=== PATIENT | female | born 1970 | race African-American/Black ===

== ENCOUNTER 2017-04-08 13:59 | Inpatient (IN) | payer OTHER ==
[~2017-04-08] VITALS: Ht 167.6 cm; Wt 106.1 kg
[2017-04-08 15:50] VITALS: BP 107/72
--- NOTE | 2017-04-08 15:50 | NUR ---
RN NOTES PT WAS BROUGHT TO UNIT, ALERT AND ORIENTED X4 AND AMBULATORY. PT ON RA, RESPIRATIONS ARE EVEN AND UNLABORED. NO IV PRESENT. SAFETY MEASURES ARE IN PLACE, CALL LIGHT IS IN REACH. WILL CONTINUE TO MONITOR.
[2017-04-08] MEDS ORDERED: METF500T4 PO (15:56)
[2017-04-08] MEDS ORDERED: BENA20TA2 PO (15:56)
[2017-04-08] MEDS ORDERED: RISP0.253 PO (15:56)
[2017-04-08] MEDS ORDERED: BLOO-668 IN (15:56)
[2017-04-08] MEDS ORDERED: NORE0.35 PO (15:56)
[2017-04-08] MEDS ORDERED: HYDR25TA4 PO (15:56)
[2017-04-08 16:00] VITALS: BP 107/72
[2017-04-08] MEDS ORDERED: MAG HYDROX/AL HYDROX/SIMETH 30 ML UDC PO PRN (16:00)
[2017-04-08] MEDS ORDERED: MAGNESIUM HYDROXIDE 30 ML UDC PO PRN (16:00)
[2017-04-08] MEDS: METFORMIN 500 MG TABLET PO SCH (17:03)
--- NOTE | 2017-04-08 18:35 | NUR ---
RN NOTES PT IS IN ROOM, WATCHING TV COMFORTABLY. PT ON RA, NO SIGNS OF DISTRESS NOTED. ALL MEDS WERE GIVEN ORDERED AND PT NEEDS MET. SAFETY MEASURES ARE IN PLACE, CALL LIGHT IS IN REACH. WILL ENDORSE TO HAT AND CAP PARTS CUTTER HAND RN FOR CONTINUITY OF CARE.
--- NOTE | 2017-04-08 19:42 | NUR ---
MS/RN OPENING NOTES PT AWAKE, RESTING COMFORTABLY IN BED. A/OX4. ON ROOM AIR, BREATHING EVEN AND UNLABORED. DENIES SOB OR PAIN. NO IV ACCESS. CLINICAL TRIAL. BED IN LOW/LOCKED POSITION WITH CALL LIGHT IN REACH. SIDE RAILS UPX2. WILL CONTINUE TO MONITOR
[2017-04-08 20:00] VITALS: BP 105/68
[2017-04-08 20:14] VITALS: BP 105/68
[2017-04-08] MEDS: risperiDONE 1 MG TABLET PO SCH (22:29)
--- NOTE | 2017-04-09 06:43 | NUR ---
MS/RN CLOSING NOTES PT ASLEEP, EASILY AROUSABLE TO NAME. A/OX4, ON ROOM AIR, BREATHING EVEN AND UNLABORED. NO S/S OF APPARENT DISTRESS NOTED. DENIES SOB OR PAIN. NO IV ACCESS. MADE PT COMFORTABLE DURING SHIFT. ALL NEEDS MET. SLEPT FOR APPROX 7 HOURS. BED IN LOW/LOCKED POSITION WITH CALL LIGHT IN REACH. SIDE RAILS UPX2. WILL ENDORSE TO AM SHIFT PJ.
--- NOTE | 2017-04-09 07:15 | NUR ---
RN OPENING NOTES PATIENT AWAKE, RESTING COMFORTABLY IN BED. A/OX4. ON ROOM AIR, BREATHING EVEN AND UNLABORED. NO ACUTE DISTRESS. DENIES SOB OR PAIN. NO IV ACCESS. CLINICAL TRIAL. BED IN LOW/LOCKED POSITION WITH CALL LIGHT IN REACH. SIDE RAILS UPX2. WILL CONTINUE TO MONITOR ACCORDINGLY.
[2017-04-09 08:00] VITALS: BP 116/70
[2017-04-09] MEDS ORDERED: NORETHINDRONE 0.35 MG PO SCH (09:00)
[2017-04-09] MEDS: BLOOD SUGAR DIAGNOSTIC 1 EACH STRIP IN SCH (09:00)
[2017-04-09] MEDS: HYDROCHLOROTHIAZIDE 25 MG TABLET PO SCH (10:14)
[2017-04-09] MEDS: METFORMIN 500 MG TABLET PO SCH ×2 (10:15→18:28)
[2017-04-09] MEDS: BENAZEPRIL HCL 20 MG TABLET PO SCH (10:15)
[2017-04-09 16:00] VITALS: BP 115/68
--- NOTE | 2017-04-09 19:20 | NUR ---
RN CLOSING NOTES PATIENT IN BED RESTING. NO ACUTE DISTRESS, NO SOB NOTED. DENIES PAIN OR DISCOMFORT. ALL NEEDS ATTENDED AND PROVIDED. BED IN LOW POSITION, LOCKED, SIDERAILS UP X2. CALL LIGHT WITHIN REACH. ENDORSED TO NIGHT RN FOR PJ.
--- NOTE | 2017-04-09 19:27 | NUR ---
MS RN OPENING NOTES RECEIVED PATIENT RESTING IN BED, NO C/O PAIN, NO SOB, NO ACUTE DISTRESS NOTED. A & O X 4. ON CLINICAL TRIAL. BRP, CONTINENT OF B & BM. NO IV ACCESS. SAFETY MEASURES IN PLACE. BED IN LOW LOCKED POSITION. CALL LIGHT WITHIN REACH. WILL CONTINUE TO MONITOR.
[2017-04-09 20:00] VITALS: BP 123/70
[2017-04-09] MEDS: LORAZEPAM 1 MG TABLET FOR AGITATION PO PRN (20:53)
--- NOTE | 2017-04-09 20:55 | NUR ---
PRN ATIVAN GIVEN PATIENT ASKED FOR ATIVAN, PRN ATIVAN GIVEN ORDERED. SAFETY PRECAUTIONS IN PLACE. WILL MONITOR CLOSELY.
[2017-04-09] MEDS: risperiDONE 1 MG TABLET PO SCH (22:22)
--- NOTE | 2017-04-10 02:40 | NUR ---
MS RN NOTES PATIENT SLEEPING COMFORTABLY. VISUAL CHECKS DONE.
--- NOTE | 2017-04-10 06:26 | NUR ---
MS RN CLOSING NOTES PATIENT SLEPT WELL @ NIGHT WITHOUT ANY CHANGE OF CONDITION. A & O X 4. NO C/O PAIN. MEDS GIVEN ORDERED & TOLERATED WELL. ON CLINICAL TRAIL, NO BEHAVIOR EPISODES NOTED. NO IV ACCESS. BED IN LOW LOCKED POSITION. CALL LIGHT WITHIN REACH. WILL ENDORSE TO AM RN FOR CONTINUITY OF CARE.
--- NOTE | 2017-04-10 07:46 | NUR ---
MS/RN OPENING NOTE PATIENT RECEIVED IN BED IN STABLE CONDITION. A/O X 4. NO SIGNS OF ACUTE DISTRESS. NO COMPLAIN OF PAIN OR DISCOMFORT. ALL NEEDS ATTENDED TO. CALL LIGHT WITHIN REACH. WILL CONTINUE TO MONITOR TO ENSURE SAFETY.
[2017-04-10 08:00] VITALS: BP 143/93
[2017-04-10] MEDS: BLOOD SUGAR DIAGNOSTIC 1 EACH STRIP IN SCH (08:54)
[2017-04-10] MEDS: METFORMIN 500 MG TABLET PO SCH ×2 (08:54→17:01)
[2017-04-10] MEDS: HYDROCHLOROTHIAZIDE 25 MG TABLET PO SCH (08:54)
[2017-04-10] MEDS: BENAZEPRIL HCL 20 MG TABLET PO SCH (08:54)
[2017-04-10] MEDS: LORAZEPAM 1 MG TABLET FOR AGITATION PO PRN (13:12)
[2017-04-10 16:11] VITALS: BP 125/75
--- NOTE | 2017-04-10 18:28 | NUR ---
MS/RN CLOSING NOTE PATIENT IN BED IN STABLE CONDITION. A/O X 4. NO SIGNS OF ACUTE DISTRESS. NO COMPLAIN OF PAIN OR DISCOMFORT. ALL NEEDS ATTENDED TO. CALL LIGHT WITHIN REACH. WILL ENDORSE TO NEXT SHIFT FOR CONTINUITY OF CARE.
--- NOTE | 2017-04-10 19:30 | NUR ---
RN NOTES: RECEIVED LYING COMFORTABLY IN BED,ALERT AND COHERENTX4,ON ROOM AIR,NO SIGN OF AGITATION OR PARANOIA NOTED,CALM AND LOOKS HAPPY UPON ENDORSEMENT,FALL AND SAFETY PRECAUTION OBSERVE, BED LOW AND LOCKED, CALL LIGHT WITHIN EASY REACH.
[2017-04-10 20:00] VITALS: BP 110/76
--- NOTE | 2017-04-10 20:50 | NUR ---
RN NOTES: ASLEEP DURING THE ROUNDS, BED LOW AND LOCKED, CALL LIGHT WITHIN EASY REACH, KEPT ON CLOSE VISUAL CHECK.
--- NOTE | 2017-04-10 22:00 | NUR ---
RN NOTES: DURING ROUNDS,ON DEEP SLEEP, SNORING, NO RESPIRATORY DISCOMFORT NOTED.
--- NOTE | 2017-04-10 23:00 | NUR ---
RN NOTES: PATIENT ENDORSED TO CEDRIC(RN).STABLE AND IN DEEP SLEEP.
--- NOTE | 2017-04-10 23:05 | NUR ---
RN OPENING NOTES TRANSFER PT RECEIVE REPORT FROM RENETTA COWART PT IN BED, A/OX 4, NO S/S OF DISTRESS NOTED. STABLE CONDITION. BREATHING EVEN AND UNLABORED, SAFETY MEASURES IN PLACE, BED LOCKED AND IN LOWEST POSITION, CALL LIGHT IN REACH. WILL CONTINUE TO MONITOR.
--- NOTE | 2017-04-11 06:32 | NUR ---
MS RN CLOSING NOTES RESTING IN BED ASLEEP AND EASILY AWAKEN. HOB ELEVATED FOR BETTER LUNG EXPANSION AND GOOD CIRCULATION. IN STABLE CONDITION NO S/S OF ACUTE DISTRESS, NO EPISODES OF AK[place]IA AND TREMORS, NO EPS OR PSYCHIATRIC INSTABILITY TOLERATING ROOM AIR 02 SAT 99% RESPIRATIONS EVEN AND UNLABORED. AFEBRILE, NURSING CARE RENDERED, NEEDS ATTENDED AND ANTICIPATED, KEPT CLEAN AND DRY AND COMFORTABLE. FREQUENT VISUAL CHECK DONE FOR SAFETY EVERY 2 HOURS. SAFE HAZARD FREE ENVIRONMENT PROVIDED. CALL LIGHT WITHIN EASY TO REACH, ON LOW BED AT ALL TIMES TO ENSURE SAFETY, WILL ENDORSE TO THE NEXT SHIFT CONTINUE PLAN OF CARE.
[2017-04-11 08:00] VITALS: BP 121/70
[2017-04-11] MEDS: METFORMIN 500 MG TABLET PO SCH ×2 (08:04→16:12)
[2017-04-11] MEDS: BENAZEPRIL HCL 20 MG TABLET PO SCH (08:04)
[2017-04-11] MEDS: BLOOD SUGAR DIAGNOSTIC 1 EACH STRIP IN SCH (08:05)
[2017-04-11] MEDS: HYDROCHLOROTHIAZIDE 25 MG TABLET PO SCH (08:05)
[2017-04-11 16:00] VITALS: BP 122/77
--- NOTE | 2017-04-11 19:30 | NUR ---
RN NOTES RECEIVED PATIENT AMBULATING. AO X 3, ABLE TO MAKE NEEDS KNOWN. NO ACUTE DISTRESS NOTED. DENIES ANY PAIN AT THIS TIME. NO IV SITE. SAFETY REMINDERS GIVEN. WILL CONTINUE TO MONITOR.
[2017-04-11 20:00] VITALS: BP 134/72
[2017-04-11] MEDS: risperiDONE 1 MG TABLET PO SCH (22:11)
--- NOTE | 2017-04-12 06:29 | NUR ---
RN NOTES PATIENT ASLEEP, EASILY AROUSABLE. RESPIRATIONS EVEN. NO SIGNS OF PAIN NOTED. DUE MED GIVEN WITH NO ASE NOTED. NEEDS ATTENDED. SAFETY PRECAUTIONS AND COMFORT MEASURES GIVEN. WILL GIVE REPORT TO DAY SHIFT FOR CONTINUITY OF CARE.
--- NOTE | 2017-04-12 07:30 | NUR ---
RN NOTES PATIENT ALERT AND ORIENTED X3, ABLE TO VERBALIZE NEEDS, NO DISTRESS NOTED, ALL NEEDS ATTENDED AND MET, SAFETY MEASURES IN PLACED, CALL LIGHT WITHIN REACH, WILL CONTINUE TO MONITOR.
[2017-04-12 08:00] VITALS: BP 119/80
[2017-04-12] MEDS: BLOOD SUGAR DIAGNOSTIC 1 EACH STRIP IN SCH (08:21)
[2017-04-12] MEDS: BENAZEPRIL HCL 20 MG TABLET PO SCH (08:21)
[2017-04-12] MEDS: METFORMIN 500 MG TABLET PO SCH ×2 (08:21→16:59)
[2017-04-12] MEDS: HYDROCHLOROTHIAZIDE 25 MG TABLET PO SCH (08:21)
--- NOTE | 2017-04-12 10:31 | NUR ---
RN NOTES PATIENT REPORTED A BOIL IN BETWEEN HER VAGINAL AREA AND RECTAL AREA AND ALSO A BUMP ON HER RIGHT GROIN. PATIENT REFUSED TO SHOW TO NURSE AT THIS TIME, INFORMED DR. CHURCHILL AND PER MD HE WILL CALL BACK FOR ORDERS.
--- NOTE | 2017-04-12 14:04 | NUR ---
RN NOTES PATIENT SEEN BY DR. CHURCHILL, RECEIVED NO NEW ORDER AT THIS TIME, PER MD CONTINUE TO MONITOR AT THIS TIME.
[2017-04-12 16:00] VITALS: BP 123/76
[2017-04-12] MEDS: LORAZEPAM 1 MG TABLET FOR AGITATION PO PRN (18:52)
--- NOTE | 2017-04-12 19:30 | NUR ---
RN OPEN NOTES RECEIVED PATIENT AMBULATING IN HALLWAY. A/O X3. NO SIGNS OF DISTRESS OR DISCOMFORT. BREATHING EVEN AND UNLABORED. NO IV ACCESS. BED IN LOW LOCKED POSITION WITH CALL LIGHT WITHIN REACH. WILL CONTINUE TO MONITOR.
--- NOTE | 2017-04-12 19:37 | NUR ---
RN NOTES PATIENT JUST RECEIVED ATIVAN FOR ANXIETY, NO DISTRESS NOTED, NO BEHAVIOR DISTURBANCE. PER PATIENT SHE JUST FELT ANXIOUS. ALL NEEDS ATTENDED AND MET, CALL LIGHT WITHIN REACH, WILL ENDORSE TO BUSINESS CHANGE MANAGER FOR PJ.
[2017-04-12 20:00] VITALS: BP 112/78
[2017-04-12] MEDS: risperiDONE 1 MG TABLET PO SCH (22:28)
--- NOTE | 2017-04-13 07:30 | NUR ---
RN OPENING NOTES RECEIVED PATIENT IN BED RESTING, RESPONSIVE, A/OX4. ABLE TO COMMUNICATE NEEDS. NO ACUTE DISTRESS, NO SOB NOTED. DENIES PAIN OR DISCOMFORT AT THE MOMENT. NO IV ACCESS. CLINICAL TRIAL. KEPT PATIENT SAFE AND COMFORTABLE. BED IN LOCKED, LOW POSITION, SIDERAILS UPX2, CALL LIGHT IN REACH. WILL CONTINUE TO MONITOR ACCORDINGLY.
[2017-04-13 08:00] VITALS: BP 129/49
--- NOTE | 2017-04-13 08:05 | NUR ---
RN CLOSING NOTES PATIENT RESTING IN BED. A/O X3. NO SIGNS OF DISTRESS OR DISCOMFORT. BREATHING EVEN AND UNLABORED. NO IV ACCESS. ALL NEEDS MET. NO SIGNIFICANT CHANGES THROUGH THE NIGHT. PATIENT SLEPT APPROX. 8 HOURS. NO BEHAVIORAL ISSUES NOTED THROUGH THE NIGHT. BED IN LOW LOCKED POSITION WITH CALL LIGHT WITHIN REACH. ENDORSED TO AM SHIFT FOR PJ.
[2017-04-13] MEDS: BLOOD SUGAR DIAGNOSTIC 1 EACH STRIP IN SCH (08:23)
[2017-04-13] MEDS: METFORMIN 500 MG TABLET PO SCH ×2 (08:24→17:20)
[2017-04-13] MEDS: BENAZEPRIL HCL 20 MG TABLET PO SCH (08:25)
[2017-04-13] MEDS: HYDROCHLOROTHIAZIDE 25 MG TABLET PO SCH (08:26)
[2017-04-13 16:00] VITALS: BP 118/67
[2017-04-13] MEDS: LORAZEPAM 1 MG TABLET FOR AGITATION PO PRN (18:50)
[2017-04-13 20:00] VITALS: BP 127/79
--- NOTE | 2017-04-13 20:00 | NUR ---
MS2 RN NOTES RECEIVED FROM 3RD FLOOR AMBULATORY,COMPLIANT WITH MEDS,FOLLOW INSTRUCTIONS.WILL CONTINUE TO MONITOR BEHAVIOR.
[2017-04-13 22:00] VITALS: BP 127/79
[2017-04-13] MEDS ORDERED: risperiDONE 0.25 MG TABLET PO SCH (22:00)
--- NOTE | 2017-04-14 06:25 | NUR ---
MS RN NOTES SLEPT 7 HOURS AT NIGHT,MED COMPLIANT,FOLLOW INSTRUCTIONS.WILL ENDORSE TO DAY NURSE FOR PJ.
[2017-04-14] MEDS: BLOOD SUGAR DIAGNOSTIC 1 EACH STRIP IN SCH (06:59)
--- NOTE | 2017-04-14 07:30 | NUR ---
MS RN AM NOTES PT ASLEEP, AROUSES TO NAME AND TOUCH, AAO X 4, ON ROOM AIR, NOT IN ANY DISTRESS. DENIES ANY PAIN AT THIS TIME. NO IV ACCESS. AMBULATORY, NO SKIN ISSUES. CALL LIGHT WITHIN REACH. BED LOW LOCKED. SR UP X 2, INSTRUCTED TO CALL FOR ASSISTANCE. SAFETY MEASURES IN PLACE. WILL CONTINUE TO MONITOR.
[2017-04-14 08:00] VITALS: BP 118/72
[2017-04-14 08:18] VITALS: BP 118/72
[2017-04-14] MEDS: NORETHINDRONE 0.35 MG PO SCH (08:49)
[2017-04-14] MEDS: HYDROCHLOROTHIAZIDE 25 MG TABLET PO SCH (08:50)
[2017-04-14] MEDS: METFORMIN 500 MG TABLET PO SCH ×2 (08:50→16:25)
[2017-04-14] MEDS: BENAZEPRIL HCL 20 MG TABLET PO SCH (08:50)
--- NOTE | 2017-04-14 09:30 | NUR ---
MS RN NOTES ADMINISTERED DUE MEDS.
[2017-04-14 16:00] VITALS: BP 120/79
[2017-04-14 18:00] VITALS: BP 120/79
--- NOTE | 2017-04-14 18:39 | NUR ---
MS RN NOTES PT RESTING IN BED, AAO X 4, ON ROOM AIR, NOT IN ANY DISTRESS. DENIES ANY PAIN AT THIS TIME. NO IV ACCESS. AMBULATORY, NO SKIN ISSUES. CALL LIGHT WITHIN REACH. BED LOW LOCKED. SR UP X 2, INSTRUCTED TO CALL FOR ASSISTANCE. VSS. SAFETY MEASURES IN PLACE. ALL NEEDS MET. WILL ENDORSE TO NEXT SHIFT FOR PJ. DR. CHURCHILL AT BEDSIDE EARLIER. NO NEW ORDERS.
--- NOTE | 2017-04-14 19:30 | NUR ---
RN NOTE; RECEIVED PT IN BED AWAKE AND ALERT. BREATHING EVENLY. NO SOB. NAD. NO BEHAVIORAL OR PSYCH ISSUES NOTED AT THIS TIME. REMINDER GIVEN RE NPO STATUS AND TO HOLD ATIVAN POST 2100 TONIGHT W/ UNDERSTANDING. NEEDS ATTENDED. CALL LIGHT WITHIN REACH. WILL CONT TO MONITOR,
[2017-04-14 20:00] VITALS: BP 124/97
[2017-04-14] MEDS: ZOLPIDEM TARTRATE 10 MG TABLET PO PRN (20:48)
--- NOTE | 2017-04-14 20:49 | NUR ---
KRIS GIVEN PER PT'S REQUEST FOR C/O INSOMNIA. WILL CONT TO MONITOR.
--- NOTE | 2017-04-15 06:38 | NUR ---
PT IN BED SLEEPING, AROUSES EASILY. BREATHING EVENLY. NO SOB.NO ACUTE CHANGES OVER THE NIGHT, NO BEHAVIORAL OR PSYCH PROBLEM. NPO FOR TODAY'S LAB AND START OF STUDY MEDICATION. NEEDS ATTENDED. CALL LIGHT WITHIN REACH. WILL CONT TO MONITOR AND WILL ENDORSE TO AM SHIFT FOR PJ.
[2017-04-15 08:00] VITALS: BP 121/81
[2017-04-15] MEDS: NORETHINDRONE 0.35 MG PO SCH (08:39)
[2017-04-15] MEDS: BLOOD SUGAR DIAGNOSTIC 1 EACH STRIP IN SCH (08:44)
[2017-04-15] MEDS: HYDROCHLOROTHIAZIDE 25 MG TABLET PO SCH (08:45)
[2017-04-15] MEDS: BENAZEPRIL HCL 20 MG TABLET PO SCH (08:45)
[2017-04-15] MEDS: METFORMIN 500 MG TABLET PO SCH ×2 (08:45→16:46)
--- NOTE | 2017-04-15 08:45 | NUR ---
MS RN NOTES PATIENT PICKED UP FOR BLOOD DRAW TO DR.S CHURCHILL'S OFFICE. ACCUCHECK DONE. BS 138 MG/DL
[2017-04-15] MEDS: INVEST MED MK-8189 MISC 1 TAB EA PO SCH (09:00)
[2017-04-15] MEDS: INVEST MED MK-8189 MISC 1 CAP EA PO SCH (09:00)
--- NOTE | 2017-04-15 11:00 | NUR ---
MS RN NOTES PATIENT BACK FROM MD'S CLINIC. FIRST DOSE OF INVESTIGATIONAL MEDICATIONS ADMINISTERED AT THEIR CLINIC.
[2017-04-15 16:00] VITALS: BP 129/71
[2017-04-15 18:00] VITALS: BP 129/71
[2017-04-15] MEDS: LORAZEPAM 1 MG TABLET FOR AGITATION PO PRN (18:51)
--- NOTE | 2017-04-15 19:30 | NUR ---
RN NOTE; RECEIVED PT IN BED AWAKE AND ALERT. BREATHING EVENLY. NO SOB. NAD. NO BEHAVIORAL OR PSYCH ISSUES NOTED AT THIS TIME. NO SI/HI. NEEDS ATTENDED. CALL LIGHT WITHIN REACH. WILL CONT TO MONITOR,
[2017-04-15 20:00] VITALS: BP 123/70
[2017-04-15 20:22] VITALS: BP 123/70
--- NOTE | 2017-04-16 07:30 | NUR ---
MS/RN Patient received Patient received from machine splitter. No needs at this time, denies pain or discomfort. Call light within reach, will continue to monitor and ensure safety.
--- NOTE | 2017-04-16 07:34 | NUR ---
RN NOTE; PT UP IN THE HALLWAY. W/ NO ACUTE EVENT DURING THE NIGHT. NO SI/HI. NO A/R TO STUDY MEDICATION NOTED. REPORT GIVEN TO SOFYA ROCK FOR PJ.
[2017-04-16 08:00] VITALS: BP 126/81
--- NOTE | 2017-04-16 08:05 | NUR ---
MS/RN Knee pain Patient complaining that knee was banged when getting out of bed. No swelling or redness noted. Small cut noted, cleaned with saline, band aid placed. Refused picture.
[2017-04-16] MEDS: METFORMIN 500 MG TABLET PO SCH ×2 (08:24→17:38)
[2017-04-16] MEDS: INVEST MED MK-8189 MISC 1 TAB EA PO SCH (08:24)
[2017-04-16] MEDS: NORETHINDRONE 0.35 MG PO SCH (08:24)
[2017-04-16] MEDS: INVEST MED MK-8189 MISC 1 CAP EA PO SCH (08:24)
[2017-04-16] MEDS: BLOOD SUGAR DIAGNOSTIC 1 EACH STRIP IN SCH (08:25)
[2017-04-16] MEDS: HYDROCHLOROTHIAZIDE 25 MG TABLET PO SCH (08:25)
--- NOTE | 2017-04-16 08:27 | NUR ---
MS/RN Medications Investigational medication administered as ordered, patient observed swallowing meds.
[2017-04-16] MEDS: BENAZEPRIL HCL 20 MG TABLET PO SCH (08:28)
--- NOTE | 2017-04-16 13:03 | NUR ---
MS/RN Behavior Has remained calm and cooperative with plan of care this morning .Has not required any prn medications for anxiety.
[2017-04-16 16:00] VITALS: BP 120/66
--- NOTE | 2017-04-16 18:19 | NUR ---
MS/RN End note Seen by Dr Aguilar - no new orders. Calm and cooperative throughout shift, no behavior concerns. Will endorse to maintenance supervisor 2nd shift.
--- NOTE | 2017-04-16 19:30 | NUR ---
MS2 RN INITIAL NOTE RECEIVED REPORT FROM DAY NURSE RN. PT HERE WITH A CLINICAL TRIAL. PT IS IN BED AWAKE. REQUESTING PRN ATIVAN FOR ANXIETY. PT IS A/A/O X4. LUNG SOUNDS CLEAR. BOWEL SOUNDS PRESENT. PULSES PRESENT. PT IS CONTINENT TO BOTH URINE AND STOOL. AMBULATORY WITH BRP. BED IN LOW LOCKED POSITION. CALL LIGHT WITHIN REACH. WILL CONTINUE TO MONITOR.
[2017-04-16] MEDS: LORAZEPAM 1 MG TABLET FOR AGITATION PO PRN (19:45)
[2017-04-16 20:00] VITALS: BP 125/76
--- NOTE | 2017-04-17 07:30 | NUR ---
MS/RN Patient received Patient received from sql server bi developer. No needs at this time, will continue to monitor.
--- NOTE | 2017-04-17 07:48 | NUR ---
MS/RN Laundry Per MD and patient's request, LONG TERM CARE PHARMACIST taking care of patient's laundry at this time.
[2017-04-17 08:00] VITALS: BP 126/72
[2017-04-17] MEDS: METFORMIN 500 MG TABLET PO SCH ×2 (09:00→17:15)
[2017-04-17] MEDS: NORETHINDRONE 0.35 MG PO SCH (09:00)
[2017-04-17] MEDS: HYDROCHLOROTHIAZIDE 25 MG TABLET PO SCH (09:00)
[2017-04-17] MEDS: BENAZEPRIL HCL 20 MG TABLET PO SCH (09:00)
[2017-04-17] MEDS: INVEST MED MK-8189 MISC 1 CAP EA PO SCH (09:00)
[2017-04-17] MEDS: INVEST MED MK-8189 MISC 1 TAB EA PO SCH (09:00)
--- NOTE | 2017-04-17 09:00 | NUR ---
MS/RN Medications Investigational medications (one capsule/one pill) administered as ordered, patient observed swallowing pills.
[2017-04-17] MEDS: BLOOD SUGAR DIAGNOSTIC 1 EACH STRIP IN SCH (09:01)
--- NOTE | 2017-04-17 09:05 | NUR ---
MS/RN Blood sugar Blood sugar at 0900 132, metformin administered as ordered.
--- NOTE | 2017-04-17 13:00 | NUR ---
MS/RN Behavior Calm and cooperative with plan of care.
[2017-04-17 16:00] VITALS: BP 119/62
--- NOTE | 2017-04-17 17:54 | NUR ---
MS/RN End note Patient remains in stable condition. No behavior concerns or outbursts. Has remained calm and cooperative. No prn medications given for anxiety. All needs met, will endorse to night shift supervisor.
[2017-04-17] MEDS: LORAZEPAM 1 MG TABLET FOR AGITATION PO PRN (19:33)
[2017-04-17 20:00] VITALS: BP 131/80
--- NOTE | 2017-04-17 20:00 | NUR ---
RN NOTES PATIENT IN BED, ALERT AND ORIENTED X4, CALM, NO SOB, NO DISTRESS, TOLERATING ROOM AIR, NO HALLUCINATIONS AT THIS TIME, REQUESTING ATIVAN, WILL GIVE ATIVAN. CALL LIGHT WITHIN REACH.
--- NOTE | 2017-04-18 07:26 | NUR ---
RN NOTES REPORT RECEIVED FROM EMPLOYMENT SECURITY OFFICER. PATIENT IS SLEEPING. NO SOB OR DISTRESS NOTED. PATIENT DOES NOT APPEAR TO BE IN PAIN, NO FACIAL GRIMACE NOTED. BED IN A LOW POSITION, CALL LIGHT WITHIN PATIENT REACH. WILL CONTINUE TO MONITOR.
[2017-04-18] MEDS: METFORMIN 500 MG TABLET PO SCH ×2 (08:02→16:46)
[2017-04-18] MEDS: NORETHINDRONE 0.35 MG PO SCH (08:02)
[2017-04-18] MEDS: HYDROCHLOROTHIAZIDE 25 MG TABLET PO SCH (08:02)
[2017-04-18] MEDS: BENAZEPRIL HCL 20 MG TABLET PO SCH (08:02)
[2017-04-18] MEDS: BLOOD SUGAR DIAGNOSTIC 1 EACH STRIP IN SCH (08:03)
[2017-04-18 08:14] VITALS: BP 115/73
[2017-04-18] MEDS: INVEST MED MK-8189 MISC 2 TAB EA PO SCH (08:25)
[2017-04-18] MEDS: INVEST MED MK-8189 MISC 2 CAP EA PO SCH (08:25)
[2017-04-18 15:59] VITALS: BP 117/62
[2017-04-18] MEDS: LORAZEPAM 1 MG TABLET FOR AGITATION PO PRN (19:02)
--- NOTE | 2017-04-18 19:15 | NUR ---
RN CLOSING NOTES NO SIGNIFICANT CHANGES IN PATIENT CONDITION. NO SOB OR DISTRESS NOTED AT THIS TIME. PATIENT DENIES PAIN. BED IN A LOW POSITION, CALL LIGHT WITHIN PATIENT REACH. WILL ENDORSE FOR PJ.
[2017-04-18 20:00] VITALS: BP 103/71
--- NOTE | 2017-04-18 20:00 | NUR ---
RN NOTES PATIENT IN BED, WATCHING TV, CALM AT THIS TIME, NO SOB, NO DISTRESS, DENIES HALLUCINATIONS, NO COMPLAIN OF PAIN. PATIENT DID DOES NOT NEED ANYTHING AT THIS TIME. KEPT SAFE AND COMFORTABLE, CALL LIGHT WITHIN REACH.
[2017-04-18 20:10] VITALS: BP_SYST 103; BP_SYST 90; BP_DIAS 42; BP_DIAS 71
--- NOTE | 2017-04-19 06:30 | NUR ---
RN NOTES PATIENT IN ROOM, ALERT AND ORIENTED X4, CALM, NO SOB, NO BEHAVIOR DISTURBANCE DURING SHIFT, SLEPT FOR 8.5 HOURS, KEPT SAFE AND COMFORTABLE, CALL LIGHT WITHIN REACH.
--- NOTE | 2017-04-19 07:30 | NUR ---
MS/RN Patient received Patient received from hourly shift manager. No needs at this time, call light within reach, will continue to monitor.
[2017-04-19 08:00] VITALS: BP 135/70
--- NOTE | 2017-04-19 08:00 | NUR ---
MS/RN Blood sugar Blood sugar 165, metformin to be administered.
[2017-04-19] MEDS: INVEST MED MK-8189 MISC 2 TAB EA PO SCH (08:11)
[2017-04-19] MEDS: INVEST MED MK-8189 MISC 2 CAP EA PO SCH (08:11)
[2017-04-19] MEDS: BLOOD SUGAR DIAGNOSTIC 1 EACH STRIP IN SCH (08:12)
[2017-04-19] MEDS: METFORMIN 500 MG TABLET PO SCH ×2 (08:12→16:49)
[2017-04-19] MEDS: HYDROCHLOROTHIAZIDE 25 MG TABLET PO SCH (08:12)
[2017-04-19] MEDS: NORETHINDRONE 0.35 MG PO SCH (08:12)
[2017-04-19] MEDS: BENAZEPRIL HCL 20 MG TABLET PO SCH (08:12)
--- NOTE | 2017-04-19 08:15 | NUR ---
MS/RN Medications Morning medications administered as ordered. Investigational medications administered at this time per patient request as wishing to take with breakfast.
--- NOTE | 2017-04-19 08:31 | NUR ---
MS/RN Pain [place] one tablet administered for abdominal pain 11/07. Will monitor effectiveness.
[2017-04-19] MEDS: LORAZEPAM 1 MG TABLET FOR AGITATION PO PRN ×2 (09:07→20:48)
--- NOTE | 2017-04-19 09:08 | NUR ---
MS/RN Ativan Ativan 1mg given for anxiety per patient request, will monitor effectiveness
--- NOTE | 2017-04-19 13:12 | NUR ---
MS/RN Behavior Has remained calm and cooperative this morning , no concerns or outbursts.
[2017-04-19 16:00] VITALS: BP 98/55
--- NOTE | 2017-04-19 18:27 | NUR ---
MS/RN End note Seen by Dr Aguilar - no new orders, to continue with current plan of care. No further prn medications required throughout the shift. Will endorse to supervisor wet end.
--- NOTE | 2017-04-19 19:15 | NUR ---
MS/RN OPENING NOTES PT AWAKE, A/OX4. RESTING COMFORTABLY IN BED WATCHING TV. ON ROOM AIR, BREATHING EVEN AND UNLABORED. NO IV ACCESS PER PROTOCOL. BED IN LOW/LOCKED POSITION WITH CALL LIGHT IN REACH. SIDE RAILS UPX2. WILL CONTINUE TO MONITOR
[2017-04-19 20:00] VITALS: BP 121/63
--- NOTE | 2017-04-19 20:35 | NUR ---
MS/RN NOTES SPOKE TO DR. CHURCHILL AND NOTIFIED HIM OF PT HAVING DIARRHEA AND REQUESTING MEDICATION. DR ORDERED IMODIUM 2MG PO Q4H PRN. ORDERS NOTED AND CARRIED OUT.
--- NOTE | 2017-04-19 20:50 | NUR ---
MS/RN NOTES PT ANXIOUS AND GIVEN ATIVAN FOR PT REQUEST
[2017-04-19] MEDS: LOPERAMIDE HCL (2 MG CAP) 2 MG CAPSULE PO PRN (21:35)
[2017-04-20] MEDS: BLOOD SUGAR DIAGNOSTIC 1 EACH STRIP IN SCH (06:56)
--- NOTE | 2017-04-20 07:30 | NUR ---
MS/RN CLOSING NOTES PT AWAKE, RESTING IN BED. A/OX4. ON ROOM AIR, BREATHING EVEN AND UNLABORED. DENIES PAIN. IS CALM AND COOPERATIVE AT THIS TIME. SLEPT FOR APPROX 8 HOURS. NO IV ACCESS PER PROTOCOL. DENIES S/I AND H/I. BED IN LOW/LOCKED POSITION WITH CALL LIGHT IN REACH. SIDE RAILS UPX2. WILL CONTINUE TO MONITOR.
[2017-04-20 08:00] VITALS: BP 129/70
[2017-04-20] MEDS: METFORMIN 500 MG TABLET PO SCH ×2 (08:56→16:59)
[2017-04-20] MEDS: BENAZEPRIL HCL 20 MG TABLET PO SCH (08:58)
[2017-04-20] MEDS: HYDROCHLOROTHIAZIDE 25 MG TABLET PO SCH (08:58)
[2017-04-20] MEDS: INVEST MED MK-8189 MISC 2 CAP EA PO SCH (08:59)
[2017-04-20] MEDS: INVEST MED MK-8189 MISC 2 TAB EA PO SCH (08:59)
[2017-04-20] MEDS: NORETHINDRONE 0.35 MG PO SCH (09:00)
--- NOTE | 2017-04-20 09:00 | NUR ---
MS RN OPENING NOTES PT A&0X3. PT HAS SHOWERED, ATTENDED TO PERSONAL HYGIENE AND IS ORGANIZING PERSONAL POSSESSIONS IN ROOM. PT TOLERATING ROOM AIR WITH NO SOB. PT REPORTING 8/10 EAR PAIN WHICH SHE REPORTS HAVING HAD FOR 1WEEK. PT IS WITHOUT IV ACCESS. PT BRIEFED ON TODAY'S POC AND IS WITHOUT CONCERNS OR COMPLAINTS AT THIS TIME. WILL CONTINUE TO MONITOR.
[2017-04-20] MEDS: IBUPROFEN 200 MG TABLET PO PRN (09:01)
--- NOTE | 2017-04-20 12:49 | NUR ---
MS/RN Behavior No behavior concerns or outbursts throughout the morning. Cooperative with plan of care.
[2017-04-20 16:00] VITALS: BP 114/63
[2017-04-20] MEDS: LORAZEPAM 1 MG TABLET FOR AGITATION PO PRN (16:59)
--- NOTE | 2017-04-20 17:33 | NUR ---
MS RN CLOSING NOTES PT A&0X2, RESTING WITH BED IN LOWEST LOCKED POSITION, HANDRAILSX2 AND CALL HASSAN WITHIN REACH. PT TOLERATING ROOM AIR WITH NO SOB. PT MAKING FREQUENT SHRIEKS AND WIMPERS BUT DENIES PAIN OR DISCOMFORT. PT WITH Ar Tanner#18 MIDLINE INTACT AND OPERATIONAL. ALL DAY NURSE DUTIES ATTENDED TO AND THE PT IS WITHOUT CONCERN OR COMPLAINT AT THIS TIME. WILL ENDORSE TO NIGHT NURSE. Addendum: 04/20/17 at 1750 by YRN NICHOLAS RN WRONG PT, RN NOTE DOES NOT APPLY TO THIS PT.
--- NOTE | 2017-04-20 17:51 | NUR ---
MS RN CORRECT CLOSING NOTES. PT A&0X3. BEHAVIORS APPROPRIATE AND COOPERATIVE WITH ALL NURSE ACTIVITIES. WATCHING MOVIE, BED IN LOWEST LOCKED POSITION, HANDRAILSX2 AND CALL HASSAN WITHIN REACH. PT TOLERATING ROOM AIR WITH NO SOB. ALL DAY NURSE DUTIES ATTENDED TO. THE PT IS WITHOUT CONCERN OR COMPLAINT AT THIS TIME. WILL ENDORSE TO NIGHT NURSE.
--- NOTE | 2017-04-20 19:49 | NUR ---
SEEN AND EXAMINED BY DR. CHURCHILL W/ A NEW ORDER FOR EAR DROP, WHICH WAS CORRECTED PER MD'S VERBAL ORDER FROM R TO L EAR. PT IS SLEEPING AT THIS TIME. W/ NO S/S OF PAIN OR DISCOMFORT. NO BEHAVIORAL ISSUES. CALL LIGHT WITHIN REACH. WILL CONT TO MONITOR ,
[2017-04-20 20:00] VITALS: BP 112/60
[2017-04-20] MEDS: ZOLPIDEM TARTRATE 10 MG TABLET PO PRN (21:29)
--- NOTE | 2017-04-20 21:30 | NUR ---
rigo given per pt's request for c/o insomnia. will cont to monitor,
--- NOTE | 2017-04-21 07:07 | NUR ---
PT RESTED WELL DURING THE NIGHT W/ NO PSYCH OR BEHAVIORAL ISSUES. NO C/O PAIN OR DISCOMFORT. REPORTED NO EPISODE OF DIARRHEA. NPO FOR BLOOD DRAW. NEEDS ATTENDED. CALL LIGHT WITHIN REACH. WILL CONT TO MONITOR,
--- NOTE | 2017-04-21 07:29 | NUR ---
PT NOT NPO
--- NOTE | 2017-04-21 07:55 | NUR ---
MS RN OPENING NOTE PATIENT IS ASLEEP AT THIS TIME, ABLE TO WAKE UP TO VERBAL COMMANDS. NO PAIN AT THIS TIME. NO SOB OR DISTRESS NOTED. CLINICAL TRIAL. NO IV ACCESS. WILL CONTINUE TO MONITOR THROUGHOUT SHIFT
[2017-04-21 08:00] VITALS: BP 100/61
[2017-04-21] MEDS: METFORMIN 500 MG TABLET PO SCH ×2 (08:30→16:07)
[2017-04-21] MEDS: NEOM/POLY B SULF/HC OTIC SUSP 10 ML BOTTLE LEFT EAR SCH ×3 (08:30→16:07)
[2017-04-21] MEDS: NORETHINDRONE 0.35 MG PO SCH (08:30)
[2017-04-21] MEDS: INVEST MED MK-8189 MISC 3 CAP EA PO SCH (08:30)
[2017-04-21] MEDS: BLOOD SUGAR DIAGNOSTIC 1 EACH STRIP IN SCH (08:30)
[2017-04-21] MEDS: INVEST MED MK-8189 MISC 3 TAB EA PO SCH (08:30)
[2017-04-21] MEDS ORDERED: NEOM/POLY B SULF/HC OTIC SUSP 10 ML BOTTLE RIGHT EAR SCH (09:00)
[2017-04-21] MEDS: HYDROCHLOROTHIAZIDE 25 MG TABLET PO SCH (09:00)
[2017-04-21 09:27] VITALS: BP 100/61
[2017-04-21] MEDS: BENAZEPRIL HCL 20 MG TABLET PO SCH (09:47)
[2017-04-21] MEDS: LORAZEPAM 1 MG TABLET FOR AGITATION PO PRN (14:57)
--- NOTE | 2017-04-21 15:00 | NUR ---
MS RN NOTE PATIENT REQUESTING ATIVAN FOR AGITATION. MEDICATION GIVEN
[2017-04-21] MEDS: LOPERAMIDE HCL (2 MG CAP) 2 MG CAPSULE PO PRN (15:34)
[2017-04-21 16:00] VITALS: BP_SYST 122; BP_SYST 130; BP_DIAS 60; BP_DIAS 66
--- NOTE | 2017-04-21 18:45 | NUR ---
MS RN CLOSING NOTE PATIENT IS ALERT AND ORIENTED x4. NO PAIN AT THIS TIME NO SOB OR DISTRESS NOTED. CALL LIGHT WITHIN REACH AT ALL TIMES. SAFETY MEASURES IMPLEMENTED. ABLE TO COMMUNICATE NEEDS. NO IV NEEDS. WILL ENDORSE TO SPRINKLER TENDER NURSE
[2017-04-21 20:00] VITALS: BP 114/61
[2017-04-21] MEDS: ZOLPIDEM TARTRATE 10 MG TABLET PO PRN (21:23)
--- NOTE | 2017-04-22 06:34 | NUR ---
MS RN NOTES AWAKE & RESPONSIVE. NOT IN ANY DISTRESS. NO SOB NOTED. DENIES ANY PAIN OR DISCOMFORT AT THIS TIME. MONITORED ACCORDINGLY. SLEPT FOR 8 HRS. CALL LIGHT WITHIN REACH. BED IN LOWEST POSITION. SR UP X2 FOR SAFETY. WILL ENDORSE TO NEXT SHIFT.
--- NOTE | 2017-04-22 07:46 | NUR ---
MS RN OPENING NOTE PATIENT IS ALERT AND ORIENTED x4. NO PAIN AT THIS TIME. NO SOB OR DISTRESS NOTED. CALL LIGHT WITHIN REACH. SAFETY MEASURES IMPLEMENTED. NO IV ACCESS. CLINICAL TRIAL. WILL CONTINUE TO MONITOR THROUGHOUT SHIFT
[2017-04-22 08:00] VITALS: BP 103/62
[2017-04-22] MEDS: BENAZEPRIL HCL 20 MG TABLET PO SCH (08:16)
[2017-04-22] MEDS: METFORMIN 500 MG TABLET PO SCH ×2 (08:16→16:27)
[2017-04-22] MEDS: NEOM/POLY B SULF/HC OTIC SUSP 10 ML BOTTLE LEFT EAR SCH ×3 (08:16→16:27)
[2017-04-22] MEDS: INVEST MED MK-8189 MISC 3 CAP EA PO SCH (08:16)
[2017-04-22] MEDS: NORETHINDRONE 0.35 MG PO SCH (08:16)
[2017-04-22] MEDS: BLOOD SUGAR DIAGNOSTIC 1 EACH STRIP IN SCH (08:16)
[2017-04-22] MEDS: HYDROCHLOROTHIAZIDE 25 MG TABLET PO SCH (08:16)
[2017-04-22] MEDS: INVEST MED MK-8189 MISC 3 TAB EA PO SCH (08:16)
[2017-04-22] MEDS: LORAZEPAM 1 MG TABLET FOR AGITATION PO PRN ×2 (10:07→18:31)
--- NOTE | 2017-04-22 10:10 | NUR ---
MS RN NOTE PER PATIENT'S REQUEST TO HAVE ATIVAN 1MG FOR ANXIETY. WILL CONTINUE TO MONITOR FOR EFFECTIVENESS
[2017-04-22 16:00] VITALS: BP 108/66
--- NOTE | 2017-04-22 18:16 | NUR ---
MS RN CLOSING NOTE PATIENT IS ALERT AND ORIENTED x4. NO PAIN AT THIS TIME. NO SOB OR DISTRESS NOTED. CALL LIGHT WITHIN REACH. SAFETY MEASURES IMPLEMENTED. NO IV ACCESS. CLINICAL TRIAL. NO AGGRESSIVE BEHAVIOR. PATIENT COMMUNICATES NEEDS. ALL DUE MEDICATIONS GIVEN ORDERED BY MD. WILL ENDORSE TO PROFESSOR OF RELIGION FOR PJ
--- NOTE | 2017-04-22 18:31 | NUR ---
MS RN NOTE PER PATIENT'S REQUEST TO HAVE ATIVAN FOR AGITATION/ANXIETY. 1MG GIVEN. WILL CONTINUE TO MONITOR FOR EFFECTIVENESS
--- NOTE | 2017-04-22 19:32 | NUR ---
MS RN NOTES ON BED WATCHING TV PROGRAM,DENIES ANY DISCOMFORTS AT THE MOMENT,CALL LIGHT IN REACH,NEEDS ANTICIPATED.
[2017-04-22 20:00] VITALS: BP 106/83
[2017-04-22 20:11] VITALS: BP 109/83
--- NOTE | 2017-04-23 06:27 | NUR ---
MS RN NOTES SLEPT ABOUT 10 HOURS AT NIGHT WITH OUT PHARMACOLOGICAL INTERVENTION. BLOOD SUGAR CHECK 117,NO INSULIN COVERAGE.WILL CONTINUE TO MONITOR BEHAVIOR.
[2017-04-23 08:00] VITALS: BP 107/76
--- NOTE | 2017-04-23 08:50 | NUR ---
MS RN RECEIVED ON BED, AWAKE,ALERT, ORIENTED X4 NOT IN ANY FORM OF DISTRESS, RESPIRATIONS EVEN AND UNLABORED,NO SOB NOTED. LUNGS ARE CLEAR,ABDOMEN SOFT,POSITIVE BOWEL SOUNDS, DENIES PAIN A THIS TIME, A CLINICAL TRIAL PATIENT OF DR. APONTE, WILL MONITOR PATIENT.
[2017-04-23] MEDS: HYDROCHLOROTHIAZIDE 25 MG TABLET PO SCH (09:33)
[2017-04-23] MEDS: METFORMIN 500 MG TABLET PO SCH ×2 (09:33→16:48)
[2017-04-23] MEDS: INVEST MED MK-8189 MISC 3 TAB EA PO SCH (09:34)
[2017-04-23] MEDS: BENAZEPRIL HCL 20 MG TABLET PO SCH (09:34)
[2017-04-23] MEDS: INVEST MED MK-8189 MISC 3 CAP EA PO SCH (09:34)
[2017-04-23] MEDS: BLOOD SUGAR DIAGNOSTIC 1 EACH STRIP IN SCH (09:35)
[2017-04-23] MEDS: NEOM/POLY B SULF/HC OTIC SUSP 10 ML BOTTLE LEFT EAR SCH (09:35)
[2017-04-23] MEDS: NORETHINDRONE 0.35 MG PO SCH (09:35)
--- NOTE | 2017-04-23 09:35 | NUR ---
MS COWART BREAKFAST SERVED,DUE MEDS GIVEN,TOLERATED WELL.
--- NOTE | 2017-04-23 11:00 | NUR ---
MS RN CALLED DR. CHURCHILL FOR ATB ORDER,PATIENT COMPLAIN OF EAR ACHE AFTER GIVING EAR DROPS, ATB PO WILL BE STARTED TONIGHT.
--- NOTE | 2017-04-23 14:00 | NUR ---
MS COWART ASK ANNIE WHITLOCK IF HE CAN SWITCH ATB TO PO, BUT WAS TOLD TO REINSERT ANOTHER MIDLINE. Addendum: 04/23/17 at 1731 by LETICIA SERRANO RN DISREGARD ENTRY, WRONG PATIENT.
--- NOTE | 2017-04-23 15:00 | NUR ---
MS COWART TRIED TO INSERT HEPLOCK BUT NO LUCK AFTER TRYING 2 TIMES. Addendum: 04/23/17 at 1728 by LETICIA SERRANO RN DISREGARD ENTRY,WRONG PATIENT.
[2017-04-23 16:00] VITALS: BP 101/71
--- NOTE | 2017-04-23 16:00 | NUR ---
MS RN WENT DOWN TO SMOKE,ALL NEEDS ATTENDED.
[2017-04-23] MEDS: IBUPROFEN 200 MG TABLET PO PRN (16:53)
--- NOTE | 2017-04-23 18:00 | NUR ---
MS RN IN THE ROOM ,NO DISTRESS NOTED.
--- NOTE | 2017-04-23 19:50 | NUR ---
GPS QUINTEN RN NOTE: PATIENT RESTING IN BED, NO ACUTE DISTRESS NOTED. BREATHING EVEN AND UNLABORED, NO SOB NOTED. PATIENT CALM AND COOPERATIVE. NO S/S OF HYPER/HYPOGLYCEMIA NOTED. BED LOCKED AND IN LOWEST POSITION, CALL LIGHT IN REACH. WILL CONTINUE TO MONITOR. Addendum: 04/23/17 at 1950 by DARIANA CONTRERAS RN MS COWART NOTE:
[2017-04-23 20:00] VITALS: BP 96/61
[2017-04-23] MEDS: AMOX/CLAVULANATE 250 MG TABLET PO SCH (21:10)
[2017-04-23] MEDS: ZOLPIDEM TARTRATE 10 MG TABLET PO PRN (21:10)
--- NOTE | 2017-04-23 21:10 | NUR ---
MS RN NOTE: PATIENT REQUEST FOR SLEEPING MEDICATIONS, AMBIEN 10MG ORAL GIVEN PER MD ORDER. WILL CONTINUE TO MONITOR.
--- NOTE | 2017-04-24 06:08 | NUR ---
MS RN NOTE: PATIENT RESTING IN BED, NO ACUTE DISTRESS NOTED. BREATHING EVEN AND UNLABORED, NO SOB NOTED. PATIENT CALM AND COOPERATIVE. NO S/S OF HYPER/HYPOGLYCEMIA NOTED. PATIENT SLEPT AT LEAST 6 HOURS. BED LOCKED AND IN LOWEST POSITION, CALL LIGHT IN REACH. WILL ENDORSE TO DAY NURSE TO CONTINUE WITH PLAN OF CARE.
--- NOTE | 2017-04-24 07:15 | NUR ---
RN NOTES: PATIENT RESTING IN BED. NONLABORED BREATHING ON ROOM AIR. PATIENT'S FACIAL EXPRESSIONS AND BODY EXPRESSIONS INDICATE CALMNESS. PATIENT DENIES PAIN. BED IN LOWEST LOCKED POSITION.CALL LIGHT WITHIN REACH. WILL CONTINUE TO MONITOR
[2017-04-24 08:00] VITALS: BP 97/59
[2017-04-24] MEDS: BLOOD SUGAR DIAGNOSTIC 1 EACH STRIP IN SCH (08:08)
[2017-04-24] MEDS: AMOX/CLAVULANATE 250 MG TABLET PO SCH ×2 (08:09→20:20)
[2017-04-24] MEDS: INVEST MED MK-8189 MISC 3 TAB EA PO SCH (08:13)
[2017-04-24] MEDS: INVEST MED MK-8189 MISC 3 CAP EA PO SCH (08:13)
[2017-04-24] MEDS: METFORMIN 500 MG TABLET PO SCH ×2 (08:13→17:02)
[2017-04-24] MEDS: NORETHINDRONE 0.35 MG PO SCH ×2 (09:00→09:40)
[2017-04-24] MEDS: BENAZEPRIL HCL 20 MG TABLET PO SCH (09:39)
[2017-04-24] MEDS: HYDROCHLOROTHIAZIDE 25 MG TABLET PO SCH (09:39)
--- NOTE | 2017-04-24 09:50 | NUR ---
RN NOTES: PATIENT REFUSING HOME MEDICATION, CONTROL. BENEFITS AND RISKS EXPLAINED. PATIENT STATES BEING ON HER PERIOD AND IS REFUSING TO TAKE IT
[2017-04-24] MEDS: LORAZEPAM 1 MG TABLET FOR AGITATION PO PRN (15:07)
--- NOTE | 2017-04-24 15:07 | NUR ---
RN NOTES: PATIENT STATES FEELING ANXIOUS. FACIAL AND BODY EXPRESSIONS INDICATE ANXIETY. ATIVAN ADMINISTERED PER ORDERS. WILL CONTINUE TO MONITOR
[2017-04-24 16:00] VITALS: BP 109/84
--- NOTE | 2017-04-24 16:07 | NUR ---
RN NOTES: PATIENT STATES FEELING BETTER AFTER THE ATIVAN. NO SIGNS OF ANXIETY. NONLABORED BREATHING. FACIAL EXPRESSIONS INDICATE CALMNESS
--- NOTE | 2017-04-24 18:47 | NUR ---
RN CLOSING NOTES: PATIENT RESTING IN BED. NONLABORED BREATHING ON ROOM AIR. PATIENT'S FACIAL EXPRESSIONS AND BODY EXPRESSIONS INDICATE CALMNESS. PATIENT DENIES PAIN AT THE MOMENT. BED IN LOWEST LOCKED POSITION.CALL LIGHT WITHIN REACH. WHEN ASKED ABOUT HALLUCINATIONS, PATIENT STATED THAT SHE STILL FEELS THE SAME REGARDING VISUAL AND AUDITORY HALLUCINATIONS. WHEN ASKED ABOUT SPECIFICS, PATIENT DOES NOT WISH TO DISCUSS. PATIENT DENIES SI.
[2017-04-24 20:00] VITALS: BP 116/65
--- NOTE | 2017-04-24 20:04 | NUR ---
RN NOTES PATIENT IN BED, ALERT AND ORIENTED X4, ON CLINICAL TRIAL, CALM, ADMITTED TO AUDITORY HALLUCINATIONS, DECLINED TO SAY SPECIFIC HALLUCINATION. NO SOB, NO COMPLAIN OF PAIN. KEPT SAFE AND COMFORTABLE, CALL LIGHT WITHIN REACH.
[2017-04-24] MEDS: IBUPROFEN 200 MG TABLET PO PRN (20:45)
--- NOTE | 2017-04-24 20:47 | NUR ---
RN NOTES COMPLAINING OF EARACHE, GIVEN MOTRIN 600 MG PO PRN. WILL CONTINUE TO MONITOR
--- NOTE | 2017-04-24 20:49 | NUR ---
RN NOTES PATIENT COMPLAINING OF DIARRHEA, GIVEN IMODIUM PO
[2017-04-24] MEDS: ZOLPIDEM TARTRATE 10 MG TABLET PO PRN (21:16)
[2017-04-24] MEDS: LOPERAMIDE HCL (2 MG CAP) 2 MG CAPSULE PO PRN (21:20)
--- NOTE | 2017-04-24 21:50 | NUR ---
RN NOTES PATIENT VERBALIZED RELIEF FROM EARACHE AFTER MOTRIN
--- NOTE | 2017-04-25 06:55 | NUR ---
RN NOTES PATIENT IS RESTING COMFORTABLY IN BED, RESPIRATION EVEN AND UNLABORED, DENIES ANY PAIN AT THIS TIME, NO BEHAVIOR DISTURBANCE DURING SHIFT, PROVIDED MOTRIN FOR EARACHE AND IMODIUM FOR DIARRHEA. SLEPT FOR 7 HOURS. ALL NEEDS ATTENDED, CALL LIGHT WITHIN REACH
--- NOTE | 2017-04-25 07:20 | NUR ---
RN NOTES: PATIENT RESTING IN BED. NONLABORED BREATHING NOTED. NO SIGNS OF DISTRESS NOTED. PATIENT DENIES PAIN. PATIENT ALERT ORIENTED X4. BED IN LOWEST LOCKED POSITION. CALL LIGHT WITHIN REACH. SAFETY MEASURES IMPLEMENTED. WILL CONTINUE TO MONITOR
[2017-04-25 08:00] VITALS: BP 119/69
[2017-04-25] MEDS: BENAZEPRIL HCL 20 MG TABLET PO SCH (08:59)
[2017-04-25] MEDS: NORETHINDRONE 0.35 MG PO SCH ×2 (09:00→09:08)
[2017-04-25] MEDS: HYDROCHLOROTHIAZIDE 25 MG TABLET PO SCH (09:01)
[2017-04-25] MEDS: METFORMIN 500 MG TABLET PO SCH ×2 (09:06→16:19)
[2017-04-25] MEDS: AMOX/CLAVULANATE 250 MG TABLET PO SCH ×2 (09:06→20:01)
[2017-04-25] MEDS: INVEST MED MK-8189 MISC 3 CAP EA PO SCH (09:07)
[2017-04-25] MEDS: INVEST MED MK-8189 MISC 3 TAB EA PO SCH (09:07)
[2017-04-25] MEDS: BLOOD SUGAR DIAGNOSTIC 1 EACH STRIP IN SCH (09:11)
--- NOTE | 2017-04-25 09:12 | NUR ---
RN NOTES: BLOOD SUGAR 218. PATIENT ATE BREAKFAST BEFORE BLOOD SUGAR CHECKS. PATIENT REFUSED HOME MEDICATION, CONTROL, STATING THAT SHE HAS HER PERIOD. BENEFITS AND RISKS EXPLAINED
[2017-04-25] MEDS: ACETAMINOPHEN ES 500 MG TABLET PO PRN ×2 (10:47→19:53)
--- NOTE | 2017-04-25 10:49 | NUR ---
RN NOTES: PATIENT STATES HAVING ACHING EAR PAIN, RELIEVED WITH DISTRACTION, THAT SHE HAS BEEN FEELING FOR THE LAST FEW DAYS. MD AWARE OF THAT. TYLENOL ADMINISTERED PER ORDERS. WILL CONTINUE TO MONITOR
--- NOTE | 2017-04-25 11:45 | NUR ---
RN NOTES: PATIENT STATES FEELING SOME RELIEF WITH TYLENOL. WILL CONTINUE TO MONITOR. MILD ACHING STILL PRESENT ACCORDING TO PATIENT.
[2017-04-25] MEDS: LORAZEPAM 1 MG TABLET FOR AGITATION PO PRN (12:07)
--- NOTE | 2017-04-25 12:10 | NUR ---
RN NOTES: PATIENT STATES FEELING ANXIOUS, NONLABORED BREATHING NOTED. SPO2 WNL. PATIENT EDUCATED ON DEEP BREATHING, RELAXATION TECHNIQUES. ATIVAN ADMINISTERED PER ORDERS. WILL CONTINUE TO MONITOR PATIENT
[2017-04-25 16:00] VITALS: BP 133/74
[2017-04-25] MEDS: LOPERAMIDE HCL (2 MG CAP) 2 MG CAPSULE PO PRN (16:20)
--- NOTE | 2017-04-25 17:40 | NUR ---
RN NOTES: PATIENT TRANSFERRED TO [facility] TO ROOM 319-1. PATIENT STABLES, ALL CURRENT BELONGINGS TAKEN TO NEW ROOM
--- NOTE | 2017-04-25 18:48 | NUR ---
RN CLOSING NOTES: PATIENT RESTING IN BED. NONLABORED BREATHING NOTED. NO SIGNS OF DISTRESS NOTED. PATIENT DENIES PAIN. PATIENT ALERT ORIENTED X4. BED IN LOWEST LOCKED POSITION. CALL LIGHT WITHIN REACH. SAFETY MEASURES IMPLEMENTED. PATIENT STATES HAVING "SAME" WHEN ASKED ABOUT HALLUCINATIONS, WISHES NOT TO ELABORATE. DURING SHIFT, PATIENT GIVEN IMMODIUM. PATIENT STATES NOT HAVING DIARRHEA AFTER MEDICATION. WILL ENDORSE TO NEXT SHIFT
--- NOTE | 2017-04-25 18:51 | NUR ---
RN CLOSING NOTES: PATIENT RESTING IN BED. NONLABORED BREATHING NOTED. NO SIGNS OF DISTRESS NOTED. PATIENT DENIES PAIN. PATIENT ALERT ORIENTED X4. BED IN LOWEST LOCKED POSITION. CALL LIGHT WITHIN REACH. SAFETY MEASURES IMPLEMENTED. PATIENT STATES HAVING "SAME" WHEN ASKED ABOUT HALLUCINATIONS, WISHES NOT TO ELABORATE. DURING SHIFT, PATIENT GIVEN IMMODIUM. PATIENT STATES NOT HAVING DIARRHEA AFTER MEDICATION. PATIENT DENIES SUICIDAL IDEATIONS. WILL ENDORSE TO NEXT SHIFT
[2017-04-25] MEDS: ZOLPIDEM TARTRATE 10 MG TABLET PO PRN (19:01)
--- NOTE | 2017-04-25 19:05 | NUR ---
RN NOTES: PATIENT STATES HAVING DIFFICULTY SLEEPING. PATIENT REQUESTING AMBIEN, STATING THAT SHE IS TRYING TO SLEEP RIGHT NOW, AND THAT HER BEDTIME IS EARLY FOR TONIGHT. NONLABORED BREATHING NOTED. NO SIGNS OF DISTRESS. AMBIEN ADMINISTERED. PATIENT KEPT CLEAN AND COMFORTABLE. CALL LIGHT WITHIN REACH. WILL ENDORSE TO NEXT SHIFT
--- NOTE | 2017-04-25 19:30 | NUR ---
RN NOTE; RECEIVED PT RESTING IN BED . BREATHING EVENLY. NAD. STILL W/ C/O EARACHE. TO BE MEDICATED FOR PAIN. ON ONGOING PO ATB. NO BEHAVIORAL ISSUES NOTED. NEEDS ATTENDED. CALL LIGHT WITHIN REACH, WILL CONT TO MONITOR .
--- NOTE | 2017-04-25 19:56 | NUR ---
TYLENOL 1000MG GIVEN ORDERED PER PT'S REQUEST FOR C/O EARACHE. WILL CONT TO MONITOR.
[2017-04-25 20:00] VITALS: BP 126/68
--- NOTE | 2017-04-26 07:16 | NUR ---
rn note PT IN BED SLEEPING , AROUSES EASILY. BREATHING EVENLY. NO S.S OR C/O PAIN OR DISCOMFORT. EAR PAIN RELIVED BY TYLENOL. HAD A GOOD NIGHT SLEEP W/ BEHAVIORAL ISSUES. REPORT GIVEN TO KOURTNEY FOR PJ.
[2017-04-26 08:00] VITALS: BP 122/77
[2017-04-26] MEDS: NORETHINDRONE 0.35 MG PO SCH (09:00)
[2017-04-26] MEDS: INVEST MED MK-8189 MISC 3 TAB EA PO SCH (09:11)
[2017-04-26] MEDS: INVEST MED MK-8189 MISC 3 CAP EA PO SCH (09:11)
[2017-04-26] MEDS: METFORMIN 500 MG TABLET PO SCH ×2 (09:13→16:39)
[2017-04-26] MEDS: AMOX/CLAVULANATE 250 MG TABLET PO SCH ×2 (09:14→20:04)
[2017-04-26] MEDS: BENAZEPRIL HCL 20 MG TABLET PO SCH (09:15)
[2017-04-26] MEDS: HYDROCHLOROTHIAZIDE 25 MG TABLET PO SCH (09:16)
[2017-04-26] MEDS: BLOOD SUGAR DIAGNOSTIC 1 EACH STRIP IN SCH (09:20)
[2017-04-26] MEDS: IBUPROFEN 200 MG TABLET PO PRN ×2 (11:49→20:57)
--- NOTE | 2017-04-26 11:50 | NUR ---
RN NOTES PATIENT COMPLAINED OF EARACHE, ASKED FOR MOTRIN, MOTRIN GIVEN ORDERED. WILL REASSESS PATIENT.
--- NOTE | 2017-04-26 13:00 | NUR ---
RN NOTES ASSESSED PATIENT'S EARACHE, VERBALIZED RELIEF.
[2017-04-26] MEDS: LOPERAMIDE HCL (2 MG CAP) 2 MG CAPSULE PO PRN ×2 (15:25→20:06)
[2017-04-26 16:00] VITALS: BP 103/75
[2017-04-26] MEDS: ACETAMINOPHEN ES 500 MG TABLET PO PRN (17:25)
--- NOTE | 2017-04-26 17:30 | NUR ---
RN NOTES PATIENT ASKING FOR TYLENOL FOR EARACHE, TYLENOL GIVEN ORDERED. WILL REASSESSED PATIENT.
--- NOTE | 2017-04-26 18:25 | NUR ---
RN NOTES REASSESSED PATIENT'S EARACHE, VERBALIZED PAIN RELIEF.
--- NOTE | 2017-04-26 19:13 | NUR ---
RN CLOSING NOTES PATIENT IN BED RESTING. NO ACUTE DISTRESS, NO SOB NOTED. ALL NEEDS ATTENDED AND PROVIDED. KEPT PATIENT SAFE AND COMFORTABLE. BED IN LOCKED, LOW POSITION, SIDERAILS UPX2, CALL LIGHT IN REACH. ENDORSED TO NIGHT RN FOR PJ.
--- NOTE | 2017-04-26 19:23 | NUR ---
RN NOTE; RECEIVED PT RESTING IN BED . BREATHING EVENLY.BREATHING EVENLY AND UNLABORED ON RA. DENIES PAIN AT THIS TIME. ON ONGOING PO ATB FOR EAR ACHE.BED IS IN LOW AND LOCKED POSITION, CALL LIGHT WITHIN REACH, WILL CONT TO MONITOR .
[2017-04-26 20:00] VITALS: BP 126/70
[2017-04-26] MEDS: ZOLPIDEM TARTRATE 10 MG TABLET PO PRN (20:57)
--- NOTE | 2017-04-27 06:07 | NUR ---
MS RN CLOSING NOTES PT IS IN BED RESTING. NO SIGNS OF SOB OR DISTRESS. BREATHING EVENLY AND UNLABORED. NO ACUTE CHANGES THROUGHOUT THE SHIFT. BED IS IN LOW AND LOCKED POSITION, CALL LIGHT WITHIN REACH. WILL ENDORSE TO DAYSHIFT
--- NOTE | 2017-04-27 07:46 | NUR ---
RN OPENING NOTES PATIENT IN BED, ASLEEP BUT CAN BE EASILY AWOKEN, ALERT AND ORIENTED X 4, NOTED WITH NO SOB, BREATHING EVEN AND UNLABORED, NO C/O PAIN, NO SIGNS AND SYMPTOMS OF ACUTE DISTRESS. ALL PATIENT'S NEEDS ATTENDED TO, KEPT PATIENT SAFE AND DRY CLEAN AND COMFORTABLE, CALL LIGHT PLACED WITHIN EASY REACH. WILL CONTINUE TO MONITOR.
[2017-04-27 08:00] VITALS: BP 108/66
[2017-04-27] MEDS: BLOOD SUGAR DIAGNOSTIC 1 EACH STRIP IN SCH (08:25)
[2017-04-27] MEDS: AMOX/CLAVULANATE 250 MG TABLET PO SCH ×2 (08:25→20:32)
[2017-04-27] MEDS: INVEST MED MK-8189 MISC 3 CAP EA PO SCH (08:26)
[2017-04-27] MEDS: INVEST MED MK-8189 MISC 3 TAB EA PO SCH (08:26)
[2017-04-27] MEDS: METFORMIN 500 MG TABLET PO SCH ×2 (08:26→17:16)
--- NOTE | 2017-04-27 08:30 | NUR ---
MS/RN Medications Clinical trial medications administered as ordered.
[2017-04-27] MEDS: LOPERAMIDE HCL (2 MG CAP) 2 MG CAPSULE PO PRN (08:53)
[2017-04-27] MEDS: IBUPROFEN 200 MG TABLET PO PRN ×2 (08:53→18:43)
[2017-04-27] MEDS: BENAZEPRIL HCL 20 MG TABLET PO SCH (09:00)
[2017-04-27] MEDS: NORETHINDRONE 0.35 MG PO SCH (09:00)
[2017-04-27] MEDS: HYDROCHLOROTHIAZIDE 25 MG TABLET PO SCH (10:10)
[2017-04-27 16:00] VITALS: BP 113/75
--- NOTE | 2017-04-27 18:41 | NUR ---
PATIENT SEEN AND EXAMINED BY DR. CHURCHILL. PATIENT WITH COMPLAINT OF ITCHING ON RIGHT SIDE OF HER ABDOMEN AND ON HER LEFT UPPER CHEST. DR. CHURCHILL WITH NEW ORDER FOR BENADRYL FOR ITCHING. ALL ORDERS NOTED AND CARRIED OUT, PATIENT UNDERSTANDS AND AGREES WITH PLAN OF CARE.
[2017-04-27] MEDS: diphenhydrAMINE HCL 25 MG CAPSULE PO PRN (18:53)
--- NOTE | 2017-04-27 18:54 | NUR ---
RN CLOSING NOTES PATIENT IN BED, ALERT AND ORIENTED, COMFORTABLE, WITH NO C/O PAIN, NO S/S OF ACUTE DISTRESS. ALL DUE MEDICATION ADMINISTERED. KEPT PT SAFE AND DRY, CLEAN AND COMFORTABLE. CALL LIGHT PLACED WITHIN EASY REACH.
--- NOTE | 2017-04-27 19:45 | NUR ---
MS RN NOTES RECEIVED ON BED WATCHING TV PROGRAM,DENIES PAIN AT THE MOMENT ON HER EARS.ABLE TO VERBALIZED NEEDS.CALL LIGHT IN REACH,NEEDS ANTICIPATED.
[2017-04-27 19:53] VITALS: BP 119/72
[2017-04-27 20:00] VITALS: BP 119/72
--- NOTE | 2017-04-27 20:18 | NUR ---
MS RN NOTES WENT DOWN TO SMOKE ACCOMPANIED BY JENNY AHUJA
--- NOTE | 2017-04-27 20:30 | NUR ---
MS RN NOTES CAME BACK IN STABLE CONDITION.CLAIMED SHE WANTS TO SLEEP,SHE NEEDS HER SLEEPING PILL.
[2017-04-27] MEDS: ZOLPIDEM TARTRATE 10 MG TABLET PO PRN (20:31)
--- NOTE | 2017-04-27 20:31 | NUR ---
MS RN NOTES MEDICATED WITH AMBIEN 10MG PO ORDERED PER PATIENT REQUEST.
[2017-04-28] MEDS: BLOOD SUGAR DIAGNOSTIC 1 EACH STRIP IN SCH (06:08)
--- NOTE | 2017-04-28 06:15 | NUR ---
MS RN NOTES ACCU-CHECK BLOOD SUGAR CHECK 94,NO INSULIN COVERAGE.
--- NOTE | 2017-04-28 06:45 | NUR ---
MS RN NOTES SLEPT 9 HOURS AT [facility],FOLLOW INSTRUCTION,CALL LIGHT IN REACH,NEEDS ATTENDED.WILL ENDORSE TO DAY NURSE FOR PJ.
--- NOTE | 2017-04-28 07:33 | NUR ---
RN MS NOTES PATIENT ASLEEP BUT EASILY AROUSABLE, DENIES PAIN OR DISCOMFORT, BREATHING EVEN AND UNLABORED, NO SOB NOTED, NEEDS ATTENDED AND MET, CALL LIGHT WITHIN REACH, SAFETY MEASURES IN PLACED, WILL CONTINUE TO MONITOR.
[2017-04-28 08:00] VITALS: BP 101/44
[2017-04-28] MEDS: INVEST MED MK-8189 MISC 3 TAB EA PO SCH (08:49)
[2017-04-28] MEDS: diphenhydrAMINE HCL 25 MG CAPSULE PO PRN (08:49)
[2017-04-28] MEDS: METFORMIN 500 MG TABLET PO SCH ×2 (08:49→16:41)
[2017-04-28] MEDS: INVEST MED MK-8189 MISC 3 CAP EA PO SCH (08:49)
[2017-04-28] MEDS: IBUPROFEN 200 MG TABLET PO PRN (08:49)
[2017-04-28] MEDS: AMOX/CLAVULANATE 250 MG TABLET PO SCH ×2 (08:49→20:10)
[2017-04-28] MEDS: NORETHINDRONE 0.35 MG PO SCH ×2 (08:52→09:00)
[2017-04-28] MEDS: BENAZEPRIL HCL 20 MG TABLET PO SCH (09:00)
[2017-04-28] MEDS: HYDROCHLOROTHIAZIDE 25 MG TABLET PO SCH (09:00)
[2017-04-28 16:00] VITALS: BP 100/59
--- NOTE | 2017-04-28 17:40 | NUR ---
RN MS NOTES PATIENT SEEN BY DR. CHURCHILL, PER MD, PATIENT MUST BE NPO AFTER 9PM, AND IS SCHEDULED TO GO TO DR. CHURCHILL'S OFFICE IN AM FOR LAB DRAW. PATIENT'S AM MEDICATIONS MUST BE HELD UNTIL THE PATIENT COMES BACK FROM THE OFFICE.
--- NOTE | 2017-04-28 18:36 | NUR ---
RN MS NOTES PATIENT ALERT AND ORIENTED X3, NO DISTRESS NOTED. ALL DUE MEDS GIVEN ORDERED, COOPERATIVE AND CALM. NO VIOLENT RESPONSES NOTED. ALL NEEDS ATTENDED AND MET, CALL LIGHT WITHIN REACH, WILL ENDORSE TO AUTOMOTIVE ELECTRICIAN HELPER FOR PJ.
--- NOTE | 2017-04-28 19:40 | NUR ---
MS RN OPENING NOTES PT IS IN BED RESTING, NO SIGNS OF SOB OR DISTRESS. BREATHING EVENLY AND UNLABORED ON RA. COMPLAINTS OF RASH THAT HAS DEVELOPED AFTER ANTIBIOTICS. PICTURES ARE TO BE TAKEN. DENIES PAIN. NPO AFTER 2100 TONIGHT, PT AWARE. BED IS IN LOW AND LOCKED POSITION, CALL LIGHT IS WITHIN REACH. WILL CONTINUE TO MONITOR PT
--- NOTE | 2017-04-28 19:55 | NUR ---
MS RN NOTES CONTACTED DR CHURCHILL REGARDING RASH, PER DR -CONTINUE ANTIBIOTICS AND HE WILL ADDRESS THE ISSUE WITH THE PT TOMORROW
[2017-04-28 20:00] VITALS: BP 127/72
[2017-04-28] MEDS: ZOLPIDEM TARTRATE 10 MG TABLET PO PRN (20:44)
--- NOTE | 2017-04-29 06:13 | NUR ---
MS RN CLOSING NOTES PT IS IN BED, NO ACUTE CHANGES THROUGHOUT THE SHIFT. NPO SINCE 2100, LABS TO BE DRAWN TODAY. BED IS IN LOW AND LOCKED POSITION, CALL LIGHT WITHIN REACH. F/U WITH MD REGARDING RASH. WILL ENDORSE TO DAYSHIFT.
--- NOTE | 2017-04-29 07:48 | NUR ---
MS RN: INITIAL NOTE RECEIVED PT A/OX4. ON MS. NO DISTRESS NOTED. NO SOB NOTED. NO PAIN NOTED. BRP. AMBULATORY. ON REGULAR DIET. BUT NPO TODAY DUE TO LABS PER MD ORDER. RESTING COMFORTABLY IN BED. CALL LIGHT WITHIN REACH.
[2017-04-29 08:00] VITALS: BP 119/76
[2017-04-29] MEDS: BLOOD SUGAR DIAGNOSTIC 1 EACH STRIP IN SCH (08:12)
--- NOTE | 2017-04-29 08:46 | NUR ---
PT LEFT FOR LABS DUE TO CLINICAL TRIAL WITH NURSE FROM MD CHURCHILL.
[2017-04-29] MEDS: METFORMIN 500 MG TABLET PO SCH ×2 (09:00→17:57)
[2017-04-29] MEDS: NORETHINDRONE 0.35 MG PO SCH (09:00)
--- NOTE | 2017-04-29 09:15 | NUR ---
RETURNED FROM LABS WITH NURSE OF MD CHURCHILL. ALL MEDS GIVEN ORDERED.
[2017-04-29] MEDS: AMOX/CLAVULANATE 250 MG TABLET PO SCH ×2 (09:35→21:00)
[2017-04-29] MEDS: INVEST MED MK-8189 MISC 3 TAB EA PO SCH (09:35)
[2017-04-29] MEDS: BENAZEPRIL HCL 20 MG TABLET PO SCH (09:35)
[2017-04-29] MEDS: INVEST MED MK-8189 MISC 3 CAP EA PO SCH (09:35)
[2017-04-29] MEDS: HYDROCHLOROTHIAZIDE 25 MG TABLET PO SCH (09:35)
--- NOTE | 2017-04-29 09:39 | NUR ---
DID NOT ADMIN METFORMIN DUE TO BG BEING 94. PT DID NOT WANT TO EAT BREAKFAST.
--- NOTE | 2017-04-29 10:02 | NUR ---
GAVE REPORT TO OSCAR COWART TO TAKE OVER PT.
--- NOTE | 2017-04-29 11:10 | NUR ---
RN NOTES RECEIVED PT. PT IS STABLE AND RESTING IN BED. A/OX4. NO S/S OF RESPIRATORY DISTRESS OR SOB. NO C/O PAIN AT THIS TIME. MORNING MEDICATIONS PASSED ON ARRIVAL. SAFETY MEASURES IN PLACE, CALL LIGHT WITHIN REACH. WILL CONTINUE TO MONITOR.
[2017-04-29] MEDS ORDERED: LORAZEPAM 1 MG TABLET FOR AGITATION PO PRN (14:00)
[2017-04-29 16:00] VITALS: BP 122/69
[2017-04-29] MEDS: LOPERAMIDE HCL (2 MG CAP) 2 MG CAPSULE PO PRN (18:02)
--- NOTE | 2017-04-29 19:27 | NUR ---
RN CLOSING NOTES PT IS IN ROOM RESTING. A/OX4. PT HAS NO BEHAVIORAL ISSUES THROUGHOUT THE DAY. SAFETY MEASURES IN PLACE, CALL LIGHT WITHIN REACH. WILL ENDORSE TO RESPIRATORY TECHNICIAN FOR PJ.
--- NOTE | 2017-04-29 19:30 | NUR ---
RN NOTE; RECEIVED PT IN BED AWAKE AND ALERT. BREATHING EVENLY. NO SOB, STILL W/ ON AND OFF EARACHE AND DIARRHEA EPISODE. ASKED PT ABOUT POSSIBLE LACTOSE INTOLERANCE DIET. PT REPORTED SHE IS LACTOSE INTOLERANCE. PT WAS ADVISED TO CUT DOWN ON THE DAIRY PRODUCT SUCH MILK AND PUDDING TEMPORARY AND SEE THE RESULT. PT UNDERSTOOD AND AGREED. ALL NEEDS ATTENDED. CALL LIGHT WITHIN REACH. WILL CONT TO MONITOR.
[2017-04-29 20:00] VITALS: BP 122/78
[2017-04-29] MEDS: IBUPROFEN 200 MG TABLET PO PRN (21:01)
[2017-04-29] MEDS: ZOLPIDEM TARTRATE 10 MG TABLET PO PRN (21:01)
--- NOTE | 2017-04-29 21:04 | NUR ---
AMBIEN GIVEN ORDERED PER PT'S REQUEST FOR C/O INSOMNIA. ALSO MOTRIN GIVEN FOR C/O MOD. EAR PAIN. WILL CONT TO MONITOR,
--- NOTE | 2017-04-30 06:32 | NUR ---
rn note; PT IN BED SLEEPING. AROUSES EASILY. BREATHING EVENLY. NO ACUTE EVENT DURING THE NIGHT. COMPLIANT W/ POC W/ NO BEHAVIORAL OR PSYCH ISSUES. NEEDS ATTENDED. CALL LIGHT WITHIN REACH. WILL CONT TO MONITOR AND WILL ENDORSE TO AM SHIFT FOR PJ.
--- NOTE | 2017-04-30 07:30 | NUR ---
RN OPEN NOTES RECEIVED REPORT FROM ALCOHOL LAW ENFORCEMENT AGENT NURSE. PATIENT IS IN BED, AWAKE, ALERT AND ORIENTED TO NAME, PLACE AND TIME. NO SIGNS AND SYMPTOMS OF DISTRESS. DENIED PAIN. BED IN LOW POSITION, LOCKED AND TWO SIDE RAILS ARE UP. CALL LIGHT IS WITHIN REACH FOR SAFETY. WILL CONTINUE TO MONITOR AND ASSESS PATIENT.
[2017-04-30 08:00] VITALS: BP 110/60
[2017-04-30] MEDS: METFORMIN 500 MG TABLET PO SCH ×2 (08:56→16:05)
[2017-04-30] MEDS: HYDROCHLOROTHIAZIDE 25 MG TABLET PO SCH (08:56)
[2017-04-30] MEDS: AMOX/CLAVULANATE 250 MG TABLET PO SCH (08:56)
[2017-04-30] MEDS: NORETHINDRONE 0.35 MG PO SCH (08:56)
[2017-04-30] MEDS: BENAZEPRIL HCL 20 MG TABLET PO SCH (08:57)
[2017-04-30] MEDS: BLOOD SUGAR DIAGNOSTIC 1 EACH STRIP IN SCH (08:58)
[2017-04-30] MEDS: IBUPROFEN 200 MG TABLET PO PRN ×2 (09:03→21:56)
[2017-04-30] MEDS: INVEST MED MK-8189 MISC 3 CAP EA PO SCH (09:25)
[2017-04-30] MEDS: INVEST MED MK-8189 MISC 3 TAB EA PO SCH (09:25)
[2017-04-30 16:00] VITALS: BP 122/68
[2017-04-30] MEDS: NEOM/POLY B SULF/HC OTIC SUSP 10 ML BOTTLE EACH EAR SCH (18:30)
--- NOTE | 2017-04-30 18:49 | NUR ---
RN CLOSING NOTES PATIENT IS ALERT AND ORIENTED TO NAME PLACE AND TIME. NO SIGNS AND SYMPTOMS OF DISTRESS. STABLE DURING MY SHIFT. ALL PATIENT CARE ANTICIPATED AND ATTENDED. BED IN LOW POSITION, LOCKED AND TWO SIDE RAILS ARE UP. CALL LIGHT WITHIN REACH FOR SAFETY. WILL ENDORSER TO VBA PROGRAMMER NURSE.
--- NOTE | 2017-04-30 19:30 | NUR ---
MS RN OPENING NOTES: PATIENT SITTING ON BED, AOX4, ON ROOM AIR, BREATHING EVEN AND UNLABORED. APPEARS CALM AND IN NO DISTRESS. DENIES PAIN AT THIS TIME. DOES NOT VERBALIZE ANY VISUAL OR AUDITORY HALLUCINATION. PROVIDED FOR COMFORT AND SAFETY. BED IN LOWEST AND LOCKED POSITION, SIDERAILS UP X 2. WILL CONT TO MONITOR.
[2017-04-30 19:34] LABS: BASOPHILS % (AUTO) 0.6 % (0.0-2.0); EOSINOPHILS # (AUTO) 0.3 /CMM (0.0-0.7); EOSINOPHILS % (AUTO) 4.1 % (0.0-6.0); HEMATOCRIT 40 % (33-45); HEMOGLOBIN 12.3 g/dL (11.5-14.8); LYMPHOCYTES # (AUTO) 2.5 /CMM (0.8-4.8); LYMPHOCYTES % (AUTO) 34.9 % (20.0-44.0); MEAN CORPUSCULAR HEMOGLOBIN 22 PG (26.0-33.0); MEAN CORPUSCULAR HGB CONC 31 g/dl (31.0-36.0); MEAN CORPUSCULAR VOLUME 71 fL (82-100); MONOCYTES # (AUTO) 0.6 /CMM (0.1-1.30); MONOCYTES % (AUTO) 8.5 % (2.0-12.0); NEUTROPHILS # (AUTO) 3.7 /CMM (1.8-8.9); NEUTROPHILS % (AUTO) 51.9 % (43.0-81.0); PLATELET COUNT (AUTO) 298 /CMM (150-450); RDW COEFFICIENT OF VARIATION 17.1 (11.5-15.0); RED BLOOD CELL COUNT(AUTO) 5.68 MIL/uL (4.0-5.2); WHITE BLOOD COUNT (AUTO) 7.1 K/uL (4.3-11.0)
[2017-04-30 20:00] VITALS: BP 110/67
--- NOTE | 2017-04-30 20:00 | NUR ---
RN NOTES: PATIENT WAS TRANSFERRED TO [facility] VIA WHEELCHAIR IN STABLE CONDITION, ACCOMPANIED BY RN AND HEAD OF ACADEMIC TECHNOLOGY, WITH ALL BELONGINGS.
[2017-04-30 21:54] LABS: BAND % (MANUAL) 4 % (0.0-5.0); EOSINOPHILS % (MANUAL) 4 % (0-4); LYMPHOCYTES % (MANUAL) 32 % (16-48); MONOCYTES % (MANUAL) 12 % (0-11.0); NEUTROPHILS % (MANUAL) 48 (42-76)
[2017-04-30] MEDS: ZOLPIDEM TARTRATE 10 MG TABLET PO PRN (21:56)
--- NOTE | 2017-04-30 21:57 | NUR ---
RN NOTES: PATIENT COMPLAINED OF MILD EARPAIN, ASKED FOR ANALGESIC. ADMINISTERED MOTRIN 600 MG PO. WILL CONT TO MONITOR.
--- NOTE | 2017-05-01 06:26 | NUR ---
MS RN CLOSING NOTES: PATIENT IN BED, AOX4, ON ROOM AIR, BREATHING EVEN AND UNLABORED. APPEARS CALM AND IN NO DISTRESS. ABLE TO SLEEP FOR 8 HRS THROUGH NIGHT. ALSO DID NOT HAVE ANY DIARRHEA THROUGHOUT SHIFT. PROVIDED FOR COMFORT AND SAFETY. BED IN LOWEST AND LOCKED POSITION, CALL LIGHT WITHIN REACH. WILL ENDORSE TO AM RN FOR PJ.
--- NOTE | 2017-05-01 07:15 | NUR ---
RN NOTES: BLOOD SUGAR CHECKED AT 105 MG /DL.
--- NOTE | 2017-05-01 07:20 | NUR ---
MS/RN Patient received Patient recieved form vending machine repairer. No needs, call light within reach, will continue to monitor.
[2017-05-01 08:00] VITALS: BP 117/76
[2017-05-01 08:08] VITALS: BP 117/76
[2017-05-01] MEDS: BLOOD SUGAR DIAGNOSTIC 1 EACH STRIP IN SCH (08:46)
[2017-05-01] MEDS: LACTOBACILLUS RHAMNOSUS GG 1 EACH CAP.SPRINK PO SCH ×2 (08:46→16:56)
[2017-05-01] MEDS: HYDROCHLOROTHIAZIDE 25 MG TABLET PO SCH (08:47)
[2017-05-01] MEDS: INVEST MED MK-8189 MISC 3 TAB EA PO SCH (08:47)
[2017-05-01] MEDS: BENAZEPRIL HCL 20 MG TABLET PO SCH (08:47)
[2017-05-01] MEDS: METFORMIN 500 MG TABLET PO SCH ×2 (08:47→16:56)
[2017-05-01] MEDS: INVEST MED MK-8189 MISC 3 CAP EA PO SCH (08:47)
[2017-05-01] MEDS: NEOM/POLY B SULF/HC OTIC SUSP 10 ML BOTTLE EACH EAR SCH ×3 (08:49→16:56)
[2017-05-01] MEDS: NORETHINDRONE 0.35 MG PO SCH (08:49)
--- NOTE | 2017-05-01 09:01 | NUR ---
MS/RN Medications Investigational medications administered as ordered.
[2017-05-01] MEDS: IBUPROFEN 200 MG TABLET PO PRN ×2 (12:06→21:20)
--- NOTE | 2017-05-01 12:10 | NUR ---
MS/RN Headache Complaining of headache (11/07). Motrin 600mg administered as ordered as per patient tylenol does not work for her. Will monitor effectiveness.
--- NOTE | 2017-05-01 13:00 | NUR ---
MS/RN Pain reassessment Patient stating that pain has now reduced to 2/10.
[2017-05-01 16:00] VITALS: BP 117/77
[2017-05-01 16:12] VITALS: BP 117/77
--- NOTE | 2017-05-01 18:21 | NUR ---
MS/RN End note Has remained calm and cooperative throughout the shift, no behavior concerns, All medications administered as ordered, has not requested any ativan. Will endorse to director behavioral health.
--- NOTE | 2017-05-01 19:30 | NUR ---
MS RN OPENING NOTES: PATIENT IN BED, AOX4, ON ROOM AIR, BREATHING EVEN AND UNLABORED. APPEARS CALM AND IN NO DISTRESS. DOES COMPLAIN OF LEFT EAR PAIN SCALED 8/10. PATIENT STATES ALSO THAT SHE HAS NOT HAD DIARRHEA FOR THE WHOLE DAY. PROVIDED FOR COMFORT AND SAFETY. BED IN LOWEST AND LOCKED POSITION, SIDERAILS UP X2. WILL CONT TO MONITOR.
[2017-05-01 20:00] VITALS: BP 123/67
[2017-05-01 20:12] VITALS: BP 123/67
[2017-05-01] MEDS: ZOLPIDEM TARTRATE 10 MG TABLET PO PRN (21:20)
--- NOTE | 2017-05-01 21:20 | NUR ---
RN NOTES: ADMINISTERED MOTRIN 600 MG PO FOR LEFT EAR PAIN.
[2017-05-02] MEDS: BLOOD SUGAR DIAGNOSTIC 1 EACH STRIP IN SCH (06:37)
--- NOTE | 2017-05-02 06:50 | NUR ---
MS RN CLOSING NOTES: PATIENT IN BED, AOX4, ON ROOM AIR, BREATHING EVEN AND UNLABORED. APPEARS CALM AND IN NO DISTRESS. DID NOT VERBALIZE ANY AUDITORY OR VERBAL HALLUCINATION. STILL COMPLAINS OF MILD LEFT EAR PAIN. WAS ABLE TO HAVE 8 HRS SLEEP. BLOOD SUGAR CHECKED AT 91 MG/DL THIS AM, BEFORE BREAKFAST. PROVIDED FOR COMFORT AND SAFETY. BED IN LOWEST AND LOCKED POSITION, SIDERAILS UP X2. WILL ENDORSE TO AM RN FOR PJ.
--- NOTE | 2017-05-02 07:35 | NUR ---
RN NOTES PATIENT IN BED, AOX3, ON ROOM AIR, BREATHING EVEN AND UNLABORED. APPEARS CALM AND IN NO DISTRESS, IV ACCESS PATENT AND INTACT NO REDNESS OR INFILTRATION.PROVIDED COMFORT AND SAFETY MEASURES. BED IN LOWEST AND LOCKED POSITION, SIDERAILS UP X 2.CONTINUED ON CLINICAL TRIAL, WILL CONTINUE TO MONITOR Addendum: 05/02/17 at 1009 by RODOLFO WILKS RN RN NOTES PATIENT WITH NO IV ACCESS, AWARE, CONTINUE TO MONITOR
[2017-05-02 08:00] VITALS: BP 119/70
[2017-05-02] MEDS: LACTOBACILLUS RHAMNOSUS GG 1 EACH CAP.SPRINK PO SCH ×2 (08:10→16:19)
[2017-05-02] MEDS: METFORMIN 500 MG TABLET PO SCH ×2 (08:10→16:19)
[2017-05-02] MEDS: BENAZEPRIL HCL 20 MG TABLET PO SCH (08:10)
[2017-05-02] MEDS: HYDROCHLOROTHIAZIDE 25 MG TABLET PO SCH (08:11)
[2017-05-02] MEDS: INVEST MED MK-8189 MISC 3 TAB EA PO SCH (08:11)
[2017-05-02] MEDS: NORETHINDRONE 0.35 MG PO SCH ×2 (08:11→08:16)
[2017-05-02] MEDS: INVEST MED MK-8189 MISC 3 CAP EA PO SCH (08:12)
[2017-05-02] MEDS: NEOM/POLY B SULF/HC OTIC SUSP 10 ML BOTTLE EACH EAR SCH ×3 (08:35→16:21)
[2017-05-02] MEDS: IBUPROFEN 200 MG TABLET PO PRN (11:22)
[2017-05-02 16:00] VITALS: BP 105/67
--- NOTE | 2017-05-02 19:01 | NUR ---
RN NOTES PATIENT IN BED, AOX3, ON ROOM AIR, BREATHING EVEN AND UNLABORED. APPEARS CALM AND IN NO DISTRESS, NO IV ACCESS MD AWARE, COMFORT AND SAFETY MEASURES. BED IN LOWEST AND LOCKED POSITION, SIDERAILS UP X 2.CONTINUED ON CLINICAL TRIAL, WILL CONTINUE TO MONITOR
--- NOTE | 2017-05-02 19:30 | NUR ---
RN NOTES RECEIVED PATIENT IN BED AWAKE, AO X 3, ABLE TO MAKE NEEDS KNOWN. NO ACUTE DISTRESS NOTED. DENIES ANY PAIN AT THIS TIME. NO IV SITE. SAFETY REMINDERS GIVEN. ON LOW BED WITH BILATERAL UPPER SIDE RAILS UP. CALL LIGHT WITHIN EASY REACH. WILL CONTINUE TO MONITOR.
[2017-05-02 20:00] VITALS: BP 136/70
[2017-05-02] MEDS: ZOLPIDEM TARTRATE 10 MG TABLET PO PRN (20:58)
--- NOTE | 2017-05-03 06:24 | NUR ---
RN NOTES PATIENT ASLEEP, EASILY AROUSABLE. RESPIRATIONS EVEN. NO SIGNS OF PAIN NOTED. NEEDS ATTENDED. SAFETY PRECAUTIONS AND COMFORT MEASURES IN PLACE WILL GIVE REPORT TO DAY SHIFT FOR CONTINUITY FOR CARE.
[2017-05-03 08:00] VITALS: BP 107/63
--- NOTE | 2017-05-03 08:00 | NUR ---
MS/RN Patient received Patient received from sheet metal shop helper. No needs at this time, call light within reach, will continue to monitor.
[2017-05-03] MEDS: METFORMIN 500 MG TABLET PO SCH ×2 (08:29→16:32)
[2017-05-03] MEDS: LACTOBACILLUS RHAMNOSUS GG 1 EACH CAP.SPRINK PO SCH ×2 (08:29→16:32)
[2017-05-03] MEDS: INVEST MED MK-8189 MISC 3 TAB EA PO SCH (08:29)
[2017-05-03] MEDS: INVEST MED MK-8189 MISC 3 CAP EA PO SCH (08:30)
[2017-05-03] MEDS: NEOM/POLY B SULF/HC OTIC SUSP 10 ML BOTTLE EACH EAR SCH ×3 (08:32→16:30)
[2017-05-03] MEDS: BLOOD SUGAR DIAGNOSTIC 1 EACH STRIP IN SCH (08:32)
[2017-05-03] MEDS: NORETHINDRONE 0.35 MG PO SCH (08:32)
[2017-05-03] MEDS: HYDROCHLOROTHIAZIDE 25 MG TABLET PO SCH (08:32)
[2017-05-03] MEDS: BENAZEPRIL HCL 20 MG TABLET PO SCH (08:33)
--- NOTE | 2017-05-03 10:08 | NUR ---
MS/RN Medications Investigational medications administered as ordered.
[2017-05-03] MEDS: LOPERAMIDE HCL (2 MG CAP) 2 MG CAPSULE PO PRN (15:07)
--- NOTE | 2017-05-03 15:09 | NUR ---
MS/RN Diarrhea Immodium one tablet administered as ordered.
[2017-05-03 16:00] VITALS: BP 110/60
--- NOTE | 2017-05-03 18:42 | NUR ---
MS/RN End note No changes in plan of care, to continue with trial medications. S/B Dr Aguilar - no new orders. Will endorse to shift supervisor melting.
--- NOTE | 2017-05-03 19:30 | NUR ---
RECEIVED PT IN BED AWAKE AND RESPONSIVE. BREATHING EVENLY. NO PSYCH OR BEHAVIORAL ISSUES NOTED. STILL W/ OCCASIONAL C/O EARACHE . REFUSING PAIN MEDICATION AT THIS TIME. NEEDS ATTENDED. CALL LIGHT WITHIN REACH. WILL CONT TO MONITOR ,
[2017-05-03 20:00] VITALS: BP 126/71
--- NOTE | 2017-05-04 07:29 | NUR ---
PT IN BED SLEEPING. NO ACUTE KENNEL HELPER THE NIGHT . NO C/O PAIN OR DISCOMFORT. NO PRN MED GIVEN DURING THE NIGHT. NEEDS ATTENDED. CALL LIGHT WITHIN REACH. REPORT GIVEN TO DAY SHIFT RN FOR PJ,
[2017-05-04 08:00] VITALS: BP 120/73
--- NOTE | 2017-05-04 08:07 | NUR ---
RN NOTES PATIENT ALERT AND ORIENTED, NO DISTRESS NOTED, NO BEHAVIORAL DISTURBANCE AT THIS TIME, CALL LIGHT WITHIN REACH, WILL CONTINUE TO MONITOR.
[2017-05-04] MEDS: BLOOD SUGAR DIAGNOSTIC 1 EACH STRIP IN SCH (08:13)
[2017-05-04] MEDS: NEOM/POLY B SULF/HC OTIC SUSP 10 ML BOTTLE EACH EAR SCH ×3 (08:14→17:00)
[2017-05-04] MEDS: METFORMIN 500 MG TABLET PO SCH ×2 (08:15→17:59)
[2017-05-04] MEDS: HYDROCHLOROTHIAZIDE 25 MG TABLET PO SCH (08:15)
[2017-05-04] MEDS: INVEST MED MK-8189 MISC 3 TAB EA PO SCH (08:15)
[2017-05-04] MEDS: INVEST MED MK-8189 MISC 3 CAP EA PO SCH (08:15)
[2017-05-04] MEDS: NORETHINDRONE 0.35 MG PO SCH (08:15)
[2017-05-04] MEDS: BENAZEPRIL HCL 20 MG TABLET PO SCH (08:15)
[2017-05-04] MEDS: LACTOBACILLUS RHAMNOSUS GG 1 EACH CAP.SPRINK PO SCH ×2 (08:16→17:59)
[2017-05-04] MEDS: LOPERAMIDE HCL (2 MG CAP) 2 MG CAPSULE PO PRN (12:57)
[2017-05-04 16:00] VITALS: BP 110/69
--- NOTE | 2017-05-04 19:30 | NUR ---
RN NOTE; RECEIVED PT IN BED AWAKE AND ALERT. BREATHING EVENLY. NO SOB. NAD. NO C/O DIARRHEA, PAIN OR DISCOMFORT. NO INAPPROPRIATE BEHAVIOR. WILL CONT TO MONITOR,
[2017-05-04 20:00] VITALS: BP 119/68
--- NOTE | 2017-05-05 06:51 | NUR ---
RN NOTE; PT IN BED SLEEPING, AROUSES EASILY. NO ACUTE DISTRESS DURING THE NIGHT. NO PRN MED GIVEN , NO A/R TO MEDS NOTED. NEEDS ATTENDED. CALL LIGHT WITHIN REACH. WILL CONT TO MONITOR ,
[2017-05-05 08:00] VITALS: BP 124/71
[2017-05-05] MEDS: NEOM/POLY B SULF/HC OTIC SUSP 10 ML BOTTLE EACH EAR SCH ×2 (08:11→12:25)
[2017-05-05] MEDS: INVEST MED MK-8189 MISC 3 TAB EA PO SCH (08:12)
[2017-05-05] MEDS: NORETHINDRONE 0.35 MG PO SCH (08:12)
[2017-05-05] MEDS: INVEST MED MK-8189 MISC 3 CAP EA PO SCH (08:12)
[2017-05-05] MEDS: BENAZEPRIL HCL 20 MG TABLET PO SCH (08:13)
[2017-05-05] MEDS: HYDROCHLOROTHIAZIDE 25 MG TABLET PO SCH (08:13)
[2017-05-05] MEDS: METFORMIN 500 MG TABLET PO SCH ×2 (08:13→16:57)
[2017-05-05] MEDS: LACTOBACILLUS RHAMNOSUS GG 1 EACH CAP.SPRINK PO SCH (08:14)
[2017-05-05] MEDS: BLOOD SUGAR DIAGNOSTIC 1 EACH STRIP IN SCH (08:14)
[2017-05-05 16:01] VITALS: BP 127/67
--- NOTE | 2017-05-05 17:37 | NUR ---
RN MS NOTES PATIENT SEEN BY DR. CHURCHILL, RECEIVED ORDERS TO DISCONTINUE LACTOBACILLUS AND EAR DROP. ORDER NOTED AND CARRIED OUT. PATIENT ALERT AND ORIENTED, NO DISTRESS NOTED, NO COMPLAINTS TODAY. NEEDS ATTENDED. CALL LIGHT WITHIN REACH, WILL CONTINUE TO MONITOR.
[2017-05-05 20:00] VITALS: BP 136/81
--- NOTE | 2017-05-06 06:09 | NUR ---
RN CLOSING NOTES NO SIGNIFICANT CHANGES IN PATIENT CONDITION OVERNIGHT. PATIENT HAS BEEN ASLEEP SINCE 1030. NO SOB OR DISTRESS NOTED AT THIS TIME. PATIENT DOES NOT APPEAR TO BE IN PAIN. BED IN A LOW POSITION, CALL LIGHT WITHIN PATIENT REACH. WILL ENDORSE FOR PJ. Addendum: 05/06/17 at 0611 by MARY BETH MCGHEE RN PT HAS BEEN ASLEEP SINCE 2230 (1030 PM)
--- NOTE | 2017-05-06 07:05 | NUR ---
RN NOTES PT IS SLEEPING IN BED, NO SIGNS OF DISTRESS NOTED AT THIS TIME. PT ON RA, RESPIRATIONS ARE EVEN AND UNLABORED. SAFETY MEASURES ARE IN PLACE, CALL LIGHT IS IN REACH. WILL CONTINUE TO MONITOR
[2017-05-06 08:00] VITALS: BP 134/76
[2017-05-06] MEDS: INVEST MED MK-8189 MISC 3 TAB EA PO SCH (08:05)
[2017-05-06] MEDS: BLOOD SUGAR DIAGNOSTIC 1 EACH STRIP IN SCH (08:06)
[2017-05-06] MEDS: HYDROCHLOROTHIAZIDE 25 MG TABLET PO SCH (08:06)
[2017-05-06] MEDS: METFORMIN 500 MG TABLET PO SCH ×2 (08:06→16:06)
[2017-05-06] MEDS: BENAZEPRIL HCL 20 MG TABLET PO SCH (08:06)
[2017-05-06] MEDS: INVEST MED MK-8189 MISC 3 CAP EA PO SCH (08:06)
[2017-05-06] MEDS: NORETHINDRONE 0.35 MG PO SCH (08:06)
[2017-05-06] MEDS ORDERED: LORAZEPAM 1 MG TABLET FOR AGITATION PO PRN (14:00)
[2017-05-06 16:00] VITALS: BP 138/79
[2017-05-06] MEDS: LOPERAMIDE HCL (2 MG CAP) 2 MG CAPSULE PO PRN (16:06)
--- NOTE | 2017-05-06 17:49 | NUR ---
RN NOTES PT HAS BEEN COMPLAINING OF PERIOD LASTING OVER 2 WEEKS AND IS GROWING CONCERNED AND COMPLAINING OF WORSENING CRAMPS. DR. CHURCHILL WAS NOTIFIED.
--- NOTE | 2017-05-06 18:31 | NUR ---
RN NOTES PT IS LAYING IN BED, RESTING COMFORTABLY. PT ON RA, RESPIRATIONS ARE EVEN AND UNLABORED. ALL MEDS WERE GIVEN ORDERED. PT NEEDS MET. SAFETY MEASURES ARE IN PLACE, CALL LIGHT IS IN REACH. WILL ENDORSE TO WEB PRODUCTION ARTIST RN FOR CONTINUITY OF CARE.
--- NOTE | 2017-05-06 19:00 | NUR ---
RN NOTES RECEIVED PT IN BED RESTING COMFORTABLY. A/O X 4, PT IN STABLE CONDITION, NO S/S OF DISTRESS. NO COMPLAINS OF PAIN AT THIS TIME. SAFETY MEASURES ARE IN PLACE, CALL LIGHT IS IN REACH. WILL CONTINUE TO MONITOR.
[2017-05-06 20:00] VITALS: BP 119/66
--- NOTE | 2017-05-07 06:14 | NUR ---
MS RN CLOSING NOTES IN BED ASLEEP AND EASILY AWAKEN, HOB ELEVATED, TOLERATING ROOM AIR 98% . RESPIRATIONS EVEN AND UNLABORED. AFEBRILE, IN STABLE CONDITION. NOT IN S/S DISTRESS. ALL NURSING CARE RENDERED. NEEDS ATTENDED AND ANTICIPATED, KEPT CLEAN AND DRY AND COMFORTABLE, NO COMPLAINS OF PAIN AT THIS TIME. NO PSYCHIATRIC INSTABILITY NOTED. GOOD SKIN CARE PROVIDED. FREQUENT VISUAL CHECK DONE FOR SAFETY EVERY 2 HOURS. ON LOW BED AT ALL TIMES TO ENSURE SAFETY. SAFE HAZARD FREE ENVIRONMENT PROVIDED. CALL LIGHT WITHIN EASY TO REACH. WILL ENDORSE NEXT SHIFT CONTINUITY OF CARE.
--- NOTE | 2017-05-07 07:00 | NUR ---
RN NOTES PT IS SLEEPING IN BED COMFORTABLY. PT ON RA, RESPIRATIONS ARE EVEN AND UNLABORED, NO SIGNS OF DISTRESS OR DISCOMFORT. SAFETY MEASURES ARE IN PLACE, CALL LIGHT IS IN REACH. WILL CONTINUE TO MONITOR.
[2017-05-07 08:00] VITALS: BP 120/70
[2017-05-07] MEDS: METFORMIN 500 MG TABLET PO SCH ×2 (08:01→16:29)
[2017-05-07] MEDS: BLOOD SUGAR DIAGNOSTIC 1 EACH STRIP IN SCH (08:01)
[2017-05-07] MEDS: BENAZEPRIL HCL 20 MG TABLET PO SCH (08:01)
[2017-05-07] MEDS: NORETHINDRONE 0.35 MG PO SCH (08:02)
[2017-05-07] MEDS: INVEST MED MK-8189 MISC 3 TAB EA PO SCH (08:02)
[2017-05-07] MEDS: INVEST MED MK-8189 MISC 3 CAP EA PO SCH (08:02)
[2017-05-07] MEDS: HYDROCHLOROTHIAZIDE 25 MG TABLET PO SCH (08:02)
[2017-05-07 09:33] LABS: BASOPHILS # (AUTO) 0.1 /CMM (0.0-0.2); BASOPHILS % (AUTO) 1.5 % (0.0-2.0); EOSINOPHILS # (AUTO) 0.2 /CMM (0.0-0.7); EOSINOPHILS % (AUTO) 4.1 % (0.0-6.0); HEMATOCRIT 40 % (33-45); HEMOGLOBIN 12.4 g/dL (11.5-14.8); LYMPHOCYTES # (AUTO) 2.1 /CMM (0.8-4.8); LYMPHOCYTES % (AUTO) 42.3 % (20.0-44.0); MEAN CORPUSCULAR HEMOGLOBIN 22 PG (26.0-33.0); MEAN CORPUSCULAR HGB CONC 31 g/dl (31.0-36.0); MEAN CORPUSCULAR VOLUME 70 fL (82-100); MONOCYTES # (AUTO) 0.5 /CMM (0.1-1.30); MONOCYTES % (AUTO) 9.7 % (2.0-12.0); NEUTROPHILS # (AUTO) 2.1 /CMM (1.8-8.9); NEUTROPHILS % (AUTO) 42.4 % (43.0-81.0); PLATELET COUNT (AUTO) 289 /CMM (150-450); RDW COEFFICIENT OF VARIATION 16.7 (11.5-15.0); RED BLOOD CELL COUNT(AUTO) 5.76 MIL/uL (4.0-5.2); WHITE BLOOD COUNT (AUTO) 4.9 K/uL (4.3-11.0)
[2017-05-07 09:53] LABS: ALBUMIN 3.8 g/dL (3.4-5.0); BILIRUBIN,TOTAL 0.3 mg/dL (0.2-1.0); CALCIUM, SERUM 9.6 mg/dL (8.5-10.1); CREATININE 0.8 mg/dL (0.6-1.3); TOTAL PROTEIN, SERUM 7.5 g/dL (6.4-8.2)
[2017-05-07] MEDS ORDERED: DIATR MEGLU/DIATRIZOATE SODIUM 30 ML BOTTLE (GASTROGRAPHIN) ONE (10:27)
[2017-05-07 10:33] LABS: EOSINOPHILS % (MANUAL) 2 % (0-4); LYMPHOCYTES % (MANUAL) 49 % (16-48); MONOCYTES % (MANUAL) 11 % (0-11.0); NEUTROPHILS % (MANUAL) 38 (42-76)
[2017-05-07] MEDS: LOPERAMIDE HCL (2 MG CAP) 2 MG CAPSULE PO PRN (14:04)
[2017-05-07 16:00] VITALS: BP 121/68
--- NOTE | 2017-05-07 18:50 | NUR ---
RN NOTES PT IS SITTING IN BED, RESTING COMFORTABLY. PT ON RA, RESPIRATION ARE EVEN AND UNLABORED. ALL MEDS WERE GIVEN ORDERED AND ALL PT NEEDS MET. PT DENIES ANY PAIN AT THIS TIME. PT HAD DIARRHEA ONE TIME, IMMODIUM WAS GIVEN ORDERED. SAFETY MEASURES ARE IN PLACE, CALL LIGHT IS IN REACH. WILL ENDORSE TO MACHINE STUFFER RN FOR CONTINUITY OF CARE.
--- NOTE | 2017-05-07 19:30 | NUR ---
MS RN NOTE: PATIENT RESTING IN BED, NO ACUTE DISTRESS NOTED. BREATHING EVEN AND UNLABORED, NO SOB NOTED. PATIENT CALM AND COOPERATIVE. BED LOCKED AND IN LOWEST POSITION, CALL LIGHT IN REACH. WILL CONTINUE TO MONITOR.
[2017-05-07 20:00] VITALS: BP 125/78
--- NOTE | 2017-05-07 23:00 | NUR ---
RN NOTES RECEIVE PT FROM RN, PT IN STABLE CONDITION. WILL CONTINUE TO MTR
--- NOTE | 2017-05-08 00:15 | NUR ---
MS RN NOTE: REPORT GIVEN TO SOFYA STEELE FOR TRANSFER OF CARE. WILL CONTINUE TO WITH PLAN OF CARE.
--- NOTE | 2017-05-08 06:28 | NUR ---
MS RN CLOSING NOTES ASLEEP AND EASILY AWAKEN, HOB ELEVATED, NO PSYCHIATRIC INSTABILITY NOTED. RESPIRATIONS EVEN AND UNLABORED. 98% R.A IN STABLE CONDITION. NOT IN S/S DISTRESS. KEPT CLEAN AND DRY AND COMFORTABLE, ALL NURSING CARE RENDERED. NEEDS ATTENDED AND ANTICIPATED, FREQUENT VISUAL CHECK DONE FOR SAFETY EVERY 2 HOURS. NO COMPLAINS OF PAIN, ON LOW BED AT ALL TIMES TO ENSURE SAFETY. SAFE HAZARD FREE ENVIRONMENT PROVIDED. CALL LIGHT WITHIN EASY TO REACH. WILL ENDORSE NEXT SHIFT CONTINUITY OF CARE.
--- NOTE | 2017-05-08 07:30 | NUR ---
MS RN NOTES RECEIVED PATIENT IN BED, SLEEPING, AROUSES EASILY. ON CLINICAL TRIAL STUDY UNDER DR. CHURCHILL. PATIENT APPEARS COMFORTABLE IN BED. CALL LIGHT WITHIN REACH. SAFETY MEASURES PROVIDED. WILL CONT TO MONITOR.
[2017-05-08 08:00] VITALS: BP 128/75
[2017-05-08] MEDS: HYDROCHLOROTHIAZIDE 25 MG TABLET PO SCH (08:27)
[2017-05-08] MEDS: METFORMIN 500 MG TABLET PO SCH ×2 (08:27→17:22)
[2017-05-08] MEDS: INVEST MED MK-8189 MISC 3 TAB EA PO SCH (08:27)
[2017-05-08] MEDS: INVEST MED MK-8189 MISC 3 CAP EA PO SCH (08:28)
[2017-05-08] MEDS: BENAZEPRIL HCL 20 MG TABLET PO SCH (08:31)
[2017-05-08] MEDS: BLOOD SUGAR DIAGNOSTIC 1 EACH STRIP IN SCH (08:33)
[2017-05-08] MEDS: NORETHINDRONE 0.35 MG PO SCH (08:34)
[2017-05-08 16:00] VITALS: BP 123/75
--- NOTE | 2017-05-08 18:24 | NUR ---
MS RN CLOSING NOTES PATIENT IS A/O X 4. AMBULATORY, SKIN INTACT. VOIDED WITHOUT DIFFICULTY, BREATHING EVEN AND NON LABORED. NO IVC IN PLACE, MD IS AWARE. PATIENT IS ON CLINICAL STUDY TRIAL UNDER DR. STRICKLAND. C-DIFF STOOL RESULT PENDING. APPEARS CALM AND RELAX, NO EPISODE OF AGITATED BEHAVIOR DURING THE SHIFT. CALL LIGHT WITHIN REACH. WILL ENDORSE TO RN BSN RN FOR PJ.
--- NOTE | 2017-05-08 19:30 | NUR ---
MS RN OPENING NOTES: PATIENT IN BED, AOX 4, ON ROOM AIR, BREATHING EVEN AND UNLABORED. APPEARS CALM AND IN NO DISTRESS, WATCHING TV. DENIES PAIN AT THIS TIME. DOES NOT VERBALIZE ANY VERBAL OR AUDITORY HALLUCINATION AT THIS TIME. PROVIDED FOR COMFORT AND SAFETY. BED IN LOWEST AND LOCKED POSITION, SIDERAILS UP X 3. WILL CONT TO MONITOR.
[2017-05-08 20:00] VITALS: BP 128/65
--- NOTE | 2017-05-09 07:49 | NUR ---
MS RN CLOSING NOTES: PATIENT IN BED, AOX4, ON ROOM AIR, BREATHING EVEN AND UNLABORED. APPEARS CALM AND IN NO DISTRESS. DENIES PAIN. WAS NOT SEEN TO EXHIBIT BIZZARRE BEHAVIOR. DID NOT VERBALIZE ANY AUDITORY OR VISUAL HALLUCINATIONS. SLEPT WELL FOR 7 HOURS THROUGH NIGHT. PROVIDED FOR COMFORT AND SAFETY. BED IN LOWEST AND LOCKED POSITION, SIDERAILS UP X 2. WILL ENDORSE TO AM RN FOR PJ.
[2017-05-09 08:00] VITALS: BP 130/70
--- NOTE | 2017-05-09 08:01 | NUR ---
MS RN OPENING NOTES: RECEIVED PATIENT IN BED, AOX 4, ON ROOM AIR, BREATHING EVEN AND UNLABORED. APPEARS CALM AND COMFORTABLE. DENIES PAIN OR DISCOMFORT AT THIS TIME. NO BEHAVIORAL DISTURBANCES NOTED. NO IV ACCESS. SAFETY MEASURES RENDERED. BED IN LOWEST AND LOCKED POSITION, SIDERAILS UP X 3. WILL CONT TO MONITOR.
[2017-05-09] MEDS: METFORMIN 500 MG TABLET PO SCH ×2 (08:54→17:33)
[2017-05-09] MEDS: BENAZEPRIL HCL 20 MG TABLET PO SCH (08:54)
[2017-05-09] MEDS: INVEST MED MK-8189 MISC 3 TAB EA PO SCH (08:54)
[2017-05-09] MEDS: INVEST MED MK-8189 MISC 3 CAP EA PO SCH (08:54)
[2017-05-09] MEDS: BLOOD SUGAR DIAGNOSTIC 1 EACH STRIP IN SCH (08:55)
[2017-05-09] MEDS: HYDROCHLOROTHIAZIDE 25 MG TABLET PO SCH (08:55)
[2017-05-09] MEDS: NORETHINDRONE 0.35 MG PO SCH (09:01)
--- NOTE | 2017-05-09 09:02 | NUR ---
ms/rn notes 0900 fingerstck check 114mg/dl. No insulin coverage required. glucophage 1 tab given as scheduled. will continue to monitor
[2017-05-09 16:00] VITALS: BP 120/77
--- NOTE | 2017-05-09 18:31 | NUR ---
MS/RN NOTES PATIENT RESTING IN BED COMFORTABLY, NO S/S OF COMPLICATIONS NOTE, NO BEHAVIORAL DISTURBANCES PRESENT. PATIENT TAKING FREQUENT SMOKE BREAKS HOWEVER COOPERATIVE AND RESPECTFUL. NO SUICIDAL IDEATIONS , ABNORMAL BEHAVIOR. WILL ENDORSE CARE TO FILER AND SANDER FOR PJ
--- NOTE | 2017-05-09 19:30 | NUR ---
RN NOTES RECEIVED PATIENT AMBULATING. AO X 3, ABLE TO MAKE NEEDS KNOWN. NO ACUTE DISTRESS NOTED. DENIES ANY PAIN AT THIS TIME. NO IV SITE. SAFETY REMINDERS GIVEN. PATIENT USING BED ON LOWEST POSITION. CALL BUTTON NEARBY. WILL CONTINUE TO MONITOR.
[2017-05-09 20:00] VITALS: BP 118/66
--- NOTE | 2017-05-10 06:02 | NUR ---
RN NOTES PATIENT ASLEEP, EASILY AROUSABLE. RESPIRATIONS EVEN. NO SIGNS OF PAIN NOTED. NEEDS ATTENDED. SAFETY PRECAUTIONS AND COMFORT MEASURES IN PLACE. WILL GIVE REPORT TO DAY SHIFT FOR CONTINUITY OF CARE.
--- NOTE | 2017-05-10 07:11 | NUR ---
ms rn initial notes Received patient in bed, awake, head of bed elevated, no SOB or distress noted, patient is on clinical trial, no unusual behavior noted. No IV access. Ambulatory. alert and oriented x 4, verbally responsive and able to make needs known. Kept patient clean and comfortable in bed, call light with in patient reach, will continue to monitor accordingly.
[2017-05-10 08:00] VITALS: BP_SYST 104; BP_SYST 121; BP_DIAS 68; BP_DIAS 71
[2017-05-10] MEDS: BLOOD SUGAR DIAGNOSTIC 1 EACH STRIP IN SCH (08:25)
[2017-05-10] MEDS: HYDROCHLOROTHIAZIDE 25 MG TABLET PO SCH (08:25)
[2017-05-10] MEDS: NORETHINDRONE 0.35 MG PO SCH (08:25)
[2017-05-10] MEDS: METFORMIN 500 MG TABLET PO SCH ×2 (08:25→16:39)
[2017-05-10] MEDS: BENAZEPRIL HCL 20 MG TABLET PO SCH (08:25)
[2017-05-10] MEDS: INVEST MED MK-8189 MISC 3 CAP EA PO SCH (08:26)
[2017-05-10] MEDS: INVEST MED MK-8189 MISC 3 TAB EA PO SCH (08:26)
[2017-05-10 16:00] VITALS: BP 149/64
--- NOTE | 2017-05-10 19:23 | NUR ---
ms rn closing notes All needs provided, attended, and anticipated. kept patient clean and comfortable in bed, call light with in patient reach, endorsed to next shift RN to continue care.
[2017-05-10] MEDS: LOPERAMIDE HCL (2 MG CAP) 2 MG CAPSULE PO PRN (19:40)
--- NOTE | 2017-05-10 19:40 | NUR ---
RN NOTE; RECEIVED PT IN BED AWAKE AND ALERT. BREATHING EVENLY. NO BEHAVIORAL ISSUES. NO MORE EAR PAIN. W/ AN EPISODE OF NON- BLOODY DIARRHEA. IMMODIUM GIVEN ORDERED PER PT'S REQUEST.NEEDS ATTENDED. BED LOW LOCKED. CALL LIGHT WITHIN REACH. WILL CONT TO MONITOR .
[2017-05-10 20:00] VITALS: BP 121/79
[2017-05-10 20:59] VITALS: BP 121/79
--- NOTE | 2017-05-11 06:27 | NUR ---
PT IN BED SLEEPING, NO ACUTE EVENT DURING THE NIGHT. NO C/O DISCOMFORT. NO A/R TO THE MEDICATION NOTED. NEEDS ATTENDED. CALL LIGHT WITHIN REACH, WILL CONT TO MONITOR AND WILL ENDORSE TO AM SHIFT FOR PJ.
--- NOTE | 2017-05-11 07:19 | NUR ---
ms rn initial notes Received patient in bed, asleep, head of bed elevated, no SOB or distress noted, on room air and tolerated well. No IV access. On clinical trial still. No un-usual behavior noted. Kept patient clean and comfortable in bed, call light with in patient reach, will continue to monitor accordingly.
[2017-05-11 08:00] VITALS: BP 129/71
[2017-05-11] MEDS: NORETHINDRONE 0.35 MG PO SCH (08:29)
[2017-05-11] MEDS: INVEST MED MK-8189 MISC 3 CAP EA PO SCH (08:29)
[2017-05-11] MEDS: BENAZEPRIL HCL 20 MG TABLET PO SCH (08:29)
[2017-05-11] MEDS: HYDROCHLOROTHIAZIDE 25 MG TABLET PO SCH (08:29)
[2017-05-11] MEDS: METFORMIN 500 MG TABLET PO SCH ×2 (08:29→16:20)
[2017-05-11] MEDS: BLOOD SUGAR DIAGNOSTIC 1 EACH STRIP IN SCH (08:29)
[2017-05-11] MEDS: INVEST MED MK-8189 MISC 3 TAB EA PO SCH (08:29)
[2017-05-11] MEDS: LOPERAMIDE HCL (2 MG CAP) 2 MG CAPSULE PO PRN (11:48)
[2017-05-11 16:00] VITALS: BP 138/79
--- NOTE | 2017-05-11 19:30 | NUR ---
RN NOTE; RECEIVED PT IN BED AWAKE AND ALERT. CHEERFUL AND HAPPY TO BE DISCHARGED. NO C/O PAIN OR DISCHARGE. NEEDS ATTENDED. CALL LIGHT WITHIN REACH. WILL CONT TO MONITOR
[2017-05-11 20:00] VITALS: BP 125/70
--- NOTE | 2017-05-12 06:49 | NUR ---
PT IN BED SLEEPING, NO ACUTE EVENT DURING THE NIGHT. NO C/O DISCOMFORT. NO A/R TO THE MEDICATION NOTED. NO PRN MEDS GIVEN. NEEDS ATTENDED. CALL LIGHT WITHIN REACH, WILL CONT TO MONITOR AND WILL ENDORSE TO AM SHIFT FOR PJ.
--- NOTE | 2017-05-12 07:20 | NUR ---
RN NOTES PATIENT IN BED, AOX3, ON ROOM AIR, RESPIRATIONS EVEN AND UNLABORED. APPEARS CALM AND IN NO DISTRESS, NO IV ACCESS MD AWARE.PROVIDED COMFORT AND SAFETY MEASURES. BED IN LOWEST AND LOCKED POSITION, SIDERAILS UP X 2.CONTINUED ON CLINICAL TRIAL, WILL CONTINUE TO MONITOR
[2017-05-12 08:00] VITALS: BP 127/74
[2017-05-12] MEDS: BENAZEPRIL HCL 20 MG TABLET PO SCH (09:21)
[2017-05-12] MEDS: BLOOD SUGAR DIAGNOSTIC 1 EACH STRIP IN SCH (09:21)
[2017-05-12] MEDS: INVEST MED MK-8189 MISC 3 TAB EA PO SCH (09:22)
[2017-05-12] MEDS: HYDROCHLOROTHIAZIDE 25 MG TABLET PO SCH (09:22)
[2017-05-12] MEDS: METFORMIN 500 MG TABLET PO SCH ×2 (09:22→16:42)
[2017-05-12] MEDS: INVEST MED MK-8189 MISC 3 CAP EA PO SCH (09:22)
[2017-05-12] MEDS: NORETHINDRONE 0.35 MG PO SCH (09:23)
--- NOTE | 2017-05-12 10:00 | NUR ---
RN NOTES PT STATING WANTS TO LEAVE HOSPITAL, EXPLAINED TO PT ABOUT AWAITING RESULTS FOR SPUTUM CULTURES, AND NEED FOR ISOLATION FOR POSSIBLE TB, PT CONTINUES TO STATE "I CANT STAY HERE FOR LONG" EXPLAINED NEED FOR OBSERVATION PT ABLE TO UNDERSTAND,NOTED WITH PASSIVE BEHAVIOR IN REGARDS TO PLAN OF CARE WILL CONTINUE TO MONITOR Addendum: 05/12/17 at 1851 by RODOLFO WILKS RN RN NOTES INCORRECT NOTE
[2017-05-12] MEDS ORDERED: LORAZEPAM 1 MG TABLET FOR AGITATION PO PRN (14:00)
--- NOTE | 2017-05-12 14:16 | NUR ---
RN NOTES ALL DUE MEDICATIONS GIVEN WITH NO ASE NOTED, WILL CONTINUE TO MONITOR
[2017-05-12 16:00] VITALS: BP 118/67
--- NOTE | 2017-05-12 17:30 | NUR ---
RN NOTES SEEN BY DR ZHAO PIERCE MD TO HOLD ALL AM MEDS ON 05/13/17 WILL ENDORSE TO ONCOMING NURSES
--- NOTE | 2017-05-12 18:39 | NUR ---
RN NOTES PATIENT IN BED, AOX3, ON ROOM AIR, RESPIRATIONS EVEN AND UNLABORED. APPEARS CALM AND IN NO DISTRESS, NO IV ACCESS MD AWARE.PROVIDED COMFORT AND SAFETY MEASURES. BED IN LOWEST AND LOCKED POSITION, SIDERAILS UP X 2.CONTINUED ON CLINICAL TRIAL, WILL CONTINUE TO MONITOR AND ENDORSE TO NEXT SHIFT FOR CONTINUITY OF CARE
[2017-05-12 20:00] VITALS: BP_SYST 111; BP_SYST 117; BP_DIAS 70
--- NOTE | 2017-05-13 06:51 | NUR ---
MS RN NOTE PATIENT STABLE. ALL NEEDS MET AND ATTENDED TO. WILL ENDORSE TO DAY SHIFT FOR PJ.
[2017-05-13 08:00] VITALS: BP 128/77
[2017-05-13] MEDS: BENAZEPRIL HCL 20 MG TABLET PO SCH (09:00)
[2017-05-13] MEDS: HYDROCHLOROTHIAZIDE 25 MG TABLET PO SCH (09:00)
[2017-05-13] MEDS: BLOOD SUGAR DIAGNOSTIC 1 EACH STRIP IN SCH (09:00)
[2017-05-13] MEDS: INVEST MED MK-8189 MISC 3 CAP EA PO SCH (09:21)
[2017-05-13] MEDS: INVEST MED MK-8189 MISC 3 TAB EA PO SCH (09:21)
[2017-05-13] MEDS: METFORMIN 500 MG TABLET PO SCH (09:25)
[2017-05-13] MEDS: NORETHINDRONE 0.35 MG PO SCH (09:26)
--- NOTE | 2017-05-13 09:42 | NUR ---
RN OPENING NOTES PT IS AWAKE AND SITTING IN BEDSIDE CHAIR. A/OX4. NO S/S OF RESPIRATORY DISTRESS OR SOB. NO C/O PAIN AT THIS TIME. PT IS TO BE D/C TODAY. NPO FOR BREAKFAST. WILL ADMIN CLINICAL TRIAL MEDS ONCE PTS HAVE RETURNED FROM SCHEDULED LAB WORK. SAFETY MEASURES IN PLACE, CALL LIGHT WITHIN REACH. WILL CONTINUE TO MONITOR.
--- NOTE | 2017-05-13 11:41 | NUR ---
DISCHARGE NOTES PT DISCHARGED TO HOME. CLINICAL TRIAL ENDED PER DR. CHURCHILL ORDERS. ALL EXIT CARE AND DISCHARGE INSTRUCTIONS EXPLAINED AND GIVEN TO PT. PT VERBALIZED UNDERSTANDING. DISCHARGE INSTRUCTIONS AND BELONGINGS LIST SIGNED AND COPIED. PT REFUSED WOUND PICTURES UPON DISCHARGE. PT PICKED UP BY FAMILY MEMBER AND LEFT IN PRIVATE CAR.
== END 2017-05-13 11:00 | disposition home or self-care (01) | DRG 951 ==
LOC: MED 15:10 → MEDSG2 04-13 20:18 → MED 04-25 16:35 → MEDSG2 04-30 20:49
PROVIDERS: ADMIT Psychiatry & Neurology Psychiatry; ATTEND Psychiatry & Neurology Psychiatry
DX: Z00.6 Encounter for examination for normal comparison and control in clinical research program (principal); E88.81 Metabolic syndrome and other insulin resistance; F20.0 Paranoid schizophrenia; E11.9 Type 2 diabetes mellitus without complications; I10 Essential (primary) hypertension; Z79.899 Other long term (current) drug therapy; Z82.49 Family history of ischemic heart disease and other diseases of the circulatory system; Z83.3 Family history of diabetes mellitus; Z82.5 Family history of asthma and other chronic lower respiratory diseases; F14.21 Cocaine dependence, in remission
CPT/HCPCS: 36415; 80053-TC; 82962-TC; 85025-TC; 87081-TC; Q0163; Q9963; Z7610

== ENCOUNTER 2019-06-23 13:45 | Inpatient (IN) | payer OTHER ==
[~2019-06-23] VITALS: Ht 170.2 cm; Wt 101.6 kg
[~2019-06-23 13:45] MED LIST: BENA20TA9 PO; BLOO-668 IN; HYDR25TA4 PO; METF-440 PO; RISP0.253 PO
--- NOTE | 2019-06-23 14:45 | NUR ---
RECEIVED CLINICAL TRIAL PATIENT ACCOMPANIED BY STAFF FROM DR [facility]. PATIENT IS ALERT AND ORIENTED X4, ABLE TO MAKE NEEDS KNOWN. AMBULATORY. NOT IN ANY FORM OF DISTRESS. NO SOB. DENIED PAIN OR DISCOMFORT AT THIS TIME. NO IV ACCESS. SITUATED PATIENT IN THE ROOM. "NO WOUNDS" PER PATIENT, REFUSED BODY CHECK. BELONGINGS CHECKED BY JENNY COCHRAN AND NOTED ON THE CHECKLIST FORM. ALL NEEDS ATTENDED AND PROVIDED. INSTRUCTED TO CALL NURSE FOR ANY ASSISTANCE THAT IS NEEDED. BED IN LOW/LOCKED POSITION, SIDERAILS UPX2, CALL LIGHT IN REACH. WILL CONTINUE TO MONITOR ACCORDINGLY.
[2019-06-23] MEDS ORDERED: ZOLPIDEM TARTRATE 10 MG TABLET PO PRN (15:30)
[2019-06-23] MEDS ORDERED: ACETAMINOPHEN ES 500 MG TABLET PO PRN (15:30)
[2019-06-23] MEDS ORDERED: MAG HYDROX/AL HYDROX/SIMETH 30 ML UDC PO PRN (15:30)
[2019-06-23] MEDS ORDERED: IBUPROFEN 200 MG TABLET PO PRN (15:30)
[2019-06-23] MEDS ORDERED: PROPRANOLOL HCL 10 MG TABLET PO PRN (15:30)
[2019-06-23] MEDS ORDERED: BENZTROPINE MESYLATE (1 MG) 1 MG TABLET PO PRN (15:30)
[2019-06-23] MEDS ORDERED: MAGNESIUM HYDROXIDE 30 ML UDC PO PRN (15:30)
[2019-06-23 16:00] VITALS: BP 117/65
[2019-06-23] MEDS ORDERED: QUET300T2 PO (16:45)
[2019-06-23] MEDS: METFORMIN 500 MG PO SCH (18:45)
--- NOTE | 2019-06-23 19:25 | NUR ---
CORKING MACHINE OPERATOR: MET WITH PT AT BED SIDE. PT IN BED, AWAKE, A/O X4, INDEPENDENT WITH ADLS/SELF CARE, MADE AWARE OF SMOKING HOURS POLICY. NO IV ACCESS PER MD. PT DENIES SI/HI. NOTED TO BE ISOLATIVE. PT REQUESTED TO ALWAYS KEEP HER DOOR CLOSE AND KEEP HER BED ROOM LIGHTS OFF. SAFETY PRECAUTIONS FOR FALL INITIATED, CALL LIGHT IN REACH, WILL CONTINUE MONITORING PT.
--- NOTE | 2019-06-23 19:49 | NUR ---
RN CLOSING NOTES PATIENT IN STABLE CONDITION. ALL NEEDS ATTENDED AND PROVIDED. ALL DUE MEDS GIVEN ORDERED. KEPT PATIENT SAFE AND COMFORTABLE. BED IN LOW/LOCKED POSITION. SIDERAILS UPX2, CALL LIGHT IN REACH. WILL CONTINUE TO MONITOR ACCORDINGLY. Addendum: 06/23/19 at 1950 by KOURTNEY ARRIOLA ENDORSED TO NIGHT RN FOR PJ
[2019-06-23 20:00] VITALS: BP 125/62
--- NOTE | 2019-06-23 20:55 | NUR ---
RN NOTES: CONTACTED PHARMACY, SPOKED WITH CECILY, FOLLOWED UP REGARDING SEROQUEL MEDICATION, EMAR SHOWING NOT IN PYXIS, PT'S CASSETTE CHECKED, ONLY 3OTHER MEDICATIONS WERE FOUND EXCEPT SEROQUEL. PER CECILY, HE WILL LOOK FOR THE MEDICATION AND WILL SEND IT UP.
[2019-06-23] MEDS: SEROQUEL 300 MG PO SCH (21:13)
--- NOTE | 2019-06-24 06:57 | NUR ---
END OF SHIFT SUMMARY: PT ABLE TO SLEEP WELL LAST NIGHT. PT CONTINUES TO DENY ANY PLANS OF HURTING HERELF, DENIES ANY SI/HI. REMAINS INDEPENDENT WITH ADLS. NO REPORTED AE TO MEDICATIONS. VS REMAINS STABLE, NEEDS ATTENDED. SAFETY PRECAUTIONS FOR FALL REMAINS ENGAGED, CALL LIGHT IN REACH, WILL ENDORSE TO DAY RN FOR CONTINUITY OF CARE.
--- NOTE | 2019-06-24 07:10 | NUR ---
RN OPENING NOTES PATIENT IN STABLE CONDITION. A/OX4. NOT IN ANY FORM OF DISTRESS. NO SOB. DENIED PAIN OR DISCOMFORT AT THIS TIME. NO IV ACCES. CLINICAL TRIAL PATIENT. BED IN LOW/LOCKED POSITION. SIDERAILS UPX2, CALL LIGHT IN REACH. WILL MONITOR ACCORDINGLY.
[2019-06-24 07:30] VITALS: BP 129/86
[2019-06-24] MEDS: BLOOD SUGAR DIAGNOSTIC 1 EACH STRIP IN SCH (09:00)
[2019-06-24] MEDS: METFORMIN 500 MG PO SCH ×2 (10:16→17:53)
[2019-06-24] MEDS: BENAZEPRIL 20 MG PO SCH (10:16)
[2019-06-24] MEDS: HYDROCHLOROTHIAZIDE 25 MG PO SCH (10:17)
--- NOTE | 2019-06-24 19:00 | NUR ---
RN NOTES PATIENT IN ROOM RESTING. NO ACUTE DISTRESS NOTED. NEEDS ATTENDED AND PROVIDED. COMPLIANT WITH SMOKING SCHEDULE. WILL MONITOR ACCORDINGLY
[2019-06-24 20:00] VITALS: BP 147/93
--- NOTE | 2019-06-24 22:00 | NUR ---
RN NOTES PATIENT ROUNDING DONE. PATIENT SLEEPING. NOT IN ANY FORM OF DISTRESS. WILL MONITOR ACCORDINGLY
[2019-06-24] MEDS: SEROQUEL 300 MG PO SCH (22:13)
--- NOTE | 2019-06-25 | NUR ---
RN NOTES PATIENT ROUNDING DONE. PATIENT SLEEPING. NOT IN ANY FORM OF DISTRESS. WILL MONITOR ACCORDINGLY
--- NOTE | 2019-06-25 07:58 | NUR ---
RN NOTES RECEIVED PATIENT ON CHAIR, A/O X4, RESPONSIVE TO STIMULI. RESPIRATION EVEN AND NON LABORED WITH NO ACUTE RESPIRATORY DISTRESS. ABDOMEN SOFT AND NON DISTENDED WITH ACTIVE BOWEL SOUNDS. SKIN WARM TO TOUCH AND DRY. DENIES PAIN AND DISCOMFORT. PT COOPERATIVE WITH CARE, WITH NO AH/VH. CALL LIGHT WITHIN REACHED. WILL CONTINUE TO EVALUATE CARE.
[2019-06-25 08:00] VITALS: BP 122/74
[2019-06-25] MEDS: HYDROCHLOROTHIAZIDE 25 MG PO SCH (08:45)
[2019-06-25] MEDS: BENAZEPRIL 20 MG PO SCH (08:45)
[2019-06-25] MEDS: BLOOD SUGAR DIAGNOSTIC 1 EACH STRIP IN SCH (08:46)
[2019-06-25] MEDS: METFORMIN 500 MG PO SCH ×2 (08:46→16:13)
--- NOTE | 2019-06-25 08:47 | NUR ---
RN NOTES PT REFUSED BLOOD SUGAR CHECK. RISK/BENEFITS DISCUSSED,STILL REFUSED STATED "IM NOT CHECKING MY SUGAR AT HOME, AND SO HERE"
[2019-06-25 16:00] VITALS: BP 129/95
--- NOTE | 2019-06-25 18:51 | NUR ---
RN CLOSING NOTES PT A/O X4, RESPONSIVE TO STIMULI. RESPIRATION EVEN AND NON LABORED WITH NO ACUTE RESPIRATORY DISTRESS. ABDOMEN SOFT AND NON DISTENDED WITH ACTIVE BOWEL SOUNDS. SKIN WARM TO TOUCH AND DRY. DENIES PAIN AND DISCOMFORT. PT COOPERATIVE WITH CARE, WITH NO AH/VH. CALL LIGHT WITHIN REACHED. IN STABLE CONDITION WHOLE DAY. ENDORSED PT CARE TO NEXT SHIFT
--- NOTE | 2019-06-25 19:30 | NUR ---
MS RN OPENING NOTE RECEIVED PATIENT IN BED. A/O X4. TOLERATING ROOM AIR. RESPIRATIONS ARE EVEN AND UNLABORED. NO S/S SOB NOTED. DENIES PAIN AT THIS TIME. NO IV ACCESS NOTED. IN NO APPARENT DISTRESS. BED IS LOW AND LOCKED, HOB FLAT, SIDE RAILS UP X2, CALL LIGHT WITHIN REACH. WILL CONTINUE TO MONITOR.
[2019-06-25 20:00] VITALS: BP 128/71
[2019-06-25 20:44] VITALS: BP 128/91
[2019-06-25] MEDS: SEROQUEL 300 MG PO SCH (21:35)
--- NOTE | 2019-06-26 06:26 | NUR ---
MS RN CLOSING NOTE PATIENT IN BED. A/O X4. REMAINS TOLERATING ROOM AIR. RR EVEN AND UNLABORED. NO SOB NOTED. DENIES PAIN. REMAINS WITH NO IV ACCESS. NO DISTRESS THROUGHOUT SHIFT. BED REMAINS LOW AND LOCKED, HOB FLAT, SIDE RAILS UP X2, CALL LIGHT WITHIN REACH. NO SIGNIFICANT MOOD/BEHAVIORAL CHANGES NOTED. WILL ENDORSE TO NEXT SHIFT.
[2019-06-26 08:00] VITALS: BP 117/78
[2019-06-26] MEDS: BENAZEPRIL 20 MG PO SCH (10:47)
[2019-06-26] MEDS: HYDROCHLOROTHIAZIDE 25 MG PO SCH (10:47)
[2019-06-26] MEDS: METFORMIN 500 MG PO SCH ×2 (10:48→19:19)
[2019-06-26] MEDS: BLOOD SUGAR DIAGNOSTIC 1 EACH STRIP IN SCH (10:51)
[2019-06-26 16:00] VITALS: BP 107/65
--- NOTE | 2019-06-26 19:20 | NUR ---
RN CLOSING NOTES PATIENT IN STABLE CONDITION. ALL NEEDS ATTENDED AND PROVIDED. ALL DUE MEDS GIVEN ORDERED. KEPT PATIENT SAFE AND COMFORTABLE. BED IN LOW/LOCKED POSITION. SIDERAILS UPX2, CALL LIGHT IN REACH. ENDORSED TO NIGHT RN FOR PJ
[2019-06-26 20:00] VITALS: BP 112/70
[2019-06-26 20:29] VITALS: BP 112/70
[2019-06-26] MEDS: SEROQUEL 300 MG PO SCH (21:14)
--- NOTE | 2019-06-27 07:30 | NUR ---
MS/RN Patient received Patient received from warehouse shift supervisor. A/O X4, vital signs stable, denie any pain or discomfort. All needs and concerns addressed. Will continue to monitor and ensure safety.
[2019-06-27 08:00] VITALS: BP 140/94
[2019-06-27 08:08] VITALS: BP 140/97
[2019-06-27] MEDS: HYDROCHLOROTHIAZIDE 25 MG PO SCH (08:34)
[2019-06-27] MEDS: METFORMIN 500 MG PO SCH ×2 (08:34→17:11)
[2019-06-27] MEDS: BLOOD SUGAR DIAGNOSTIC 1 EACH STRIP IN SCH (08:34)
[2019-06-27] MEDS: BENAZEPRIL 20 MG PO SCH (08:34)
--- NOTE | 2019-06-27 09:00 | NUR ---
MS/RN Medications Morning medications for hypertension administered as ordered.
[2019-06-27 16:00] VITALS: BP 129/80
--- NOTE | 2019-06-27 18:15 | NUR ---
MS/RN End note Patient remains in stable condition, denies any visual or auditory hallucinations. No needs or concerns expressed. Will endores to rn night.
--- NOTE | 2019-06-27 19:10 | NUR ---
RN OPENING NOTES RECEIVED PATIENT FROM AM RN. PATIENT AWAKE. A/O X 4. PATIENT CURRENTLY PLAYING VIDEO GAMES WHILE SITTING IN THE CHAIR. PATIENT ABLE TO VERBALIZE NEEDS. BREATHING EVEN AND UNLABORED, ON ROOM AIR, NO SOB NOTED, NO SIGNS OF RESPIRATORY DISTRESS. NO COMPLAINTS OF PAIN OR DISCOMFORT AT THIS TIME. SAFETY PRECAUTIONS IMPLEMENTED; CALL LIGHT WITHIN REACH, BED LOW, BED LOCKED, BILATERAL UPPER SIDE RAILS UP. ALL BELONGINGS AT BED SIDE. WILL CONTINUE TO MONITOR.
[2019-06-27 20:00] VITALS: BP 129/82
[2019-06-27] MEDS: SEROQUEL 300 MG PO SCH (21:34)
--- NOTE | 2019-06-28 06:25 | NUR ---
RN CLOSING NOTES PATIENT IS CURRENTLY AWAKE, TALKING ON THE PHONE. A/O X 4. ON ROOM AIR, NO SIGNS OF RESPIRATORY DISTRESS, NO SHORTNESS OF BREATH NOTED, RESPIRATIONS EVEN AND UNLABORED. NO SIGNS OF FACIAL GRIMACING INDICATING PAIN OR DISCOMFORT AT THIS TIME. ALL NEEDS MET ON SHIFT. ALL DUE MEDS GIVEN ORDERED WITH NO ADVERSE EFFECTS. NO SIGNIFICANT MOOD/BEHAVIORAL CHANGES NOTED. PATIENT DENIES ANY VISUAL OR AUDITORY HALLUCINATIONS. SAFETY PRECAUTIONS IMPLEMENTED; CALL LIGHT WITHIN REACH, BED LOW, BED LOCKED, BILATERAL UPPER SIDE RAILS UP. ALL BELONGINGS REMAIN AT BED SIDE. WILL ENDORSE TO DAY SHIFT NURSE FOR CONTINUITY OF CARE.
--- NOTE | 2019-06-28 07:15 | NUR ---
MS RN OPENING NOTES RECEIVED PATIENT AWAKE AND PLAYING GAMES ON THE TV. A/O X4. ABLE TO MAKE NEEDS KNOWN, DENIES PAIN OR ANY DISCOMFORTS AT THIS TIME. AMBULATORY WITH STEADY GAIT. ON ROOM AIR, BREATHING EVEN AND UNLABORED. PT ON CLINICAL TRIAL. CALL LIGHT WITHIN REACH. WILL CONTINUE TO MONITOR.
[2019-06-28 07:30] VITALS: BP 131/77
[2019-06-28] MEDS: METFORMIN 500 MG PO SCH ×2 (08:19→17:08)
[2019-06-28] MEDS: BENAZEPRIL 20 MG PO SCH (08:20)
[2019-06-28] MEDS: HYDROCHLOROTHIAZIDE 25 MG PO SCH (08:20)
[2019-06-28] MEDS: BLOOD SUGAR DIAGNOSTIC 1 EACH STRIP IN SCH (08:22)
[2019-06-28 16:00] VITALS: BP 120/80
--- NOTE | 2019-06-28 18:35 | NUR ---
MS RN CLOSING NOTES PT IN HER ROOM SITTING ON CHAIR WATCHING TV. A/O X4, SAME ABLE TO MAKE NEEDS KNOWN. AMBULATORY WITH STEADY GAIT. ON ROOM AIR, NO ACUTE DISTRESS NOTED THROUGHOUT THE DAY. CALL LIGHT WITHIN REACH. ALL NEEDS AND CARE ATTENDED WELL. WILL ENDORSE TO DEVELOPMENTAL THERAPIST NURSE FOR PJ.
--- NOTE | 2019-06-28 19:35 | NUR ---
RN MS OPENING NOTES RECEIVED PATIENT IN BED AWAKE, ALERT AND ORIENTED X4, VERBALLY RESPONSIVE, ABLE TO MAKE NEEDS KNOWN. BREATHING EVEN AND UNLABORED. NO SOB, TOLERATING ROOM AIR. DENIES PAIN OR DISCOMFORT, DENIES N/V. NO IV FOR CLINICAL TRIAL. ALL OTHER NEEDS ATTENDED TO, SAFETY MEASURES IN PLACE. CALL LIGHT WITHIN REACH. WILL CONTINUE TO MONITOR.
[2019-06-28 20:00] VITALS: BP 145/87
[2019-06-28] MEDS: SEROQUEL 300 MG PO SCH (21:57)
--- NOTE | 2019-06-29 07:03 | NUR ---
RN MS CLOSING NOTES NO ACUTE CHANGES THROUGHOUT SHIFT. BREATHING EVEN AND UNLABORED. TOLERATING ROOM AIR. DENIES PAIN OR DISCOMFORT. DENIES N/V. NO IV DUE TO CLINICAL TRIAL. NO SI/HI IDEATION. PATIENT IS INDEPENDENT WITH ADLS. AMBULATORY WITH A STEADY GAIT. ALL OTHER NEEDS ATTENDED TO, SAFETY MEASURES IN PLACE, CALL LIGHT WITHIN REACH. WILL ENDORSE TO ONCOMING NURSE FOR PJ.
--- NOTE | 2019-06-29 07:13 | NUR ---
MS RN OPENING NOTES RECEIVED PATIENT IN HER ROOM AWAKE IN NO ACUTE SIGNS OF DISTRESS. A/O X4. ABLE TO MAKE NEEDS KNOWN, DENIES PAIN OR ANY DISCOMFORTS AT THIS TIME. AMBULATORY WITH STEADY GAIT. ON ROOM AIR, BREATHING EVEN AND UNLABORED. CALL LIGHT WITHIN REACH. WILL CONTINUE TO MONITOR.
[2019-06-29 08:00] VITALS: BP 136/83
[2019-06-29] MEDS: METFORMIN 500 MG PO SCH ×2 (08:17→16:28)
[2019-06-29] MEDS: BENAZEPRIL 20 MG PO SCH (08:17)
[2019-06-29] MEDS: HYDROCHLOROTHIAZIDE 25 MG PO SCH (08:17)
[2019-06-29] MEDS: BLOOD SUGAR DIAGNOSTIC 1 EACH STRIP IN SCH (09:00)
[2019-06-29 16:01] VITALS: BP 146/94
--- NOTE | 2019-06-29 18:42 | NUR ---
MS RN CLOSING NOTES PT IN BED RESTING AND WATCHING TV AT THIS TIME. A/O X4. ABLE TO MAKE NEEDS KNOWN. AMBULATORY WITH STEADY GAIT. ON ROOM AIR, NO ACUTE DISTRESS NOTED THROUGHOUT THE DAY. CALL LIGHT WITHIN REACH. ALL NEEDS AND CARE ATTENDED WELL. WILL ENDORSE TO LEG BREAKER NURSE FOR PJ.
--- NOTE | 2019-06-29 19:30 | NUR ---
MS RN OPENING NOTES RECEIVED PATIENT FROM MORNING NURSE, ALERT AND ORIENTED X 3. AMBULATORY, VERBALLY RESPONSIVE AND ABLE TO FOLLOW DIRECTIONS. BREATHING REGULAR AND UNLABORED ON ROOM AIR. NO IV ACCESS. BODY ASSESSMENT DONE, SKIN REMAINED INTACT CLEAN AND DRY. NO COMPLAINTS OF PAIN/DISCOMFORT REPORTED OF THE TIME. BED LOW AND LOCKED ON SEMI FOWLERS POSITION. CALL LIGHT IN REACH. WILL CONTINUE TO MONITOR.
[2019-06-29 20:00] VITALS: BP 133/96
--- NOTE | 2019-06-29 20:00 | NUR ---
MS RN NOTES SEEN AND EXAMINED BY WITH NO NEW ORDERS NOTED.
[2019-06-29 22:00] VITALS: BP 133/96
[2019-06-29] MEDS: SEROQUEL 300 MG PO SCH (22:08)
[2019-06-30] MEDS ORDERED: IBUPROFEN 600 MG TABLET PO ONE (05:32)
[2019-06-30] MEDS ORDERED: IBUPROFEN 200 MG TABLET ONE (05:49)
--- NOTE | 2019-06-30 06:00 | NUR ---
MS RN NOTES COMPLAINED OF 5/10 HEADACHE, MOTRIN 600MG GIVEN BY MOUTH. NON-PHARMACOLOGICAL INTERVENTIONS PROVIDED. WILL CONTINUE TO MONITOR.
--- NOTE | 2019-06-30 06:15 | NUR ---
MS RN CLOSING NOTES PATIENT IN BED ALERT AND ORIENTED X 3. AMBULATORY, VERBALLY RESPONSIVE AND ABLE TO FOLLOW DIRECTIONS. BREATHING REGULAR AND UNLABORED ON ROOM AIR. NO IV ACCESS. NO VERBALIZED SUICIDAL/HOMICIDAL IDEATION THE WHOLE SHIFT. BED LOW AND LOCKED ON SEMI FOWLERS POSITION. CALL LIGHT IN REACH. WILL ENDORSE TO MORNING SHIFT FOR PJ.
[2019-06-30 07:30] VITALS: BP 139/99
[2019-06-30] MEDS: BLOOD SUGAR DIAGNOSTIC 1 EACH STRIP IN SCH (09:00)
[2019-06-30] MEDS: BENAZEPRIL 20 MG PO SCH (09:37)
[2019-06-30] MEDS: HYDROCHLOROTHIAZIDE 25 MG PO SCH (09:37)
[2019-06-30] MEDS: METFORMIN 500 MG PO SCH ×2 (09:38→17:48)
--- NOTE | 2019-06-30 18:54 | NUR ---
MS RN NOTES SPOKE TO DR. CHURCHILL REGARDING PATIENT GOING OUT TO SMOKE PER MD, OK TO SMOKE BY HERSELF.
--- NOTE | 2019-06-30 19:15 | NUR ---
MS RN OPENING NOTES Received patient A/O x4, awake. Ambulatory with steady gait. Able to attend needs independently. No complaints made at this time. Will continue to monitor accordingly.
[2019-06-30 20:00] VITALS: BP 134/88
[2019-06-30] MEDS: SEROQUEL 150 MG PO SCH (21:18)
--- NOTE | 2019-07-01 03:00 | NUR ---
MS COWART NOTES Received patient from 304. Transferred to 203. Patient in stable condition. On O2 via NC @ 2LPM, saturating well, no SOB/respiratory distress noted. No s/sx of discomfort noted at this time. Belongings inventory checked, no any jewelry and wheelchair upon transfer. Patient unable to verify information. Kept on bed clean, dry and comfortable. Call light within easy reach. Will continue to monitor accordingly. Addendum: 07/01/19 at 0313 by TARIK VALERO RN wrong entry.
--- NOTE | 2019-07-01 07:21 | NUR ---
MS RN CLOSING NOTES Patient asleep, easily awaken. No new unusualitites noted. All nursing needs attended. On fall and aspiration precautions. Call light within easy reach. Endorsed.
[2019-07-01 08:00] VITALS: BP 129/94
[2019-07-01] MEDS: HYDROCHLOROTHIAZIDE 25 MG PO SCH (08:33)
[2019-07-01] MEDS: METFORMIN 500 MG PO SCH ×2 (08:33→16:12)
[2019-07-01] MEDS: BENAZEPRIL 20 MG PO SCH (08:33)
[2019-07-01] MEDS: BLOOD SUGAR DIAGNOSTIC 1 EACH STRIP IN SCH (08:34)
[2019-07-01 16:00] VITALS: BP 146/85
--- NOTE | 2019-07-01 18:19 | NUR ---
MS RN END OF SHIFT SUMMARY PT A/OX4, AFEBRILE. RESPIRATIONS ARE EVEN AND UNLABORED, NOT IN ANY ACUTE DISTRESS NOTED. DENIES ANY PAIN. +FLATUS, X1 BM DURING SHIFT, VOIDS ADEQUATE UOP. SKIN KEPT CDI. NO IV ACCESS. ABLE TO MAKE NEEDS KNOWN, NEEDS MET AND RENDERED. SAFETY MEASURES ARE IN PLACE. CALL LIGHT IS LEFT WITHIN REACH. WILL CONTINUE TO MONITOR AND ENDORSE TO NEXT SHIFT.
[2019-07-01 20:00] VITALS: BP 117/82
[2019-07-01] MEDS: SEROQUEL 150 MG PO SCH (21:32)
--- NOTE | 2019-07-02 07:49 | NUR ---
MS RN NOTE PT REMAINS IN STABLE CONDITION A/O X4, NOTED EATING BREAKFAST. ALL CURRENT NEEDS ATTENDED TO. WILL ENDORSE TO NEXT SHIFT FOR PJ.
[2019-07-02 08:00] VITALS: BP 131/88
--- NOTE | 2019-07-02 08:11 | NUR ---
MS RN OPENING NOTE PATIENT IN BED RESTING COMFORTABLY. PATIENT IN NO ACUTE DISTRESS. NO SOB NOTED. PATIENT BREATHING IS EVEN AND UNLABORED. PATIENT IN NO PAIN AT THIS TIME. SAFETY PRECAUTIONS IN PLACE. NEEDS AND CONCERNS ADDRESSED. PATIENT BED IS LOCKED AND IN LOWEST POSITION. CALL LIGHT WITHIN REACH. WILL CONTINUE TO MONITOR.
[2019-07-02] MEDS: BLOOD SUGAR DIAGNOSTIC 1 EACH STRIP IN SCH (08:33)
[2019-07-02] MEDS: METFORMIN 500 MG PO SCH ×2 (08:34→16:48)
[2019-07-02] MEDS: HYDROCHLOROTHIAZIDE 25 MG PO SCH (08:34)
[2019-07-02] MEDS: BENAZEPRIL 20 MG PO SCH (08:34)
--- NOTE | 2019-07-02 08:35 | NUR ---
MS RN NOTE PATIENT REFUSED TO HAVE BLOOD SUGAR CHECK THIS AM. EDUCATED RISKS VS BENEFITS. PATIENT CONTINUED TO REFUSE.
[2019-07-02 16:00] VITALS: BP 136/85
--- NOTE | 2019-07-02 19:28 | NUR ---
MS RN CLOSING NOTE PATIENT IN BED RESTING COMFORTABLY. PATIENT IN NO ACUTE DISTRESS. NO SOB NOTED. PATIENT BREATHING IS EVEN AND UNLABORED. PATIENT NEEDS AND CONCERNS ADDRESSED. PATIENT BED IS LOCKED AND IN LOWEST POSITION. CALL LIGHT WITHIN REACH. WILL ENDORSE CARE TO PM SHIFT FOR PJ.
--- NOTE | 2019-07-02 20:00 | NUR ---
MS RN NOTES RECEIVED PATIENT AWAKE AND CALM IN BED WITH NO DISTRESS NOTED. CALL LIGHT WITHIN REACH. NO C/O PAIN OR DISCOMFORT. ENCOURAGED USE OF CALL LIGHT FOR ASSISTANCE AND VERBALIZE GOOD UNDERSTANDING. BED IN LOW LOCK SETTING. ROOM FREE OF CLUTTER AND BELONGINGS KEPT NEAR BEDSIDE. WILL CONTINUE TO MONITOR.
[2019-07-02 20:45] VITALS: BP 119/75
[2019-07-02] MEDS: SEROQUEL 150 MG PO SCH (21:55)
--- NOTE | 2019-07-03 07:14 | NUR ---
MS RN NOTES PATIENT ASLEEP IN BED WITH NO DISTRESS NOTED. CALL LIGHT WITHIN REACH. ALL DUE MEDS GIVEN ORDERED WITH NO ASE. NO C/O PAIN OR DISCOMFORT. PATIENT REMAINED CALM AND COOPERATIVE WITH NURSING CARE DURING SHIFT. BED IN LOW LOCK SETTING. ROOM FREE OF CLUTTER AND BELONGINGS KEPT NEAR BEDSIDE. WILL ENDORSE TO ONCOMING SHIFT
--- NOTE | 2019-07-03 07:30 | NUR ---
MS/RN Patient received Patient received from material handler 2nd shift. A/O X4, vital signs stable, no fever noted, denies any pain or discomfort. All needs attended, will continue to monitor and ensure safety.
[2019-07-03 08:00] VITALS: BP 136/89
[2019-07-03] MEDS: METFORMIN 500 MG PO SCH ×2 (08:38→16:40)
[2019-07-03] MEDS: HYDROCHLOROTHIAZIDE 25 MG PO SCH (08:38)
[2019-07-03] MEDS: BLOOD SUGAR DIAGNOSTIC 1 EACH STRIP IN SCH (08:38)
[2019-07-03] MEDS: BENAZEPRIL 20 MG PO SCH (08:38)
--- NOTE | 2019-07-03 08:53 | NUR ---
MS/RN Blood sugar Patient refused for blood sugar to be checked.
[2019-07-03 16:00] VITALS: BP_SYST 124; BP_SYST 147; BP_DIAS 76; BP_DIAS 99
--- NOTE | 2019-07-03 18:18 | NUR ---
MS/RN End note Patient remains isolated in room with limited interaction with staff. Continues to experience visual and auditory hallucinations. Seen by Dr Aguilar, no new orders, to continue with current trial medications. Will endorse to drill rig operator helper.
[2019-07-03 20:00] VITALS: BP 134/95
[2019-07-03] MEDS ORDERED: SEROQUEL 100 MG PO SCH (22:00)
[2019-07-03] MEDS ORDERED: SEROQUEL XR 50 MG PO SCH (22:00)
--- NOTE | 2019-07-04 00:57 | NUR ---
In bed awake and watching TV. Pleasant and cooperative. smiling denies having hallucinations or hearing voices
--- NOTE | 2019-07-04 03:12 | NUR ---
Checked on patient. Asleep did not awaken her resp even and unlabored
[2019-07-04 05:43] VITALS: BP 128/79
--- NOTE | 2019-07-04 07:20 | NUR ---
ENDING NOTES: aWAKE AND AMBULATING IN THE HALLWAY STEADY ON HER LEGS. SMILING AND FRIENDLY. SLEPT THRU THE NIGHT
--- NOTE | 2019-07-04 07:27 | NUR ---
MS/RN Patient received Patient received from manufacturing shift supervisor. A/O X4, vital signs stable, no fevers, pain or shortness of breath. All needs attended, will continue to monitor and ensure safety.
[2019-07-04 08:00] VITALS: BP 137/76
[2019-07-04] MEDS: METFORMIN 500 MG PO SCH ×2 (08:30→17:18)
[2019-07-04] MEDS: BENAZEPRIL 20 MG PO SCH (08:30)
[2019-07-04] MEDS: HYDROCHLOROTHIAZIDE 25 MG PO SCH (08:30)
[2019-07-04] MEDS: BLOOD SUGAR DIAGNOSTIC 1 EACH STRIP IN SCH (08:31)
[2019-07-04 16:00] VITALS: BP 144/87
--- NOTE | 2019-07-04 18:22 | NUR ---
MS/RN End note Patient remains in stable condition. Continues to experience visual and auditory hallucinations, compliant with plan of care. No behavior concerns.
--- NOTE | 2019-07-04 19:21 | NUR ---
CHANGE OF SHIFT REPORT Patient in bed, awake, A/O x4. On Clinical study Trial under Dr. Aguilar. Patient appears anxious and irritable, denies shortness of breath. Safety measure in place.
[2019-07-04] MEDS: LORAZEPAM 1 MG TABLET FOR AGITATION PO PRN (19:45)
--- NOTE | 2019-07-04 19:46 | NUR ---
Patient sitting up in bed, appears irritable and agitated, denies shortness of breath, requesting Ativan. Indication and possible side effect explained verbalized understanding. PRN Ativan given.
[2019-07-04 20:00] VITALS: BP 153/85
[2019-07-04 20:10] VITALS: BP 153/85
[2019-07-04] MEDS: SEROQUEL XR 50 MG PO SCH (21:36)
[2019-07-05 08:00] VITALS: BP 123/69
[2019-07-05] MEDS: BLOOD SUGAR DIAGNOSTIC 1 EACH STRIP IN SCH (08:43)
[2019-07-05] MEDS: BENAZEPRIL 20 MG PO SCH (08:44)
[2019-07-05] MEDS: HYDROCHLOROTHIAZIDE 25 MG PO SCH (08:44)
[2019-07-05] MEDS: METFORMIN 500 MG PO SCH ×2 (08:44→16:55)
[2019-07-05 16:00] VITALS: BP 121/88
--- NOTE | 2019-07-05 18:53 | NUR ---
RN CLOSING NOTE CLINICAL TRIAL PT IN BED AT LOWEST AND LOCKED POSITION WITH SIDE RAILS UP X2, A/O X4 BREATHING EVEN AND UNLABORED ON RA WITH NO DISTRESS OR PAIN AT THIS TIME, NO IV IN PLACE PER CLINICAL TRIAL PROTOCOL, SAFETY PRECAUTIONS IN PLACE, CALL LIGHT IN REACH, ALL NEEDS ATTENDED TO, WILL ENDORSE TO NIGHT RN FOR PJ.
--- NOTE | 2019-07-05 19:10 | NUR ---
MS RN NOTE RECEIVED PT IN STABLE CONDITION A/O X4, NOTED IN ROOM WATCHING TV. NO SIGNS OF SOB OR DISTRESS, NO C/O PAIN OR N/V. PT COMPLIANT WITH WITH CURRENT PLAN OF CARE. ALL CURRENT NEEDS ATTENDED TO. BED LOW, LOCKED, UPPER RAILS UP, AND CALL LIGHT WITHIN REACH. PT REMINDED TO LET STAFF KNOW IF LEAVING FLOOR. WILL CONT. TO MONITOR.
[2019-07-05 20:00] VITALS: BP 120/77
[2019-07-05] MEDS: LORAZEPAM 1 MG TABLET FOR AGITATION PO PRN (20:02)
[2019-07-05] MEDS: SEROQUEL XR 50 MG PO SCH (21:04)
--- NOTE | 2019-07-06 06:31 | NUR ---
MS RN NOTE PT REMAINS IN STABLE CONDITION A/O X4, NOTED IN ROOM WATCHING TV. NO SIGNS OF SOB OR DISTRESS, NO C/O PAIN OR N/V. PT COMPLIANT WITH WITH CURRENT PLAN OF CARE. ALL CURRENT NEEDS ATTENDED TO. BED LOW, LOCKED, UPPER RAILS UP, AND CALL LIGHT WITHIN REACH. PT REMINDED TO LET STAFF KNOW IF LEAVING FLOOR. WILL CONT. TO MONITOR AND ENDORSE TO NEXT SHIFT FOR PJ.
[2019-07-06 08:00] VITALS: BP 129/89
[2019-07-06] MEDS: BENAZEPRIL 20 MG PO SCH (08:11)
[2019-07-06] MEDS: METFORMIN 500 MG PO SCH ×2 (08:11→17:32)
[2019-07-06] MEDS: HYDROCHLOROTHIAZIDE 25 MG PO SCH (08:13)
[2019-07-06] MEDS: BLOOD SUGAR DIAGNOSTIC 1 EACH STRIP IN SCH (08:20)
[2019-07-06 16:00] VITALS: BP 135/92
--- NOTE | 2019-07-06 19:30 | NUR ---
MS RN OPENING NOTES: RECEIVED PATIENT IN THE HALLWAY TALKING TO DR CHURCHILL. REMINDED THE PATIENT TO BE NPO AT 2100 PATIENT VERBALIZED UNDERSTANDING. AMBULATORY. NO COMPLAIN OF PAIN.
[2019-07-06 20:00] VITALS: BP 109/66
--- NOTE | 2019-07-06 20:43 | NUR ---
V/S TAKEN BY JENNY KATE, AND RECORDED. AFEBRILE.
--- NOTE | 2019-07-07 06:36 | NUR ---
MS RN CLOSING NOTES: PATIENT IS RESTING IN BED, A/O X4. AMBULATORY. NPO SINCE 2100. NO COMPLAIN OF PAIN DURING THE SHIFT. ATIVAN WAS HELD LAST NIGHT AT 2300 ORDERED. RESTED THROUGHOUT THE NIGHT. NO SOB NOTED. AFEBRILE. VITALS STABLE.
--- NOTE | 2019-07-07 07:15 | NUR ---
MS RN OPENING NOTES RECEIVED PATIENT IN BED AWAKE IN NO ACUTE SIGNS OF DISTRESS. A/O X4. ABLE TO MAKE NEEDS KNOWN, DENIES PAIN OR ANY DISCOMFORTS AT THIS TIME. TOLERATING ROOM AIR, NO SOB NOTED. NPO MAINTAINED THIS BREAKFAST. FOR CLINICAL TRIAL. SAFETY MEASURES IN PLACE. CALL LIGHT WITHIN REACH. WILL CONTINUE TO MONITOR.
[2019-07-07 08:00] VITALS: BP 144/88
[2019-07-07] MEDS: BLOOD SUGAR DIAGNOSTIC 1 EACH STRIP IN SCH (09:00)
--- NOTE | 2019-07-07 09:12 | NUR ---
RN NOTES PT PICKED-UP BY STAFF OF DR APONTE FOR BLOOD WORKS.
[2019-07-07] MEDS: BENAZEPRIL 20 MG PO SCH (12:28)
[2019-07-07] MEDS: HYDROCHLOROTHIAZIDE 25 MG PO SCH (12:29)
[2019-07-07] MEDS: METFORMIN 500 MG PO SCH ×2 (12:44→17:05)
[2019-07-07 16:00] VITALS: BP 139/84
[2019-07-07] MEDS: LORAZEPAM 1 MG TABLET FOR AGITATION PO PRN (18:23)
--- NOTE | 2019-07-07 18:23 | NUR ---
RN NOTES PT NOTED WALKING AROUND THE UNIT AND VERBALIZED THAT SHE'S ANXIOUS AND REQUESTED ATIVAN. ATIVAN 1MG PO GIVEN AT 1823. WILL CONTINUE TO MONITOR
--- NOTE | 2019-07-07 19:00 | NUR ---
MS RN CLOSING NOTES PT IN BED RESTING AND WATCHING TV AT THIS TIME. A/O X4. ABLE TO MAKE NEEDS KNOWN. AMBULATORY WITH STEADY GAIT. PT TO START CLINICAL MED TONIGHT AT 2200. ON ROOM AIR, NO ACUTE DISTRESS NOTED THROUGHOUT THE DAY. CALL LIGHT WITHIN REACH. ALL NEEDS AND CARE ATTENDED WELL. WILL ENDORSE TO PROGRAM ADMINISTRATOR NURSE FOR PJ.
--- NOTE | 2019-07-07 20:06 | NUR ---
MS RN NOTES RECEIVED PATIENT AWAKE AND CALM IN BED WITH NO DISTRESS NOTED. CALL LIGHT WITHIN REACH. NO C/O PAIN OR DISCOMFORT. BED IN LOW LOCK SETTING. ROOM FREE OF CLUTTER AND BELONGINGS KEPT NEAR BEDSIDE. WILL CONTINUE TO MONITOR
[2019-07-07 20:18] VITALS: BP 113/75
[2019-07-07] MEDS: [UNRECOGNIZED DRUG - OTHER] PO SCH (21:55)
--- NOTE | 2019-07-08 06:53 | NUR ---
MS RN NOTES PATIENT AWAKE IN ROOM, ANXIOUS, AND TALKING TO SELF. OFFERED PRN ATIVAN BUT PATIENT REFUSED, STATED SHE'LL GET HER ATIVAN LATER ON TODAY. NO C/O PAIN OR DISCOMFORT. BED IN LOW LOCK SETTING. ROOM FREE OF CLUTTER AND BELONGINGS KEPT NEAR BEDSIDE. WILL CONTINUE TO MONITOR
--- NOTE | 2019-07-08 07:59 | NUR ---
MS RN NOTES PATIENT IN HER ROOM RESTING COOPERATIVE. WILL CONTINUE TO MONITOR.
[2019-07-08 08:00] VITALS: BP 136/100
[2019-07-08] MEDS: BENAZEPRIL 20 MG PO SCH (08:32)
[2019-07-08] MEDS: METFORMIN 500 MG PO SCH ×2 (08:32→17:58)
[2019-07-08] MEDS: HYDROCHLOROTHIAZIDE 25 MG PO SCH (08:32)
[2019-07-08] MEDS: BLOOD SUGAR DIAGNOSTIC 1 EACH STRIP IN SCH (09:00)
[2019-07-08 16:00] VITALS: BP 102/64
[2019-07-08] MEDS: LORAZEPAM 1 MG TABLET FOR AGITATION PO PRN (18:35)
--- NOTE | 2019-07-08 19:10 | NUR ---
RN MS OPENING NOTES CLINICAL TRIAL RECEIVED PATIENT IN ROOM AWAKE ALERT AND ORIENTED X4, RESPIRATION EVEN AND UNLABORED WITH EQUAL RISE AND FALL OF CHEST, DENIES ANY PAIN OR DISCOMFORT AT THIS TIME APPEARS CALM ,NO S/S OF HI OR SI. ORIENTED TO STAFF AND CALL LIGHT AND KEPT WITHIN REACH, WILL CONTINUE TO MONITOR AND ATTEND TO NEEDS.
--- NOTE | 2019-07-08 19:28 | NUR ---
MS RN NOTES PATIENT IN BED RESTING NO SOB OR ACUTE DISTRESS NOTED. PATIENT COOPERATIVE. PATIENT WAS AWAKE THOROUGH THE DAY. NO SIGNS OR SYMPTOMS OF AGITATION. ENDORSED CARE TO PM SHIFT.
[2019-07-08 20:00] VITALS: BP 129/92
[2019-07-08] MEDS: [UNRECOGNIZED DRUG - OTHER] PO SCH (21:02)
--- NOTE | 2019-07-09 06:43 | NUR ---
RN MS CLOSING NOTES CLINICAL TRIAL PATIENT IN ROOM AWAKE ALERT AND ORIENTED X4, RESPIRATION EVEN AND UNLABORED WITH EQUAL RISE AND FALL OF CHEST, DENIES ANY PAIN OR DISCOMFORT AT THIS TIME APPEARS CALM ,NO S/S OF HI OR SI THROUGH OUT SHIFT, MED COMPLAINT, COOPERATIVE. FLUIDS OFFERED ,CALL LIGHT KEPT WITHIN REACH, WILL CONTINUE TO MONITOR AND ATTEND TO NEEDS AND ENDORSE TO NEXT SHIFT, PATIENT SLEPT WELL THROUGHOUT NIGHT.
[2019-07-09 08:00] VITALS: BP 132/93
--- NOTE | 2019-07-09 08:00 | NUR ---
RN NOTES RECEIVED PATIENT IN THE ROOM A/O X3, REFUSED ANXIETY, AND HALLUCINATION, V/S STABLE ADMINISTERED SCHEDULED MEDICATION, PATIENT REFUSED BLOOD GLUCOSE TO BE CHECKED. PATENT AMBULATORY SELF CARE. REFUSED SI/HI AT THIS TIME, AND SMOKER. CONTINUED MONITORING.
[2019-07-09] MEDS: BLOOD SUGAR DIAGNOSTIC 1 EACH STRIP IN SCH (09:00)
[2019-07-09] MEDS: HYDROCHLOROTHIAZIDE 25 MG PO SCH (09:13)
[2019-07-09] MEDS: BENAZEPRIL 20 MG PO SCH (09:14)
[2019-07-09] MEDS: METFORMIN 500 MG PO SCH ×2 (09:14→17:11)
[2019-07-09 16:00] VITALS: BP 133/73
--- NOTE | 2019-07-09 18:30 | NUR ---
RN NOTES PATIENT STABLE IN THE BED, , MEDICATION WERE ADMINISTERED FOR ANXIETY EFFECTIVE. CALL LIGHT WITHIN TO REACH. ENDORSED ONCOMING NURSE FOLLOW PLAN OF CARE.
[2019-07-09] MEDS: LORAZEPAM 1 MG TABLET FOR AGITATION PO PRN (18:54)
--- NOTE | 2019-07-09 18:54 | NUR ---
rn notes administered ativan 1 mg po prn for anxiety per patient request v/s taken bp 131/71, p-59 continued monitoring.
--- NOTE | 2019-07-09 19:30 | NUR ---
RN NOTES RECEIVED PT. AWAKE ON BED, A/OX4, AMBULATORY, CALM AND COOPERATIVE, CALL LIGHT WITHIN REACH, [id number], CONTINUE TO MONITOR
[2019-07-09 20:00] VITALS: BP 113/76
[2019-07-09 20:23] VITALS: BP 113/76
[2019-07-09] MEDS: [UNRECOGNIZED DRUG - OTHER] PO SCH (22:01)
--- NOTE | 2019-07-10 06:27 | NUR ---
RN NOTES AWAKE, NOT IN DISTRESS , DENIES PAIN, CALM AND COOPERATIVE
[2019-07-10 07:56] VITALS: BP 119/85
[2019-07-10 08:00] VITALS: BP 119/85
[2019-07-10] MEDS: BLOOD SUGAR DIAGNOSTIC 1 EACH STRIP IN SCH (08:25)
[2019-07-10] MEDS: HYDROCHLOROTHIAZIDE 25 MG PO SCH (09:17)
[2019-07-10] MEDS: METFORMIN 500 MG PO SCH ×2 (09:17→17:21)
[2019-07-10] MEDS: BENAZEPRIL 20 MG PO SCH (09:17)
[2019-07-10 16:00] VITALS: BP 160/78
--- NOTE | 2019-07-10 18:00 | NUR ---
RN NOTES PATIENT STABLE WALKING IN THE HALLWAY, REFUSED SI/HI, REDIRECTABLE, SEEN PATIENT BY DR CHURCHILL, NO NEW ORDERS. SAFETY PRECAUTION MAINTAINED ALL THE TIME.
[2019-07-10] MEDS: LORAZEPAM 1 MG TABLET FOR AGITATION PO PRN (19:47)
--- NOTE | 2019-07-10 19:49 | NUR ---
RN MS NOTES PATIENT REQUESTED FOR ATIVAN . PRN GIVEN ORDERED. APPEARS ANXIOUS WILL CONTINUE TO MONITOR FOR EFFECTIVENESS.
[2019-07-10 20:00] VITALS: BP 140/79
[2019-07-10] MEDS: [UNRECOGNIZED DRUG - OTHER] PO SCH (21:00)
--- NOTE | 2019-07-11 06:47 | NUR ---
RN MS CLOSING NOTES CLINICAL TRIAL RECEIVED PATIENT IN ROOM AWAKE ALERT AND ORIENTED X4, RESPIRATION EVEN AND UNLABORED WITH EQUAL RISE AND FALL OF CHEST, DENIES ANY PAIN OR DISCOMFORT AT THIS TIME APPEARS CALM ,NO S/S OF HI OR SI.NO ADVERSE REACTIONS TO MEDICATION . CALL LIGHT KEPT WITHIN REACH, WILL CONTINUE TO MONITOR AND ATTEND TO NEEDS.
[2019-07-11 08:00] VITALS: BP_SYST 118; BP_SYST 121; BP_DIAS 65; BP_DIAS 73
--- NOTE | 2019-07-11 08:00 | NUR ---
RN NOTES SEEN PATIENT IN THE ROOM A/O X3, REFUSED ANXIETY, AND HALLUCINATION, V/S STABLE ADMINISTERED SCHEDULED MEDICATION, PATIENT REFUSED BLOOD GLUCOSE TO BE CHECKED. PATENT AMBULATORY SELF CARE. REFUSED SI/HI AT THIS TIME, SMOKER. CONTINUED MONITORING.
[2019-07-11] MEDS: BLOOD SUGAR DIAGNOSTIC 1 EACH STRIP IN SCH (09:00)
[2019-07-11] MEDS: METFORMIN 500 MG PO SCH ×2 (10:12→17:11)
[2019-07-11] MEDS: BENAZEPRIL 20 MG PO SCH (10:12)
[2019-07-11] MEDS: HYDROCHLOROTHIAZIDE 25 MG PO SCH (10:12)
[2019-07-11 16:19] VITALS: BP 107/68
--- NOTE | 2019-07-11 18:00 | NUR ---
rn notes patient stable in the hallway, no acute respiratory distress, refused si/hi at this time, continued monitoring. endorsed oncoming nurse follow plan of care.
--- NOTE | 2019-07-11 19:05 | NUR ---
RN MS OPENING NOTES CLINICAL TRIAL RECEIVED PATIENT IN ROOM AWAKE ALERT AND ORIENTED X4, RESPIRATION EVEN AND UNLABORED WITH EQUAL RISE AND FALL OF CHEST, DENIES ANY PAIN OR DISCOMFORT AT THIS TIME APPEARS CALM ,NO S/S OF HI OR SI.NO ADVERSE REACTIONS TO MEDICATION . CALL LIGHT KEPT WITHIN REACH, WILL CONTINUE TO MONITOR AND ATTEND TO NEEDS.
[2019-07-11 20:00] VITALS: BP 123/80
[2019-07-11] MEDS: LORAZEPAM 1 MG TABLET FOR AGITATION PO PRN (20:10)
--- NOTE | 2019-07-11 20:10 | NUR ---
RN MS NOTES PATIENT REQUESTED FOR ATIVAN PRN . APPEARS ANXIOUS, PRN GIVEN ORDERED, WILL CONTINUE TO MONITOR.
[2019-07-11 21:05] VITALS: BP 123/80
[2019-07-11] MEDS: [UNRECOGNIZED DRUG - OTHER] PO SCH (21:21)
--- NOTE | 2019-07-12 06:47 | NUR ---
RN MS CLOSING NOTES CLINICAL TRIAL PATIENT IN ROOM AWAKE ALERT AND ORIENTED X4, RESPIRATION EVEN AND UNLABORED WITH EQUAL RISE AND FALL OF CHEST, DENIES ANY PAIN OR DISCOMFORT AT THIS TIME APPEARS CALM ,NO S/S OF HI OR SI.NO ADVERSE REACTIONS TO MEDICATION . CALL LIGHT KEPT WITHIN REACH, WILL CONTINUE TO MONITOR AND ATTEND TO NEEDS AND ENDORSE TO NEXT SHIFT, PATIENT IS MED COMPLIANT.
[2019-07-12] MEDS: BLOOD SUGAR DIAGNOSTIC 1 EACH STRIP IN SCH ×2 (09:00→09:24)
[2019-07-12] MEDS: METFORMIN 500 MG PO SCH ×2 (09:23→17:28)
[2019-07-12] MEDS: HYDROCHLOROTHIAZIDE 25 MG PO SCH (09:23)
[2019-07-12] MEDS: BENAZEPRIL 20 MG PO SCH (09:23)
--- NOTE | 2019-07-12 09:26 | NUR ---
MS RN NOTES PATIENT REFUSED BS CHECK DESPITE OF EXPLANATIONS, PATIENT STATED, " I DON;T GET MY BS CHECK, I JUST TAKE MY MEDS."
--- NOTE | 2019-07-12 17:00 | NUR ---
MS RN NOTES SEEN AND EXMAINED BY DR. CHURCHILL
[2019-07-12] MEDS: LORAZEPAM 1 MG TABLET FOR AGITATION PO PRN (18:12)
--- NOTE | 2019-07-12 18:55 | NUR ---
MS RN CLOSING NOTES ALERT AND ORIENTED X4. AMBULATORY WITH STEADY GAIT. NO S/S OF RESPIRATORY DISTRESS. DENIES ANY C/O PAIN NOR DISCOMFORT AT THIS TIME. ON CLINICAL TRIALS WITHOUT S/S OF COMPLICATIONS. DENIES ANY C/O HALLUCINATIONS/DELUSIONS/SI. BED IN LOWEST POSITION,LOCKED. CALL LIGHT WITHIN REACH. IN NO APPARENT DISTRESS.
[2019-07-12 20:00] VITALS: BP 123/76
[2019-07-12] MEDS: [UNRECOGNIZED DRUG - OTHER] PO SCH (21:35)
--- NOTE | 2019-07-13 06:55 | NUR ---
RN MS CLOSING NOTES CLINICAL TRIAL PATIENT IN ROOM AWAKE ALERT AND ORIENTED X4, RESPIRATION EVEN AND UNLABORED WITH EQUAL RISE AND FALL OF CHEST, DENIES ANY PAIN OR DISCOMFORT AT THIS TIME APPEARS CALM ,NO S/S OF HI OR SI.NO ADVERSE REACTIONS TO MEDICATION . CALL LIGHT KEPT WITHIN REACH, WILL CONTINUE TO MONITOR AND ATTEND TO NEEDS WILL ENDORSE TO NEXT SHIFT.
--- NOTE | 2019-07-13 07:10 | NUR ---
MS RN OPENING NOTES ALERT AND ORIENTED X4. AMBULATORY WITH STEADY GAIT. NO SOB. DENIES ANY C/O PAIN NOR DISCOMFORT AT THIS TIME. ON CLINICAL TRIALS WITHOUT ASE NOTED. BED IN LOWEST POSITION,LOCKED. CALL LIGHT WITHIN REACH.
[2019-07-13 08:00] VITALS: BP 124/88
[2019-07-13] MEDS: METFORMIN 500 MG PO SCH ×2 (08:30→17:00)
[2019-07-13] MEDS: BENAZEPRIL 20 MG PO SCH (08:30)
[2019-07-13] MEDS: HYDROCHLOROTHIAZIDE 25 MG PO SCH (08:30)
--- NOTE | 2019-07-13 08:32 | NUR ---
MS RN NOTES RECEIVED A CALL FROM DR. CHURCHILL, PER . PATIENT WILL HAVE A HALF DAY PASS WITH STAFF TODAY.
[2019-07-13] MEDS: BLOOD SUGAR DIAGNOSTIC 1 EACH STRIP IN SCH (09:00)
--- NOTE | 2019-07-13 09:19 | NUR ---
MS RN NOTES PATIENT OFF UNIT. BS NON-ADMINISTERED.
--- NOTE | 2019-07-13 17:00 | NUR ---
MS RN NOTE PATIENT STILL OFF UNIT. MEDS HELD
--- NOTE | 2019-07-13 19:39 | NUR ---
MS RN CLOSING NOTES ALERT AND ORIENTED X4. PATIENT RETURNED TO UNIT. NO S/S OF RESPIRATORY DISTRESS. DENIES ANY C/O PAIN NOR DISCOMFORT AT THIS TIME. ON CLINICAL TRIALS WITHOUT ASE NOTED.DENIES ANY C/O SI/HALLUCINATIONS/DELUSIONS. BED IN LOWEST POSITION,LOCKED. CALL LIGHT WITHIN REACH. IN NO APPARENT DISTRESS.
[2019-07-13] MEDS: LORAZEPAM 1 MG TABLET FOR AGITATION PO PRN (20:21)
[2019-07-13 20:29] VITALS: BP 128/87
--- NOTE | 2019-07-13 20:36 | NUR ---
MS2/RN PATIENT IS AWAKE, ALERT, ORIENTED, ATIVAN PO WAS GIVEN ORDERED PER PATIENT'S REQUEST, NO DISTRESS NOTED WILL MONITOR.
[2019-07-13] MEDS: [UNRECOGNIZED DRUG - OTHER] PO SCH (22:26)
--- NOTE | 2019-07-13 22:27 | NUR ---
MS2/RN PATIENT REQUESTS NOT TO BE DISTURBED TONIGHT, EVEN THE HOURLY ROUNDING.
--- NOTE | 2019-07-14 06:29 | NUR ---
MS2/RN PATIENT IS AWAKE, COMFORTABLE, NO CHANGE IN CONDITION, ALL NEEDS ATTENDED AT THIS TIME, WILL CONTINUE TO MONITOR.
--- NOTE | 2019-07-14 07:30 | NUR ---
MS RN OPENING NOTES RECEIVED PATIENT WATCHING TV IN ROOM. NO SOB. DENIES ANY C/O PAIN NOR DISCOMFORT AT THIS TIME. ON CLINICAL TRIALS WITHOUT ASE NOTED. BED IN LOWEST POSITION,LOCKED. CALL LIGHT WITHIN REACH.
[2019-07-14 08:00] VITALS: BP 121/84
[2019-07-14] MEDS: BENAZEPRIL 20 MG PO SCH (08:48)
[2019-07-14] MEDS: METFORMIN 500 MG PO SCH ×2 (08:48→16:38)
[2019-07-14] MEDS: HYDROCHLOROTHIAZIDE 25 MG PO SCH (08:48)
[2019-07-14] MEDS: BLOOD SUGAR DIAGNOSTIC 1 EACH STRIP IN SCH (08:51)
--- NOTE | 2019-07-14 08:51 | NUR ---
MS RN NOTES PER PATIENT, " I DON'T GET MY BS CHECKED."
--- NOTE | 2019-07-14 08:52 | NUR ---
MS RN NOTES PATIENT PICKED UP BY DR. CHURCHILL STAFF TO GO TO CLINIC. PATIENT C/O LEFT SIDE OF NEC "GLAND" SWOLLEN, PER PATIENT, SHE WILL HAVE MD CHECK WHEN SHE SSES HIM IN THE CLINIC.
[2019-07-14 16:00] VITALS: BP 117/71
--- NOTE | 2019-07-14 17:30 | NUR ---
MS RN NOTES PATIENT SEEN AND EXAMINED BY DR CHURCHILL, LEFT SIDE NECK GLAND RELAYED TO DR. CHURCHILL BY PATIENT.
--- NOTE | 2019-07-14 18:55 | NUR ---
MS RN CLOSING NOTES ALERT AND ORIENTED X4. NO SOB. DENIES ANY C/O PAIN NOR DISCOMFORT AT THIS TIME. ON CLINICAL TRIALS WITHOUT COMPLICATIONS OBSERVED. COMPLIANT WITH CARE. DENIES ANY C/O SI/HALLUCINATIONS/DELUSIONS. BED IN LOWEST POSITION, LOCKED. CALL LIGHT WITHIN REACH. IN NO APPARENT DISTRESS.
--- NOTE | 2019-07-14 19:50 | NUR ---
MS RN NOTE: PATIENT RESTING IN BED, NO ACUTE DISTRESS NOTED. BREATHING EVEN AND UNLABORED, NO SOB NOTED. PATIENT CALM AND COOPERATIVE AT THIS TIME. BED LOCKED AND IN LOWEST POSITION, CALL LIGHT IN REACH. WILL CONTINUE TO MONITOR.
[2019-07-14 20:00] VITALS: BP 145/75
[2019-07-14] MEDS: LORAZEPAM 1 MG TABLET FOR AGITATION PO PRN (20:24)
--- NOTE | 2019-07-14 20:30 | NUR ---
MS RN NOTE: PATIENT ANXIOUS AT THIS TIME, REGARDING CURRENT FAMILY ISSUES AND REQUESTING FOR ATIVAN. ATIVAN 1MG ORAL GIVEN PER MD ORDER. WILL CONTINUE TO MONITOR.
[2019-07-14] MEDS: [UNRECOGNIZED DRUG - OTHER] PO SCH (21:15)
--- NOTE | 2019-07-15 06:20 | NUR ---
MS RN NOTE: PATIENT RESTING IN BED, NO ACUTE DISTRESS NOTED. BREATHING EVEN AND UNLABORED, NO SOB NOTED. PATIENT CALM AND COOPERATIVE THROUGHOUT SHIFT. BED LOCKED AND IN LOWEST POSITION, CALL LIGHT IN REACH. WILL ENDORSE TO DAY NURSE TO CONTINUE WITH PLAN OF CARE.
[2019-07-15 08:00] VITALS: BP 145/79
[2019-07-15] MEDS: BLOOD SUGAR DIAGNOSTIC 1 EACH STRIP IN SCH (08:34)
[2019-07-15] MEDS: METFORMIN 500 MG PO SCH ×2 (08:34→16:42)
[2019-07-15] MEDS: HYDROCHLOROTHIAZIDE 25 MG PO SCH (08:34)
[2019-07-15] MEDS: BENAZEPRIL 20 MG PO SCH (08:34)
[2019-07-15 16:00] VITALS: BP 132/74
--- NOTE | 2019-07-15 19:22 | NUR ---
MS/CT RN CLOSING NOTES PT REMAINS IN BED, AWAKE, A/OX4. PT TOLERATING RA, WITH NO ACUTE RESPIRATORY DISTRESS NOTED. ON CLINICAL TRIAL. PT DENIES PAIN OR ANY DISCOMFORT AT THIS TIME. NO IV ACCESS. PT KEPT COMFORTABLE. PT'S BED IN LOWEST LOCKED POSITION WITH SR X3. CALL LIGHT KEPT WITHIN REACH. WILL ENDORSE TO INCOMING NIGHT NURSE FOR PJ.
[2019-07-15 20:00] VITALS: BP 117/64
--- NOTE | 2019-07-15 20:00 | NUR ---
RN NOTES RECEIVED PATIENT IN BED, ALERT AND ORIENTED X4, ROOM AIR, NOT IN APPARENT DISTRESS, GOOD MOOD, HAD A SMOKE, REQUESTING ATIVAN. WILL RESUME CLINICAL TRIAL MEDICATION AT 2200. NO COMPLAIN OF HEADACHE, NO PAIN.
[2019-07-15] MEDS: LORAZEPAM 1 MG TABLET FOR AGITATION PO PRN (20:21)
[2019-07-15] MEDS: [UNRECOGNIZED DRUG - OTHER] PO SCH (21:42)
[2019-07-15 22:00] VITALS: BP 117/64
--- NOTE | 2019-07-16 06:16 | NUR ---
ALERT AND ORIENTED, CLINICAL TRIAL, VS STABLE, INDEPENDENT WITH ADLS AND SELF CARE, NO BEHAVIOR DISTURBANCE, ATIVAN X1 GIVEN, PATIENT ASLEEP FOR 6 HOURS.
--- NOTE | 2019-07-16 07:16 | NUR ---
MS/CT RN OPENING NOTES RECEIVED PT IN BED, AWAKE, A/OX4. PT TOLERATING RA, WITH NO ACUTE RESPIRATORY DISTRESS NOTED. ON CLINICAL TRIAL. PT DENIES PAIN OR ANY DISCOMFORT AT THIS TIME. PT ALSO DENIES CONCERNS OR QUESTIONS AT THE MOMENT. NO IV ACCESS. PT KEPT COMFORTABLE. PT'S BED IN LOWEST LOCKED POSITION WITH SR X3. CALL LIGHT KEPT WITHIN REACH. WILL CONTINUE PLAN OF CARE.
[2019-07-16 08:00] VITALS: BP 127/81
[2019-07-16] MEDS: BLOOD SUGAR DIAGNOSTIC 1 EACH STRIP IN SCH (09:00)
[2019-07-16] MEDS: BENAZEPRIL 20 MG PO SCH (09:03)
[2019-07-16] MEDS: METFORMIN 500 MG PO SCH ×2 (09:03→17:08)
[2019-07-16] MEDS: HYDROCHLOROTHIAZIDE 25 MG PO SCH (09:03)
[2019-07-16 16:00] VITALS: BP 110/60
--- NOTE | 2019-07-16 18:44 | NUR ---
MS/CT RN CLOSING NOTES PT REMAINS IN BED, AWAKE, A/OX4. PT TOLERATING RA, WITH NO ACUTE RESPIRATORY DISTRESS NOTED. ON CLINICAL TRIAL. PT DENIES PAIN OR ANY DISCOMFORT AT THIS TIME. NO IV ACCESS. PT KEPT COMFORTABLE. ALL NEEDS AND CARE ATTENDED. PT'S BED IN LOWEST LOCKED POSITION WITH SR X3. CALL LIGHT KEPT WITHIN REACH. WILL ENDORSE TO INCOMING NIGHT NURSE FOR PJ.
[2019-07-16] MEDS: LORAZEPAM 1 MG TABLET FOR AGITATION PO PRN (20:06)
--- NOTE | 2019-07-16 20:06 | NUR ---
RN MS NOTE PATIENT REQUEST FOR ATIVAN FOR ANXIETY PRN GIVEN ORDERED WILL CONTINUE TO MONITOR FOR EFFECTIVENESS.
[2019-07-16] MEDS: [UNRECOGNIZED DRUG - OTHER] PO SCH (21:07)
[2019-07-16 21:24] VITALS: BP 119/69
--- NOTE | 2019-07-17 07:10 | NUR ---
RN MS CLOSING NOTES PATIENT IN ROOM AWAKE ALERT AND ORIENTED X4, RESPIRATION EVEN AND UNLABORED WITH EQUAL RISE AND FALL OF CHEST, DENIES ANY PAIN OR DISCOMFORT AT THIS TIME APPEARS CALM ,NO S/S OF HI OR SI.NO ADVERSE REACTIONS TO MEDICATION . CALL LIGHT KEPT WITHIN REACH, WILL CONTINUE TO MONITOR AND ATTEND TO NEEDS AND ENDORSE TO NEXT SHIFT. NO CHANGES IN BEHAVIOR PER PATIENT STATES SHE FEEL GOOD NO CHANGES FELT.
[2019-07-17 08:00] VITALS: BP 147/91
[2019-07-17] MEDS: BLOOD SUGAR DIAGNOSTIC 1 EACH STRIP IN SCH (09:00)
[2019-07-17] MEDS: HYDROCHLOROTHIAZIDE 25 MG PO SCH (09:10)
[2019-07-17] MEDS: BENAZEPRIL 20 MG PO SCH (09:10)
[2019-07-17] MEDS: METFORMIN 500 MG PO SCH ×2 (09:10→16:54)
[2019-07-17 16:00] VITALS: BP 134/87
--- NOTE | 2019-07-17 19:33 | NUR ---
MS RN OPENING NOTES PATIENT RECEIVED RESTING IN BED A/O X 4. NO SIGNS OF ACUTE DISTRESS. NO CURRENT COMPLAINTS OF PAIN OR DISCOMFORT. PATIENT AMBULATORY AND ABLE TO MAKE NEEDS KNOWN. PATIENT A CLINICAL TRIAL WILL MONITOR THROUGHOUT THE NIGHT ON BEHAVIOR. NO IV ACCESS AT THE MOMENT. SAFETY PRECAUTIONS IN PLACE WITH BED IN LOWEST POSITION, CALL LIGHT WITHIN REACH, BREAKS ON, AND SIDE RAILS IP X2. WILL CONTINUE TO MONITOR.
[2019-07-17] MEDS: LORAZEPAM 1 MG TABLET FOR AGITATION PO PRN (20:01)
[2019-07-17 20:56] VITALS: BP 121/70
[2019-07-17] MEDS: [UNRECOGNIZED DRUG - OTHER] PO SCH (21:28)
--- NOTE | 2019-07-18 06:46 | NUR ---
MS RN CLOSING NOTES PATIENT RECEIVED RESTING IN BED A/O X 4. NO SIGNS OF ACUTE DISTRESS. NO CURRENT COMPLAINTS OF PAIN OR DISCOMFORT. PATIENT AMBULATORY AND ABLE TO MAKE NEEDS KNOWN. PATIENT A CLINICAL TRIAL WILL MONITOR THROUGHOUT THE NIGHT ON BEHAVIOR. NO IV ACCESS AT THE MOMENT. NO BEHAVIORIAL ISSUES NOTED THROUGHOUT THE NIGHT. SAFETY PRECAUTIONS IN PLACE WITH BED IN LOWEST POSITION, CALL LIGHT WITHIN REACH, BREAKS ON, AND SIDE RAILS IP X2. ALL NEEDS WERE ATTENDED TO.
--- NOTE | 2019-07-18 07:49 | NUR ---
rn opening notes Patient received on room air, no sob noted, patient denies pain at this time. A/O x4 and is able to ambulate with good balance. Patient able to verbalize needs and wants. Bed at the lowest setting, call light within reach, side rails up x2.
[2019-07-18] MEDS: BLOOD SUGAR DIAGNOSTIC 1 EACH STRIP IN SCH (09:00)
[2019-07-18] MEDS: HYDROCHLOROTHIAZIDE 25 MG PO SCH (09:09)
[2019-07-18] MEDS: METFORMIN 500 MG PO SCH ×2 (09:09→16:07)
[2019-07-18] MEDS: BENAZEPRIL 20 MG PO SCH (09:09)
--- NOTE | 2019-07-18 17:51 | NUR ---
rn closing notes Patient remains on room air, no sob noted, a/o x4 and is able to ambulate with good balance. Clinical trial patient. NO IV line at this time. Patient able to make needs known, bed at the lowest setting, call light within reach, side rails up x2. Will give report to NOC RN for PJ bedside.
--- NOTE | 2019-07-18 19:05 | NUR ---
MS RN NOTE RECEIVED PT IN STABLE CONDITION A/O X4, NOTED IN ROOM WATCHING TV. NO SIGNS OF DISTRESS, NO C/O PAIN OR N/V. COMPLIANT WITH CURRENT PLAN OF CARE. ALL NEEDS ATTENDED TO. BED LOW, LOCKED, UPPER RAILS UP, AND CALL LIGHT WITHIN REACH. WILL CONT. TO MONITOR.
[2019-07-18] MEDS: LORAZEPAM 1 MG TABLET FOR AGITATION PO PRN (19:53)
[2019-07-18 20:00] VITALS: BP 142/71
[2019-07-18] MEDS: [UNRECOGNIZED DRUG - OTHER] PO SCH (21:09)
--- NOTE | 2019-07-19 06:29 | NUR ---
MS RN NOTE PT REMAINS IN STABLE CONDITION A/O X4, NOTED IN ROOM WATCHING TV. NO SIGNS OF DISTRESS, NO C/O PAIN OR N/V. COMPLIANT WITH CURRENT PLAN OF CARE. ALL NEEDS ATTENDED TO. BED LOW, LOCKED, UPPER RAILS UP, AND CALL LIGHT WITHIN REACH. WILL CONT. TO MONITOR AND ENDORSE TO NEXT SHIFT FOR PJ.
[2019-07-19 08:00] VITALS: BP 131/78
[2019-07-19] MEDS: HYDROCHLOROTHIAZIDE 25 MG PO SCH (08:33)
[2019-07-19] MEDS: METFORMIN 500 MG PO SCH ×2 (08:33→16:08)
[2019-07-19] MEDS: BENAZEPRIL 20 MG PO SCH (08:33)
[2019-07-19] MEDS: BLOOD SUGAR DIAGNOSTIC 1 EACH STRIP IN SCH (08:34)
[2019-07-19 14:38] VITALS: BP 131/78
[2019-07-19 16:00] VITALS: BP 122/65
--- NOTE | 2019-07-19 18:16 | NUR ---
MS SOFYA END OF SUMMARY NOTES PT IS A/O X4, AFEBRILE. RESPIRATIONS ARE EVEN AND UNLABORED, NOT IN ANY ACUTE DISTRESS NOTED. PT DENIES ANY PAIN AT THIS TIME, NO C/O CHEST PAIN, SOB. ABDOMEN IS SOFT AND NONDISTENDED, BOWEL SOUNDS ARE PRESENT IN ALL 4 QUADRANTS UPON AUSCULTATION. + FLATUS, BM X1 DURING SHIFT. TOLERATING PO, NO C/O N/V. PT ABLE TO VOID ADEQUATE UOP. NO IV ACCESS. PT ABLE TO AMBULATE INDEPENDENTLY. SKIN IS INTACT, KEPT CDI. ALL NEEDS MET AND RENDERED. SAFETY MEASURES ARE IN PLACE. CALL LIGHT IS LEFT WITHIN REACH. WILL MONITOR AND CONTINUE POC.
[2019-07-19 20:00] VITALS: BP 103/55
[2019-07-19] MEDS: LORAZEPAM 1 MG TABLET FOR AGITATION PO PRN (20:32)
[2019-07-19] MEDS: [UNRECOGNIZED DRUG - OTHER] PO SCH (21:11)
--- NOTE | 2019-07-20 07:45 | NUR ---
MS/RN NOTE THE PATIENT IS RECEIVED IN BED. PATIENT IS ALERT AND ORIENTED X4. IN ROOM AIR AND DENIES SOB. RESPIRATION REGULAR AND UNLABORED. DENIES PAIN. THE PATIENT IN NO APPARENT DISTRESS. DENIES HI/SI. BED LOW AND LOCKED. SIDE RAILS UP X1. CALL LIGHT WITHIN REACH. WILL CONTINUE TO MONITOR.
[2019-07-20] MEDS: BLOOD SUGAR DIAGNOSTIC 1 EACH STRIP IN SCH (09:00)
[2019-07-20] MEDS: BENAZEPRIL 20 MG PO SCH (09:55)
[2019-07-20] MEDS: HYDROCHLOROTHIAZIDE 25 MG PO SCH (09:56)
[2019-07-20] MEDS: METFORMIN 500 MG PO SCH ×2 (09:56→16:57)
--- NOTE | 2019-07-20 09:58 | NUR ---
MS/RN NOTE THE PATIENT REFUSED BLOOD SUGAR CHECK DESPITE EXPLAINING RISKS AND BENEFITS MULTIPLE TIMES.
--- NOTE | 2019-07-20 18:37 | NUR ---
RN NOTE THE PATIENT IS ALERT AND ORIENTED X4. IN ROOM AIR AND SATURATION IS AT 98%. DENIES SOB. RESPIRATION REGULAR AND UNLABORED. DENIES PAIN. THE PATIENT DENIES SI/HI AT THIS TIME. THE PATIENT IN NO APPARENT DISTRESS. BED LOW AND LOCKED. SIDE RAILS UP X2. CALL LIGHT WITHIN REACH. WILL ENDORSE TO PHARMACEUTICAL BOTANIST.
[2019-07-20 20:00] VITALS: BP 112/61
[2019-07-20] MEDS: LORAZEPAM 1 MG TABLET FOR AGITATION PO PRN (20:18)
[2019-07-20] MEDS: [UNRECOGNIZED DRUG - OTHER] PO SCH (21:26)
--- NOTE | 2019-07-21 06:33 | NUR ---
MS RN NOTES AWAKE & RESPONSIVE. NOT IN ANY DISTRESS. NO SOB NOTED. DENIES ANY PAIN OR DISCOMFORT AT THIS TIME. MONITORED ACCORDINGLY. SLEPT FOR 8 HOURS. CALL LIGHT WITHIN REACH. BED IN LOWEST POSITION. SR UP X 2 FOR SAFETY. WILL ENDORSE TO NEXT SHIFT.
--- NOTE | 2019-07-21 07:23 | NUR ---
MS RN NOTES RECEIVED PATIENT IN BED RESTING COMFORTABLY IN MODERATE HIGH BACK REST. A/O X3. NO SIGNS OF DISTRESS NOTED AT THIS TIME. NO IV ACCESS. SAFETY MEASURES IN PLACE. CALL LIGHT WITHIN REACH. BED IN LOWEST POSITION. SR UP X 2 FOR SAFETY. WILL CONTINUE TO MONITOR.
[2019-07-21 07:30] VITALS: BP 129/73
[2019-07-21] MEDS: BLOOD SUGAR DIAGNOSTIC 1 EACH STRIP IN SCH (09:00)
--- NOTE | 2019-07-21 09:00 | NUR ---
RN NOTES UNABLE TO GIVE MED AT THIS TIME. PATIENT NOT ON UNIT, PATIENT ALLOWED TO GO OUT TO SMOKE BY HERSELF PER DR. CHURCHILL. WILL F/U.
[2019-07-21] MEDS: BENAZEPRIL 20 MG PO SCH (10:06)
[2019-07-21] MEDS: METFORMIN 500 MG PO SCH ×2 (10:06→16:40)
[2019-07-21] MEDS: HYDROCHLOROTHIAZIDE 25 MG PO SCH (10:06)
--- NOTE | 2019-07-21 18:45 | NUR ---
MS RN NOTES PATIENT IN BED RESTING COMFORTABLY IN MODERATE HIGH BACK REST. A/O X3. NO SIGNS OF DISTRESS NOTED THROUGHOUT THE SHIFT. NO IV ACCESS. SAFETY MEASURES IN PLACE. CALL LIGHT WITHIN REACH. BED IN LOWEST POSITION. SR UP X 2 FOR SAFETY. WILL ENDORSE TO APPLIANCE REPAIRER NURSE FOR PJ.
--- NOTE | 2019-07-21 19:15 | NUR ---
RN OPENING NOTES PT RECEIVED IN BED, TALKING ON THE PHONE. A/OX4. ON ROOM AIR, BREATHING EVEN AND UNLABORED. DENIES SOB AND PAIN. PLEASANT, CALM AND COOPERATIVE, NO BEHAVIORAL ISSUES NOTED AT THIS TIME. NO IV ACCESS PER PROTOCOL. NO NEEDS EXPRESSED AT THIS TIME. WILL CONTINUE TO MONITOR
--- NOTE | 2019-07-21 19:54 | NUR ---
PT OFF UNIT
[2019-07-21 20:00] VITALS: BP 133/77
--- NOTE | 2019-07-21 20:05 | NUR ---
PT BACK ON UNIT
[2019-07-21] MEDS: LORAZEPAM 1 MG TABLET FOR AGITATION PO PRN (20:09)
--- NOTE | 2019-07-21 20:11 | NUR ---
RN NOTES PT RESTLESS/AGITATED. REQUESTING ATIVAN. ADMINISTERED ORDERED.
[2019-07-21 20:51] VITALS: BP 133/77
[2019-07-21] MEDS: [UNRECOGNIZED DRUG - OTHER] PO SCH (21:13)
--- NOTE | 2019-07-22 07:15 | NUR ---
RN CLOSING NOTES PT AWAKE, RESTING COMFORTABLY IN BED. A/OX4. ON ROOM AIR, BREATHING EVEN AND UNLABORED. DENIES SOB AND PAIN. NO IV ACCESS PER PROTOCOL. DENIES SI/HI, SLEPT 6 HOURS. NO SIGNIFICANT CHANGES OVERNIGHT. ALL NEEDS MET AND ATTENDED. ENDORSED TO DAY SHIFT RN PJ.
[2019-07-22 08:00] VITALS: BP 110/75
[2019-07-22] MEDS: BLOOD SUGAR DIAGNOSTIC 1 EACH STRIP IN SCH (09:00)
[2019-07-22] MEDS: BENAZEPRIL 20 MG PO SCH (09:06)
[2019-07-22] MEDS: METFORMIN 500 MG PO SCH ×2 (09:07→18:04)
[2019-07-22] MEDS: HYDROCHLOROTHIAZIDE 25 MG PO SCH (09:07)
[2019-07-22 16:00] VITALS: BP 113/78
--- NOTE | 2019-07-22 19:30 | NUR ---
RN PM OPENING NOTES BEDSIDE REPORT RECIEVED FROM KOURTNEY COWART. PT CLINICAL TRIAL A/OX4. NOT IN ANY FORM OF DISTRESS. NO SOB. DENIED PAIN OR DISCOMFORT AT THIS TIME. DENIED SI/HI. ACTING APPROPRIATE. IN ROOM AND AMBULATING HALLS NO IV ACCES. CLINICAL TRIAL PATIENT. BED IN LOW/LOCKED POSITION. SIDERAILS UPX2, CALL LIGHT IN REACH. WILL MONITOR ACCORDINGLY
--- NOTE | 2019-07-22 19:30 | NUR ---
RN CLOSING NOTES PATIENT IN STABLE CONDITION. ALL NEEDS ATTENDED AND PROVIDED. ALL DUE MEDS GIVEN ORDERED. KEPT PATIENT SAFE AND COMFORTABLE. BED IN LOW/LOCKED POSITION. SIDERAILS UPX2, CALL LIGHT IN REACH. ENDORSED ACCORDINGLY.
[2019-07-22] MEDS: [UNRECOGNIZED DRUG - OTHER] PO SCH (21:05)
[2019-07-22] MEDS: LORAZEPAM 1 MG TABLET FOR AGITATION PO PRN (21:05)
--- NOTE | 2019-07-23 07:49 | NUR ---
rn opening notes Received patient on room air, no sob noted, patient able to ambulate with good balance. NO IV line at this time. Bed at the lowest setting, call light within reach, side rails up x2.
[2019-07-23 08:00] VITALS: BP 131/78
[2019-07-23] MEDS: METFORMIN 500 MG PO SCH ×2 (08:36→17:31)
[2019-07-23] MEDS: BENAZEPRIL 20 MG PO SCH (08:36)
[2019-07-23] MEDS: HYDROCHLOROTHIAZIDE 25 MG PO SCH (08:36)
[2019-07-23] MEDS: BLOOD SUGAR DIAGNOSTIC 1 EACH STRIP IN SCH (08:37)
[2019-07-23 16:00] VITALS: BP 101/56
--- NOTE | 2019-07-23 18:36 | NUR ---
rn closing notes Patient remains on room air, no sob noted, patient denies pain at this time. A/O x4 at this time. Bed at the lowest setting, call light within reach, side rails up x2. Will give report to NOC RN for PJ bedside.
[2019-07-23] MEDS: LORAZEPAM 1 MG TABLET FOR AGITATION PO PRN (18:55)
[2019-07-23 20:00] VITALS: BP 112/84
[2019-07-23 20:42] VITALS: BP 112/84
[2019-07-23] MEDS: [UNRECOGNIZED DRUG - OTHER] PO SCH (21:49)
--- NOTE | 2019-07-24 07:40 | NUR ---
MS RN INITIAL NOTES Clinical trial Report received at bedside. Patient received in bed, awake, alert and oriented x4, verbally responsive. Safety measures in place. Will continue to monitor and assess patient.
[2019-07-24 08:41] VITALS: BP 134/74
[2019-07-24] MEDS: BLOOD SUGAR DIAGNOSTIC 1 EACH STRIP IN SCH (08:57)
[2019-07-24] MEDS: METFORMIN 500 MG PO SCH ×2 (08:58→17:36)
[2019-07-24] MEDS: HYDROCHLOROTHIAZIDE 25 MG PO SCH (08:58)
[2019-07-24] MEDS: BENAZEPRIL 20 MG PO SCH (08:58)
[2019-07-24 16:25] VITALS: BP 147/86
--- NOTE | 2019-07-24 18:32 | NUR ---
MS COWART CLOSING NOTES On clinical trial study. Patient awake, alert and oriented, verbally responsive. Ambulatory with patio privilege. All due meds given and tolerated. No SOb/labored breathing noted or reported. Dr. Aguilar came to assess patient. Not in any type of distress. Assistance provided as needed. Continue to monitor. Will endorse to oncoming shift nurse. Addendum: 07/24/19 at 1938 by JANET LAST RN Endorsed
--- NOTE | 2019-07-24 19:28 | NUR ---
RN OPEN NOTES RECEIVED PATIENT AWAKE IN BED. A/OX 4. NO SIGNS OF DISTRESS OR DISCOMFORT. BREATHING EVEN AND UNLABORED. DENIES SI/HI AT THIS TIME. NO IV ACCESS. BED IN LOW LOCKED POSITION WITH SIDE RAILS X2. CALL LIGHT WITHIN REACH. WILL CONTINUE TO MONITOR.
[2019-07-24] MEDS: LORAZEPAM 1 MG TABLET FOR AGITATION PO PRN (20:05)
[2019-07-24 20:23] VITALS: BP 103/69
[2019-07-24] MEDS: [UNRECOGNIZED DRUG - OTHER] PO SCH (21:41)
--- NOTE | 2019-07-25 06:59 | NUR ---
RN CLOSING NOTES PATIENT AWAKE IN ROOM. A/OX 4. NO SIGNS OF DISTRESS OR DISCOMFORT. BREATHING EVEN AND UNLABORED. DENIES SI/HI AT THIS TIME. NO IV ACCESS. ALL NEEDS MET. NO SIGNIFICANT CHANGES THROUGH THE NIGHT. BED IN LOW LOCKED POSITION WITH SIDE RAILS X2. CALL LIGHT WITHIN REACH. WILL ENDORSE TO AM SHIFT FOR PJ.
[2019-07-25 08:00] VITALS: BP 111/69
--- NOTE | 2019-07-25 08:00 | NUR ---
MS RN OPENING NOTES Received Patient awake and resting in bed. A/O x 4. VS stable with no acute distress. Breathing even and unlabored on room air with no respiratory distress. Denies pain. No IV access. MD aware. Safety precautions in place. Bed locked and set to lowest position with side rails x 2 up. All needs rendered at this time. Call light within reach. Will continue to monitor.
[2019-07-25] MEDS: BLOOD SUGAR DIAGNOSTIC 1 EACH STRIP IN SCH (09:00)
[2019-07-25] MEDS: METFORMIN 500 MG PO SCH ×2 (10:00→17:57)
[2019-07-25] MEDS: HYDROCHLOROTHIAZIDE 25 MG PO SCH (10:00)
[2019-07-25] MEDS: BENAZEPRIL 20 MG PO SCH (10:41)
[2019-07-25 16:00] VITALS: BP 131/71
--- NOTE | 2019-07-25 18:34 | NUR ---
MS RN CLOSING NOTES Patient awake and resting in bed. A/O x 4. VS stable with no acute distress. Breathing even and unlabored on room air with no respiratory distress. Denies pain. No IV access. MD aware. Safety precautions in place. Bed locked and set to lowest position with side rails x 2 up. All needs rendered at this time. Call light within reach. Will endorse plan of care to oncoming shift.
[2019-07-25] MEDS: LORAZEPAM 1 MG TABLET FOR AGITATION PO PRN (20:11)
[2019-07-25 20:51] VITALS: BP 126/88
[2019-07-25] MEDS: [UNRECOGNIZED DRUG - OTHER] PO SCH (21:24)
--- NOTE | 2019-07-26 07:30 | NUR ---
RN CLOSING NOTES PATIENT AWAKE IN BED. A/OX 4. NO SIGNS OF DISTRESS OR DISCOMFORT. BREATHING EVEN AND UNLABORED. DENIES SI/HI AT THIS TIME. NO IV ACCESS. ALL NEEDS MET. NO SIGNIFICANT CHANGES THROUGH THE NIGHT. BED IN LOW LOCKED POSITION WITH SIDE RAILS X2. CALL LIGHT WITHIN REACH. ENDORSED TO AM SHIFT FOR PJ.
--- NOTE | 2019-07-26 07:35 | NUR ---
RN OPENING NOTE CLINICAL TRIAL PT WAS RECEIVED IN BED AT LOWEST AND LOCKED POSITION WITH SIDE RAILS UP X2, A/O X4 BREATHING EVEN AND UNLABORED ON RA, NO S/S OF ANY DISTRESS OR PAIN NOTED AT THIS TIME, NO IV IN PLACE, SAFETY PRECAUTIONS IN PLACE, CALL LIGHT IN REACH, WILL MONITOR ACCORDINGLY.
[2019-07-26 08:00] VITALS: BP 138/80
[2019-07-26] MEDS: BLOOD SUGAR DIAGNOSTIC 1 EACH STRIP IN SCH (08:19)
[2019-07-26] MEDS: HYDROCHLOROTHIAZIDE 25 MG PO SCH (08:20)
[2019-07-26] MEDS: METFORMIN 500 MG PO SCH ×2 (08:20→16:39)
[2019-07-26] MEDS: BENAZEPRIL 20 MG PO SCH (08:20)
[2019-07-26 16:00] VITALS: BP 107/69
--- NOTE | 2019-07-26 18:50 | NUR ---
RN CLOSING NOTE CLINICAL TRIAL PT IN BED AT LOWEST AND LOCKED POSITION WITH SIDE RAILS UP X2, A/O X4 BREATHING EVEN AND UNLABORED ON RA, NO S/S OF ANY DISTRESS OR PAIN NOTED AT THIS TIME, NO IV IN PLACE, SAFETY PRECAUTIONS IN PLACE, CALL LIGHT IN REACH, ALL NEEDS ATTENDED TO, WILL ENDORSE TO NIGHT RN FOR PJ.
[2019-07-26] MEDS: LORAZEPAM 1 MG TABLET FOR AGITATION PO PRN (19:07)
[2019-07-26 20:00] VITALS: BP 130/78
[2019-07-26] MEDS: [UNRECOGNIZED DRUG - OTHER] PO SCH (21:16)
--- NOTE | 2019-07-27 03:00 | NUR ---
MS RN NOTE: PATIENT SLEEPING IN BED, NO ACUTE DISTRESS NOTED. BREATHING EVEN AND UNLABORED, NO SOB NOTED. BED LOCKED AND IN LOWEST POSITION, CALL LIGHT IN REACH. WILL CONTINUE TO MONITOR.
[2019-07-27 08:00] VITALS: BP 121/79
[2019-07-27] MEDS: BLOOD SUGAR DIAGNOSTIC 1 EACH STRIP IN SCH (09:00)
[2019-07-27] MEDS: METFORMIN 500 MG PO SCH ×2 (09:20→18:15)
[2019-07-27] MEDS: HYDROCHLOROTHIAZIDE 25 MG PO SCH (09:20)
[2019-07-27] MEDS: BENAZEPRIL 20 MG PO SCH (09:20)
[2019-07-27 16:00] VITALS: BP 130/80
[2019-07-27] MEDS: LORAZEPAM 1 MG TABLET FOR AGITATION PO PRN (19:04)
[2019-07-27] MEDS: [UNRECOGNIZED DRUG - OTHER] PO SCH (21:46)
[2019-07-28 07:30] VITALS: BP 133/86
[2019-07-28] MEDS: BLOOD SUGAR DIAGNOSTIC 1 EACH STRIP IN SCH (09:00)
[2019-07-28] MEDS: METFORMIN 500 MG PO SCH ×2 (09:22→16:15)
[2019-07-28] MEDS: HYDROCHLOROTHIAZIDE 25 MG PO SCH (09:23)
[2019-07-28] MEDS: BENAZEPRIL 20 MG PO SCH (09:23)
[2019-07-28 16:00] VITALS: BP 133/89
[2019-07-28] MEDS: LORAZEPAM 1 MG TABLET FOR AGITATION PO PRN (18:58)
--- NOTE | 2019-07-28 19:06 | NUR ---
RN medsurg opening notes Received Pt from morning nurse. Pt is a clinical trial under care of Dr. Aguilar. Pt is sitting in bed eating dinner. Pt is alert and oriented X4. Respiration is normal. No SOB. No S/S of distress noted. Pt denies SI/HI at this time. Safety precautions is maintained. Bed at low position, brakes locked, side rails upX3 and call light is within reach. Will continue to monitor.
--- NOTE | 2019-07-28 19:30 | NUR ---
SOFYA morgan notes Pt off the unit.
--- NOTE | 2019-07-28 19:49 | NUR ---
SOFYA morgan notes Pt is back to the unit.
[2019-07-28 20:00] VITALS: BP 137/65
[2019-07-28] MEDS: [UNRECOGNIZED DRUG - OTHER] PO SCH (21:00)
--- NOTE | 2019-07-29 06:57 | NUR ---
RN medsurg closing notes Pt is resting in bed comfortably. Respiration is normal. No SOB. No S/S of distress noted. Pt does not have IV access. Routine med was given as ordered. VS is stable. Kept Pt clean, dry and comfortable. All needs met and attended. Safety precautions is maintained. Bed at low position, brakes locked, side rails upX2 and call light is within reach. Will endorse to morning nurse for PJ.
[2019-07-29 08:00] VITALS: BP 136/92
[2019-07-29] MEDS: BLOOD SUGAR DIAGNOSTIC 1 EACH STRIP IN SCH (09:00)
[2019-07-29] MEDS: METFORMIN 500 MG PO SCH ×2 (09:36→16:52)
[2019-07-29] MEDS: BENAZEPRIL 20 MG PO SCH (09:36)
[2019-07-29] MEDS: HYDROCHLOROTHIAZIDE 25 MG PO SCH (09:36)
[2019-07-29 16:00] VITALS: BP 123/77
[2019-07-29] MEDS: LORAZEPAM 1 MG TABLET FOR AGITATION PO PRN (19:16)
--- NOTE | 2019-07-29 19:20 | NUR ---
M/S RN NOTES PATIENT AWAKE IN BED, NO RESPIRATORY DISTRESS, NO C/O ANY PAIN. SKIN WARM TO TOUCH, NO IV ACCESS SITE. PATIENT'S NEEDS ATTENDED, PATIENT WITH NO SI/HI AT THIS TIME. SAFETY PRECAUTIONS IN PLACE, BED ON LOWEST LOCKED POSITION, CALL LIGHT WITHIN REACH. WILL CONTINUE TO MONITOR.
[2019-07-29] MEDS: [UNRECOGNIZED DRUG - OTHER] PO SCH (21:54)
--- NOTE | 2019-07-30 06:48 | NUR ---
M/S RN NOTES PATIENT AWAKE IN BED, NO ACUTE DISTRESS NOTED. SKIN WARM TO TOUCH, NO IV ACCESS SITE. SAFETY PRECAUTIONS MAINTAINED. PATIENT'S NEEDS ATTENDED, BED ON LOWEST LOCKED POSITION, CALL LIGHT WITHIN REACH, WILL ENDORSE TO ONCOMING NURSE
--- NOTE | 2019-07-30 07:59 | NUR ---
MS/RN OPENING NOTE Patient is resting in bed, A/O x4, showing no signs of acute distress or SOB, saturating >95% on RA. No IV access noted. Patient is on clinical trial with Dr. Aguilar. Will continue with plan of care.
[2019-07-30 08:00] VITALS: BP 124/79
[2019-07-30] MEDS: BLOOD SUGAR DIAGNOSTIC 1 EACH STRIP IN SCH ×2 (09:00→09:12)
[2019-07-30] MEDS: METFORMIN 500 MG PO SCH ×2 (09:12→17:42)
[2019-07-30] MEDS: HYDROCHLOROTHIAZIDE 25 MG PO SCH (09:12)
[2019-07-30] MEDS: BENAZEPRIL 20 MG PO SCH (09:12)
[2019-07-30 16:58] VITALS: BP 129/83
[2019-07-30] MEDS: LORAZEPAM 1 MG TABLET FOR AGITATION PO PRN (18:48)
--- NOTE | 2019-07-30 19:31 | NUR ---
MS/RN CLOSING NOTE Patient is resting in bed, A/O x4, showing no signs of acute distress or SOB, saturating >95% on RA. No IV access noted. Patient is on clinical trial with Dr. Aguilar. All patient needs met, all due meds given. Will endorse to warehouse worker 2nd shift. .
[2019-07-30 20:07] VITALS: BP 114/75
[2019-07-30] MEDS: [UNRECOGNIZED DRUG - OTHER] PO SCH (21:15)
--- NOTE | 2019-07-31 07:04 | NUR ---
RN CLOSING NOTES PATIENT AWAKE IN ROOM. A/OX 4. NO SIGNS OF DISTRESS OR DISCOMFORT. BREATHING EVEN AND UNLABORED. DENIES SI/HI AT THIS TIME. NO IV ACCESS. ALL NEEDS MET. NO SIGNIFICANT CHANGES THROUGH THE NIGHT. SLEPT APPROX 6 HOURS. BED IN LOW LOCKED POSITION WITH SIDE RAILS X2. CALL LIGHT WITHIN REACH. WILL ENDORSE TO AM SHIFT FOR PJ.
[2019-07-31] MEDS: HYDROCHLOROTHIAZIDE 25 MG PO SCH (08:08)
[2019-07-31] MEDS: BENAZEPRIL 20 MG PO SCH (08:08)
[2019-07-31] MEDS: METFORMIN 500 MG PO SCH ×2 (08:08→16:22)
[2019-07-31] MEDS: BLOOD SUGAR DIAGNOSTIC 1 EACH STRIP IN SCH (08:09)
[2019-07-31 09:15] VITALS: BP 167/92
[2019-07-31 17:02] VITALS: BP 116/68
[2019-07-31] MEDS: LORAZEPAM 1 MG TABLET FOR AGITATION PO PRN (18:25)
[2019-07-31 20:07] VITALS: BP 136/90
[2019-07-31] MEDS: [UNRECOGNIZED DRUG - OTHER] PO SCH (21:15)
[2019-08-01 08:00] VITALS: BP 129/90
[2019-08-01] MEDS: BENAZEPRIL 20 MG PO SCH (08:22)
[2019-08-01] MEDS: METFORMIN 500 MG PO SCH ×2 (08:22→16:15)
[2019-08-01] MEDS: BLOOD SUGAR DIAGNOSTIC 1 EACH STRIP IN SCH (08:23)
[2019-08-01] MEDS: HYDROCHLOROTHIAZIDE 25 MG PO SCH (08:34)
[2019-08-01 16:00] VITALS: BP 133/78
[2019-08-01] MEDS: LORAZEPAM 1 MG TABLET FOR AGITATION PO PRN (18:56)
[2019-08-01 20:00] VITALS: BP 122/81
--- NOTE | 2019-08-01 20:35 | NUR ---
MS2/RN PATIENT IS IN ROOM AWAKE, ALERT, ORIENTED, COMFORTABLE, NO C/O PAIN, NO DISTRESS NOTED, CALL LIGHT IN REACH, WILL MONITOR.
[2019-08-01] MEDS: [UNRECOGNIZED DRUG - OTHER] PO SCH (21:52)
--- NOTE | 2019-08-02 00:51 | NUR ---
MS2/RN PATIENT IS ALREADY SLEEPING AT THIS TIME. PATIENT DOES NOT WANT TO BE BOTHERED WHEN SLEEPING.
--- NOTE | 2019-08-02 05:59 | NUR ---
MS2/RN PATIENT IS AWAKE AT THIS TIME, ON THE PHONE TALKING , ALL NEEDS ATTENDED AT THIS TIME, WILL CONTINUE TO MONITOR.
--- NOTE | 2019-08-02 07:40 | NUR ---
RN NOTE THE PATIENT IS RECEIVED IN BED. ALERT AND ORIENTED X4. DENIES PAIN. PATIENT IS IN ROOM AIR AND DENIES SOB. RESPIRATION REGULAR AND UNLABORED. PATIENT DENIES SI/HI AT THIS TIME. REFUSED TO ANSWER IF SHE HAS ANY HALLUCINATIONS. THE PATIENT IN NO APPARENT DISTRESS. BED LOW AND LOCKED. WILL CONTINUE TO MONITOR.
[2019-08-02 08:00] VITALS: BP 131/68
[2019-08-02] MEDS: METFORMIN 500 MG PO SCH ×2 (08:01→17:21)
[2019-08-02] MEDS: HYDROCHLOROTHIAZIDE 25 MG PO SCH (08:01)
[2019-08-02] MEDS: BENAZEPRIL 20 MG PO SCH (08:01)
[2019-08-02] MEDS: BLOOD SUGAR DIAGNOSTIC 1 EACH STRIP IN SCH (08:04)
--- NOTE | 2019-08-02 08:04 | NUR ---
RN NOTE THE PATIENT REFUSED BLOOD SUGAR CHECK DESPITE EXPLAINING RISKS AND BENEFITS MULTIPLE TIMES.
--- NOTE | 2019-08-02 18:35 | NUR ---
RN NOTE THE PATIENT IS ALERT AND ORIENTED X4. IN ROOM AIR AND SATURATION IS AT 97%. DENIES SOB. RESPIRATION REGULAR AND UNLABORED. DENIES PAIN. THE PATIENT IS IN NO APPARENT DISTRESS. NO IV ACCESS. THE PATIENT DENIES SI/HI. THE PATIENT IS IN NO APPARENT DISTRESS. BED LOW AND LOCKED. CALL LIGHT WITHIN REACH. WILL ENDORSE TO TRANSFER SPECIALIST.
--- NOTE | 2019-08-02 19:50 | NUR ---
RN OPENING NOTES Pt IS HERE FOR CLINICAL TRIAL. RECEIVED REPORT FROM DAYSCTFT SOFYA LUNA. FOUND Pt AWAKE, WATCHING TV IN BED. NO S/S OF ACUTE DISTRESS OR SOB NOTED. Pt IS REQUESTING FOR HER ATIVAN TO BE GIVEN BEFORE BEDTIME. NO BEHAVIORAL PROBLEMS NOTED. SAFETY MEASURES IN PLACE. WILL CONTINUE TO MONITOR Pt's CONDITION AND SAFETY THROUGHOUT THE NIGHT.
[2019-08-02 20:00] VITALS: BP 115/70
[2019-08-02] MEDS: LORAZEPAM 1 MG TABLET FOR AGITATION PO PRN (20:57)
[2019-08-02 21:00] VITALS: BP 115/70
[2019-08-02] MEDS: [UNRECOGNIZED DRUG - OTHER] PO SCH (21:04)
--- NOTE | 2019-08-03 06:55 | NUR ---
RN CLOSING NOTES NO SIGNIFICANT CHANGES IN Pt's CONDITION. NO S/S OF ACUTE DISTRESS OR SOB NOTED DURING THE NIGHT. Pt REMAINED STABLE PER BASELINE. ALL NEEDS MET AND ATTENDED TO. SAFETY MEASURES IN PLACE. Pt RESTING IN BED. WILL ENDORSE TO DAYSHIFT RN FOR Pt's PJ.
--- NOTE | 2019-08-03 07:30 | NUR ---
RN NOTE THE PATIENT IS RECEIVED SITTING ON A CHAIR IN HER ROOM. THE PATIENT IS ALERT AND ORIENTED X4. IN ROOM AIR AND DENIES SOB. RESPIRATION REGULAR AND UNLABORED. DENIES PAIN. THE PATIENT IS IN NO APPARENT DISTRESS. NO IV ACCESS. DENIES SI/HI. THE PATIENT IS IN STABLE CONDITION. BED LOW AND LOCKED. WILL CONTINUE TO MONITOR.
[2019-08-03 08:00] VITALS: BP 148/91
[2019-08-03] MEDS: METFORMIN 500 MG PO SCH ×2 (08:29→17:43)
[2019-08-03] MEDS: BENAZEPRIL 20 MG PO SCH (08:29)
[2019-08-03] MEDS: HYDROCHLOROTHIAZIDE 25 MG PO SCH (08:30)
[2019-08-03] MEDS: BLOOD SUGAR DIAGNOSTIC 1 EACH STRIP IN SCH (08:48)
--- NOTE | 2019-08-03 08:48 | NUR ---
RN NOTE THE PATIENT REFUSED BLOOD SUGAR CHECK DESPITE EXPLAINING RISKS AND BENEFITS MULTIPLE TIMES.
[2019-08-03 16:00] VITALS: BP 125/73
--- NOTE | 2019-08-03 18:17 | NUR ---
RN NOTE THE PATIENT IS ALERT AND ORIENTED X4. IN ROOM AIR AND SATURATION IS AT 99%. DENIES SOB. RESPIRATION REGULAR AND UNLABORED. DENIES PAIN. THE PATIENT IS IN NO APPARENT DISTRESS. NO IV ACCESS. THE PATIENT DENIES SI/HI. THE PATIENT IS IN NO APPARENT DISTRESS. BED LOW AND LOCKED. CALL LIGHT WITHIN REACH. WILL ENDORSE TO OCC THERAPIST.
[2019-08-03] MEDS: LORAZEPAM 1 MG TABLET FOR AGITATION PO PRN (18:26)
--- NOTE | 2019-08-03 19:39 | NUR ---
RECEIVED PT IN BED A/O X 3 WATCHING TV STABLE AND NOT IN DISTRESS. SAFETY MEASURES AT ALL TIMES. WILL CONT TO MONITOR.
[2019-08-03 20:00] VITALS: BP 134/64
[2019-08-03] MEDS: [UNRECOGNIZED DRUG - OTHER] PO SCH (21:16)
--- NOTE | 2019-08-04 06:26 | NUR ---
RN NOTES NO PSYCHIATRIC INSTABILITY. STABLE, NEEDS ATTENDED AND ANTICIPATED, KEPT CLEAN, DRY AND COMFORTABLE. NO C/O OF PAIN, SAFETY MEASURES AT ALL TIMES. WILL ENDORSE TO NEXT SHIFT.
[2019-08-04] MEDS: HYDROCHLOROTHIAZIDE 25 MG PO SCH (08:14)
[2019-08-04] MEDS: METFORMIN 500 MG PO SCH ×2 (08:14→17:48)
[2019-08-04] MEDS: BENAZEPRIL 20 MG PO SCH (08:14)
[2019-08-04] MEDS: BLOOD SUGAR DIAGNOSTIC 1 EACH STRIP IN SCH (08:19)
[2019-08-04 16:00] VITALS: BP 117/67
--- NOTE | 2019-08-04 19:39 | NUR ---
PT IN THE CHAIR A/O X 3, TALKING TO THE PHONE. STABLE AND NOT IN DISTRESS.SAFETY MEASURES AT ALL TIMES. WILL CONT TO MONITOR.
[2019-08-04 20:00] VITALS: BP 128/74
[2019-08-04] MEDS: LORAZEPAM 1 MG TABLET FOR AGITATION PO PRN (20:03)
[2019-08-04] MEDS: [UNRECOGNIZED DRUG - OTHER] PO SCH (21:01)
--- NOTE | 2019-08-05 06:40 | NUR ---
PT COOPERATIVE, NO C/O OF PAIN. ALL NEEDS ATTENDED AND ANTICIPATED, NO PSYCHIATRIC INSTABILITY. NO S/S OF DISTRESS. KEPT CLEAN, DRY AND COMFORTABLE.SAFETY MEASURES AT ALL TIMES. WILL ENDORSE TO NEXT SHIFT
[2019-08-05 07:00] VITALS: BP 122/76
[2019-08-05 07:30] VITALS: BP 122/76
[2019-08-05] MEDS: HYDROCHLOROTHIAZIDE 25 MG PO SCH (08:25)
[2019-08-05] MEDS: METFORMIN 500 MG PO SCH ×2 (08:25→17:14)
[2019-08-05] MEDS: BENAZEPRIL 20 MG PO SCH (08:25)
[2019-08-05] MEDS: BLOOD SUGAR DIAGNOSTIC 1 EACH STRIP IN SCH (09:00)
[2019-08-05 16:00] VITALS: BP 107/81
[2019-08-05] MEDS: LORAZEPAM 1 MG TABLET FOR AGITATION PO PRN (18:57)
--- NOTE | 2019-08-05 19:20 | NUR ---
RECEIVED PT IN BED RESTING A/O X 3 STABLE AND NOT IN DISTRESS.SAFETY MEASURES AT ALL TIMES. WILL CONT TO MONITOR.
[2019-08-05 20:00] VITALS: BP 111/78
[2019-08-05] MEDS: [UNRECOGNIZED DRUG - OTHER] PO SCH (21:07)
--- NOTE | 2019-08-06 06:13 | NUR ---
Asleep and easily awaken, pt slept well 9 hours, no AE episodes, no psych instability, cooperative with treatment and medications. no SI/HI ideation. all needs attended and anticipated. nursing care rendered. safety measures at all times. will endorse to next shift.
--- NOTE | 2019-08-06 07:35 | NUR ---
MS RN NOTES RECEIVED PATIENT IN BED ASLEEP, AROUSABLE TO VERBAL AND TACTILE STIMULI. NO S/S OF ACUTE DISTRESS. BED IN LOWEST POSITION, LOCKED. CALL LIGHT WITHIN REACH.
[2019-08-06 08:00] VITALS: BP 97/67
[2019-08-06] MEDS: HYDROCHLOROTHIAZIDE 25 MG PO SCH (08:48)
[2019-08-06] MEDS: METFORMIN 500 MG PO SCH ×2 (08:49→16:36)
[2019-08-06] MEDS: BLOOD SUGAR DIAGNOSTIC 1 EACH STRIP IN SCH (08:49)
[2019-08-06] MEDS: BENAZEPRIL 20 MG PO SCH (08:49)
[2019-08-06] MEDS: LORAZEPAM 1 MG TABLET FOR AGITATION PO PRN (18:50)
--- NOTE | 2019-08-06 19:00 | NUR ---
RN medsurg opening notes Received Pt from morning nurse. Pt is a clinical trial under care of Dr. Aguilar. Pt is sitting in bed comfortably. Pt is alert and oriented X4. Respiration is normal. No SOB. No S/S of distress noted. Pt does not have IV access. Pt denies SI/HI at this time. Safety precautions is maintained. Bed at low position, brakes locked, side rails upX3 and call light is within reach. Will continue to monitor.
--- NOTE | 2019-08-06 19:39 | NUR ---
MS RN NOTES ALERT AND ORIENTED X4. NO SOB. DENIES ANY C/O PAIN NOR DISCOMFORT AT THIS TIME. REMAIN ON CLINICAL TRIALS WITHOUT S/S OF [id number] OBSERVED DURING THE SHIFT. BED IN LOWEST POSITION, LOCKED. CALL LIGHT WITHIN REACH. IN NO APPARENT DISTRESS.
[2019-08-06 20:00] VITALS: BP 129/84
[2019-08-06 20:28] VITALS: BP 129/84
[2019-08-06] MEDS: [UNRECOGNIZED DRUG - OTHER] PO SCH (21:01)
--- NOTE | 2019-08-07 06:57 | NUR ---
RN medsurg closing notes Pt is resting in bed comfortably. Pt is alert and orientedx4. Respiration is normal. No SOB. No S/S of distress noted. Pt does not have IV access. Routine med was given as ordered. VS is stable. Pt denies SI/HI at this time. Kept Pt clean, dry and comfortable. All needs met and attended. Safety precautions is maintained. Bed at low position, brakes locked, side rails upX2 and call light is within reach. Will endorse to morning nurse for PJ.
--- NOTE | 2019-08-07 07:30 | NUR ---
MS RN NOTES RECEIVED PATIENT IN BED LISTENING TO MUSIC. ALERT AND ORIENTED X4. NO SOB. DENIES ANY C/O PAIN NOR DISCOMFORT AT THIS TIME. CALL LIGHT WITHIN REACH. IN NO APPARENT DISTRESS.
[2019-08-07] MEDS: METFORMIN 500 MG PO SCH ×2 (08:54→17:21)
[2019-08-07] MEDS: HYDROCHLOROTHIAZIDE 25 MG PO SCH (08:54)
[2019-08-07] MEDS: BLOOD SUGAR DIAGNOSTIC 1 EACH STRIP IN SCH (08:54)
[2019-08-07] MEDS: BENAZEPRIL 20 MG PO SCH (08:54)
--- NOTE | 2019-08-07 18:00 | NUR ---
MS RN NOTES PATIENT SEEN BY ZHAO CARRERO
[2019-08-07] MEDS: LORAZEPAM 1 MG TABLET FOR AGITATION PO PRN (18:44)
--- NOTE | 2019-08-07 19:15 | NUR ---
RN medsurrick opening notes Received Pt from morning nurse. Pt is a clinical trial. Pt is sitting in bed comfortably watching TV. Pt is alert and oriented X4. Respiration is normal. No SOB. No S/S of distress noted. Pt denies SI/HI at this time. Safety precautions is maintained. Bed at low position, brakes locked, side rails upX2 and call light is within reach. Will continue to monitor.
--- NOTE | 2019-08-07 19:25 | NUR ---
MS RN NOTES ALERT AND ORIENTED X4. NO S/S OF RESPIRATORY DISTRESS. DENIES ANY C/O PAIN NOR DISCOMFORT AT THIS TIME. REMAIN ON CLINICAL TRIALS WITHOUT S/S OF COMPLICATIONS OBSERVED DURING THE SHIFT. DENIES ANY HALLUCINATIONS NOR DELUSIONS. BED IN LOWEST POSITION, LOCKED. CALL LIGHT WITHIN REACH. IN NO APPARENT DISTRESS.
[2019-08-07 20:00] VITALS: BP 127/84
[2019-08-07] MEDS: [UNRECOGNIZED DRUG - OTHER] PO SCH (21:09)
[2019-08-07 21:10] VITALS: BP 127/84
[2019-08-08 08:09] VITALS: BP 124/72
[2019-08-08] MEDS: BLOOD SUGAR DIAGNOSTIC 1 EACH STRIP IN SCH (09:00)
[2019-08-08] MEDS: HYDROCHLOROTHIAZIDE 25 MG PO SCH (09:07)
[2019-08-08] MEDS: METFORMIN 500 MG PO SCH ×2 (09:07→16:33)
[2019-08-08] MEDS: BENAZEPRIL 20 MG PO SCH (09:07)
[2019-08-08 16:41] VITALS: BP 120/85
[2019-08-08] MEDS: LORAZEPAM 1 MG TABLET FOR AGITATION PO PRN (19:13)
--- NOTE | 2019-08-08 20:22 | NUR ---
MS RN NOTES RECEIVED PATIENT AWAKE AND CALM IN BED WITH NO DISTRESS NOTED. CALL LIGHT WITHIN REACH. NO C/O PAIN OR DISCOMFORT. ENCOURAGED USE OF CALL LIGHT FOR ASSISTANCE AND VERBALIZED GOOD UNDERSTANDING. ROOM FREE OF CLUTTER AND BELONGINGS KEPT NEAR BEDSIDE. BED IN LOW LOCK SETTING. WILL CONTINUE TO MONITOR
[2019-08-08 20:33] VITALS: BP 117/64
[2019-08-08] MEDS: [UNRECOGNIZED DRUG - OTHER] PO SCH (22:11)
--- NOTE | 2019-08-09 06:42 | NUR ---
MS RN NOTES PATIENT AWAKE AND CALM IN BED WITH NO DISTRESS NOTED. CALL LIGHT WITHIN REACH. ALL DUE MEDS GIVEN ORDERED WITH NO ASE. NO C/O PAIN OR DISCOMFORT. NO BEHAVIORAL EPISODES NOTED DURING SHIFT. BED IN LOW LOCK SETTING. ROOM FREE OF CLUTTER AND BELONGINGS KEPT NEAR BEDSIDE. WILL ENDORSE TO ONCOMING SHIFT.
--- NOTE | 2019-08-09 07:30 | NUR ---
MS RN NOTES RECEIVED PATIENT IN BED ALERT AND AWAKE, ORIENTED X4 WATCHING TV. NO SOB. DENIES ANY C/O PAIN NOR DISCOMFORT AT THIS TIME. CALL LIGHT WITHIN REACH. IN NO APPARENT DISTRESS.
[2019-08-09 08:00] VITALS: BP 142/89
[2019-08-09] MEDS: BLOOD SUGAR DIAGNOSTIC 1 EACH STRIP IN SCH (08:38)
[2019-08-09] MEDS: HYDROCHLOROTHIAZIDE 25 MG PO SCH (08:38)
[2019-08-09] MEDS: BENAZEPRIL 20 MG PO SCH (08:38)
[2019-08-09] MEDS: METFORMIN 500 MG PO SCH ×2 (08:38→16:30)
[2019-08-09 16:00] VITALS: BP 144/83
--- NOTE | 2019-08-09 18:30 | NUR ---
MS RN NOTES PATIENT SEEN BY DR. CHURCHILL
[2019-08-09] MEDS: LORAZEPAM 1 MG TABLET FOR AGITATION PO PRN (18:33)
--- NOTE | 2019-08-09 18:52 | NUR ---
MS RN NOTES ALERT AND ORIENTED X4. NO S/S OF RESPIRATORY DISTRESS. DENIES ANY C/O PAIN NOR DISCOMFORT AT THIS TIME. REMAIN ON CLINICAL TRIALS WITHOUT S/S OF COMPLICATIONS OBSERVED DURING THE SHIFT. DENIES ANY HALLUCINATIONS NOR DELUSIONS. BED IN LOWEST POSITION, LOCKED. CALL LIGHT WITHIN REACH. IN NO APPARENT DISTRESS. ABLE TO VERBALIZE NEEDS.
--- NOTE | 2019-08-09 19:30 | NUR ---
RN NOTES RECEIVED PT. AWAKE ON BED, A/OX4, CALM AND COOPERATIVE, CALL LIGHT WITHIN REACH, [id number], CONTINUE TO MONITOR
[2019-08-09 20:00] VITALS: BP 140/85
[2019-08-09] MEDS: [UNRECOGNIZED DRUG - OTHER] PO SCH (21:42)
--- NOTE | 2019-08-10 06:56 | NUR ---
RN NOTES AWAKE, CALM AND COOPERATIVE, NOT IN DISTRESS, PT. NEEDS ATTENDED
--- NOTE | 2019-08-10 07:30 | NUR ---
RN NOTE THE PATIENT IS RECEIVED IN ROOM. THE PATIENT IS ALERT AND ORIENTED X4. IN ROOM AIR AND DENIES SOB. RESPIRATION REGULAR AND UNLABORED. DENIES PAIN. THE PATIENT IS IN NO APPARENT DISTRESS. DENIES SI, HI. THE PATIENT DOES NOT HAVE IV ACCESS. THE PATIENT HAS STABLE GAIT. BED LOW AND LOCKED. SIDE RAILS UP X2. CALL LIGHT WITHIN REACH. WILL CONTINUE TO MONITOR.
[2019-08-10 08:00] VITALS: BP 111/78
[2019-08-10] MEDS: BENAZEPRIL 20 MG PO SCH (08:25)
[2019-08-10] MEDS: METFORMIN 500 MG PO SCH ×2 (08:25→17:05)
[2019-08-10] MEDS: HYDROCHLOROTHIAZIDE 25 MG PO SCH (08:25)
[2019-08-10] MEDS: BLOOD SUGAR DIAGNOSTIC 1 EACH STRIP IN SCH (09:00)
--- NOTE | 2019-08-10 09:15 | NUR ---
RN NOTE PATIENT REFUSED 0900 DUE BLOOD SUGAR CHECK DESPITE EXPLAINING RISKS AND BENEFITS MULTIPLE TIMES.
--- NOTE | 2019-08-10 18:28 | NUR ---
RN NOTE THE PATIENT IS ALERT AND ORIENTED X4. DENIES PAIN. DENIES SI, HI. IN ROOM AIR AND SATURATION IS AT 99%. RESPIRATION REGULAR AND UNLABORED. DENIES SOB. THE PATIENT IS IN NO APPARENT DISTRESS. WILL ENDORSE TO BUSINESS INTELLIGENCE DIRECTOR.
[2019-08-10] MEDS: LORAZEPAM 1 MG TABLET FOR AGITATION PO PRN (18:43)
--- NOTE | 2019-08-10 19:30 | NUR ---
RN NOTES RECEIVED PT. AWAKE ON BED, CALM AND COOPERATIVE, NOT IN DISTRESS, CALL LIGHT WITHIN REACH, [id number], CONTINUE TO MONITOR
[2019-08-10 20:00] VITALS: BP 121/90
[2019-08-10] MEDS: [UNRECOGNIZED DRUG - OTHER] PO SCH (22:08)
[2019-08-11 08:00] VITALS: BP 109/72
[2019-08-11] MEDS: METFORMIN 500 MG PO SCH ×2 (08:15→16:25)
[2019-08-11] MEDS: BENAZEPRIL 20 MG PO SCH (08:15)
[2019-08-11] MEDS: HYDROCHLOROTHIAZIDE 25 MG PO SCH (08:15)
[2019-08-11] MEDS: BLOOD SUGAR DIAGNOSTIC 1 EACH STRIP IN SCH (08:26)
--- NOTE | 2019-08-11 08:26 | NUR ---
RN NOTE PATIENT REFUSED 0900 DUE BLOOD SUGAR CHECK DESPITE EXPLAINING RISKS AND BENEFITS MULTIPLE TIMES.
[2019-08-11 16:02] VITALS: BP 136/69
[2019-08-11] MEDS: LORAZEPAM 1 MG TABLET FOR AGITATION PO PRN (18:31)
--- NOTE | 2019-08-11 19:05 | NUR ---
MS RN NOTES: RECEIVED PATIENT Patient is awake, A/O x4. Independent with ADL"s and mobility. Remains on Clinical Trials under Dr. Aguilar. Maintained safety.
--- NOTE | 2019-08-11 19:20 | NUR ---
MS/RN NOTE THE PATIENT ALERT AND ORIENTED X4. DENIES SI, HI. IN ROOM AIR AND SATURATION IS AT 98%. DENIES SOB. RESPIRATION REGULAR AND UNLABORED. DENIES PAIN. THE PATIENT IN NO APPARENT DISTRESS. BED LOW AND LOCKED. SIDE RAILS UP X2. CALL LIGHT WITHIN REACH. WILL ENDORSE TO [employer] DISTRICT SUPERVISOR.
[2019-08-11 20:29] VITALS: BP 127/65
[2019-08-11 20:35] VITALS: BP 127/65
[2019-08-11] MEDS: [UNRECOGNIZED DRUG - OTHER] PO SCH (21:45)
--- NOTE | 2019-08-12 07:08 | NUR ---
MR RN: REPORT Patient in bed, stable, compliant with medication. Independent with ADL's and mobility, denies pain. Remains on Clinical Trial study under Dr. Lauren dickinson. Maintained safety.
[2019-08-12 08:00] VITALS: BP 133/93
[2019-08-12] MEDS: METFORMIN 500 MG PO SCH ×2 (08:59→17:14)
[2019-08-12] MEDS: BLOOD SUGAR DIAGNOSTIC 1 EACH STRIP IN SCH (09:00)
[2019-08-12] MEDS: HYDROCHLOROTHIAZIDE 25 MG PO SCH (09:00)
[2019-08-12] MEDS: BENAZEPRIL 20 MG PO SCH (09:00)
[2019-08-12 16:00] VITALS: BP 142/89
[2019-08-12] MEDS: LORAZEPAM 1 MG TABLET FOR AGITATION PO PRN (19:12)
--- NOTE | 2019-08-12 19:21 | NUR ---
MS RN CLOSING NOTES Received Patient awake and resting in bed. A/O x 4. VS stable with no acute distress. Breathing even and unlabored on room air with no respiratory distress. Denies pain. No IV access. MD aware. Safety precautions in place. Bed locked and set to lowest position with side rails x 2 up. All needs rendered at this time. Call light within reach. Will continue to monitor.
--- NOTE | 2019-08-12 19:22 | NUR ---
MS RN OPENING NOTES Received patient A/O x4, awake on bed watching TV. Pt denies any discomfort at this time. Pt is allowed to smoke by self per MD. Kept on bed clean, dry and comfortable. Call light within easy reach. Will continue to monitor accordingly.
[2019-08-12 20:00] VITALS: BP 135/83
[2019-08-12] MEDS: [UNRECOGNIZED DRUG - OTHER] PO SCH (22:07)
--- NOTE | 2019-08-13 06:41 | NUR ---
MS RN CLOSING NOTES Patient asleep, easily awaken. No new complaints made. No new unusualities noted. Kept on bed clean, dry and comfortable. Call light within easy reach. Endorsed.
[2019-08-13 08:00] VITALS: BP 134/89
--- NOTE | 2019-08-13 08:00 | NUR ---
RN NOTES RECEIVED PATIENT IN THE BED A/O X4, NO ACUTE DISTRESS, EATING BREAKFAST, V/S STABLE, REFUSED HALLUCINATION AT THIS TIME, REDEEMABLE. ADMINISTERED SCHEDULED MEDICATION, NO COMPLAINING OF PAIN. DENIED SI/HI AT THIS TIME. CALL LIGHT WITHIN TO REACH, SELF CARE. CONTINUED MONITORING SAFETY.
[2019-08-13] MEDS: BLOOD SUGAR DIAGNOSTIC 1 EACH STRIP IN SCH (09:00)
[2019-08-13] MEDS: METFORMIN 500 MG PO SCH ×2 (09:11→16:36)
[2019-08-13] MEDS: BENAZEPRIL 20 MG PO SCH (09:12)
[2019-08-13] MEDS: HYDROCHLOROTHIAZIDE 25 MG PO SCH (09:12)
[2019-08-13 16:00] VITALS: BP 136/82
[2019-08-13] MEDS: LORAZEPAM 1 MG TABLET FOR AGITATION PO PRN (18:25)
--- NOTE | 2019-08-13 18:25 | NUR ---
RN NOTES ADMINISTERED ATIVAN 1 MG PO PRN FOR ANXIETY PER PATIENT REQUEST, V/S TAKEN STABLE BP-126/82, P-88, PATIENT REFUSED SI/HI AT THIS TIME, REDIRECTABLE. ENCOURAGED TO EXPRESS FEELINGS AND CONCERNS. PATIENT SELF CARE, CALL LIGHT WITHIN TO REACH, ENDORSED ONCOMING NURSE FOLLOW PLAN OF CARE.
[2019-08-13 20:00] VITALS: BP 113/77
[2019-08-13] MEDS: [UNRECOGNIZED DRUG - OTHER] PO SCH (22:02)
--- NOTE | 2019-08-14 06:27 | NUR ---
MS RN NOTES PATIENT AWAKE IN BED WITH NO DISTRESS NOTED. CALL LIGHT WITHIN REACH. ALL DUE MEDS GIVEN ORDERED WITH NO ASE. NO C/O PAIN OR DISCOMFORT. NO BEHAVIORAL EPISODES NOTED DURING SHIFT. BED IN LOW LOCK SETTING. ALL BELONGINGS KEPT NEAR BEDSIDE. WILL ENDORSE TO ONCOMING SHIFT.
[2019-08-14 08:00] VITALS: BP 144/80
--- NOTE | 2019-08-14 08:00 | NUR ---
RN NOTES Received Patient awake and resting in bed. A/O x 4. VS stable with no acute distress ,refractable, encouraged to express feelings and concerns, educated patient medication sign and symptoms, patient refused si/hi at this time. Breathing even and unlabored on room air with no respiratory distress. Denies pain. No IV access. MD aware. Safety precautions in place. Bed locked and set to lowest position with side rails x 2 up. All needs rendered at this time. Call light within reach. Will continue to monitor.
[2019-08-14] MEDS: METFORMIN 500 MG PO SCH ×2 (08:47→18:02)
[2019-08-14] MEDS: BENAZEPRIL 20 MG PO SCH (08:47)
[2019-08-14] MEDS: BLOOD SUGAR DIAGNOSTIC 1 EACH STRIP IN SCH (08:47)
[2019-08-14] MEDS: HYDROCHLOROTHIAZIDE 25 MG PO SCH (08:47)
--- NOTE | 2019-08-14 09:00 | NUR ---
RN NOTES PATIENT REFUSED BLOOD GLUCOSE CHECK.
[2019-08-14 16:00] VITALS: BP 150/96
[2019-08-14] MEDS: LORAZEPAM 1 MG TABLET FOR AGITATION PO PRN (19:39)
--- NOTE | 2019-08-14 19:39 | NUR ---
rn notes Administered Ativan 1 mg po prn for anxiety per patient request, v/s stable. patient refused si/hi at this time. cooperative, self care. call light within to reach, no acute distress, no acute respiratory distress. endorsed oncoming nurse follow plan of care.
--- NOTE | 2019-08-14 20:03 | NUR ---
MS2/RN RECEIVE PATIENT AWAKE, ALERT ORIENTED, CALM AND COMFORTABLE, TALKING WITH SOMEBODY ON THE PHONE, NO DISTRESS NOTED, CALL LIGHT IN REACH. WILL MONITOR.
[2019-08-14 21:15] VITALS: BP 134/85
[2019-08-14] MEDS: [UNRECOGNIZED DRUG - OTHER] PO SCH (22:08)
--- NOTE | 2019-08-15 06:00 | NUR ---
MS/RN PATIENT IS AWAKE, ALERT, CALM AND COMFORTABLE, NO DISTRESS NOTED, ALL NEEDS ATTENDED AT THIS TIME, WILL CONTINUE TO MONITOR.
[2019-08-15 08:00] VITALS: BP 133/88
--- NOTE | 2019-08-15 08:00 | NUR ---
RN NOTES Received Patient in the bed. A/O x 4. VS stable with no acute distress ,refractable, encouraged to express feelings and concerns, educated patient medication sign and symptoms, patient refused si/hi at this time. Breathing even and unlabored on room air with no respiratory distress. Denies pain. No IV access. MD aware. refused accu check. Safety precautions in place. Bed locked and set to lowest position with side rails x 2 up. All needs rendered at this time. Call light within reach. Will continue to monitor.
[2019-08-15] MEDS: BENAZEPRIL 20 MG PO SCH (08:03)
[2019-08-15] MEDS: HYDROCHLOROTHIAZIDE 25 MG PO SCH (08:03)
[2019-08-15] MEDS: METFORMIN 500 MG PO SCH ×2 (08:03→16:55)
[2019-08-15] MEDS: BLOOD SUGAR DIAGNOSTIC 1 EACH STRIP IN SCH (08:05)
[2019-08-15 16:00] VITALS: BP 100/77
--- NOTE | 2019-08-15 18:30 | NUR ---
RN NOTES Patient in the room. A/O x 4. VS stable with no acute distress ,refractable, encouraged to express feelings and concerns, educated patient medication sign and symptoms, patient refused si/hi at this time. Breathing even and unlabored on room air with no respiratory distress. Denies pain. No IV access. Safety precautions in place. Bed locked and set to lowest position with side rails x 2 up. All needs rendered at this time. Call light within reach. Will continue to monitor.
[2019-08-15] MEDS: LORAZEPAM 1 MG TABLET FOR AGITATION PO PRN (18:58)
--- NOTE | 2019-08-15 18:58 | NUR ---
rn notes administered ativan 1 mg po prn for anxiety per patient request v/s taken bp 110/77, p-80.continued monitoring
[2019-08-15 20:00] VITALS: BP 139/68
[2019-08-15] MEDS: [UNRECOGNIZED DRUG - OTHER] PO SCH (21:58)
--- NOTE | 2019-08-15 21:59 | NUR ---
MS2/RN PATIENT REQUESTS NOT TO BOTHER HER SLEEP TONIGHT .
--- NOTE | 2019-08-15 22:01 | NUR ---
MS2/RN PATIENT REFUSED TEMP CHECK AT 1999, STILL REFUSED AT THIS TIME.
--- NOTE | 2019-08-16 06:33 | NUR ---
MS2/RN PATIENT IS AWAKE, IN ROOM SITTING AT EDGE OF BED, CALM AND COMFORTABLE, NO DISTRESS NOTED, ALL NEEDS ATTENDED AT THIS TIME, WILL CONTINUE TO MONITO.
--- NOTE | 2019-08-16 07:30 | NUR ---
RN MS NOTES PT IN BED, AWAKE, ALERT AND ORIENTED, NO COMPLAINT OF PAIN OR ANY DISCOMFORT, NEEDS ATTENDED, COMPLIANT WITH MEDS AND INTERVENTIONS.
[2019-08-16 08:00] VITALS: BP 127/67
[2019-08-16] MEDS: BLOOD SUGAR DIAGNOSTIC 1 EACH STRIP IN SCH (09:00)
[2019-08-16] MEDS: METFORMIN 500 MG PO SCH ×2 (09:08→16:27)
[2019-08-16] MEDS: HYDROCHLOROTHIAZIDE 25 MG PO SCH (09:09)
[2019-08-16] MEDS: BENAZEPRIL 20 MG PO SCH (09:09)
--- NOTE | 2019-08-16 12:39 | NUR ---
RN MS NOTES PT IN HER ROOM, WATCHING TV AND EATING LUNCH, COOPERATIVE AND COMPLIANT WITH CARE, NO BEHAVIOR PROBLEM NOTED.
[2019-08-16 16:00] VITALS: BP 128/74
--- NOTE | 2019-08-16 18:22 | NUR ---
RN MS NOTES PT AWAKE, ALERT AND ORIENTED, WALKING ALONG THE HALLWAY WITH STEADY GAIT, DENIES PAIN OR ANY DISCOMFORT, NO BEHAVIOR PROBLEM NOTED, COMPLIANT WITH MEDS, TOLERATING CURRENT DIET, ALL NEEDS ATTENDED.
[2019-08-16] MEDS: LORAZEPAM 1 MG TABLET FOR AGITATION PO PRN (19:19)
[2019-08-16 19:30] VITALS: BP 120/86
--- NOTE | 2019-08-16 19:45 | NUR ---
MS RN NOTES PATIENT AWAKE, WALKING HALLWAYS. ALERT AND ORIENTED X 4. BREATHING EVEN AND UNLABORED ON ROOM AIR. PATIENT DENIALS PAIN OR DISCOMFORT. NO BEHAVIORAL PROBLEM. PATIENT IS PLEASANT AND COMMUNICATION WITH STAFF MEMBERS FOR ANY NEEDS. WILL CONTINUE TO MONITOR
[2019-08-16 20:00] VITALS: BP 120/86
[2019-08-16] MEDS: [UNRECOGNIZED DRUG - OTHER] PO SCH (21:42)
--- NOTE | 2019-08-17 07:03 | NUR ---
MS RN NOTES PATIENT IN BED ASLEEP. ALERT AND ORIENTED X 4. BREATHING EVEN AND UNLABORED ON ROOM AIR. PATIENT DENIES PAIN OR DISCOMFORT. NO BEHAVIORAL PROBLEM. PATIENT IS PLEASANT AND COMMUNICATES WITH STAFF MEMBERS FOR ANY NEEDS. ALL DUE MEDICATIONS GIVEN. WILL ENDORSE TO ONCOMING NURSE.
--- NOTE | 2019-08-17 07:30 | NUR ---
RN MS NOTES PT AWAKE, ALERT AND ORIENTED, WALKING ALONG THE HALLWAY WITH STEADY GAIT, RESPIRATIONS NORMAL, CALL LIGHT WITHIN REACH.
[2019-08-17 08:00] VITALS: BP 156/82
[2019-08-17] MEDS: HYDROCHLOROTHIAZIDE 25 MG PO SCH (08:06)
[2019-08-17] MEDS: METFORMIN 500 MG PO SCH ×2 (08:06→16:35)
[2019-08-17] MEDS: BENAZEPRIL 20 MG PO SCH (08:07)
[2019-08-17] MEDS: BLOOD SUGAR DIAGNOSTIC 1 EACH STRIP IN SCH (09:00)
--- NOTE | 2019-08-17 12:32 | NUR ---
RN MS NOTES PT IN HER ROOM EATING LUNCH, NO BEHAVIOR PROBLEM, COMPLIANT WITH MEDS AND INTERVENTIONS.
[2019-08-17 16:00] VITALS: BP 129/79
--- NOTE | 2019-08-17 18:14 | NUR ---
RN MS NOTES PT AWAKE, ALERT AND ORIENTED, AMBULATES WITH STEADY GAIT, COMPLIANT WITH MEDS, NO BEHAVIOR PROBLEM NOTED, NEEDS ATTENDED.
[2019-08-17] MEDS: LORAZEPAM 1 MG TABLET FOR AGITATION PO PRN (18:37)
--- NOTE | 2019-08-17 19:15 | NUR ---
MS RN NOTES RECEIVED PT IN BED AWAKE AND ABLE TO MAKE NEEDS KNOWN. PT A/O X3. RESPIRATIONS EVEN AND UNLABORED WITH NO S/S OF ACUTE DISTRESS OR SOB NOTED. NO COMPLAINTS OF PAIN AT THIS TIME. SAFETY MEASURES IN PLACE WITH BED IN LOWEST LOCKED POSITION WITH SIDE RAILS UP X2. CALL LIGHT WITHIN REACH. WILL CONTINUE TO MONITOR.
[2019-08-17 20:38] VITALS: BP 135/75
[2019-08-17] MEDS: [UNRECOGNIZED DRUG - OTHER] PO SCH (21:07)
--- NOTE | 2019-08-18 07:08 | NUR ---
MS RN NOTES PT IN BED AWAKE AND ABLE TO MAKE NEEDS KNOWN. PT A/O X3. RESPIRATIONS EVEN AND UNLABORED WITH NO S/S OF ACUTE DISTRESS OR SOB NOTED THROUGHOUT SHIFT. NO COMPLAINTS OF PAIN AT THIS TIME. SAFETY MEASURES IN PLACE WITH BED IN LOWEST LOCKED POSITION WITH SIDE RAILS UP X2. CALL LIGHT WITHIN REACH. WILL ENDORSE TO ONCOMING NURSE FOR PJ.
[2019-08-18 08:00] VITALS: BP 136/77
[2019-08-18] MEDS: METFORMIN 500 MG PO SCH ×2 (08:21→16:45)
[2019-08-18] MEDS: BENAZEPRIL 20 MG PO SCH (08:22)
[2019-08-18] MEDS: HYDROCHLOROTHIAZIDE 25 MG PO SCH (08:22)
[2019-08-18] MEDS: BLOOD SUGAR DIAGNOSTIC 1 EACH STRIP IN SCH (08:23)
[2019-08-18 16:00] VITALS: BP 108/67
[2019-08-18] MEDS: LORAZEPAM 1 MG TABLET FOR AGITATION PO PRN (17:05)
--- NOTE | 2019-08-18 17:23 | NUR ---
RN notes Called dr salas's number and left a voicemail regarding verification of medications. Awaiting for call back
[2019-08-18 20:00] VITALS: BP 126/69
[2019-08-18] MEDS ORDERED: QUETIAPINE FUMARATE 100 MG TABLET PO SCH (21:00)
--- NOTE | 2019-08-19 07:37 | NUR ---
MS RN OPENING NOTE PATIENT IN BED RESTING COMFORTABLY. PATIENT IN NO ACUTE DISTRESS. NO SOB NOTED. PATIENT BREATHING IS EVEN AND UNLABORED. PATIENT SAFETY PRECAUTIONS IN PLACE. PATIENT BED IS LOCKED AND IN LOWEST POSITION. CALL LIGHT WITHIN REACH. WILL CONTINUE TO MONITOR.
[2019-08-19 08:00] VITALS: BP 139/72
[2019-08-19] MEDS: BLOOD SUGAR DIAGNOSTIC 1 EACH STRIP IN SCH (08:36)
[2019-08-19] MEDS: BENAZEPRIL 20 MG PO SCH ×2 (08:36→09:11)
--- NOTE | 2019-08-19 08:38 | NUR ---
MS RN NOTE PATIENT REFUSED BLOOD SUGAR CHECK. EXPLAINED RISKS VS BENEFITS. PATIENT CONTINUED TO REFUSE.
[2019-08-19] MEDS: HYDROCHLOROTHIAZIDE 25 MG PO SCH (09:10)
[2019-08-19] MEDS: METFORMIN 500 MG PO SCH ×2 (09:10→16:06)
[2019-08-19 16:16] VITALS: BP 127/77
--- NOTE | 2019-08-19 18:22 | NUR ---
MS RN CLOSING NOTE PATIENT IN CHAIR RESTING COMFORTABLY, WATCHING TV. PATIENT CALM AND COMPLIANT. PATIENT IN NO ACUTE DISTRESS. NO SOB NOTED. PATIENT BREATHING IS EVEN AND UNLABORED. PATIENT SAFETY PRECAUTIONS IN PLACE. PATIENT KEPT CLEAN AND DRY THROUGHOUT SHIFT. PATIENT BED IS LOCKED AND IN LOWEST POSITION. CALL LIGHT WITHIN REACH. WILL ENDORSE CARE TO PM SHIFT FOR PJ.
[2019-08-19 20:00] VITALS: BP 136/66
[2019-08-19] MEDS ORDERED: QUETIAPINE FUMARATE 100 MG TABLET PO SCH (21:00)
[2019-08-20 08:00] VITALS: BP 156/83
[2019-08-20] MEDS: BLOOD SUGAR DIAGNOSTIC 1 EACH STRIP IN SCH (08:18)
--- NOTE | 2019-08-20 08:19 | NUR ---
MS RN NOTE PATIENT REFUSED BLOOD SUGAR CHECK. EXPLAINED RISKS VS BENEFITS. PATIENT CONTINUED TO REFUSE.
[2019-08-20] MEDS: METFORMIN 500 MG PO SCH ×2 (08:22→16:20)
[2019-08-20] MEDS: BENAZEPRIL 20 MG PO SCH (08:22)
[2019-08-20] MEDS: HYDROCHLOROTHIAZIDE 25 MG PO SCH (08:22)
[2019-08-20 16:25] VITALS: BP 130/71
--- NOTE | 2019-08-20 19:12 | NUR ---
MS RN CLOSING NOTE PATIENT IN BED RESTING COMFORTABLY, WATCHING TV. PATIENT CALM AND COMPLIANT. PATIENT IN NO ACUTE DISTRESS. NO SOB NOTED. PATIENT BREATHING IS EVEN AND UNLABORED. PATIENT SAFETY PRECAUTIONS IN PLACE. PATIENT KEPT CLEAN AND DRY THROUGHOUT SHIFT. PATIENT BED IS LOCKED AND IN LOWEST POSITION. CALL LIGHT WITHIN REACH. WILL ENDORSE CARE TO PM SHIFT FOR PJ.
[2019-08-20 20:00] VITALS: BP 125/89
[2019-08-20] MEDS: QUETIAPINE FUMARATE 100 MG TABLET PO SCH (20:32)
[2019-08-21 08:00] VITALS: BP 131/85
--- NOTE | 2019-08-21 08:00 | NUR ---
RN NOTES RECEIVED PATIENT IN THE BED A/O X4, NO ACUTE DISTRESS, TOLERATED BREAKFAST 100 %, V/S STABLE, REFUSED HALLUCINATION AT THIS TIME, REDIRECTABLE. ADMINISTERED SCHEDULED MEDICATION, NO COMPLAINING OF PAIN. DENIED SI/HI AT THIS TIME. EDUCATED MEDICATION SIGN AND SYMPTOMS. ADMINISTERED SCHEDULED MEDICATION, CALL LIGHT WITHIN TO REACH, SELF CARE. CONTINUED MONITORING SAFETY.
[2019-08-21] MEDS: METFORMIN 500 MG PO SCH ×2 (08:41→16:53)
[2019-08-21] MEDS: BLOOD SUGAR DIAGNOSTIC 1 EACH STRIP IN SCH (08:41)
[2019-08-21] MEDS: HYDROCHLOROTHIAZIDE 25 MG PO SCH (08:41)
[2019-08-21] MEDS: BENAZEPRIL 20 MG PO SCH (08:41)
[2019-08-21 16:00] VITALS: BP 143/89
--- NOTE | 2019-08-21 18:30 | NUR ---
RN NOTES PATIENT REFUSED SI/HI AT THIS TIME, REDIRECTABLE. ENCOURAGED TO EXPRESS FEELINGS AND CONCERNS. ADMINISTERED SCHEDULED MEDICATION, V/ S STABLE ,PATIENT SELF CARE, CALL LIGHT WITHIN TO REACH, ENDORSED ONCOMING NURSE FOLLOW PLAN OF CARE.
[2019-08-21 20:00] VITALS: BP 140/82
--- NOTE | 2019-08-21 20:05 | NUR ---
MS RN OPENING NOTES PATIENT RECEIVED WALKING THROUGH THE HALLS, AMBULATORY AND STABLE, A/O X5. STABLE ON RA WITH BREATHING EVEN AND UNLABORED, NO SOB NOTED. NO IV ACCESS. NO COMPLAINTS OF PAIN OR DISCOMFORT. PATIENT IS COOPERATIVE. SAFETY PRECAUTIONS IN PLACE CALL LIGHT WITHIN REACH, BREAKS ON, BED IN LOWEST POSITION. WILL CONTINUE TO MONITOR THROUGHOUT THE NIGHT.
--- NOTE | 2019-08-21 20:20 | NUR ---
MS RN NOTES PT REFUSED TEMP. AND PULSE OX CHECK DUE TO FEAR OF GETTING COVID- 19. PATIENT APPEARS STABLE. WILL CONTINUE TO MONITOR.
[2019-08-21] MEDS: QUETIAPINE FUMARATE 100 MG TABLET PO SCH (20:57)
--- NOTE | 2019-08-22 06:28 | NUR ---
MS RN CLOSING NOTES PATIENT IN BED RESTING A/O X4. STABLE ON RA WITH BREATHING EVEN AND UNLABORED, NO SOB NOTED. NO IV ACCESS. NO COMPLAINTS OF PAIN OR DISCOMFORT. PATIENT IS COOPERATIVE. SAFETY PRECAUTIONS IN PLACE CALL LIGHT WITHIN REACH, BREAKS ON, BED IN LOWEST POSITION. ALL NEEDS ATTENDED TO. PATIENT WAS COOPERATIVE THROUGHOUT THE NIGHT. WILL ENDORSE TO ONCOMING SHIFT ABOUT PJ.
--- NOTE | 2019-08-22 07:50 | NUR ---
MS RN OPENING NOTE RECEIVED PATIENT IN BED SLEEPING COMFORTABLY. PATIENT IN NO ACUTE DISTRESS. NO SOB NOTED. PATIENT BREATHING IS EVEN AND UNLABORED. PATIENT SAFETY PRECAUTIONS IN PLACE. PATIENT BED IS LOCKED AND IN LOWEST POSITION. CALL LIGHT WITHIN REACH. WILL CONTINUE TO MONITOR.
[2019-08-22 08:00] VITALS: BP 120/83
[2019-08-22] MEDS: BLOOD SUGAR DIAGNOSTIC 1 EACH STRIP IN SCH (08:33)
[2019-08-22] MEDS: BENAZEPRIL 20 MG PO SCH (08:33)
[2019-08-22] MEDS: HYDROCHLOROTHIAZIDE 25 MG PO SCH (08:33)
[2019-08-22] MEDS: METFORMIN 500 MG PO SCH ×2 (08:33→16:38)
--- NOTE | 2019-08-22 09:07 | NUR ---
MS RN NOTE PATIENT REFUSED BLOOD SUGAR CHECK. EXPLAINED RISKS VS BENEFITS. PATIENT CONTINUED TO REFUSE.
[2019-08-22 16:00] VITALS: BP 127/90
--- NOTE | 2019-08-22 18:23 | NUR ---
MS RN CLOSING NOTE PATIENT IN CHAIR, WATCHING TV. PATIENT CALM AND COMPLIANT. PATIENT IN NO ACUTE DISTRESS. NO SOB NOTED. PATIENT BREATHING IS EVEN AND UNLABORED. PATIENT SAFETY PRECAUTIONS IN PLACE. PATIENT KEPT CLEAN AND DRY THROUGHOUT SHIFT. PATIENT BED IS LOCKED AND IN LOWEST POSITION. CALL LIGHT WITHIN REACH. WILL ENDORSE CARE TO PM SHIFT FOR PJ.
--- NOTE | 2019-08-22 19:31 | NUR ---
MS RN OPENING NOTE RECEIVED PATIENT IN BED RESTING COMFORTABLY, A/O x4. STABLE ON RA WITH WITH BREATHING EVEN AND UNLABORED. PATIENT IN NO ACUTE DISTRESS. NO SOB NOTED. PATIENT BREATHING IS EVEN AND UNLABORED. PATIENT SAFETY PRECAUTIONS IN PLACE. PATIENT BED IS LOCKED AND IN LOWEST POSITION. CALL LIGHT WITHIN REACH. WILL CONTINUE TO MONITOR.
[2019-08-22] MEDS: QUETIAPINE FUMARATE 100 MG TABLET PO SCH (20:42)
--- NOTE | 2019-08-23 06:47 | NUR ---
MS RN CLOSING NOTES PATIENT IN BED RESTING COMFORTABLY, A/O x4. STABLE ON RA WITH WITH BREATHING EVEN AND UNLABORED. PATIENT IN NO ACUTE DISTRESS. NO SOB NOTED. PATIENT BREATHING IS EVEN AND UNLABORED. PATIENT SAFETY PRECAUTIONS IN PLACE. PATIENT BED IS LOCKED AND IN LOWEST POSITION. CALL LIGHT WITHIN REACH. PATIENT WAS PLEASANT AND COOPERATIVE THROUGH THE NIGHT. WILL ENDORSE TO ONCOMING SHIFT ABOUT PJ.
[2019-08-23 08:00] VITALS: BP 126/90
[2019-08-23] MEDS: BLOOD SUGAR DIAGNOSTIC 1 EACH STRIP IN SCH (08:13)
[2019-08-23] MEDS: METFORMIN 500 MG PO SCH ×2 (08:14→16:12)
[2019-08-23] MEDS: HYDROCHLOROTHIAZIDE 25 MG PO SCH (08:14)
[2019-08-23] MEDS: BENAZEPRIL 20 MG PO SCH (08:14)
--- NOTE | 2019-08-23 09:00 | NUR ---
MS RN NOTE PATIENT REFUSED BLOOD SUGAR CHECK. EXPLAINED RISKS VS BENEFITS. PATIENT CONTINUED TO REFUSE.
[2019-08-23 16:00] VITALS: BP 139/82
--- NOTE | 2019-08-23 19:00 | NUR ---
MS/RN OPENING NOTES: RECEIVED PATIENT IN BED SLEEPING COMFORTABLY. A/OX4. PATIENT IN NO ACUTE DISTRESS. NO SOB NOTED. PATIENT BREATHING IS EVEN AND UNLABORED. AMBULATORY. SKIN INTACT. PATIENT SAFETY PRECAUTIONS IN PLACE. PATIENT BED IS LOCKED AND IN LOWEST POSITION. CALL LIGHT WITHIN REACH. WILL CONTINUE TO MONITOR ACCORDINGLY.
[2019-08-23 20:00] VITALS: BP 149/78
--- NOTE | 2019-08-23 20:00 | NUR ---
MS/RN NOTES: PATIENT REFUSED TO GET HER TEMPERATURE CHECKED. WILL CONTINUE MONITORING.
[2019-08-23 20:03] VITALS: BP 149/78
[2019-08-23] MEDS: QUETIAPINE FUMARATE 100 MG TABLET PO SCH (20:33)
--- NOTE | 2019-08-24 06:34 | NUR ---
MS/RN CLOSING NOTES: PATIENT RESTING IN BED COMFORTABLY, REMAINS A/O x4. STABLE ON RA WITH WITH BREATHING EVEN AND UNLABORED. PATIENT IN NO ACUTE DISTRESS. NO SOB NOTED. PATIENT BREATHING IS EVEN AND UNLABORED. PATIENT SAFETY PRECAUTIONS IN PLACE. PATIENT BED IS LOCKED AND IN LOWEST POSITION. CALL LIGHT WITHIN REACH. PATIENT WAS PLEASANT AND COOPERATIVE THROUGH THE NIGHT. WILL ENDORSE TO DAY SHIFT ABOUT PJ.
--- NOTE | 2019-08-24 07:15 | NUR ---
MS RN NOTES RECEIVED PATIENT IN BED ALERT AND AWAKE, ORIENTED X4 WATCHING TV. NO S/S OF RESPIRATORY DISTRESS. DENIES ANY C/O PAIN NOR DISCOMFORT AT THIS TIME. PATIENT REFUSED TEMP TO BE TAKEN DESPITE OF EXPLANATIONS OF RISKS AND BENEFITS. CALL LIGHT WITHIN REACH. BED IN LOWEST POSITION, LOCKED. ABLE TO VERBALIZE NEEDS.
[2019-08-24 08:00] VITALS: BP 136/94
[2019-08-24] MEDS: METFORMIN 500 MG PO SCH ×2 (08:12→16:44)
[2019-08-24] MEDS: HYDROCHLOROTHIAZIDE 25 MG PO SCH (08:12)
[2019-08-24] MEDS: BENAZEPRIL 20 MG PO SCH (08:12)
[2019-08-24] MEDS: BLOOD SUGAR DIAGNOSTIC 1 EACH STRIP IN SCH (08:12)
[2019-08-24 16:00] VITALS: BP 142/66
--- NOTE | 2019-08-24 18:55 | NUR ---
MS RN NOTES ALERT AND ORIENTED X4. NO S/S OF RESPIRATORY DISTRESS. DENIES ANY C/O PAIN NOR DISCOMFORT AT THIS TIME. CLINICAL TRIAL COMPLETED WITHOUT S/S OF COMPLICATIONS OBSERVED DURING THE SHIFT. DENIES ANY HALLUCINATIONS NOR DELUSIONS. BED IN LOWEST POSITION, LOCKED. CALL LIGHT WITHIN REACH. IN NO APPARENT DISTRESS.
[2019-08-24 19:30] VITALS: BP 125/79
--- NOTE | 2019-08-24 19:55 | NUR ---
MS RN NOTES PATIENT IN BED, ALERT AND ORIENTED X 4. BREATHING EVEN AND UNLABORED ON ROOM AIR. PATIENT DENIES ANY PAIN OR DISCOMFORT. WITH NO HALLUCINATION OR DELUSION. SAFETY PRECAUTIONS IN PLACE. BED IN LOWEST POSITION, LOCKED, AND CALL LIGHT KEPT WITHIN REACH. WILL CONTINUE TO MONITOR.
[2019-08-24 20:00] VITALS: BP 125/79
[2019-08-24] MEDS: QUETIAPINE FUMARATE 100 MG TABLET PO SCH (20:18)
--- NOTE | 2019-08-25 06:37 | NUR ---
MS RN NOTES PATIENT IN BED, ASLEEP, ALERT AND ORIENTED X 4. BREATHING EVEN AND UNLABORED ON ROOM AIR. PATIENT DENIES ANY PAIN OR DISCOMFORT. WITH NO HALLUCINATION OR DELUSION. ALL DUE MEDICATIONS GIVEN. SAFETY PRECAUTIONS IN PLACE. BED IN LOWEST POSITION, LOCKED, AND CALL LIGHT KEPT WITHIN REACH. WILL ENDORSE TO ONCOMING NURSE.
--- NOTE | 2019-08-25 07:09 | NUR ---
MS RN NOTES RECEIVED PATIENT AMBULATING IN ROOM AND GATHERING ALL PERSONAL BELONGINGS. ALERT AND AWAKE, ORIENTED X4. NO S/S OF RESPIRATORY DISTRESS. DENIES ANY C/O PAIN NOR DISCOMFORT AT THIS TIME. CALL LIGHT WITHIN REACH. BED IN LOWEST POSITION, LOCKED. ABLE TO VERBALIZE NEEDS.
[2019-08-25 08:00] VITALS: BP 146/89
[2019-08-25] MEDS: BENAZEPRIL 20 MG PO SCH (08:22)
[2019-08-25] MEDS: HYDROCHLOROTHIAZIDE 25 MG PO SCH (08:22)
[2019-08-25] MEDS: METFORMIN 500 MG PO SCH (08:22)
[2019-08-25] MEDS: BLOOD SUGAR DIAGNOSTIC 1 EACH STRIP IN SCH (08:28)
--- NOTE | 2019-08-25 08:29 | NUR ---
MS RN NOTES PATENT REFUSED ACCUCHECK
--- NOTE | 2019-08-25 09:40 | NUR ---
MS RN NOTES ALERT AND ORIENTED X4. NO S/S OF RESPIRATORY DISTRESS. DENIES ANY C/O PAIN NOR DISCOMFORT AT THIS TIME. CLINICAL TRIAL COMPLETED WITHOUT S/S OF COMPLICATIONS OBSERVED DURING THE SHIFT. PATIENT HAS NO IV ACCESS. DENIES ANY HALLUCINATIONS/SUICIDAL IDEATIONS/DELUSIONS. ALL BELONGINGS ACCOUNTED FOR. PATIENT FOR DISCHARGE. DISCHARGE INSTRUCTIONS AND PACKET GIVEN TO PATIENT ALONG WITH HOME MEDS. PATIENT PICKED UP BY DR. CHURCHILL'S STAFF AND LEFT IN STABLE CONDITION.
== END 2019-08-25 09:40 | disposition home or self-care (01) | DRG 951 ==
LOC: MEDSG2 14:24 → MED 08-24 11:52
PROVIDERS: ADMIT Psychiatry & Neurology Psychiatry; ATTEND Psychiatry & Neurology Psychiatry
DX: Z00.6 Encounter for examination for normal comparison and control in clinical research program (principal); F20.0 Paranoid schizophrenia; E11.9 Type 2 diabetes mellitus without complications; I10 Essential (primary) hypertension; Z79.899 Other long term (current) drug therapy; H54.7 Unspecified visual loss; F39 Unspecified mood [affective] disorder; Z91.14 Patient's other noncompliance with medication regimen; Z83.3 Family history of diabetes mellitus; Z82.5 Family history of asthma and other chronic lower respiratory diseases; Z82.49 Family history of ischemic heart disease and other diseases of the circulatory system; Z91.5 Personal history of self-harm; F14.21 Cocaine dependence, in remission; Z88.8 Allergy status to other drugs, medicaments and biological substances; Z91.013 Allergy to seafood
CPT/HCPCS: 82962-TC; 87081-TC; G0378

== ENCOUNTER 2020-10-24 08:23 | Inpatient (IN) | payer OTHER ==
[~2020-10-24] VITALS: Ht 167.6 cm; Wt 106.1 kg
[~2020-10-24 08:23] MED LIST changes: +QUET300T2 PO; -RISP0.253 PO
[2020-10-24] MEDS ORDERED: LORAZEPAM 1 MG TABLET FOR AGITATION/ANXIETY PO PRN ×3 (13:00→14:00)
[2020-10-24] MEDS ORDERED: ACETAMINOPHEN ES 500 MG TABLET PO PRN (14:00)
[2020-10-24] MEDS ORDERED: IBUPROFEN 200 MG TABLET PO PRN (14:00)
[2020-10-24] MEDS ORDERED: ZOLPIDEM TARTRATE 10 MG TABLET PO PRN (14:00)
--- NOTE | 2020-10-24 14:50 | NUR ---
ms rn received a new admission,50 year old female, a patient of dr. bello for clinical trial, alert,oriented x4,not in any form of distress, respirations even and unlabored,no sob noted.will monitor patient's condition.
[2020-10-24] MEDS ORDERED: BENA20TA9 PO (14:55)
[2020-10-24] MEDS ORDERED: MAGN400O6 PO (14:55)
[2020-10-24] MEDS ORDERED: ZOLP5TAB8 PO (14:55)
[2020-10-24] MEDS ORDERED: IBUP-1953 PO (14:55)
[2020-10-24] MEDS ORDERED: ACET-2605 PO (14:55)
[2020-10-24] MEDS ORDERED: LORA-259 PO (14:55)
[2020-10-24] MEDS ORDERED: CALC355O18 PO (14:55)
[2020-10-24 15:00] VITALS: BP 127/79
[2020-10-24 16:00] VITALS: BP 127/79
--- NOTE | 2020-10-24 16:00 | NUR ---
ms rn patient went down at this time.
--- NOTE | 2020-10-24 16:52 | NUR ---
ms rn just came back from downstairs,all needs attended.
[2020-10-24] MEDS: METFORMIN 500 MG PO SCH (17:38)
--- NOTE | 2020-10-24 17:47 | NUR ---
ms rn on bed,no distress noted, will endorse to syrup shed supervisor for rip.
--- NOTE | 2020-10-24 19:30 | NUR ---
RN OPENING NOTES Patient was seen sleeping in bed. Patient's alert and oriented x4. Patient's on room air with no respiratory distress noted. Safety measures in place: Bed locked, side rails up, and call light within easy reach of the patient.
[2020-10-24 20:01] VITALS: BP 111/58
[2020-10-24] MEDS ORDERED: SEROQUEL 300 MG PO SCH (22:00)
--- NOTE | 2020-10-25 06:37 | NUR ---
RN CLOSING NOTES Patient was seen awake and lying down in bed. Patient's alert and oriented x4. Patient's on room air with no respiratory distress noted. Per pt, she had 8.5 hours of sleep. Safety measures in place: Bed locked, side rails up, and call light within easy reach of the patient. Will endorse care to next shift nurse.
--- NOTE | 2020-10-25 07:40 | NUR ---
MS RN OPENING NOTES RECEIVED PATIENT AWAKE IN BED. ALERT AND ORIENTED X4. TOLERATING WELL ON ROOM AIR. NO SIGNS OR SYMPTOMS OF DISTRESS NOTED. PT IS SELF AMBULATORY WITH BATHROOM PRIVILEGES. ABLE TO MAKE NEEDS KNOWN. SAFETY MEASURES IN PLACE. SIDE RAILS X 2 RAISED. BED LOWERED. CALL LIGHT WITHIN REACH. WILL CONTINUE TO MONITOR THROUGHOUT SHIFT.
[2020-10-25 08:00] VITALS: BP 117/91
[2020-10-25] MEDS: METFORMIN 500 MG PO SCH ×2 (08:54→17:08)
[2020-10-25] MEDS: BENAZEPRIL 20 MG PO SCH (08:54)
[2020-10-25] MEDS: HCTZ 25 MG PO SCH (08:54)
--- NOTE | 2020-10-25 14:47 | NUR ---
MS RN NOTE PATIENT IS AWAKE IN BED. NO SIGNS AND SYMPTOMS OF DISTRESS NOTED. NO COMPLAINTS OF PAIN AT THIS TIME. SAFETY MEASURES IN PLACE. SIDE RAILS UP X 2, BED LOCKED AT LOWEST POSITION. WILL CONTINUE TO MONITOR THROUGHOUT SHIFT.
--- NOTE | 2020-10-25 19:05 | NUR ---
MS RN CLOSING NOTE PATIENT IS AWAKE IN BED. NO SIGNS AND SYMPTOMS OF DISTRESS NOTED. NO COMPLAINTS OF PAIN AT THIS TIME. SAFETY MEASURES IN PLACE. SIDE RAILS UP X 2, BED LOCKED AT LOWEST POSITION. WILL CONTINUE ENDORSE TO ONCOMING SHIFT.
--- NOTE | 2020-10-25 19:30 | NUR ---
RN OPENING NOTES Patient was seen awake sitting on her in bed. Patient's alert and oriented x4. Patient's on room air with no respiratory distress noted. Safety measures in place: Bed locked, side rails up, and call light within easy reach of the patient. Will continue to monitor the patient.
[2020-10-25 20:00] VITALS: BP 118/67
[2020-10-25] MEDS ORDERED: SEROQUEL 200 MG PO SCH (22:00)
--- NOTE | 2020-10-26 07:01 | NUR ---
RN CLOSING NOTES Patient was seen awake lying on her in bed. Patient's alert and oriented x4. Patient's on room air with no respiratory distress noted. Per patient, she had 8 hours of sleep last night. Safety measures in place: Bed locked, side rails up, and call light within easy reach of the patient. Will endorse care to day shift nurse.
--- NOTE | 2020-10-26 07:34 | NUR ---
MS RN OPENING NOTES RECEIVED PATIENT ASLEEP IN BED, EASY TO AROUSE. ALERT AND ORIENTED X4. TOLERATING WELL ON ROOM AIR. NO SIGNS OR SYMPTOMS OF DISTRESS NOTED. PATIENT IS SELF AMBULATORY WITH BATHROOM PRIVILEGES. ABLE TO MAKE NEEDS KNOWN. SAFETY MEASURES IN PLACE. SIDE RAILS X 2 RAISED. BED LOWERED. CALL LIGHT WITHIN REACH. WILL CONTINUE TO MONITOR THROUGHOUT SHIFT.
[2020-10-26 08:00] VITALS: BP 110/66
[2020-10-26] MEDS: HCTZ 25 MG PO SCH (08:23)
[2020-10-26] MEDS: BENAZEPRIL 20 MG PO SCH (08:23)
[2020-10-26] MEDS: METFORMIN 500 MG PO SCH ×2 (08:24→16:37)
--- NOTE | 2020-10-26 14:36 | NUR ---
MS RN NOTES PATIENT JUST RETURNED TO ROOM. ALERT AND ORIENTED X 4. NO SIGNS OR SYMPTOMS OF RESPIRATORY DISTRESS OR SOB NOTED. BREATHING IS EVEN AND UNLABORED. SAFETY MEASURES ARE IN PLACE, BED LOCKED AND PLACED IN LOW POSITION, SIDE RAILS UP X 2, CALL LIGHT WITHIN REACH. WILL CONTINUE TO MONITOR PATIENT THROUGHOUT SHIFT.
--- NOTE | 2020-10-26 18:46 | NUR ---
MS RN CLOSING NOTES PATIENT IS AWAKE IN BED. NO SIGNS AND SYMPTOMS OF DISTRESS NOTED. NO COMPLAINTS OF PAIN AT THIS TIME. SAFETY MEASURES IN PLACE. SIDE RAILS UP X 2, BED LOCKED AT LOW POSITION. ALL HOME MEDICATIONS GIVEN ORDERED. ATTENDED TO ALL PATIENTS NEEDS. WILL CONTINUE TO ENDORSE TO ONCOMING SHIFT.
--- NOTE | 2020-10-26 19:30 | NUR ---
RN OPENING NOTE PATIENT IN BED AWAKE, USING HER PHONE, PATIENT APPEARS TO BE CALM AND COOPERATIVE AT THIS TIME. NO COMPLAINS OF PAIN OR DISCOMFORT. BREATHING EVEN AND UNLABORED. SAFETY MEASURES IN PLACE: BED IN LOCKED AND LOWEST POSITION, CALL LIGHT WITHIN REACH, SIDE RAILS UP. WILL MONITOR PATIENT CLOSELY.
[2020-10-26 20:07] VITALS: BP 121/71
[2020-10-26 22:00] VITALS: BP 121/71
[2020-10-26] MEDS: SEROQUEL 50 MG PO SCH (22:31)
--- NOTE | 2020-10-27 07:33 | NUR ---
BODY DESIGN CHECKER MED SURG OPENING NOTES: Received patient in room resting in bed, patient is alert and orientated x4. Patient is able to independently ambulate. Upon initial skin assessment skin is intact, dry and warm to touch. Patient is on a regular diet. No behavioral issues at this time or extra pyramidal symptoms noted; will continue to observe closely throughout shift. If any extra pyramidal symptoms noted attending psychiatrist Dr. Correa will be notified. Patient's bed is in lowest position, bed is locked and upper bilateral side rails up and call light within easy reach. Will continue to monitor patient throughout shift.
--- NOTE | 2020-10-27 07:35 | NUR ---
RN CLOSING NOTE PATIENT DOES NOT APPEAR TO BE IN ANY APPARENT DISTRESS, ALL NEEDS MET AND ATTENDED. ENDORSED TO DAY SHIFT NURSE FOR PJ.
[2020-10-27 08:00] VITALS: BP 116/73
[2020-10-27] MEDS: BENAZEPRIL 20 MG PO SCH (09:00)
[2020-10-27] MEDS: HCTZ 25 MG PO SCH (09:01)
[2020-10-27] MEDS: METFORMIN 500 MG PO SCH ×2 (09:01→16:49)
[2020-10-27 16:00] VITALS: BP 133/62
--- NOTE | 2020-10-27 18:32 | NUR ---
PILL PACKER CLOSING NOTES: patient is in room comfortably resting, patient is alert and orientated x 4. No complaints of pain, no signs or symptoms of respiratory distress and 02 saturation has been above 94% throughout shift; patient is on room air. patient can independently perform all ADL's. Patient's skin is still intact, dry and warm to touch. Patient stable at time being, will endorse and inform shiftman of patient care during day shift. Patient is in bed, bed is in lowest position, bed is locked, upper bilateral side rails are up x2 and call light within easy reach.
--- NOTE | 2020-10-27 19:30 | NUR ---
RN NOTES/CLINICAL TRIAL RECEIVED IN THE ROOM A/O X 4,AMBULATORY,ABLE TO VERBALIZED NEEDS,NO SALINE LOCK PER PSYCHIATRY PROTOCOL.WILL CONTINUE TO MONITOR BEHAVIOR AND MANAGE ACCORDINGLY.
[2020-10-27 19:42] VITALS: BP 118/73
[2020-10-27 20:00] VITALS: BP 118/73
[2020-10-27] MEDS: SEROQUEL 50 MG PO SCH (21:17)
--- NOTE | 2020-10-28 01:00 | NUR ---
MS RN NOTES IN ROOM SLEEPING
--- NOTE | 2020-10-28 06:27 | NUR ---
MS RN NOTES SLEEP WELL AT NIGHT.NO SIGNIFICANT CHANGE IN BEHAVIOR.MED COMPLIANT.WILL ENDORSE TO DAY NURSE FOR PJ.
--- NOTE | 2020-10-28 07:51 | NUR ---
MS RN OPENING NOTE PATIENT IS IN BED RESTING, PATIENT IS IN NO ACUTE DISTRESS. PATIENT IS ON ROOM AIR TOLERATING WELL. SAFETY PRECAUTIONS ARE ON. BED IS LOCKED IN THE LOWEST POSITION, WITH SIDE RAILS UP, CALL LIGHT WITHIN REACH, WILL CONTINUE TO MONITOR CLOSELY THROUGHOUT THE SHIFT.
[2020-10-28] MEDS: HCTZ 25 MG PO SCH (08:27)
[2020-10-28] MEDS: BENAZEPRIL 20 MG PO SCH (08:27)
[2020-10-28] MEDS: METFORMIN 500 MG PO SCH ×2 (08:27→17:04)
[2020-10-28 08:48] VITALS: BP 116/64
[2020-10-28 16:14] VITALS: BP_SYST 115; BP_SYST 123; BP_DIAS 68; BP_DIAS 70
--- NOTE | 2020-10-28 18:39 | NUR ---
MS RN CLOSING NOTE PATIENT IS IN BED RESTING, PATIENT IS IN NO ACUTE DISTRESS. PATIENT IS ON ROOM AIR TOLERATING WELL. SAFETY PRECAUTIONS ARE ON. BED IS LOCKED IN THE LOWEST POSITION, WITH SIDE RAILS UP, CALL LIGHT WITHIN REACH, ENDORSE PATIENT TO GYN PHYSICIAN NURSE FOR PJ.
--- NOTE | 2020-10-28 19:30 | NUR ---
MSRN FULLY AWAKE, CALM. NO COMPLAINTS MADE. REMINDED TO CALL STAFF FOR ANY ASSISTANCE OR DISCOMFORTS. SAFETY PRECAUTIONS EMPHASIZED, WELL UNDERSTOOD.
[2020-10-28 20:00] VITALS: BP 120/52
--- NOTE | 2020-10-28 21:33 | NUR ---
MSRN DUE MED ADMINISTERED. NO OTHER NEEDS MADE. WILL CALL IF NEEDED PER PATIENT.
[2020-10-28] MEDS ORDERED: SEROQUEL 50 MG PO SCH (22:00)
--- NOTE | 2020-10-29 04:27 | NUR ---
MSRN ASLEEP, CLOSELY WATCHED
--- NOTE | 2020-10-29 06:31 | NUR ---
MSRN WENT OUTSIDE FOR SHORT PERIOD . NO NEEDS MADE. REMAINS CALM
--- NOTE | 2020-10-29 07:35 | NUR ---
RN MS NOTES PT IN BED, AWAKE, ALERT AND ORIENTED, AMBULATES TO THE BATHROOM WITH STEADY GAIT, NO COMPLAINT AT THIS TIME, RESPIRATIONS NORMAL, CALL LIGHT WITHIN REACH, KEPT WARM AND COMFORTABLE IN BED, SITTER AT BEDSIDE.
[2020-10-29 08:00] VITALS: BP 121/71
[2020-10-29] MEDS: HCTZ 25 MG PO SCH (08:38)
[2020-10-29] MEDS: BENAZEPRIL 20 MG PO SCH (08:38)
[2020-10-29] MEDS: METFORMIN 500 MG PO SCH ×2 (08:39→17:14)
[2020-10-29 15:56] VITALS: BP 116/63
--- NOTE | 2020-10-29 18:00 | NUR ---
RN MS NOTES PT IN HER ROOM, AWAKE, ALERT AND ORIENTED, AMBULATES WITH STEADY GAIT, NO COMPLAINT AT THIS TIME, COMPLIANT WITH CARE AND MEDICATION, CALL LIGHT WITHIN REACH.
--- NOTE | 2020-10-29 19:45 | NUR ---
MSRN BACK TO ROOM, NO NEEDS MADE. WILL CALL IF NEEDED. CALM AND COOPERATIVE.
[2020-10-29 20:23] VITALS: BP 122/69
--- NOTE | 2020-10-30 07:12 | NUR ---
MS RN OPENING NOTES RECEIVED PATIENT IN BED, ALERT AND ORIENTED X 4. PATIENT IS AMBULATORY. PATIENT WITH EVEN AND UNLABORED BREATHING ON ROOM AIR WITH NO SIGNS OF DISTRESS. NO COMPLAINT OF PAIN OR DISCOMFORT AT THIS TIME. SAFETY MEASURES ENSURED AND COMFORT MEASURES PROVIDED. BED AT LOWEST BED POSITION AND LOCKED FOR SAFETY. CALL LIGHT AND TABLE WITHIN REACH AT ALL TIMES. PROVIDED WITH CALM AND QUIET ENVIRONMENT. WILL CONTINUE TO MONITOR PATIENT.
[2020-10-30 08:00] VITALS: BP 124/74
[2020-10-30] MEDS: BENAZEPRIL 20 MG PO SCH (08:47)
[2020-10-30] MEDS: METFORMIN 500 MG PO SCH ×2 (08:47→17:18)
[2020-10-30] MEDS: HCTZ 25 MG PO SCH (08:47)
[2020-10-30 16:00] VITALS: BP 132/76
--- NOTE | 2020-10-30 19:37 | NUR ---
MS RN CLOSING NOTE PATIENT AWAKE ON BED ALERT AND ORIENTED. PATIENT DENIES ANY PAIN OR DISCOMFORT. WITH NO SIGNS OF DISTRESS THROUGHOUT THE SHIFT. COMFORT MEASURES PROVIDED. PROVIDED WITH CALM AND QUIET ENVIRONMENT. BED MAINTAINED ON LOWEST POSITION AND LOCKED. CALL LIGHT AND BEDSIDE TABLE WITHIN REACH AT ALL TIMES. WILL ENDORSE TO ACCOUNT EXECUTIVE TRAINEE FOR CONTINUITY OF CARE.
[2020-10-30 20:00] VITALS: BP 116/72
--- NOTE | 2020-10-30 20:00 | NUR ---
MS RN NOTES/CLINICAL TRIAL IN ROOM SLEEPING,NO SOB,MEDICATED WITH ATIVAN BY DAYSHIFT,NO DISTRESS.CALL LIGHT IN REACH,NEEDS ANTICIPATED.
--- NOTE | 2020-10-30 22:00 | NUR ---
MS RN NOTES AWAKE,ASKING FOR BENADRYL,EXPLAINED THERE'S NO DUE FOR BENADRYL AT NIGHT,THAT ITS DUE IN THE MORNING AT 0900.NO VIOLENT BEHAVIOR NOTED.
--- NOTE | 2020-10-31 07:10 | NUR ---
MS RN OPENING NOTES RECEIVED PATIENT SITTING ON THE BED, ALERT AND ORIENTED X 4. PATIENT IS AMBULATORY. PATIENT WITH EVEN AND UNLABORED BREATHING ON ROOM AIR WITH NO SIGNS OF DISTRESS. NO COMPLAINT OF PAIN OR DISCOMFORT AT THIS TIME. NO UNTOWARD BEHAVIOR NOTED, WITH VERY PLEASANT DISPOSITION. SAFETY MEASURES ENSURED AND COMFORT MEASURES PROVIDED. BED AT LOWEST BED POSITION AND LOCKED FOR SAFETY. CALL LIGHT AND TABLE WITHIN REACH AT ALL TIMES. PROVIDED WITH CALM AND QUIET ENVIRONMENT. WILL CONTINUE TO MONITOR PATIENT.
[2020-10-31 08:00] VITALS: BP 146/79
[2020-10-31] MEDS: HCTZ 25 MG PO SCH (09:12)
[2020-10-31] MEDS: METFORMIN 500 MG PO SCH ×2 (09:12→17:11)
[2020-10-31] MEDS: BENAZEPRIL 20 MG PO SCH (09:12)
--- NOTE | 2020-10-31 09:53 | NUR ---
MS RN NOTES PATIENT WENT OUT OF THE [place]. PATIENT SIGNED OUT IN LOG BOOK. IN STABLE CONDITIN.
--- NOTE | 2020-10-31 11:25 | NUR ---
MS RN NOTES PATIENT BACK FROM GOING OUT OF [facility]. PATIENT SIGNED IN LOG BOOK. IN STABLE CONDITION.
[2020-10-31] MEDS ORDERED: ZOLPIDEM TARTRATE 10 MG TABLET PO PRN (13:00)
[2020-10-31] MEDS ORDERED: LORAZEPAM 1 MG TABLET FOR AGITATION/ANXIETY PO PRN ×2 (13:00→15:00)
[2020-10-31 16:00] VITALS: BP 111/60
--- NOTE | 2020-10-31 18:40 | NUR ---
MS RN NOTES PATIENT SEEN BY DR. CHURCHILL WITH ORDERS TO START PATIENT ON BENADRYL PRN EVERY 12 HOURS. WILL CONTINUE MONITORING PATIENT.
--- NOTE | 2020-10-31 18:59 | NUR ---
MS RN CLOSING NOTE PATIENT AWAKE ON BED ALERT AND ORIENTED X 4. PATIENT DENIES ANY PAIN OR DISCOMFORT. WITH NO SIGNS OF DISTRESS THROUGHOUT THE SHIFT. PATIENT DID NOT EXHIBIT ANY UNTOWARD BEHAVIOR. PATIENT WITH GOOD DISPOSITION. COMFORT MEASURES PROVIDED. PROVIDED WITH CALM AND QUIET ENVIRONMENT. BED MAINTAINED ON LOWEST POSITION AND LOCKED. CALL LIGHT AND BEDSIDE TABLE WITHIN REACH AT ALL TIMES. WILL ENDORSE TO DAIRY FEED MIXING OPERATOR FOR CONTINUITY OF CARE.
--- NOTE | 2020-10-31 19:13 | NUR ---
MS RN NOTE PATIENT REQUESTED FOR ATIVAN BECAUSE SHE SAID SHE IS AGITATED/ANXIOUS. PATIENT WAS TAKING TO THIS NURSE WHILE ON HER PHONE. ATIVAN GIVEN ORDERED FOR AGITATION. ENDOSED TO NEXT SHIFT NURSE FOR CONTINUITY OF CARE.
--- NOTE | 2020-10-31 19:45 | NUR ---
MS RN NOTES/CLINICAL TRIAL IN ROOM WATCHING TV PROGRAM,CALM,VERBALLY RESPONSIVE.ABLE TO VERBALIZE NEEDS.WILL CONTINUE TO MONITOR BEHAVIOR.
[2020-10-31 20:02] VITALS: BP 119/64
[2020-10-31] MEDS: diphenhydrAMINE HCL 25 MG CAPSULE PO PRN (23:07)
--- NOTE | 2020-10-31 23:07 | NUR ---
CONOR COWART NOTES FEELING ITCHY ON HER BENADRYL 25MG,1 CAPSULE GIVEN ORDERED. Addendum: 11/01/20 at 0608 by MADDI LIANG RN C/O BODY ITCHINESS,BENADRYL 25MG,1 CAPSULE GIVEN ORDERED.
--- NOTE | 2020-11-01 06:08 | NUR ---
MS RN NOTES BODY ITCH IMPROVED,SLEEP WELL WITH BENADRYL,CALM AND MEDS COMPLIANT.WILL CONTINUE TO MONITOR BEHAVIOR AND MANAGE ACCORDINGLY.
--- NOTE | 2020-11-01 07:05 | NUR ---
RN OPENING NOTES RECEIVED PT AWAKE IN BED AT THIS TIME. AOX4. ABLE TO VERBALIZE NEEDS. NO SOB, NO C/O PAIN, NO S/O ANY APPARENT DISTRESS NOTED. STABLE ON RA. . PT DENIES SI/HI, VISUAL AND AUDITORY HALLUCINATION. NO COMPLAINS OF TREMORS, EPS, OR AKATHISIA. SAFETY PRECAUTIONS IN PLACE AND MAINTAINED AT ALL TIMES. BED IN LOWEST LOCKED POSITION, HOB ELEVATED, SIDE RAILS UP X 2. CALL LIGHT AND TABLE WITHIN REACH. WILL ENDORSE TO TYPE BAR AND SEGMENT ASSEMBLER NURSE FOR PJ
[2020-11-01 08:00] VITALS: BP 126/78
[2020-11-01] MEDS: BENAZEPRIL 20 MG PO SCH (09:06)
[2020-11-01] MEDS: METFORMIN 500 MG PO SCH ×2 (09:06→17:34)
[2020-11-01] MEDS: HCTZ 25 MG PO SCH (09:06)
[2020-11-01] MEDS ORDERED: INVEST MED Kar XT OR PLACEBO 50/20 MG PO SCH (10:00)
[2020-11-01] MEDS: LORAZEPAM 1 MG TABLET FOR AGITATION/ANXIETY PO PRN (17:54)
--- NOTE | 2020-11-01 18:00 | NUR ---
PT C/O OF ANXIETY AT THIS TIME. VS BP 122/66, HR 74, RR 18, T 98.0, SPO2 99.PER PT REQUEST ATIVAN 1MG PO Q6H PRN FOR ANXIETY ADMINISTERED AT THIS TIME. WILL CONTINUE TO MONITOR
--- NOTE | 2020-11-01 18:58 | NUR ---
RN CLOSING NOTES PT AWAKE IN BED AT THIS TIME. PT REMAINED STABLE THROUGHOUT SHIFT. ALL NEEDS, MEDICATIONS, AND CARE ADMINISTERED ANTICIPATED PER ORDER. ANXIETY MANAGEMENT ADMINISTERED. PT DENIES SI/HI, VISUAL AND AUDITORY HALLUCINATION. NO COMPLAINS OF TREMORS, EPS, OR AKATHISIA. SAFETY PRECAUTIONS IN PLACE AND MAINTAINED AT ALL TIMES. BED IN LOWEST LOCKED POSITION, HOB ELEVATED, SIDE RAILS UP X 2. CALL LIGHT AND TABLE WITHIN REACH. WILL ENDORSE TO LEGAL BILLER NURSE FOR PJ
[2020-11-01 20:00] VITALS: BP 115/66
[2020-11-01 20:36] VITALS: BP 115/66
--- NOTE | 2020-11-01 21:12 | NUR ---
RN NOTES RECEIVED IN BED, ALREADY ASLEEP, NOT IN APPARENT DISTRESS, WILL CONTINUE TO MONITOR.
[2020-11-01] MEDS: diphenhydrAMINE HCL 25 MG CAPSULE PO PRN (23:28)
--- NOTE | 2020-11-02 06:01 | NUR ---
RN NOTES ALERT/ORIENTED X4, ROOM AIR, NO COMPLAIN OF PAIN, STAYED IN ROOM DURING SHIFT, REQUESTED BENADRYL X1 FOR ITCHING, WILL START ON INVESTIGATIONAL DRUG TODAY.
--- NOTE | 2020-11-02 07:23 | NUR ---
MS RN OPENING NOTES RECEIVED PATIENT. PATIENT A/O X4, ON ROOM AIR, NO COMPLAIN OF PAIN AT THIS TIME BUT REQUESTING BENADRYL FOR ITCHING. WILL CONTINUE TO MONITOR PATIENT.
[2020-11-02 08:00] VITALS: BP 119/71
[2020-11-02] MEDS: METFORMIN 500 MG PO SCH ×2 (08:42→16:26)
[2020-11-02] MEDS: HCTZ 25 MG PO SCH (08:42)
[2020-11-02] MEDS: BENAZEPRIL 20 MG PO SCH (08:43)
[2020-11-02] MEDS: INVEST MED Kar XT OR PLACEBO 50/20 MG PO SCH ×2 (10:11→22:00)
[2020-11-02] MEDS: LORAZEPAM 1 MG TABLET FOR AGITATION/ANXIETY PO PRN (15:28)
[2020-11-02 16:00] VITALS: BP 116/76
[2020-11-02] MEDS ORDERED: diphenhydrAMINE HCL/ZINC ACET CREAM 28.3 GM TUBE TP PRN (16:00)
--- NOTE | 2020-11-02 19:14 | NUR ---
MS RN CLOSING NOTES PATIENT IS AWAKE IN BED. NO SIGNS AND SYMPTOMS OF DISTRESS NOTED. NO COMPLAINTS OF PAIN AT THIS TIME. RECEIVED ORDER FOR BENADRYL TOPICAL OINTMENT PER PATIENT REQUEST AND APPLIED TO AFFECTED AREAS. INVESTIGATIONAL DRUG GIVEN AT 1000 SCHEDULED TIME. SAFETY MEASURES IN PLACE. SIDE RAILS UP X 2, BED LOCKED AT LOW POSITION. ALL HOME MEDICATIONS GIVEN ORDERED. ATTENDED TO ALL PATIENTS NEEDS. WILL CONTINUE TO ENDORSE TO ONCOMING SHIFT.
--- NOTE | 2020-11-02 19:30 | NUR ---
MS/RN OPENING NOTES RECEIVED PATIENT IN BED SLEEPING, EASY TO AROUSE. PATIENT IS ALERT AND ORIENTED X 4. PATIENT BREATHING IS EVEN AND UNLABORED, NO SIGNS OF SOB OR RESPIRATORY DISTRESS NOTED. PATIENT STATES NO PAIN AT THIS TIME. SAFETY MEASURES ARE IN PLACE. WILL CONTINUE WITH PATIENT PLAN OF CARE.
[2020-11-02 20:00] VITALS: BP 128/63
--- NOTE | 2020-11-03 06:50 | NUR ---
MS/RN CLOSING NOTES PATIENT SLEEPING IN BED EASY TO AROUSE. NO SIGNS AND SYMPTOMS OF DISTRESS NOTED. NO COMPLAINTS OF PAIN AT THIS TIME. INVESTIGATIONAL DRUG GIVEN AT 2200 SCHEDULED TIME. ALL NEEDS HAVE BEEN MET DURING SHIFT. SAFETY MEASURES IN PLACE. SIDE RAILS UP X 2, BED LOCKED AT LOW POSITION. WILL ENDORSE TO ONCOMING SHIFT.
--- NOTE | 2020-11-03 07:30 | NUR ---
MS RN OPENING NOTES RECEIVED PATIENT AWAKE IN BED. ALERT AND ORIENTED X4. TOLERATING WELL ON ROOM AIR. NO SIGNS OR SYMPTOMS OF DISTRESS NOTED. PATIENT IS SELF AMBULATORY WITH BATHROOM PRIVILEGES. ABLE TO MAKE NEEDS KNOWN. SAFETY MEASURES IN PLACE. SIDE RAILS X 2 RAISED. BED LOWERED. CALL LIGHT WITHIN REACH. WILL CONTINUE TO MONITOR THROUGHOUT SHIFT.
[2020-11-03 08:23] VITALS: BP 103/59
[2020-11-03] MEDS: BENAZEPRIL 20 MG PO SCH (09:06)
[2020-11-03] MEDS: HCTZ 25 MG PO SCH (09:06)
[2020-11-03] MEDS: METFORMIN 500 MG PO SCH ×2 (09:06→16:10)
[2020-11-03] MEDS: INVEST MED Kar XT OR PLACEBO 50/20 MG PO SCH ×2 (10:02→22:00)
[2020-11-03 16:04] VITALS: BP 120/70
--- NOTE | 2020-11-03 19:19 | NUR ---
MS RN CLOSING NOTES PATIENT IS AWAKE IN BED. NO SIGNS AND SYMPTOMS OF DISTRESS NOTED. NO COMPLAINTS OF PAIN AT THIS TIME. INVESTIGATIONAL DRUG GIVEN AT 1000 SCHEDULED TIME. SAFETY MEASURES IN PLACE. SIDE RAILS UP X 2, BED LOCKED AT LOW POSITION. ALL HOME MEDICATIONS GIVEN ORDERED. ATTENDED TO ALL PATIENTS NEEDS. WILL CONTINUE TO ENDORSE TO ONCOMING SHIFT.
--- NOTE | 2020-11-03 19:30 | NUR ---
MS/RN OPENING NOTES RECEIVED PATIENT IN BED RESTING. PATIENT IS ALERT AND ORIENTED X 4. PATIENT BREATHING IS EVEN AND UNLABORED, NO SIGNS OF SOB OR RESPIRATORY DISTRESS NOTED. PATIENT STATES NO PAIN AT THIS TIME. SAFETY MEASURES ARE IN PLACE. WILL CONTINUE WITH PATIENT PLAN OF CARE.
[2020-11-03 20:17] VITALS: BP 147/85
[2020-11-03] MEDS: diphenhydrAMINE HCL 25 MG CAPSULE PO PRN (21:22)
--- NOTE | 2020-11-03 21:25 | NUR ---
PATIENT REQUESTING PRN PATIENT GIVEN BENADRYL 25 MG PO FOR LOWER EXTREMITY ITCH. V/S STABLE, WILL CONTINUE TO MONITOR.
--- NOTE | 2020-11-03 22:30 | NUR ---
MS/RN NOTES PATIENT STATED TO HAVE MOSQUITOS IN HER ROOM AND KILLED ONE ON THE DOOR. EVS NOTIFIED, WORK ORDER WILL BE PLACED FOR PEST CONTROL.
--- NOTE | 2020-11-04 08:00 | NUR ---
RN OPENING NOTES RECEIVED PT AWAKE IN BED AT THIS TIME. AOX4. ABLE TO VERBALIZE NEEDS. NO SOB, NO C/O PAIN, NO S/O ANY APPARENT DISTRESS NOTED. STABLE ON RA. . PT DENIES SI/HI, VISUAL AND AUDITORY HALLUCINATION. NO COMPLAINS OF TREMORS, EPS, OR AKATHISIA. SAFETY PRECAUTIONS IN PLACE AND MAINTAINED AT ALL TIMES. BED IN LOWEST LOCKED POSITION, HOB ELEVATED, SIDE RAILS UP X 2. CALL LIGHT AND TABLE WITHIN REACH. WILL ENDORSE TO EKG MONITOR NURSE FOR PJ
[2020-11-04 08:19] VITALS: BP 133/78
[2020-11-04] MEDS: HCTZ 25 MG PO SCH (09:38)
[2020-11-04] MEDS: METFORMIN 500 MG PO SCH ×2 (09:38→18:02)
[2020-11-04] MEDS: BENAZEPRIL 20 MG PO SCH (09:39)
--- NOTE | 2020-11-04 10:03 | NUR ---
follow up with pharmacy investigational medicine not available on the floor at this time, pharmacy said they will bring it up
[2020-11-04] MEDS: INVEST MED Kar XT OR PLACEBO 50/20 MG PO SCH ×2 (10:14→22:03)
[2020-11-04] MEDS: MAGNESIUM HYDROXIDE 30 ML UDC PO PRN (12:33)
--- NOTE | 2020-11-04 18:31 | NUR ---
RN CLOSING NOTES PT AWAKE IN BED AT THIS TIME. PT REMAINED STABLE THROUGHOUT SHIFT. ALL NEEDS, MEDICATIONS, AND CARE ADMINISTERED ANTICIPATED PER ORDER. ANXIETY MANAGEMENT ADMINISTERED. PT DENIES SI/HI, VISUAL AND AUDITORY HALLUCINATION. NO COMPLAINS OF TREMORS, EPS, OR AKATHISIA. SAFETY PRECAUTIONS IN PLACE AND MAINTAINED AT ALL TIMES. BED IN LOWEST LOCKED POSITION, HOB ELEVATED, SIDE RAILS UP X 2. CALL LIGHT AND TABLE WITHIN REACH. WILL ENDORSE TO OUTDOOR STUDIES DIRECTOR NURSE FOR PJ
[2020-11-04] MEDS: LORAZEPAM 1 MG TABLET FOR AGITATION/ANXIETY PO PRN (19:47)
--- NOTE | 2020-11-04 19:47 | NUR ---
MS RN NOTES PATIENT REQUESTING PRN ATIVAN 1 MG, GIVEN ORDERED. WILL CONTINUE TO MONITOR
[2020-11-04 20:00] VITALS: BP 101/61
--- NOTE | 2020-11-04 20:00 | NUR ---
MS RN OPENING NOTES PATIENT RESTING IN BED, ALERT/ORIENTED X 4, PATIENT ABLE TO MAKE NEEDS KNOWN. NO COMPLAINTS OF PAIN AT THIS TIME. PATIENT IS AMBULATORY AND STEADY WITH BATHROOM PRIVILEGES. PATIENT HAS NO IV ACCESS. PATIENT REQUESTED ATIVAN, GIVEN ORDERED. REMINDED PATIENT TO BE IN ROOM FOR INVESTIGATIONAL MEDICATION AT 2200. SAFETY MEASURES IN PLACE, CALL LIGHT WITHIN REACH, BED LOCKED IN LOWEST POSITION. WILL CONTINUE TO MONITOR. WILL CONTINUE PLAN OF CARE
[2020-11-05] MEDS: MAG HYDROX/AL HYDROX/SIMETH 30 ML UDC PO PRN (00:26)
[2020-11-05] MEDS: diphenhydrAMINE HCL 25 MG CAPSULE PO PRN (00:26)
--- NOTE | 2020-11-05 00:26 | NUR ---
MS RN NOTES PATIENT REQUESTING PRN BENADRYL FOR LOWER EXTREMITY ITCH, MEDICATION GIVEN ORDERED. PATIENT ALSO REPORTING ACID REFLUX, GAVE MAALOX ORDERED. WILL CONTINUE TO MONITOR.
--- NOTE | 2020-11-05 07:00 | NUR ---
MS RN CLOSING NOTES PATIENT SLEEPING IN BED, EASILY AWAKENED. PATIENT ABLE TO MAKE NEEDS KNOWN, NO COMPLAINTS OF PAIN AT THIS TIME, NO REPORTS OF TREMORS, AKATHISIA, OR EPS. PATIENT STABLE ON ROOM AIR, NO S/S OF DISTRESS OR SHORTNESS OF BREATH NOTED. MEDICATIONS GIVEN ORDERED AND PATIENT NEEDS MET THROUGHOUT SHIFT. SAFETY MEASURES IN PLACE, CALL LIGHT WITHIN REACH AND BED LOCKED IN LOWEST POSITION. WILL ENDORSE TO DAY SHIFT NURSE FOR CONTINUITY OF CARE
--- NOTE | 2020-11-05 07:05 | NUR ---
RN OPENING NOTES RECEIVED PT AWAKE IN BED AT THIS TIME. AOX4. ABLE TO MAKE NEEDS KNOWN. NO SOB, NO C/O PAIN, NO S/O ANY ACUTE DISTRESS NOTED. STABLE ON RA. . PT DENIES SI/HI, VISUAL AND AUDITORY HALLUCINATION. NO COMPLAINS OF TREMORS, EPS, OR AKATHISIA. NO IV ACCESS NOTED. SAFETY PRECAUTIONS IN PLACE AND MAINTAINED AT ALL TIMES. BED IN LOWEST LOCKED POSITION, HOB ELEVATED, SIDE RAILS UP X 2. CALL LIGHT AND TABLE WITHIN REACH. WILL ENDORSE TO SUPERVISOR BAKING NURSE FOR PJ
[2020-11-05 08:00] VITALS: BP 116/72
[2020-11-05] MEDS: HCTZ 25 MG PO SCH (08:27)
[2020-11-05] MEDS: BENAZEPRIL 20 MG PO SCH (08:27)
[2020-11-05] MEDS: METFORMIN 500 MG PO SCH ×2 (08:27→17:05)
[2020-11-05] MEDS: INVEST MED Kar XT OR PLACEBO 50/20 MG PO SCH ×2 (10:02→22:00)
[2020-11-05 16:00] VITALS: BP 126/75
--- NOTE | 2020-11-05 18:16 | NUR ---
MS RN CLOSING NOTES PT IN ROOM WATCHING TV AT THIS TIME. PT'S CONDITION REMAINED UNCHANGED THROUGHOUT SHIFT. ALL NEEDS, MEDICATIONS, AND CARE ADMINISTERED ANTICIPATED PER ORDER. PT DENIES SI/HI, VISUAL AND AUDITORY HALLUCINATION. NO C/O TREMORS, EPS, OR AKATHISIA. SAFETY PRECAUTIONS IN PLACE AND MAINTAINED AT ALL TIMES. BED IN LOWEST LOCKED POSITION, HOB ELEVATED, SIDE RAILS UP X 2. CALL LIGHT AND TABLE WITHIN REACH. WILL ENDORSE TO SHELLACKER NURSE FOR PJ
--- NOTE | 2020-11-05 19:45 | NUR ---
MS RN OPENING NOTES PATIENT RESTING IN BED WATCHING TV, ALERT/ORIENTED X 4, PT ABLE TO MAKE NEEDS KNOWN. NO COMPLAINTS OF PAIN AT THIS TIME. PT DENIES SI/HI, VISUAL AND AUDITORY HALLUCINATION. NO COMPLAINS OF TREMORS, EPS, OR AKATHISIA. NO IV ACCESS NOTED. PT IS AMBULATORY AND STEADY WITH BATHROOM PRIVILEGES. REMINDED PATIENT TO BE IN ROOM FOR INVESTIGATIONAL MEDICATION AT 2200. SAFETY MEASURES IN PLACE, CALL LIGHT WITHIN REACH, BED LOCKED IN LOWEST POSITION. WILL CONTINUE TO MONITOR. WILL CONTINUE PLAN OF CARE
[2020-11-05 20:14] VITALS: BP 116/69
[2020-11-05] MEDS: LORAZEPAM 1 MG TABLET FOR AGITATION/ANXIETY PO PRN (21:24)
--- NOTE | 2020-11-06 07:00 | NUR ---
MS RN CLOSING NOTES PATIENT AWAKE IN ROOM, ALERT/ORIENTED X 4. PATIENT ABLE TO MAKE NEEDS KNOWN, NO COMPLAINTS OF PAIN AT THIS TIME, NO REPORTS OF TREMORS, AKATHISIA, OR EPS. PATIENT STABLE ON ROOM AIR, NO S/S OF DISTRESS OR SHORTNESS OF BREATH NOTED. MEDICATIONS GIVEN ORDERED AND PATIENT NEEDS MET THROUGHOUT SHIFT. SAFETY MEASURES IN PLACE, CALL LIGHT WITHIN REACH AND BED LOCKED IN LOWEST POSITION. WILL ENDORSE TO DAY SHIFT NURSE FOR CONTINUITY OF CARE
--- NOTE | 2020-11-06 07:30 | NUR ---
RECEIVED PT.ALERT AND ORIENTED X4.EASILY AGITATED..
[2020-11-06 08:00] VITALS: BP 109/89
--- NOTE | 2020-11-06 08:35 | NUR ---
REFUSED ACCU-CHECK THIS AM.
[2020-11-06] MEDS: METFORMIN 500 MG PO SCH ×2 (09:25→17:10)
[2020-11-06] MEDS: HCTZ 25 MG PO SCH (09:25)
[2020-11-06] MEDS: BENAZEPRIL 20 MG PO SCH (09:30)
[2020-11-06] MEDS: INVEST MED Kar XT OR PLACEBO 50/20 MG PO SCH ×2 (10:03→22:02)
[2020-11-06 16:00] VITALS: BP 132/100
--- NOTE | 2020-11-06 16:45 | NUR ---
NO CHANGE INSTATUS AT THIS TIME.
--- NOTE | 2020-11-06 19:45 | NUR ---
MS/RN OPENING NOTE RECEIVED PATIENT RESTING IN BED. AWAKE, ALERT AND ORIENTED X 4. ABLE TO MAKE NEEDS KNOWN. NO COMPLAINTS OF PAIN AT THIS TIME. CONTINUES ON ROOM AIR WITH NO S/SX OF RESPIRATORY DISTRESS NOTED. NO IV ACCESS AT THIS TIME. CONTINUES ON INVESTIGATIONAL MEDICATION AND CLINICAL TRIAL. NO S/SX OF TREMORS, AKATHASIA OR EPS. CALL LIGHT WITHIN REACH. ASPIRATION, FALL AND SAFETY PRECAUTIONS MAINTAINED. WILL CONTINUE TO MONITOR.
[2020-11-06 20:00] VITALS: BP 107/50
[2020-11-06] MEDS: LORAZEPAM 1 MG TABLET FOR AGITATION/ANXIETY PO PRN (21:41)
--- NOTE | 2020-11-07 06:30 | NUR ---
MS/RN CLOSING NOTE PATIENT CURRENTLY RESTING IN BED. AWAKE, ALERT AND ORIENTED X 4. ABLE TO MAKE NEEDS KNOWN. NO COMPLAINTS OF PAIN AT THIS TIME. CONTINUES ON ROOM AIR WITH NO S/SX OF RESPIRATORY DISTRESS NOTED. NO IV ACCESS AT THIS TIME. CONTINUES ON INVESTIGATIONAL MEDICATION AND CLINICAL TRIAL. NO S/SX OF TREMORS, AKATHASIA OR EPS. CALL LIGHT WITHIN REACH. ASPIRATION, FALL AND SAFETY PRECAUTIONS MAINTAINED. WILL ENDORSE PLAN OF CARE TO ONCOMING SHIFT.
--- NOTE | 2020-11-07 07:18 | NUR ---
MS RN OPENING NOTE PATIENT ON BED ALERT AND ORIENTED X 4. PATIENT IS IS ON ROOM AIR, WITH UNLABORED AND EVEN BREATHING. PATIENT IS AMBULATORY AND NO COMPLAIN OF PAIN OR DISCOMFORT AT THIS TIME. PATIENT IS AMBULATORY WITH NO ASSISTIVE DEVICE. SAFETY MEASURES ENSURED. BED LOCKED IN POSITION AND PLACED IN LOWEST POSITION. CALL LIGHT WITHIN REACH AT ALL TIMES. WILL CONTINUE TO MONITOR PATIENT.
[2020-11-07 08:00] VITALS: BP 138/88
[2020-11-07] MEDS: METFORMIN 500 MG PO SCH ×2 (09:12→17:01)
[2020-11-07] MEDS: BENAZEPRIL 20 MG PO SCH (09:12)
[2020-11-07] MEDS: HCTZ 25 MG PO SCH (09:12)
[2020-11-07] MEDS: INVEST MED Kar XT OR PLACEBO 50/20 MG PO SCH ×2 (10:03→22:00)
[2020-11-07] MEDS: MAGNESIUM HYDROXIDE 30 ML UDC PO PRN (11:03)
[2020-11-07 16:00] VITALS: BP 129/85
--- NOTE | 2020-11-07 18:53 | NUR ---
MS RN CLOSING NOTE PATIENT ON BED AWAKE, ALERT AND ORIENTED X 4. PATIENT WITH REGULAR AND UNLABORED BREATHING, WITH NO SIGNS OF DISTRESS. ON MODERATE TO HIGH BACK REST. PATIENT WITH IV ACCESS ON THE LEFT AC G#20 ON SALINE LOCK, PATENT AND INTACT. COMFORT MEASURES PROVIDED. NO COMPLAIN OF PAIN OR DISCOMFORT AT THIS TIME. SAFETY PRECAUTIONS MAINTAINED WITH BED LOCKED AND AT LOWEST POSITION. CALL LIGHT WITHIN REACH AT ALL TIMES. WILL ENDORSE TO NEXT SHIFT FOR CONTINUITY OF CARE. Addendum: 11/07/20 at 1854 by OWEN ACHARYA RN please disregard this charting
--- NOTE | 2020-11-07 19:13 | NUR ---
MS RN CLOSING NOTE PATIENT AWAKE ON BED ALERT AND ORIENTED X 4. PATIENT DENIES ANY PAIN OR DISCOMFORT. WITH NO SIGNS OF DISTRESS THROUGHOUT THE SHIFT. PATIENT DID NOT EXHIBIT ANY UNTOWARD BEHAVIOR. PATIENT WITH GOOD DISPOSITION. COMFORT MEASURES PROVIDED. PROVIDED WITH CALM AND QUIET ENVIRONMENT. BED MAINTAINED ON LOWEST POSITION AND LOCKED. CALL LIGHT AND BEDSIDE TABLE WITHIN REACH AT ALL TIMES. WILL ENDORSE TO WAITER/WAITRESS [place] FOR CONTINUITY OF CARE.
[2020-11-07 20:00] VITALS: BP 121/73
--- NOTE | 2020-11-07 20:22 | NUR ---
MS RN NOTES PATIENT AWAKE ON BED ALERT AND ORIENTED X 4. PATIENT DENIES ANY PAIN OR DISCOMFORT. WITH NO SIGNS OF DISTRESS AT THIS TIME. PATIENT WITH GOOD DISPOSITION. COMFORT MEASURES PROVIDED. PROVIDED WITH CALM AND QUIET ENVIRONMENT. BED MAINTAINED ON LOWEST POSITION AND LOCKED. CALL LIGHT AND BEDSIDE TABLE WITHIN REACH AT ALL TIMES. WILL CONTINUE TO MONITOR.
[2020-11-07] MEDS: LORAZEPAM 1 MG TABLET FOR AGITATION/ANXIETY PO PRN (21:51)
--- NOTE | 2020-11-08 07:04 | NUR ---
MS RN NOTES PATIENT AWAKE ON BED ALERT AND ORIENTED X 4. PATIENT DENIES ANY PAIN OR DISCOMFORT. WITH NO SIGNS OF DISTRESS AT THIS TIME. PATIENT WITH GOOD DISPOSITION. COMFORT MEASURES PROVIDED. PROVIDED WITH CALM AND QUIET ENVIRONMENT. BED MAINTAINED ON LOWEST POSITION AND LOCKED. CALL LIGHT AND BEDSIDE TABLE WITHIN REACH AT ALL TIMES. WILL ENDORSE CARE TO DAY SHIFT NURSE..
[2020-11-08 08:00] VITALS: BP 141/90
--- NOTE | 2020-11-08 08:15 | NUR ---
RN OPENING NOTE RECEIVED PATIENT IN BED, AO X 4, ABLE TO RESPONDS ALL STIMULI. NO S/S OF DISTRESS OBSERVED. SKIN IS WARM TO TOUCH KEEP CLEAN/DRY, INTACT IV SITE. RESPIRATORY EVEN AND UNLABORED IN ROOM AIR, NO DISTRESS OBSERVED. KEPT ELEVATED HOB FOR ENSURE AIRWAY AND ASPIRATION PRECAUTION, ALSO LOWEST BED POSITION FOE SAFETY. CALL LIGHT WITHIN REACH, WILL CONTINUE TO MONITOR.
[2020-11-08] MEDS: METFORMIN 500 MG PO SCH ×2 (09:29→17:31)
[2020-11-08] MEDS: HCTZ 25 MG PO SCH (09:30)
[2020-11-08] MEDS: BENAZEPRIL 20 MG PO SCH (09:30)
[2020-11-08] MEDS: INVEST MED Kar XT OR PLACEBO 50/20 MG PO SCH ×2 (10:00→22:00)
[2020-11-08] MEDS: MAGNESIUM HYDROXIDE 30 ML UDC PO PRN (12:52)
--- NOTE | 2020-11-08 14:00 | NUR ---
RN NOTE SPOKE TO SUNDAY FROM THE LAB. SHE'S AWARE AND GOT THE PAPER REGARDING BLOOD DRAW ORDERS FOR THE PT.
[2020-11-08 16:00] VITALS: BP 114/66
--- NOTE | 2020-11-08 18:13 | NUR ---
RN CLOSING NOTE PATIENT RESTING IN ROOM, DOES NO OBSERVED DISTRESS OR SI/HI BEHAVIOR. SKIN IS WARM TOUCH, KEEP CLEAN/DRY. RESPIRATORY EVEN AND UNLABORED ON ROOM AIR. INFORMED PATIENT THAT BLOOD DRAW SCHEDULE FOR TOMORROW AND PATIENT VERBALLY UNDERSTAND. KEPT ELEVATED HOB FOR ENSURE AIRWAY, ALSO LOWEST BED POSITION FOR SAFETY. DTR AT BED SIDE, CALL LIGHT WITHIN REACH, WILL ENDORSE MEDICAL/SURGERY REGISTERED NURSE.
[2020-11-08] MEDS: LORAZEPAM 1 MG TABLET FOR AGITATION/ANXIETY PO PRN (19:30)
--- NOTE | 2020-11-08 19:30 | NUR ---
MS RN NOTES Patient c/o anxiety requesting Ativan. PRN Ativan given as per order.
[2020-11-08 20:00] VITALS: BP 109/62
--- NOTE | 2020-11-08 20:00 | NUR ---
MS RN OPENING NOTES Patient, awake, A&Ox4. Denies pain or discomfort. No signs of distress. Reminded patient that investigational medication must be administered at 2200 exactly. And blood draws starting tomorrow will be timed. Patient verbalizes understanding.
--- NOTE | 2020-11-09 06:11 | NUR ---
MS RN CLOSING NOTES Patient is A&Ox4. VSS. No overnight events. Denies pain or discomfort. Investigational medication given at exactly 2200 last night. Pt denies any adverse side effects of investigational medications. Slept well throughout this shift.
[2020-11-09 08:00] VITALS: BP 132/73
--- NOTE | 2020-11-09 08:00 | NUR ---
RN NOTE PT AWAKE IN BED. A/O X 4 AND URUGUAYAN SPEAKING. NO COMPLAINT OF PAIN OR NAUSEA. ON RA WITH NO SOB OR RESPIRATORY DISTRESS PRESENT. NO LOGGING ENGINEER PRESENT. NO EDEMA PRESENT. SELF AMBULATORY WITH BATHROOM PRIVILEGES. SKIN IS INTACT. NO EDEMA PRESENT. NO IV PRESENT. INVESTIGATIONAL MED TO BE GIVEN AT 1000. SAFETY MEASURES IN PLACE. SIDE RAISED. BED LOWERED. CALL LIGHT WITHIN REACH. WILL CONTINUE TO MONITOR.
[2020-11-09] MEDS: HCTZ 25 MG PO SCH (08:15)
[2020-11-09] MEDS: METFORMIN 500 MG PO SCH ×2 (08:15→17:10)
[2020-11-09] MEDS: BENAZEPRIL 20 MG PO SCH (08:15)
--- NOTE | 2020-11-09 10:04 | NUR ---
RN NOTE PT INVESTIGATIONAL MED NOT PRESENT IN CASSETTE. NOTIFIED PHARMACY ABOUT MEDS TO BE GIVEN AT 1000. WILL ADMINISTER SOON POSSIBLE.
[2020-11-09] MEDS: INVEST MED Kar XT OR PLACEBO 50/20 MG PO SCH ×2 (10:12→22:00)
[2020-11-09] MEDS: MAGNESIUM HYDROXIDE 30 ML UDC PO PRN (10:36)
[2020-11-09 16:00] VITALS: BP 134/70
--- NOTE | 2020-11-09 18:18 | NUR ---
RN CLOSING NOTE PT AWAKE IN BED. A/O X 4 AND ESTONIAN SPEAKING. NO COMPLAINT OF PAIN OR NAUSEA. ON RA WITH NO SOB OR RESPIRATORY DISTRESS PRESENT. NO BURGLAR ALARM OPERATOR PRESENT. NO EDEMA PRESENT. SELF AMBULATORY WITH BATHROOM PRIVILEGES. SKIN IS INTACT. NO EDEMA PRESENT. NO IV PRESENT. INVESTIGATIONAL MED GIVEN AT 1010 DUE TO LATE ARRIVAL. ROUTINE BLOOD DRAWS DONE TODAY. SAFETY MEASURES IN PLACE. SIDE RAISED. BED LOWERED. CALL LIGHT WITHIN REACH. REPORT TO BE GIVEN TO NIGHT NURSE FOR PJ.
--- NOTE | 2020-11-09 19:21 | NUR ---
MS RN OPENING NOTES RECEIVED PT AWAKE IN BED AT THIS TIME. AOX4; ABLE TO MAKE NEEDS KNOWN. TOLERATING ROOM AIR WELL WITH NO DISTRESS OR SOB. PT DENIES SI/HI, VISUAL AND AUDITORY HALLUCINATION. NO S/SX OF TREMORS, EPS, OR AKATHISIA. NO IV ACCESS NOTED. SAFETY PRECAUTIONS IN PLACE AND MAINTAINED AT ALL TIMES. BED IN LOWEST LOCKED POSITION, HOB ELEVATED, SIDE RAILS UP X 2. CALL LIGHT AND TABLE WITHIN REACH. PATIENT IN STABLE CONDITION; WILL CONTINUE PLAN OF CARE
[2020-11-09 20:14] VITALS: BP 114/59
[2020-11-09] MEDS: LORAZEPAM 1 MG TABLET FOR AGITATION/ANXIETY PO PRN (21:34)
--- NOTE | 2020-11-09 21:34 | NUR ---
MS RN NOTE - ANXIETY PATIENT C/O FEELING ANXIOUS. ADMINISTERED ATIVAN ORDERED. WILL REASSESS PATIENT WITHIN 30 MINUTES.
--- NOTE | 2020-11-10 07:21 | NUR ---
MS RN OPENING NOTES RECEIVED PT RESTING IN BED AT THIS TIME. PATIENT IS AOX4; ABLE TO MAKE NEEDS KNOWN. TOLERATING ROOM AIR WELL WITH NO DISTRESS OR SOB. PT ON CLINICAL TRIAL. NO IV ACCESS NOTED. SAFETY PRECAUTIONS IN PLACE AND MAINTAINED AT ALL TIMES. BED IN LOWEST LOCKED POSITION, HOB ELEVATED, SIDE RAILS UP X 2. CALL LIGHT AND TABLE WITHIN REACH. PATIENT IN STABLE CONDITION; WILL CONTINUE TO MONITOR
[2020-11-10 08:00] VITALS: BP 113/91
[2020-11-10] MEDS: BENAZEPRIL 20 MG PO SCH (08:18)
[2020-11-10] MEDS: HCTZ 25 MG PO SCH (08:18)
[2020-11-10] MEDS: METFORMIN 500 MG PO SCH ×2 (08:18→16:04)
[2020-11-10] MEDS: INVEST MED Kar XT OR PLACEBO 50/20 MG PO SCH ×2 (09:59→22:00)
[2020-11-10 15:58] VITALS: BP 125/70
--- NOTE | 2020-11-10 18:14 | NUR ---
MS RN CLOSING NOTE PT AWAKE IN BED. A/O X 4 NO COMPLAINT OF PAIN OR NAUSEA. PATIENT BREATHING EVENLY AND NONLABORED ON RA WITH NO SOB OR RESPIRATORY DISTRESS PRESENT. SELF AMBULATORY WITH BATHROOM PRIVILEGES. SKIN IS INTACT. NO IV PRESENT. INVESTIGATIONAL MED GIVEN. SAFETY MEASURES IN PLACE. SIDE RAILS RAISED. BED LOWERED. CALL LIGHT WITHIN REACH. WILL ENDORSE TO ONCOMING SHIFT.
[2020-11-10 20:00] VITALS: BP 118/68
--- NOTE | 2020-11-10 20:00 | NUR ---
RN NOTES Received pt. awake on bed, a/ox4 , calm and cooperatives, call light within reach, siderailsupx2, will continue to monitor
[2020-11-10] MEDS: LORAZEPAM 1 MG TABLET FOR AGITATION/ANXIETY PO PRN (22:38)
--- NOTE | 2020-11-10 22:39 | NUR ---
RN NOTES PT. IS FEELINFG ANXIOUS ASKED FOR ATIVAN - ATIVAN 1MG PO GIVEN S ORDERED, V/S STABLE
--- NOTE | 2020-11-11 06:00 | NUR ---
MS RN CLOSING NOTES PT IN ROOM WATCHING TV AT THIS TIME. PT'S CONDITION REMAINED UNCHANGED THROUGHOUT SHIFT. ALL NEEDS, MEDICATIONS, AND CARE ADMINISTERED ANTICIPATED PER ORDER. PT DENIES SI/HI, VISUAL AND AUDITORY HALLUCINATION. NO C/O TREMORS, EPS, OR AKATHISIA. SAFETY PRECAUTIONS IN PLACE AND MAINTAINED AT ALL TIMES. BED IN LOWEST LOCKED POSITION, HOB ELEVATED, SIDE RAILS UP X 2. CALL LIGHT AND TABLE WITHIN REACH. WILL ENDORSE TO OPERATORS TEACHER NURSE FOR PJ
[2020-11-11 08:00] VITALS: BP 149/100
[2020-11-11] MEDS: METFORMIN 500 MG PO SCH ×2 (08:11→16:15)
[2020-11-11] MEDS: BENAZEPRIL 20 MG PO SCH (08:11)
[2020-11-11] MEDS: HCTZ 25 MG PO SCH (08:11)
--- NOTE | 2020-11-11 08:50 | NUR ---
RN NOTE PATIENT IS COMPLAINING OF ITCHINESS POST BUG BITE. PATIENT ASKED TO USE BUG SPRAY. PATIENT WAS EDUCATED ON THE RISK OF USING BUG SPRAY IN THE HOSPITAL. PATIENT VERBALIZED UNDERSTANDING. WILL CONTINUE TO MONITOR PATIENT. CN AWARE
[2020-11-11] MEDS: INVEST MED Kar XT OR PLACEBO 50/20 MG PO SCH ×2 (10:00→21:58)
[2020-11-11 12:00] VITALS: BP 122/70
--- NOTE | 2020-11-11 18:14 | NUR ---
MS RN CLOSING NOTE PT RESTING IN BED. A/O X 4 NO COMPLAINT OF PAIN OR NAUSEA. PATIENT BREATHING EVENLY AND NONLABORED ON RA WITH NO SOB OR RESPIRATORY DISTRESS PRESENT. SELF AMBULATORY WITH BATHROOM PRIVILEGES. SKIN IS INTACT. NO IV PRESENT. INVESTIGATIONAL MED GIVEN. SAFETY MEASURES IN PLACE. SIDE RAILS RAISED. BED LOWERED. CALL LIGHT WITHIN REACH. WILL ENDORSE TO ONCOMING SHIFT. Addendum: 11/11/20 at 1847 by ANDREAS PRESCOTT RN PT. STATED SHE WAS FEELING ANXIOUS ASKED FOR PRN ATIVAN - ATIVAN 1MG PO GIVEN S ORDERED @ 1847 V/S ANGEL.
[2020-11-11] MEDS: LORAZEPAM 1 MG TABLET FOR AGITATION/ANXIETY PO PRN (18:46)
--- NOTE | 2020-11-11 19:50 | NUR ---
MSRN ASLEEP EASILY AWAKENED WHEN CALLED. V/S STABLE NO NEEDS MADE. BEHAVIOR CALM
[2020-11-11 20:00] VITALS: BP 114/64
--- NOTE | 2020-11-11 22:08 | NUR ---
msrn due meds administered. no needs made. went back to sleep.
--- NOTE | 2020-11-12 05:41 | NUR ---
MSRN STAYED IN HER ROOM ALL NIGHT. NO OTHER NEEDS MADE. PATIENT QUIET.
--- NOTE | 2020-11-12 07:47 | NUR ---
MS/RN OPENING NOTES RECEIVED PATIENT ON BED AWAKE ALERT AND ORIENTED X4. PATIENT IN ROOM AIR SATURATING WELL. PATIENT IN NO APPARENT RESPIRATORY DISTRESS NOTED. NO COMPLAINED OF PAIN NOTED AT THIS TIME. WILL CONTINUE TO MONITOR.
[2020-11-12 08:00] VITALS: BP 134/68
[2020-11-12] MEDS: HCTZ 25 MG PO SCH (08:13)
[2020-11-12] MEDS: BENAZEPRIL 20 MG PO SCH (08:14)
[2020-11-12] MEDS: METFORMIN 500 MG PO SCH ×2 (08:14→16:37)
[2020-11-12] MEDS: INVEST MED Kar XT OR PLACEBO 50/20 MG PO SCH ×2 (09:40→22:05)
--- NOTE | 2020-11-12 19:19 | NUR ---
MS RN CLOSING NOTE PATIENT RESTING IN BED. A/O X 4. PATIENT IS ON ROOM AIR SATURATING WELL. PATIENT IN NO APPARENT RESPIRATORY DISTRESS NOTED. SELF AMBULATORY WITH BATHROOM PRIVILEGES. SKIN IS INTACT. NO IV ACCESS PRESENT. INVESTIGATIONAL MEDICATIONS WAS GIVEN. SAFETY MEASURES IN PLACE. SIDE RAILS RAISED. BED LOWERED. CALL LIGHT WITHIN REACH. WILL ENDORSE TO SOLE TRIMMER FOR PJ.
[2020-11-12] MEDS: LORAZEPAM 1 MG TABLET FOR AGITATION/ANXIETY PO PRN (20:44)
[2020-11-12 20:52] VITALS: BP 115/65
[2020-11-12] MEDS: diphenhydrAMINE HCL 25 MG CAPSULE PO PRN (21:41)
--- NOTE | 2020-11-13 07:30 | NUR ---
RN MS NOTES PT IN HER ROOM, ASLEEP, EASY TO AROUSE, ALERT AND ORIENTED, NO COMPLAINT AT THIS TIME, NO BEHAVIOR PROBLEM NOTED, NEEDS ATTENDED.
--- NOTE | 2020-11-13 07:52 | NUR ---
MSRN CAME OUT OF ROOM, STATED SLEPT GOOD FROM 9PM TILL THIS MORNING. FELT MIND WELL RESTED. NO COMPLAINTS MADE.
[2020-11-13 08:00] VITALS: BP 128/81
[2020-11-13] MEDS: HCTZ 25 MG PO SCH (09:29)
[2020-11-13] MEDS: BENAZEPRIL 20 MG PO SCH (09:29)
[2020-11-13] MEDS: METFORMIN 500 MG PO SCH ×2 (09:29→17:10)
[2020-11-13] MEDS: INVEST MED Kar XT OR PLACEBO 50/20 MG PO SCH ×2 (10:03→22:16)
[2020-11-13] MEDS: LORAZEPAM 1 MG TABLET FOR AGITATION/ANXIETY PO PRN (14:41)
[2020-11-13 16:00] VITALS: BP 135/84
--- NOTE | 2020-11-13 18:29 | NUR ---
RN MS NOTES PT IN HER ROOM, AWAKE, ALERT AND ORIENTED, DENIES PAIN, RESPIRATIONS NORMAL, NO BEHAVIOR PROBLEM NOTED, COMPLIANT WITH MEDS AND UNIT PROTOCOLS, PM MEDS GIVEN, ALL OTHER NEEDS ATTENDED.
--- NOTE | 2020-11-13 19:30 | NUR ---
RN Notes Patient's alert and oriented x4. Patient's on room air with no respiratory distress noted. Patient has no IV access due to her clinical trial status. Patient is in no acute distress at this time. Will continue to monitor the patient. Addendum: 11/14/20 at 0634 by JAY CASTILLO RN RN Opening Notes
[2020-11-13 20:00] VITALS: BP 114/65
--- NOTE | 2020-11-14 06:32 | NUR ---
RN Closing Notes Patient was last seen sleeping in bed. Patient's alert and oriented x4. Patient's on room air with no respiratory distress noted. Patient has no IV access due to her clinical trial status. Patient is in no acute distress at this time. Safety measures in place: Bed locked, side rails up, and call light within reach of the patient. Will endorse care to the next shift nurse.
--- NOTE | 2020-11-14 07:32 | NUR ---
MS RN OPENING NOTES RECEIVED PATIENT IN BED, AWAKE, A/O X4. PATIENT ON ROOM AIR. NO IV ACCESS. SAFETY PRECAUTIONS IN PLACE; BED IN LOW POSITION AND LOCKED, RAILS UP X2, CALL LIGHT WITHIN REACH. WILL CONTINUE TO MONITOR PATIENT.
[2020-11-14 08:00] VITALS: BP 109/72
[2020-11-14] MEDS: HCTZ 25 MG PO SCH (08:30)
[2020-11-14] MEDS: METFORMIN 500 MG PO SCH ×2 (08:30→16:17)
[2020-11-14] MEDS: BENAZEPRIL 20 MG PO SCH (08:30)
--- NOTE | 2020-11-14 08:32 | NUR ---
MS RN NOTES MORNING BP 109/72 HR 87
[2020-11-14] MEDS: INVEST MED Kar XT OR PLACEBO 50/20 MG PO SCH ×2 (09:59→23:04)
[2020-11-14] MEDS: LORAZEPAM 1 MG TABLET FOR AGITATION/ANXIETY PO PRN (13:44)
--- NOTE | 2020-11-14 13:45 | NUR ---
MS RN NOTES PATIENT ANXIOUS; REQUESTING PRN ATIVAN. PRN ATIVAN ADMINISTERED.
[2020-11-14 16:00] VITALS: BP 150/77
--- NOTE | 2020-11-14 18:43 | NUR ---
MS RN CLOSING NOTES PATIENT REMAINS IN BED, AWAKE, A/O X4. PATIENT ON ROOM AIR. NO IV ACCESS. SAFETY PRECAUTIONS IN PLACE; BED IN LOW POSITION AND LOCKED, RAILS UP X2, CALL LIGHT WITHIN REACH. WILL ENDORSE TO SILO OPERATOR NURSE.
--- NOTE | 2020-11-14 19:50 | NUR ---
MS RN OPENING NOTES PATIENT AWAKE IN ROOM WATCHING TV. PT ALERT/ORIENTED X 4, PATIENT ABLE TO MAKE NEEDS KNOWN. NO REPORTS OF PAIN OR DISCOMFORT AT THIS TIME. NO IV ACCESS NOTED. PATIENT STABLE ON ROOM AIR, NO S/S OF DISTRESS OR SHORTNESS OF BREATH NOTED, BREATHING EVEN AND UNLABORED. SAFETY MEASURES IN PLACE, CALL LIGHT AND TABLE WITHIN REACH, BED LOCKED IN LOWEST POSITION, SIDE RAILS UP X 2. WILL CONTINUE PLAN OF CARE, WILL CONTINUE TO MONITOR
[2020-11-14 20:00] VITALS: BP 115/68
--- NOTE | 2020-11-14 20:04 | NUR ---
MS RN NOTES PATIENT REQUESTING AMBIEN TO SLEEP. EXPLAINED TO PATIENT THAT I WOULD HAVE TO WAKE HER UP AT 10 PM FOR INVESTIGATIONAL MEDS, PATIENT VERBALIZED UNDERSTANDING. WILL CONTINUE TO MONITOR
[2020-11-14] MEDS: ZOLPIDEM TARTRATE 10 MG TABLET PO PRN (20:06)
--- NOTE | 2020-11-14 23:04 | NUR ---
MS RN: CONTINUITY OF CARE Report given by Mana/SOFYA. Patient no distress, on Clinical Trial study. Due meds given, patient compliant with medication. No c/o pain. Calm behavior.
--- NOTE | 2020-11-15 06:09 | NUR ---
MS RN: END OF SHIFT REPORT Hours of sleep 7 with Troy. Patient calm, no behavior agitation. Compliant with study medication. Patient remains on Clinical Trial Study of new antipsychotic medication for the treatment of schizophrenia. Will endorse to bobo COWART.
[2020-11-15 08:00] VITALS: BP 118/71
[2020-11-15] MEDS: HCTZ 25 MG PO SCH (08:11)
[2020-11-15] MEDS: BENAZEPRIL 20 MG PO SCH (08:11)
[2020-11-15] MEDS: METFORMIN 500 MG PO SCH ×2 (08:12→16:18)
[2020-11-15] MEDS: INVEST MED Kar XT OR PLACEBO 50/20 MG PO SCH ×2 (09:59→21:59)
[2020-11-15 16:00] VITALS: BP 105/53
--- NOTE | 2020-11-15 19:30 | NUR ---
MS RN OPENING NOTES RECEIVED PATIENT IN BED, AWAKE, A&O X 4, NOT IN ANY FORM OF ACUTE DISTRESS NOTED. VS WITHIN NORMAL LIMITS. NO COMPLAINTS PAIN AT THIS TIME. SAFETY PRECAUTIONS OBSERVED: BED ON LOWEST LOCKED POSITION, SIDE RAILS UP X2. KEPT CALL LIGHT WITHIN EASY REACH. INSTRUCTED TO USE CALL LIGHT WHEN ASSISTANCE IS NEEDED, PATIENT VERBALIZED UNDERSTANDING. WILL CONTINUE TO MONITOR PATIENT'S STATUS.
--- NOTE | 2020-11-15 19:46 | NUR ---
MSRN PATIENT VERBALIZING ITCHING ON HER ABDOMEN AND BILATERAL THIGHS , SOME SCRATCHES SEEN ON HER ABDOMEN AND SMALL FEW WELTS ON BILATERAL THIGHS. . PATIENT BEGINNING TO BE AGITATED FROM ITCHING. PLACED CALL TO DR. CHURCHILL . ORDERS RECEIVED. CARRIED OUT.
[2020-11-15 20:00] VITALS: BP 100/58
[2020-11-15] MEDS: diphenhydrAMINE HCL 25 MG CAPSULE PO PRN (20:02)
--- NOTE | 2020-11-16 05:00 | NUR ---
MSRN WOKE UP AT 5AM. HAD GOOD HOURS OF SLEEP. NO COMPLAINTS MADE
--- NOTE | 2020-11-16 06:40 | NUR ---
MS RN CLOSING NOTES PATIENT IN BED, AWAKE, A/O X4. PATIENT ON ROOM AIR. NO IV ACCESS. SAFETY PRECAUTIONS IN PLACE; BED IN LOW POSITION AND LOCKED, RAILS UP X2, CALL LIGHT WITHIN REACH. WILL ENDORSE TO SAP BASIS NURSE.
[2020-11-16 08:00] VITALS: BP 109/76
[2020-11-16] MEDS: METFORMIN 500 MG PO SCH ×2 (08:42→16:26)
[2020-11-16] MEDS: BENAZEPRIL 20 MG PO SCH (08:42)
[2020-11-16] MEDS: HCTZ 25 MG PO SCH (08:42)
[2020-11-16] MEDS: INVEST MED Kar XT OR PLACEBO 50/20 MG PO SCH ×2 (10:07→22:00)
[2020-11-16 16:00] VITALS: BP 109/60
[2020-11-16] MEDS: LORAZEPAM 1 MG TABLET FOR AGITATION/ANXIETY PO PRN (17:29)
--- NOTE | 2020-11-16 17:37 | NUR ---
MS RN NOTES PATIENT ANXIOUS; REQUESTING PRN ATIVAN. PRN ATIVAN ADMINISTERED. WILL REASSESS.
--- NOTE | 2020-11-16 19:10 | NUR ---
MS RN CLOSING NOTES PATIENT REMAINS IN BED, AWAKE, A/O X4. PATIENT ON ROOM AIR. NO IV ACCESS. SAFETY PRECAUTIONS IN PLACE; BED IN LOW POSITION AND LOCKED, RAILS UP X2, CALL LIGHT WITHIN REACH. WILL ENDORSE TO ENTERPRISE MOBILITY ARCHITECT NURSE.
--- NOTE | 2020-11-16 19:35 | NUR ---
MS/RN OPENING NOTE RECEIVED PATIENT UP IN ROOM. ALERT AND ORIENTED X 4. ABLE TO MAKE NEEDS KNOWN. NO COMPLAINTS OF PAIN AT THIS TIME. CONTINUES ON ROOM AIR WITH NO S/SX OF RESPIRATORY DISTRESS NOTED. NO IV ACCESS AT THIS TIME. CONTINUES ON REGULAR DIET WITH NO S/SX OF ASPIRATION NOTED. CONTINUES ON INVESTIGATIONAL MEDICATION AND CLINICAL TRIAL. CALL LIGHT WITHIN REACH. ASPIRATION, FALL AND SAFETY PRECAUTIONS MAINTAINED. WILL CONTINUE TO MONITOR.
[2020-11-16 20:00] VITALS: BP 113/65
[2020-11-16] MEDS: ZOLPIDEM TARTRATE 10 MG TABLET PO PRN (20:34)
--- NOTE | 2020-11-16 20:40 | NUR ---
MS/RN NOTE PATIENT WITH C/O INSOMNIA. ADMINISTERED AMBIEN WITH PENDING EFFECT.
--- NOTE | 2020-11-16 23:00 | NUR ---
MS/RN NOTE INSOMNIA CORRECTED. PATIENT CURRENTLY SLEEPING.
--- NOTE | 2020-11-17 06:23 | NUR ---
MS/RN CLOSING NOTE PATIENT CURRENTLY SLEEPING IN BED. ALERT AND ORIENTED X 4. ABLE TO MAKE NEEDS KNOWN. NO COMPLAINTS OF PAIN AT THIS TIME. CONTINUES ON ROOM AIR WITH NO S/SX OF RESPIRATORY DISTRESS NOTED. NO IV ACCESS AT THIS TIME. CONTINUES ON REGULAR DIET WITH NO S/SX OF ASPIRATION NOTED. CONTINUES ON INVESTIGATIONAL MEDICATION AND CLINICAL TRIAL. CALL LIGHT WITHIN REACH. ASPIRATION, FALL AND SAFETY PRECAUTIONS MAINTAINED. WILL ENDORSE PLAN OF CARE TO ONCOMING SHIFT.
[2020-11-17 08:45] VITALS: BP 128/74
[2020-11-17] MEDS: METFORMIN 500 MG PO SCH ×2 (08:48→16:03)
[2020-11-17] MEDS: HCTZ 25 MG PO SCH (08:48)
[2020-11-17] MEDS: BENAZEPRIL 20 MG PO SCH (08:48)
[2020-11-17] MEDS: diphenhydrAMINE HCL 25 MG CAPSULE PO PRN (08:50)
--- NOTE | 2020-11-17 08:51 | NUR ---
RN NOTE PATIENT COMPLAINED OF ITCHINESS AND SKIN IRRITATION. PATIENT ASKED FOR PRN BENADRYL. WILL GIVE PRN MEDICATION ORDERED. WILL CONTINUE TO MONITOR
[2020-11-17] MEDS: INVEST MED Kar XT OR PLACEBO 50/20 MG PO SCH ×2 (09:58→22:00)
--- NOTE | 2020-11-17 19:45 | NUR ---
MS/RN OPENING NOTE RECEIVED PATIENT RESTING IN BED. AWAKE, ALERT AND ORIENTED X 4. ABLE TO MAKE NEEDS KNOWN. NO COMPLAINTS OF PAIN AT THIS TIME. CONTINUES ON ROOM AIR WITH NO S/SX OF RESPIRATORY DISTRESS NOTED. NO IV ACCESS AT THIS TIME. CONTINUES ON INVESTIGATIONAL MEDICATION AND CLINICAL TRIAL. NO S/SX OF TREMORS, AKATHASIA, OR EPS. ALL NEEDS ATTENDED TO. CALL LIGHT WITHIN REACH. ASPIRATION, FALL AND SAFETY PRECAUTIONS MAINTAINED. WILL CONTINUE TO MONITOR.
[2020-11-17 20:00] VITALS: BP 117/63
[2020-11-17] MEDS: ZOLPIDEM TARTRATE 10 MG TABLET PO PRN (20:35)
--- NOTE | 2020-11-17 20:45 | NUR ---
MS/RN NOTE PATIENT REQUESTING AMBIEN FOR SLEEP. ADMINISTERED MEDICATION WITH PENDING EFFECT.
--- NOTE | 2020-11-18 06:30 | NUR ---
MS/RN CLOSING NOTE PATIENT CURRENTLY RESTING IN BED. AWAKE, ALERT AND ORIENTED X 4. ABLE TO MAKE NEEDS KNOWN. NO COMPLAINTS OF PAIN AT THIS TIME. CONTINUES ON ROOM AIR WITH NO S/SX OF RESPIRATORY DISTRESS NOTED. NO IV ACCESS AT THIS TIME. CONTINUES ON INVESTIGATIONAL MEDICATION AND CLINICAL TRIAL. NO S/SX OF TREMORS, AKATHASIA, OR EPS. ALL NEEDS ATTENDED TO. CALL LIGHT WITHIN REACH. ASPIRATION, FALL AND SAFETY PRECAUTIONS MAINTAINED. WILL ENDORSE PLAN OF CARE TO ONCOMING SHIFT.
[2020-11-18 08:00] VITALS: BP 88/48
[2020-11-18] MEDS: BENAZEPRIL 20 MG PO SCH ×2 (08:28→08:31)
[2020-11-18] MEDS: METFORMIN 500 MG PO SCH ×2 (08:28→16:32)
[2020-11-18] MEDS: HCTZ 25 MG PO SCH ×2 (08:29→08:31)
--- NOTE | 2020-11-18 08:55 | NUR ---
RN NOTES PATIENT REQUESTED AM HOME MEDS; ADMINISTERED INDICATED. INFORMED THAT HER BP IS ON THE LOWER SIDE (88/48) BUT STILL REQUESTED TO HAVE HER BENAZEPRIL AND HCTZ BECAUSE "IT GOES HIGH LATER IN THE DAY". WILL CONTINUE TO MONITOR.
[2020-11-18] MEDS: diphenhydrAMINE HCL 25 MG CAPSULE PO PRN (09:40)
--- NOTE | 2020-11-18 09:44 | NUR ---
RN NOTES PATIENT COMPLAINT OF ITCHING ON BOTH ARMS, NO SWELLING NOTED, SLIGHT REDNESS ON RIGHT FOREARM NOTED; REQUESTED FOR BENADRYL AND ADMINISTERED INDICATED.
[2020-11-18] MEDS: INVEST MED Kar XT OR PLACEBO 50/20 MG PO SCH ×2 (09:56→22:00)
[2020-11-18 16:00] VITALS: BP 124/57
--- NOTE | 2020-11-18 18:37 | NUR ---
RN NOTES PATIENT SEEN IN BED RESTING, AWAKE AND VERBALLY RESPONSIVE. NOT IN ACUTE DISTRESS. BREATHING EVEN AND UNLABORED, CONTINUES ON ROOM AIR. AM MEDS AND INVESTIGATIONAL MED GIVEN INDICATED. SAFETY MEASURES IN PLACE. WILL ENDORSE TO SPUD SORTER RN FOR PJ.
[2020-11-18 20:00] VITALS: BP 110/66
--- NOTE | 2020-11-18 20:10 | NUR ---
MS RN OPENING PATIENT IN BED WATCHING TELEVISION. A/OX4. NO S/S OF DISTRESS. NO C/O PAIN AT THIS TIME. NO IV ACCESS. SAFETY IN PLACE: BED IN LOWEST, LOCKED POSITION; CALL LIGHT WITHIN REACH. PATIENT REMINDED OF INVESTIGATIONAL DRUG @2200. PATIENT STATED ACKNOWLEDGEMENT. WILL CONTINUE TO MONITOR.
[2020-11-18] MEDS: ZOLPIDEM TARTRATE 10 MG TABLET PO PRN (20:46)
--- NOTE | 2020-11-18 20:47 | NUR ---
MS RN NOTES PATIENT ASKED FOR HEATING PACK AND AMBIEN. DID MENTION AND ASKED IF SHE WANTS TO TAKE AMBIEN WITH HER INVESTIGATIONAL DRUGS AT 2200. PER PATIENT SHE IS TIRED AND JUST WANTS TO REST AND OKAY TO WAKE UP TO TAKE HER INVESTIGATIONAL DRUG LATER.
--- NOTE | 2020-11-19 06:52 | NUR ---
MS RN CLOSING NOTE PATIENT IN BED WITH EYES CLOSED. EASY TO AROUSE. A/OX4. NO S/S OF APPARENT DISTRESS. DID NOT EXHIBIT ANY PSYCHOLOGICAL INSTABILITY, AKATHISIA, TREMORS, NOR EPS. NO IV ACCESS. INVESTIGATIONAL DRUG GIVEN ON TIME. ALL NEEDS ATTENDED. SAFETY KEPT IN PLACE THE WHOLE SHIFT: BED IN LOWEST, LOCKED POSITION; CALL LIGHT WITHIN REACH. NO SIGNIFICANT CHANGE SINCE LAST SHIFT. WILL ENDORSE CARE TO AM SHIFT RN.
--- NOTE | 2020-11-19 07:30 | NUR ---
RN MS NOTES PT AWAKE, ALERT, ORIENTED, AMBULATES WITH STEADY GAIT ALONG THE HALLWAY AND INSIDE HER ROOM, NO COMPLAINT OF PAIN OR ANY DISCOMFORT, NEEDS ATTENDED.
[2020-11-19] MEDS: HCTZ 25 MG PO SCH (07:58)
[2020-11-19] MEDS: BENAZEPRIL 20 MG PO SCH (07:58)
[2020-11-19] MEDS: METFORMIN 500 MG PO SCH ×2 (07:58→17:01)
[2020-11-19 08:00] VITALS: BP 111/66
[2020-11-19] MEDS: INVEST MED Kar XT OR PLACEBO 50/20 MG PO SCH ×2 (10:02→22:07)
[2020-11-19 16:00] VITALS: BP 109/60
--- NOTE | 2020-11-19 18:20 | NUR ---
RN MS NOTES PT IN HER ROOM, COMPLIANT WITH CARE AND INTERVENTIONS, NO BEHAVIOR PROBLEM NOTED, NO COMPLAINT OF PAIN OR ANY DISCOMFORT, ALL NEEDS ATTENDED.
--- NOTE | 2020-11-19 19:43 | NUR ---
MS RN OPENING PATIENT IN BED TALKING ON THE PHONE. A/OX4. NO S/S OF APPARENT DISTRESS. NO C/O PAIN AT THE MOMENT. NO IV FLUID RUNNING. SAFETY IN PLACE: BED IN LOWEST, LOCKED POSITION; CALL LIGHT WITHIN REACH. WILL CONTINUE TO MONITOR.
[2020-11-19 20:35] VITALS: BP 112/68
[2020-11-19] MEDS: ZOLPIDEM TARTRATE 10 MG TABLET PO PRN (21:21)
--- NOTE | 2020-11-19 21:22 | NUR ---
MS RN NOTE PATIENT ASKED FOR AMBIEN. GIVEN AMBIEN 10MG PRN.
--- NOTE | 2020-11-20 07:10 | NUR ---
ms rn received on bed, awake,alert,oriented x4,clinical trial patient, no distress noted,all needs attended.
[2020-11-20 08:00] VITALS: BP 126/77
[2020-11-20] MEDS: HCTZ 25 MG PO SCH (08:35)
[2020-11-20] MEDS: METFORMIN 500 MG PO SCH ×2 (08:35→17:08)
[2020-11-20] MEDS: BENAZEPRIL 20 MG PO SCH (08:35)
--- NOTE | 2020-11-20 09:00 | NUR ---
ms meade breakfast served,due meds given,tolerated well.
[2020-11-20] MEDS: INVEST MED Kar XT OR PLACEBO 50/20 MG PO SCH ×2 (10:20→21:59)
[2020-11-20 16:00] VITALS: BP 127/55
--- NOTE | 2020-11-20 19:30 | NUR ---
RN OPENING NOTES RECEIVED PT AWAKE IN BED AT THIS TIME. AOX4. ABLE TO VERBALIZE NEEDS. NO SOB, NO C/O PAIN, NO S/O ANY APPARENT DISTRESS NOTED. STABLE ON RA. . PT DENIES SI/HI, VISUAL AND AUDITORY HALLUCINATION. NO COMPLAINS OF TREMORS, EPS, OR AKATHISIA. SAFETY PRECAUTIONS IN PLACE AND MAINTAINED AT ALL TIMES. BED IN LOWEST LOCKED POSITION, HOB ELEVATED, SIDE RAILS UP X 2. CALL LIGHT AND TABLE WITHIN REACH. WILL ENDORSE TO DAY SHIFT NURSE FOR PJ
[2020-11-20 20:00] VITALS: BP 111/64
[2020-11-20] MEDS: ZOLPIDEM TARTRATE 10 MG TABLET PO PRN (20:39)
--- NOTE | 2020-11-21 06:30 | NUR ---
RN CLOSING NOTES PT AWAKE IN BED AT THIS TIME. PT REMAINED STABLE THROUGHOUT SHIFT. ALL NEEDS, MEDICATIONS, AND CARE ADMINISTERED ANTICIPATED PER ORDER. ANXIETY MANAGEMENT ADMINISTERED. PT DENIES SI/HI, VISUAL AND AUDITORY HALLUCINATION. NO COMPLAINS OF TREMORS, EPS, OR AKATHISIA. SAFETY PRECAUTIONS IN PLACE AND MAINTAINED AT ALL TIMES. BED IN LOWEST LOCKED POSITION, HOB ELEVATED, SIDE RAILS UP X 2. CALL LIGHT AND TABLE WITHIN REACH. WILL ENDORSE TO DRIER TENDER NURSE FOR PJ
[2020-11-21 08:00] VITALS: BP 129/84
[2020-11-21] MEDS: HCTZ 25 MG PO SCH (09:06)
[2020-11-21] MEDS: BENAZEPRIL 20 MG PO SCH (09:06)
[2020-11-21] MEDS: METFORMIN 500 MG PO SCH ×2 (09:06→17:04)
[2020-11-21] MEDS: INVEST MED Kar XT OR PLACEBO 50/20 MG PO SCH ×2 (10:11→21:00)
--- NOTE | 2020-11-21 19:00 | NUR ---
MS RN CLOSING NOTE PATIENT AWAKE ON BED ALERT AND ORIENTED X 4. PATIENT DENIES ANY PAIN OR DISCOMFORT. WITH NO SIGNS OF DISTRESS THROUGHOUT THE SHIFT. PATIENT DID NOT EXHIBIT ANY UNTOWARD BEHAVIOR. PATIENT WITH GOOD DISPOSITION. COMFORT MEASURES PROVIDED. PROVIDED WITH CALM AND QUIET ENVIRONMENT. BED MAINTAINED ON LOWEST POSITION AND LOCKED. CALL LIGHT AND BEDSIDE TABLE WITHIN REACH AT ALL TIMES. WILL ENDORSE TO LABEL SEWER FOR CONTINUITY OF CARE.
--- NOTE | 2020-11-21 19:20 | NUR ---
MS RN OPENING NOTES: RECEIVED PATIENT IN BED, AWAKE. A/O X4. NO S/S OF DISTRESS NOTED. CALL LIGHT WITHIN REACH. BED IN LOWEST AND LOCKED POSITION. INSTRUCTED NPO AFTER 2100, PT VERBALIZED UNDERSTANDING.
[2020-11-21 20:00] VITALS: BP 121/75
[2020-11-21] MEDS: LORAZEPAM 1 MG TABLET FOR AGITATION/ANXIETY PO PRN (20:31)
[2020-11-21] MEDS: ZOLPIDEM TARTRATE 10 MG TABLET PO PRN (20:49)
[2020-11-22 08:00] VITALS: BP 118/72
[2020-11-22] MEDS: BENAZEPRIL 20 MG PO SCH (08:54)
[2020-11-22] MEDS: HCTZ 25 MG PO SCH (08:54)
[2020-11-22] MEDS: METFORMIN 500 MG PO SCH ×2 (08:54→17:18)
[2020-11-22] MEDS: INVEST MED Kar XT OR PLACEBO 50/20 MG PO SCH ×2 (10:02→21:57)
--- NOTE | 2020-11-22 18:56 | NUR ---
MS RN CLOSING NOTE PATIENT AWAKE ON BED ALERT AND ORIENTED X 4. PATIENT DENIES ANY PAIN OR DISCOMFORT. WITH NO SIGNS OF DISTRESS THROUGHOUT THE SHIFT. PATIENT DID NOT EXHIBIT ANY UNTOWARD BEHAVIOR. PATIENT WITH GOOD DISPOSITION. COMFORT MEASURES PROVIDED. PROVIDED WITH CALM AND QUIET ENVIRONMENT. BED MAINTAINED ON LOWEST POSITION AND LOCKED. CALL LIGHT AND BEDSIDE TABLE WITHIN REACH AT ALL TIMES. WILL ENDORSE TO [facility] FOR CONTINUITY OF CARE.
--- NOTE | 2020-11-22 19:35 | NUR ---
MSRN SEEN GOING BACK TO HER ROOM. NO NEEDS AT THIS TIME. SAFETY PRECAUTIONS EMPHASIZED, TO CONTINUE.
[2020-11-22 20:00] VITALS: BP 101/62
--- NOTE | 2020-11-22 20:25 | NUR ---
MSRN APPEARS TO BE AGITATED SINCE PATIENT WENT BACK TO HER ROOM . REQUESTED ATIVAN. 1MG PO ADMINISTERED. REMINDED HAS INVESTIGATIONAL MED AT 10 PM.
[2020-11-22] MEDS: LORAZEPAM 1 MG TABLET FOR AGITATION/ANXIETY PO PRN (20:29)
[2020-11-22] MEDS: diphenhydrAMINE HCL 25 MG CAPSULE PO PRN (21:57)
--- NOTE | 2020-11-23 02:39 | NUR ---
CANDICE SLEEPING CLOSELY WATCHED.
--- NOTE | 2020-11-23 06:30 | NUR ---
MSRN AWAKE THIS TIME. NO NEEDS MADE
--- NOTE | 2020-11-23 07:00 | NUR ---
CANDICE SLEPT 7HRS PER PATIENT
[2020-11-23 08:00] VITALS: BP 125/73
[2020-11-23] MEDS: BENAZEPRIL 20 MG PO SCH (09:17)
[2020-11-23] MEDS: METFORMIN 500 MG PO SCH ×2 (09:17→17:19)
[2020-11-23] MEDS: HCTZ 25 MG PO SCH (09:21)
[2020-11-23] MEDS: diphenhydrAMINE HCL 25 MG CAPSULE PO PRN ×2 (09:42→22:07)
[2020-11-23] MEDS: INVEST MED Kar XT OR PLACEBO 50/20 MG PO SCH ×2 (10:08→22:03)
[2020-11-23 16:00] VITALS: BP 115/81
[2020-11-23] MEDS: LORAZEPAM 1 MG TABLET FOR AGITATION/ANXIETY PO PRN (19:55)
[2020-11-23 20:00] VITALS: BP 105/54
--- NOTE | 2020-11-23 20:00 | NUR ---
MS RN OPENING NOTES PATIENT AWAKE IN ROOM WATCHING TV. PT ALERT/ORIENTED X 4, PATIENT ABLE TO MAKE NEEDS KNOWN. NO REPORTS OF PAIN OR DISCOMFORT AT THIS TIME. NO IV ACCESS NOTED. PATIENT STABLE ON ROOM AIR, NO S/S OF DISTRESS OR SHORTNESS OF BREATH NOTED, BREATHING EVEN AND UNLABORED. PT REQUESTED ATIVAN, MEDICATION GIVEN ORDERED. SAFETY MEASURES IN PLACE, CALL LIGHT AND TABLE WITHIN REACH, BED LOCKED IN LOWEST POSITION, SIDE RAILS UP X 2. WILL CONTINUE PLAN OF CARE, WILL CONTINUE TO MONITOR
--- NOTE | 2020-11-23 22:10 | NUR ---
MS RN NOTE PATIENT REQUESTING BENADRYL FOR ITCHY SKIN. MEDICATION GIVEN ORDERED. WILL CONTINUE TO MONITOR
--- NOTE | 2020-11-24 07:00 | NUR ---
MS RN CLOSING NOTES PATIENT AWAKE IN ROOM, PATIENT ABLE TO MAKE NEEDS KNOWN, NO COMPLAINTS OF PAIN AT THIS TIME, NO REPORTS OF TREMORS, AKATHISIA, OR EPS. PATIENT STABLE ON ROOM AIR, NO S/S OF DISTRESS OR SHORTNESS OF BREATH NOTED. MEDICATIONS GIVEN ORDERED AND PATIENT NEEDS MET THROUGHOUT SHIFT. SAFETY MEASURES IN PLACE, CALL LIGHT WITHIN REACH AND BED LOCKED IN LOWEST POSITION. WILL ENDORSE TO DAY SHIFT NURSE FOR CONTINUITY OF CARE
[2020-11-24] MEDS: METFORMIN 500 MG PO SCH ×2 (09:00→16:48)
[2020-11-24] MEDS: BENAZEPRIL 20 MG PO SCH (09:00)
[2020-11-24] MEDS: HCTZ 25 MG PO SCH (09:00)
[2020-11-24] MEDS: INVEST MED Kar XT OR PLACEBO 50/20 MG PO SCH ×2 (10:00→22:14)
--- NOTE | 2020-11-24 18:43 | NUR ---
MS RN CLOSING NOTES PATIENT IS CURRENTLY OUTSIDE OF UNIT AND LEFT AT 1700. PRIOR TO LEAVING UNIT, NO SIGNS AND SYMPTOMS OF DISTRESS NOTED. NO COMPLAINTS OF PAIN AT THIS TIME. VITALS TAKEN AT BEDSIDE IMMEDIATELY PRIOR TO LEAVING, BP 130/78, HR 77. INVESTIGATIONAL DRUG GIVEN AT 1000 SCHEDULED TIME. SAFETY MEASURES IN PLACE. SIDE RAILS UP X 2, BED LOCKED AT LOW POSITION. ALL HOME MEDICATIONS GIVEN ORDERED. ATTENDED TO ALL PATIENTS NEEDS. WILL CONTINUE TO ENDORSE TO ONCOMING SHIFT.
--- NOTE | 2020-11-24 19:45 | NUR ---
MS RN NOTES PATIENT NOT PRESENT IN ROOM, PER ANNIKA XIAO RN, PATIENT WENT OUT OF THE FACILITY
[2020-11-24 20:00] VITALS: BP 91/64
--- NOTE | 2020-11-24 20:25 | NUR ---
MS RN OPENING NOTES PATIENT BACK IN UNIT, PATIENT VISIBLY UPSET AND CRYING, STATING THAT GOT HER UPSET, IT'S PAST VISITING HOURS SO KINDLY ASKED TO LEAVE THE UNIT. PT ALERT/ORIENTED X 4, NO COMPLAINTS OF PAIN AT THIS TIME. PT'S BP 91/64, HR 111 AND SPO2 94%, ENCOURAGED PATIENT TO DRINK WATER AND WILL REASSESS. NO IV ACCESS NOTED. PATIENT AMBULATORY AND STEADY. SAFETY MEASURES IN PLACE, CALL LIGHT WITHIN REACH, BED LOCKED IN LOWEST POSITION, SIDE RAILS UP X 2. WILL CONTINUE TO MONITOR
--- NOTE | 2020-11-24 20:40 | NUR ---
MS RN NOTES PATIENT'S VITALS RECHECKED, BP: 109/73, HR: 100, SPO2: 94%
[2020-11-24 21:00] VITALS: BP 109/73
[2020-11-24] MEDS: LORAZEPAM 1 MG TABLET FOR AGITATION/ANXIETY PO PRN (21:45)
--- NOTE | 2020-11-24 21:45 | NUR ---
MS RN NOTES PATIENT REQUESTING ATIVAN FOR ANXIETY, MEDICATION GIVEN ORDERED. WILL CONTINUE TO MONITOR
[2020-11-25] MEDS: MAG HYDROX/AL HYDROX/SIMETH 30 ML UDC PO PRN (06:22)
[2020-11-25] MEDS: METFORMIN 500 MG PO SCH ×2 (09:06→17:03)
[2020-11-25] MEDS: HCTZ 25 MG PO SCH (09:06)
[2020-11-25] MEDS: BENAZEPRIL 20 MG PO SCH (09:06)
[2020-11-25] MEDS: INVEST MED Kar XT OR PLACEBO 50/20 MG PO SCH ×2 (10:00→21:58)
[2020-11-25] MEDS: diphenhydrAMINE HCL 25 MG CAPSULE PO PRN ×2 (11:12→20:11)
[2020-11-25 16:00] VITALS: BP 100/56
--- NOTE | 2020-11-25 18:54 | NUR ---
MS RN CLOSING NOTES PATIENT IS AWAKE IN BED. ALERT AND ORIENTED X 4 . NO SIGNS OR SYMPTOMS OF DISTRESS NOTED. NO SOB. ABLE TO MAKE NEEDS KNOWN. INVESTIGATIONAL DRUG GIVEN AT 1000 SCHEDULED TIME. SAFETY MEASURES IN PLACE. SIDE RAILS UP X 2, BED LOCKED AT LOW POSITION. ALL HOME MEDICATIONS GIVEN ORDERED. ATTENDED TO ALL PATIENTS NEEDS. WILL CONTINUE TO ENDORSE TO ONCOMING SHIFT.
[2020-11-25 20:00] VITALS: BP 137/103
--- NOTE | 2020-11-25 20:24 | NUR ---
PT C/O OF .PER PT REQUEST BENADRYL 25MG PO Q6H PRN ADMINISTERED AT THIS TIME. WILL CONTINUE TO MONITOR Addendum: 11/26/20 at 0245 by SHONA FIELDS RN PT C/O OF .PER PT REQUEST BENADRYL 25MG PO Q6H PRN ADMINISTERED AT THIS TIME. WILL CONTINUE TO MONITOR
[2020-11-25] MEDS: ZOLPIDEM TARTRATE 10 MG TABLET PO PRN (23:12)
--- NOTE | 2020-11-25 23:12 | NUR ---
PT C/O INABILITY TO SLEEP AT THIS TIME. VS BP 137/103, HR 86, RR 20, T 97.3, SPO2 94.PER PT REQUEST AMBIEN 10MG PO HS PRN FOR SLEEP ADMINISTERED AT THIS TIME. WILL CONTINUE TO MONITOR
--- NOTE | 2020-11-26 07:00 | NUR ---
RN CLOSING NOTES PT AWAKE IN BED AT THIS TIME. PT REMAINED STABLE THROUGHOUT SHIFT. ALL NEEDS, MEDICATIONS, AND CARE ADMINISTERED ANTICIPATED PER ORDER. ANXIETY MANAGEMENT ADMINISTERED. PT DENIES SI/HI, VISUAL AND AUDITORY HALLUCINATION. NO COMPLAINS OF TREMORS, EPS, OR AKATHISIA. SAFETY PRECAUTIONS IN PLACE AND MAINTAINED AT ALL TIMES. BED IN LOWEST LOCKED POSITION, HOB ELEVATED, SIDE RAILS UP X 2. CALL LIGHT AND TABLE WITHIN REACH. WILL ENDORSE TO POWERHOUSE MECHANIC NURSE FOR PJ
--- NOTE | 2020-11-26 07:20 | NUR ---
ms rn received on bed, awake,alert,oriented x4,clinical trial patient of dr. Aguilar, all needs attended.
[2020-11-26 08:00] VITALS: BP 114/75
[2020-11-26] MEDS: HCTZ 25 MG PO SCH (08:56)
[2020-11-26] MEDS: BENAZEPRIL 20 MG PO SCH (08:56)
[2020-11-26] MEDS: METFORMIN 500 MG PO SCH ×2 (08:56→17:01)
--- NOTE | 2020-11-26 09:00 | NUR ---
ms meade breakfast served,due meds given,tolerated well.
[2020-11-26] MEDS: INVEST MED Kar XT OR PLACEBO 50/20 MG PO SCH ×2 (10:10→22:02)
--- NOTE | 2020-11-26 13:00 | NUR ---
ms rn went down to smoke.
[2020-11-26] MEDS: diphenhydrAMINE HCL 25 MG CAPSULE PO PRN (17:01)
--- NOTE | 2020-11-26 18:07 | NUR ---
ms rn on bed, no distress noted.
[2020-11-26 20:00] VITALS: BP 117/63
[2020-11-26] MEDS: ZOLPIDEM TARTRATE 10 MG TABLET PO PRN (21:30)
--- NOTE | 2020-11-26 21:30 | NUR ---
PT C/O INABILITY TO SLEEP AT THIS TIME. VS BP 117/633, HR 88, RR 20, T 97.3, SPO2 94.PER PT REQUEST AMBIEN 10MG PO HS PRN FOR SLEEP ADMINISTERED AT THIS TIME. WILL CONTINUE TO MONITOR
--- NOTE | 2020-11-27 06:00 | NUR ---
RN CLOSING NOTES PT AWAKE IN BED AT THIS TIME. PT REMAINED STABLE THROUGHOUT SHIFT. ALL NEEDS, MEDICATIONS, AND CARE ADMINISTERED ANTICIPATED PER ORDER. ANXIETY MANAGEMENT ADMINISTERED. PT DENIES SI/HI, VISUAL AND AUDITORY HALLUCINATION. NO COMPLAINS OF TREMORS, EPS, OR AKATHISIA. SAFETY PRECAUTIONS IN PLACE AND MAINTAINED AT ALL TIMES. BED IN LOWEST LOCKED POSITION, HOB ELEVATED, SIDE RAILS UP X 2. CALL LIGHT AND TABLE WITHIN REACH. WILL ENDORSE TO HOSPITALITY RECRUITER NURSE FOR PJ
[2020-11-27] MEDS: diphenhydrAMINE HCL 25 MG CAPSULE PO PRN ×2 (06:33→20:46)
--- NOTE | 2020-11-27 06:33 | NUR ---
PT C/O OF ITCHING. PER PT REQUEST BENADRYL 25MG PO Q6H PRN ADMINISTERED AT THIS TIME. WILL CONTINUE TO MONITOR
[2020-11-27 08:00] VITALS: BP 119/92
[2020-11-27] MEDS: HCTZ 25 MG PO SCH (09:53)
[2020-11-27] MEDS: BENAZEPRIL 20 MG PO SCH (09:53)
[2020-11-27] MEDS: METFORMIN 500 MG PO SCH ×2 (09:53→16:17)
[2020-11-27] MEDS: INVEST MED Kar XT OR PLACEBO 50/20 MG PO SCH ×2 (10:16→22:13)
--- NOTE | 2020-11-27 19:28 | NUR ---
MS RN NOTES PT AWAKE IN BED AT THIS TIME. A/O X4. PT DENIES SI/HI, VISUAL AND AUDITORY HALLUCINATION. NO COMPLAINS OF TREMORS, EPS, OR AKATHISIA AT THIS TIME. SAFETY PRECAUTIONS IN PLACE AND MAINTAINED AT ALL TIMES. BED IN LOWEST LOCKED POSITION, HOB ELEVATED, SIDE RAILS UP X 2. CALL LIGHT WITHIN REACH.. WILL CONTINUE TO MONITOR.
[2020-11-27 20:00] VITALS: BP 99/60
[2020-11-27] MEDS: ZOLPIDEM TARTRATE 10 MG TABLET PO PRN (21:40)
--- NOTE | 2020-11-28 06:39 | NUR ---
MS RN NOTES PT AWAKE IN BED AT THIS TIME. A/O X4. PT DENIES SI/HI, VISUAL AND AUDITORY HALLUCINATION. NO COMPLAINS OF TREMORS, EPS, OR AKATHISIA AT THIS TIME. SAFETY PRECAUTIONS IN PLACE AND MAINTAINED AT ALL TIMES. BED IN LOWEST LOCKED POSITION, HOB ELEVATED, SIDE RAILS UP X 2. CALL LIGHT WITHIN REACH.. WILL ENDORSE CARE TO DAY SHIFT NURSE.
[2020-11-28] MEDS: METFORMIN 500 MG PO SCH ×2 (09:19→18:03)
[2020-11-28] MEDS: HCTZ 25 MG PO SCH (09:19)
[2020-11-28] MEDS: BENAZEPRIL 20 MG PO SCH (09:19)
[2020-11-28] MEDS: INVEST MED Kar XT OR PLACEBO 50/20 MG PO SCH ×2 (10:02→22:00)
--- NOTE | 2020-11-28 19:30 | NUR ---
MS RN OPENING NOTES RECEIVED PT IN BED, AWAKE, A&O X 4. ON ROOM AIR TOLERATING WELL, NO SON NOTED. IN NO ACUTE DISTRESS NOTED. PT DENIES VISUAL AND AUDITORY HALLUCINATION. NO COMPLAINS OF TREMORS, EPS, OR AKATHISIA. SAFETY PRECAUTIONS IN PLACE: BED IN LOWEST LOCKED POSITION, HOB ELEVATED, SIDE RAILS UP X 2. CALL LIGHT AND TABLE WITHIN REACH AND ANSWERED PROMPTLY. WILL CONTINUE TO MONITOR PATIENT'S CONDITION.
[2020-11-28] MEDS: diphenhydrAMINE HCL 25 MG CAPSULE PO PRN (19:32)
--- NOTE | 2020-11-28 19:33 | NUR ---
MS/RN CLOSING NOTES PT AWAKE IN BED AT THIS TIME. PT REMAINED STABLE THROUGHOUT SHIFT. PT DENIES SI/HI, VISUAL AND AUDITORY HALLUCINATION. NO COMPLAINS OF TREMORS, EPS, OR AKATHISIA. SAFETY PRECAUTIONS IN PLACE AND MAINTAINED AT ALL TIMES. BED IN LOWEST LOCKED POSITION, HOB ELEVATED, SIDE RAILS UP X 2. CALL LIGHT AND TABLE WITHIN REACH AND ANSWERED PROMPTLY
[2020-11-28 20:37] VITALS: BP 92/68
[2020-11-28 22:00] VITALS: BP 92/68
[2020-11-28] MEDS: ZOLPIDEM TARTRATE 10 MG TABLET PO PRN (22:04)
--- NOTE | 2020-11-29 06:26 | NUR ---
MS RN CLOSING NOTES PT IN BED, AWAKE, A&O X 4. ON ROOM AIR TOLERATING WELL, NO SOB NOTED, IN NO ACUTE DISTRESS NOTED. PT DENIES VISUAL AND AUDITORY HALLUCINATION. NO COMPLAINS OF TREMORS, EPS, OR AKATHISIA. SAFETY PRECAUTIONS OBSERVED AND MAINTAINED DURING THE SHIFT: BED IN LOWEST LOCKED POSITION, HOB ELEVATED, SIDE RAILS UP X 2. CALL LIGHT AND TABLE WITHIN REACH AND ANSWERED PROMPTLY. ALL NEEDS ATTENDED, DUE MEDS GIVEN ORDERED. WILL ENDORSED TO MORNING SHIFT NURSE FOR PJ.
--- NOTE | 2020-11-29 07:53 | NUR ---
MS/RN OPENING NOTES RECEIVED PT AWAKE IN BED AT THIS TIME. A CLINICAL TRIAL PATIENT. STABLE ON ROOM AIR. NO DISTRESS NOTED. AMBULATORY. SAFETY PRECAUTIONS IN PLACE. BED IN LOWEST LOCKED POSITION, HOB ELEVATED, SIDE RAILS UP X 2. CALL LIGHT AND TABLE WITHIN REACH. WILL CONTINUE TO MONITOR PATIENT.
[2020-11-29 08:00] VITALS: BP 110/66
[2020-11-29] MEDS: METFORMIN 500 MG PO SCH ×2 (09:18→17:30)
[2020-11-29] MEDS: HCTZ 25 MG PO SCH (09:18)
[2020-11-29] MEDS: BENAZEPRIL 20 MG PO SCH (09:18)
[2020-11-29] MEDS: INVEST MED Kar XT OR PLACEBO 50/20 MG PO SCH ×2 (09:58→22:00)
[2020-11-29 16:01] VITALS: BP 110/72
--- NOTE | 2020-11-29 19:05 | NUR ---
MS/RN CLOSING NOTE PT AWAKE IN BED AT THIS TIME. A CLINICAL TRIAL PATIENT. STABLE ON ROOM AIR. NO DISTRESS NOTED. AMBULATORY. ALL NEEDS MET. MEDICATIONS GIVEN ON TIME. SAFETY PRECAUTIONS IN PLACE. BED IN LOWEST LOCKED POSITION, HOB ELEVATED, SIDE RAILS UP X 2. CALL LIGHT AND TABLE WITHIN REACH. WILL ENDORSE TO THE NEXT SHIFT FOR CONTINUITY OF CARE.
--- NOTE | 2020-11-29 19:34 | NUR ---
MS RN OPENING PATIENT IN BED WATCHING TELEVISION AND TALKING ON THE PHONE. A/OX4. NO S/S OF DISTRESS. NO C/O PAIN AT THIS TIME. NO IV ACCESS. SAFETY IN PLACE: BED IN LOWEST, LOCKED POSITION; CALL LIGHT WITHIN REACH. PATIENT REMINDED OF LAB DRAW AT 2130 AND INVESTIGATIONAL DRUG @2200. PATIENT STATED ACKNOWLEDGEMENT. WILL CONTINUE TO MONITOR.
[2020-11-29 20:00] VITALS: BP 99/60
--- NOTE | 2020-11-29 20:11 | NUR ---
GPS RN NOTES CALLED LAB AND TALKED TO EDIE TO CONFIRM BLOOD DRAW FRO PATIENT LATER @2129 SINCE IT IS NOT IN THE ORDER. LAB CONFIRMED. BLOOD DRAW @2129.
[2020-11-29] MEDS: diphenhydrAMINE HCL 25 MG CAPSULE PO PRN (20:19)
--- NOTE | 2020-11-29 20:20 | NUR ---
MS RN NOTES PATIENT C/O ITCHING. GIVEN BENADRYL AT THIS TIME.
[2020-11-29] MEDS: ZOLPIDEM TARTRATE 10 MG TABLET PO PRN (21:10)
--- NOTE | 2020-11-29 21:11 | NUR ---
MS RN NOTES PATIENT REQUESTED KRIS AT THIS TIME. GIVEN PRN.
--- NOTE | 2020-11-29 22:01 | NUR ---
MS RN NOTES PATIENT GIVEN INVESTIGATIONAL DRUG @2200 ON [address].
--- NOTE | 2020-11-30 06:55 | NUR ---
MS RN CLOSING NOTE PATIENT IN BED WITH EYES CLOSED. EASY TO AROUSE. A/OX4. NO S/S OF APPARENT DISTRESS. DID NOT EXHIBIT ANY PSYCHOLOGICAL INSTABILITY, AKATHISIA, TREMORS, NOR EPS. NO IV ACCESS. INVESTIGATIONAL DRUG GIVEN ON TIME. BLOOD DRAWN. ALL NEEDS ATTENDED. SAFETY KEPT IN PLACE THE WHOLE SHIFT: BED IN LOWEST, LOCKED POSITION; CALL LIGHT WITHIN REACH. NO SIGNIFICANT CHANGE SINCE LAST SHIFT. WILL ENDORSE CARE TO AM SHIFT RN.
--- NOTE | 2020-11-30 07:15 | NUR ---
RN NOTES SEEN PATIENT IN ROOM, AWAKE AND VERBALLY RESPONSIVE. A/O X4, ABLE TO MAKE NEEDS KNOWN. CONTINUES ON CT. BREATHING EVEN AND UNLABORED; NO ACUTE DISTRESS AT THIS TIME. WILL CONTINUE TO MONITOR.
[2020-11-30 08:00] VITALS: BP 131/83
[2020-11-30] MEDS: HCTZ 25 MG PO SCH (08:34)
[2020-11-30] MEDS: BENAZEPRIL 20 MG PO SCH (08:35)
[2020-11-30] MEDS: METFORMIN 500 MG PO SCH ×2 (08:35→16:24)
--- NOTE | 2020-11-30 10:23 | NUR ---
RN NOTES CALLED PHARMACY AND ASKED ABOUT DELIVERING INVESTIGATIONAL MEDICINE, NOT IN [place]; WILL DELIVER PER PHARMACY.
--- NOTE | 2020-11-30 10:58 | NUR ---
RN NOTES RECEIVED INVESTIGATIONAL MEDICINE FROM PHARMACY; PATIENT CURRENTLY OUT OF UNIT AND WENT TO DO LAUNDRY.
[2020-11-30] MEDS: INVEST MED Kar XT OR PLACEBO 50/20 MG PO SCH ×2 (11:07→22:00)
--- NOTE | 2020-11-30 11:07 | NUR ---
RN NOTES INVESTIGATIONAL MEDICINE ADMINISTERED TO PATIENT INDICATED.
[2020-11-30] MEDS: diphenhydrAMINE HCL 25 MG CAPSULE PO PRN (12:10)
[2020-11-30 16:00] VITALS: BP 112/69
--- NOTE | 2020-11-30 18:55 | NUR ---
RN NOTES PATIENT SEEN IN ROOM, AWAKE AND VERBALLY RESPONSIVE, NOT IN ACUTE DISTRESS. DUE MEDS GIVEN TODAY, INCLUDING INVESTIGATIONAL MEDICINE. SAFETY MEASURES MAINTAINED. WILL ENDORSE TO NETWORK DESIGN ARCHITECT RN FOR PJ.
[2020-11-30 20:00] VITALS: BP 127/58
--- NOTE | 2020-11-30 20:21 | NUR ---
MS/TELE/RN PATIENT WAS IN ROOM LYING IN BED AWAKE, ALERT, ORIENTED, COMFORTABLE, NO C/O PAIN, NO DISTRESS NOTE, PLAN OF CARE DISCUSSED RE: INVESTIGATIONAL MEDICATION, PATIENT VERBALISED UNDERSTANDING. WILL MONITOR.
[2020-11-30] MEDS: ZOLPIDEM TARTRATE 10 MG TABLET PO PRN (21:10)
--- NOTE | 2020-12-01 06:08 | NUR ---
MS/TELE/RN PATIENT IS AWAKE, ALERT, ORIENTED, NO CHANGE IN CONDITION, ALL NEEDS ATTENDED AT THIS TIME, WILL CONTINUE TO MONITOR.
--- NOTE | 2020-12-01 07:48 | NUR ---
MS RN OPENING NOTE RECEIVED PATIENT IN BED, AWAKE. A/O X4. CLINICAL TRIAL PATIENT. STABLE ON ROOM AIR - NO SOB, NO DISTRESS NOTED. NO COMPLAINTS OF PAIN AT THIS TIME. NO IV ACCESS. SAFETY MEASURES IN PLACE. CALL LIGHT WITHIN REACH. WILL CONTINUE TO MONITOR.
[2020-12-01 08:00] VITALS: BP 117/58
[2020-12-01] MEDS: METFORMIN 500 MG PO SCH ×2 (08:49→16:12)
[2020-12-01] MEDS: BENAZEPRIL 20 MG PO SCH (08:49)
[2020-12-01] MEDS: HCTZ 25 MG PO SCH (08:49)
[2020-12-01] MEDS: INVEST MED Kar XT OR PLACEBO 50/20 MG PO SCH ×2 (10:00→22:00)
[2020-12-01 16:00] VITALS: BP 112/63
--- NOTE | 2020-12-01 18:48 | NUR ---
MS RN CLOSING NOTE PATIENT CURRENTLY SITTING AT BEDSIDE, AWAKE. A/O X4. CLINICAL TRIAL PATIENT. STABLE ON ROOM AIR - NO SOB, NO DISTRESS NOTED. NO COMPLAINTS OF PAIN AT THIS TIME. NO IV ACCESS. SAFETY MEASURES IN PLACE. CALL LIGHT WITHIN REACH. WILL ENDORSE TO MANAGER RENTAL NURSE FOR PJ.
--- NOTE | 2020-12-01 19:51 | NUR ---
MS RN OPENING NOTE RECEIVED PT AWAKE IN BED. A/O X4. PT IS STABLE ON ROOM AIR. NO SOB OR S/S OF RESPIRATORY DISTRESS NOTED. PT HAS NO C/O PAIN OR DISCOMFORT AT THIS TIME. NO IV ACCESS DUE TO CLINICAL TRIAL STATUS. SAFETY MEASURES MAINTAINED. BED IN LOWEST LOCKED POSITION, HOB ELEVATED, SIDE RAILS UP X2. CALL LIGHT AND TABLE WITHIN REACH. WILL CONTINUE WITH PLAN OF CARE.
[2020-12-01 20:00] VITALS: BP 131/71
[2020-12-01] MEDS: ZOLPIDEM TARTRATE 10 MG TABLET PO PRN (22:20)
--- NOTE | 2020-12-02 06:11 | NUR ---
MS RN CLOSING NOTE PT IS AWAKE IN BED. A/O X4. PT IS STABLE ON ROOM AIR. NO SOB OR S/S OF RESPIRATORY DISTRESS NOTED. PT HAS NO C/O PAIN OR DISCOMFORT AT THIS TIME. NO IV ACCESS DUE TO CLINICAL TRIAL STATUS. ALL NEEDS HAVE BEEN MET. SAFETY MEASURES MAINTAINED AT ALL TIMES. BED IN LOWEST LOCKED POSITION, HOB ELEVATED, SIDE RAILS UP X2. CALL LIGHT AND TABLE WITHIN REACH. WILL ENDORSE TO ONCOMING NURSE FOR PJ.
--- NOTE | 2020-12-02 07:10 | NUR ---
RN OPENING NOTES RECEIVED PT AWAKE IN BED AT THIS TIME. AOX4. ABLE TO COMMUNICATE NEEDS. NO SOB, NO C/O PAIN, NO S/O ANY ACUTE DISTRESS NOTED. STABLE ON RA. DENIES SI/HI, VISUAL AND AUDITORY HALLUCINATION. NO C/O TREMORS, EPS, OR AKATHISIA. SAFETY PRECAUTIONS IN PLACE AND MAINTAINED AT ALL TIMES. BED IN LOWEST LOCKED POSITION, HOB ELEVATED, SIDE RAILS UP. CALL LIGHT AND TABLE WITHIN REACH. WILL CONTINUE TO MONITOR
[2020-12-02 08:00] VITALS: BP 136/79
[2020-12-02] MEDS: HCTZ 25 MG PO SCH (08:33)
[2020-12-02] MEDS: BENAZEPRIL 20 MG PO SCH (08:33)
[2020-12-02] MEDS: METFORMIN 500 MG PO SCH ×2 (08:33→17:10)
[2020-12-02] MEDS: INVEST MED Kar XT OR PLACEBO 50/20 MG PO SCH ×2 (10:13→22:00)
[2020-12-02 16:00] VITALS: BP 107/67
--- NOTE | 2020-12-02 18:40 | NUR ---
RN CLOSING NOTES PT AWAKE IN BED AT THIS TIME. PT REMAINED STABLE THROUGHOUT SHIFT. ALL NEEDS, MEDICATIONS, AND CARE ADMINISTERED ANTICIPATED PER ORDER. PT DENIES SI/HI, VISUAL AND AUDITORY HALLUCINATION. NO COMPLAINS OF TREMORS, EPS, OR AKATHISIA. SAFETY PRECAUTIONS IN PLACE AND MAINTAINED AT ALL TIMES. BED IN LOWEST LOCKED POSITION, HOB ELEVATED, SIDE RAILS UP X 2. CALL LIGHT AND TABLE WITHIN REACH. WILL ENDORSE TO SUPERVISOR ROLLING ROOM NURSE FOR PJ
--- NOTE | 2020-12-02 19:36 | NUR ---
IN HER ROOM ALERT AND ORIENTATED X4 EATING HER DINNER LAUGHING AND SMILING CALL LIGHT WITHIN HER REACH
[2020-12-02 20:00] VITALS: BP 103/52
[2020-12-02 20:25] VITALS: BP 103/52
--- NOTE | 2020-12-02 20:50 | NUR ---
called md woody patient requesting her nightly ambien okayed by md salas to give before 2200 message relayed to the patient
[2020-12-02] MEDS ORDERED: ZOLPIDEM TARTRATE 10 MG TABLET PO ONE (22:00)
--- NOTE | 2020-12-03 04:40 | NUR ---
ENDING NOTES: SLEPT 8 HOURS LYSSA MADE TO MD CHURCHILL AT 2049 D/T PT REQUESTED AMBIEN, ORDER TO GIVE. TAKED AND IT WAS EFFECTIVE FOR SLEEP AMBULATED STEADY ON HER FEET LAUGHING LOUDLY AND WHEN SHE SPEAKS SHE IS LOUD SHE IS COOPERATIVE AND FRIENDLY SHE GOES OUT TO SMOKE TRIAL MEDICATION GIVEN ON TIME
[2020-12-03 08:00] VITALS: BP 127/78
--- NOTE | 2020-12-03 08:18 | NUR ---
MS RN OPENING NOTE PATIENT IS IN BED RESTING, PATIENT IS IN NO ACUTE DISTRESS, PATIENT IS ON ROOM AIR TOLERATING WELL.SAFETY PRECAUTIONS ARE ON, BED IS LOCKED IN THE LOWEST POSITION WITH SIDE RAILS UP, CALL LIGHT WITHIN THE REACH. WILL CONTINUE TO MONITOR CLOSELY.
[2020-12-03] MEDS: BENAZEPRIL 20 MG PO SCH (08:47)
[2020-12-03] MEDS: METFORMIN 500 MG PO SCH ×2 (08:47→16:36)
[2020-12-03] MEDS: HCTZ 25 MG PO SCH (08:47)
[2020-12-03] MEDS: INVEST MED Kar XT OR PLACEBO 50/20 MG PO SCH ×2 (10:00→22:00)
[2020-12-03] MEDS ORDERED: LORAZEPAM 1 MG TABLET FOR AGITATION/ANXIETY PO PRN (13:00)
--- NOTE | 2020-12-03 18:58 | NUR ---
MS RN CLOSING NOTE PATIENT IS IN BED RESTING, PATIENT IS IN NO ACUTE DISTRESS, PATIENT IS ON ROOM AIR TOLERATING WELL. SAFETY PRECAUTIONS ARE ON, BED IS LOCKED IN THE LOWEST POSITION WITH SIDE RAILS UP, CALL LIGHT WITHIN THE REACH. ENDORSE PATIENT TO MANAGER HI NURSE FOR PJ.
--- NOTE | 2020-12-03 19:49 | NUR ---
MS RN Opening Notes Patient was last seen awake and ambulatory. Patient is alert and oriented x4. Patient's on room air with no respiratory distress noted. Patient has no IV access due to her clinical trial status. Patient's in no acute distress at this time. Safety measures in place: Bed locked, side rails up x2, and call light within reach of the patient. Will continue to monitor the patient.
[2020-12-03 20:00] VITALS: BP 104/63
[2020-12-03] MEDS: ZOLPIDEM TARTRATE 10 MG TABLET PO PRN (20:10)
--- NOTE | 2020-12-04 07:35 | NUR ---
MS RN Closing Notes Patient was last seen sleeping in bed. Patient is alert and oriented x4. Patient's on room air with no respiratory distress noted. Patient has no IV access due to her clinical trial status. Patient's in no acute distress at this time. Safety measures in place: Bed locked, side rails up x2, and call light within reach of the patient. Endorsed care to the day shift nurse.
[2020-12-04 08:00] VITALS: BP 113/62
[2020-12-04] MEDS: BENAZEPRIL 20 MG PO SCH (08:02)
[2020-12-04] MEDS: METFORMIN 500 MG PO SCH ×2 (08:02→17:14)
[2020-12-04] MEDS: HCTZ 25 MG PO SCH (08:02)
[2020-12-04] MEDS: INVEST MED Kar XT OR PLACEBO 50/20 MG PO SCH ×2 (10:00→22:01)
[2020-12-04 16:00] VITALS: BP 116/69
--- NOTE | 2020-12-04 19:00 | NUR ---
RN OPENING NOTES PT AWAKE IN BED AT THIS TIME. AOX4. ABLE TO COMMUNICATE NEEDS. NO SOB, NO C/O PAIN, NO S/O ANY ACUTE DISTRESS NOTED. STABLE ON RA. DENIES SI/HI, VISUAL AND AUDITORY HALLUCINATION. NO C/O TREMORS, EPS, OR AKATHISIA. SAFETY PRECAUTIONS IN PLACE AND MAINTAINED AT ALL TIMES. BED IN LOWEST LOCKED POSITION, HOB ELEVATED, SIDE RAILS UP. CALL LIGHT AND TABLE WITHIN REACH. WILL CONTINUE TO MONITOR
--- NOTE | 2020-12-04 19:39 | NUR ---
MS RN CLOSING NOTE PATIENT IS IN BED RESTING, PATIENT IS IN NO ACUTE DISTRESS, PATIENT IS ON ROOM AIR TOLERATING WELL.SAFETY PRECAUTIONS ARE ON, BED IS LOCKED IN THE LOWEST POSITION WITH SIDE RAILS UP, CALL LIGHT WITHIN THE REACH. ENDORSE PATIENT TO DRYING SUPERVISOR NURSE FOR PJ.
[2020-12-04 20:00] VITALS: BP 107/63
[2020-12-04] MEDS: ZOLPIDEM TARTRATE 10 MG TABLET PO PRN (20:50)
--- NOTE | 2020-12-04 20:50 | NUR ---
PT C/O INABILITY TO SLEEP AT THIS TIME. VS BP 107/63, HR 84, RR 18, T 97.7, SPO2 98.PER PT REQUEST AMBIEN 10MG PO HS PRN FOR SLEEP ADMINISTERED AT THIS TIME. WILL CONTINUE TO MONITOR
--- NOTE | 2020-12-05 06:00 | NUR ---
RN CLOSING NOTES PT AWAKE IN BED AT THIS TIME. PT REMAINED STABLE THROUGHOUT SHIFT. ALL NEEDS, MEDICATIONS, AND CARE ADMINISTERED ANTICIPATED PER ORDER. PT DENIES SI/HI, VISUAL AND AUDITORY HALLUCINATION. NO COMPLAINS OF TREMORS, EPS, OR AKATHISIA. SAFETY PRECAUTIONS IN PLACE AND MAINTAINED AT ALL TIMES. BED IN LOWEST LOCKED POSITION, HOB ELEVATED, SIDE RAILS UP X 2. CALL LIGHT AND TABLE WITHIN REACH. WILL ENDORSE TO YARDAGE CONTROL OPERATOR FORMING NURSE FOR PJ Addendum: 12/05/20 at 0636 by SHONA FIELDS RN RN CLOSING NOTES PT AWAKE IN BED AT THIS TIME. PT REMAINED STABLE THROUGHOUT SHIFT. ALL NEEDS, MEDICATIONS, AND CARE ADMINISTERED ANTICIPATED PER ORDER. PT DENIES SI/HI, VISUAL AND AUDITORY HALLUCINATION. NO COMPLAINS OF TREMORS, EPS, OR AKATHISIA. SAFETY PRECAUTIONS IN PLACE AND MAINTAINED AT ALL TIMES. BED IN LOWEST LOCKED POSITION, HOB ELEVATED, SIDE RAILS UP X 2. CALL LIGHT AND TABLE WITHIN REACH. WILL ENDORSE TO DAY SHIFT NURSE FOR PJ
[2020-12-05 08:00] VITALS: BP 126/79
[2020-12-05] MEDS: BENAZEPRIL 20 MG PO SCH (10:18)
[2020-12-05] MEDS: HCTZ 25 MG PO SCH (10:18)
[2020-12-05] MEDS: INVEST MED Kar XT OR PLACEBO 50/20 MG PO SCH ×2 (10:19→22:00)
[2020-12-05] MEDS: METFORMIN 500 MG PO SCH ×2 (10:19→16:06)
--- NOTE | 2020-12-05 10:21 | NUR ---
PATIENT TRANSFERRED TO MY CARE. MEDICATIONS WERE NOT BEING GIVEN ON TIME WITH PREVIOUS NURSE. I ADMINISTERED HOME MEDS AND INVESTIGATIONAL DRUG AT 1019.
[2020-12-05 16:00] VITALS: BP 106/54
--- NOTE | 2020-12-05 18:50 | NUR ---
MS RN CLOSING NOTE PATIENT CURRENTLY SITTING IN BED, AWAKE AND WATCHING TV. A/O X4. CLINICAL TRIAL PATIENT. STABLE ON ROOM AIR - NO SOB, NO DISTRESS NOTED. NO COMPLAINTS OF PAIN AT THIS TIME. NO IV ACCESS. SAFETY MEASURES IN PLACE. CALL LIGHT WITHIN REACH. WILL ENDORSE TO SIX COLOR PRESS OPERATOR NURSE FOR PJ.
--- NOTE | 2020-12-05 19:40 | NUR ---
RN NOTES SPOKE TO DR. HCURCHILL AND CLARIFY THE ORDER IF WE CAN GIVE PATIENT INVESTIGATIONAL MED AT 2200 BECAUSE PATIENT WILL BE NPO AT 2100. DR. CHURCHILL ORDERED TO GIVE THE INVESTIGATIONAL MEDS AT 2200. ORDER NOTED AND CARRIED OUT
[2020-12-05 20:00] VITALS: BP 106/50
[2020-12-05] MEDS: ZOLPIDEM TARTRATE 10 MG TABLET PO PRN (20:50)
--- NOTE | 2020-12-05 20:54 | NUR ---
RN NOTES PATIENT ASKED FOR SLEEPING PILLS- AMBIEN 10MG PO GIVEN ORDERED
--- NOTE | 2020-12-06 06:15 | NUR ---
RN NOTES SAW PATIENT HOLDING HER MUG, REMIND PATIENT THAT SHE'S NOT ALLOWED TO EAT OR DRINK UNTIL HER BLOOD DRAW
[2020-12-06 08:00] VITALS: BP 123/72
[2020-12-06] MEDS: METFORMIN 500 MG PO SCH ×2 (09:10→17:01)
[2020-12-06] MEDS: BENAZEPRIL 20 MG PO SCH (09:10)
[2020-12-06] MEDS: HCTZ 25 MG PO SCH (09:10)
[2020-12-06] MEDS: INVEST MED Kar XT OR PLACEBO 50/20 MG PO SCH (09:59)
[2020-12-06 16:00] VITALS: BP 128/80
--- NOTE | 2020-12-06 19:00 | NUR ---
MS RN CLOSING NOTE PATIENT AWAKE ON BED ALERT AND ORIENTED X 4. PATIENT DENIES ANY PAIN OR DISCOMFORT. WITH NO SIGNS OF DISTRESS THROUGHOUT THE SHIFT. PATIENT DID NOT EXHIBIT ANY UNTOWARD BEHAVIOR. PATIENT WITH GOOD DISPOSITION. COMFORT MEASURES PROVIDED. PROVIDED WITH CALM AND QUIET ENVIRONMENT. BED MAINTAINED ON LOWEST POSITION AND LOCKED. CALL LIGHT AND BEDSIDE TABLE WITHIN REACH AT ALL TIMES. WILL ENDORSE TO PACK TRAIN DRIVER FOR CONTINUITY OF CARE.
--- NOTE | 2020-12-06 19:25 | NUR ---
MS RN OPENING NOTE PATIENT ON BED ALERT AND ORIENTED X 4. ON ROOM AIR TOLERATING WELL, NO SOB NOTED, BREATHING EVEN AND UNLABORED. PATIENT IS AMBULATORY AND NO COMPLAINTS OF PAIN OR DISCOMFORT AT THIS TIME. SAFETY MEASURES OBSERVED: BED LOCKED AND PLACED IN LOWEST POSITION. CALL LIGHT WITHIN REACH AT ALL TIMES. WILL CONTINUE TO MONITOR PATIENT.
[2020-12-06 20:00] VITALS: BP 122/71
[2020-12-06] MEDS: ZOLPIDEM TARTRATE 10 MG TABLET PO PRN (20:49)
--- NOTE | 2020-12-07 06:31 | NUR ---
MS RN CLOSING NOTE PATIENT IN BED, AWAKE, ALERT AND ORIENTED X 4. PATIENT DENIES ANY PAIN OR DISCOMFORT AT THIS TIME. NO ANY UNTOWARD BEHAVIOR DURING THE SHIFT. PATIENT WITH GOOD DISPOSITION. SAFETY PRECAUTIONS OBSERVED AND MAINTAINED DURING THE SHIFT: BED MAINTAINED ON LOWEST POSITION AND LOCKED. CALL LIGHT AND BEDSIDE TABLE WITHIN REACH AT ALL TIMES. WILL ENDORSE TO MORNING SHIFT FOR CONTINUITY OF CARE.
[2020-12-07 08:00] VITALS: BP 147/77
[2020-12-07] MEDS: BENAZEPRIL 20 MG PO SCH (08:38)
[2020-12-07] MEDS: HCTZ 25 MG PO SCH (08:38)
[2020-12-07] MEDS: METFORMIN 500 MG PO SCH ×2 (08:38→16:34)
[2020-12-07] MEDS: INVEST MED Kar XT OR PLACEBO 50/20 MG PO SCH ×2 (09:51→22:04)
[2020-12-07] MEDS ORDERED: INVEST MED Kar XT OR PLACEBO 50/20 MG PO SCH (10:00)
[2020-12-07 16:00] VITALS: BP 118/66
[2020-12-07 20:00] VITALS: BP 102/57
--- NOTE | 2020-12-07 20:00 | NUR ---
MS RN OPENING NOTES PATIENT AWAKE IN ROOM WATCHING TV. PT ALERT/ORIENTED X 4, ABLE TO MAKE NEEDS KNOWN. NO REPORTS OF PAIN OR DISCOMFORT AT THIS TIME. NO IV ACCESS NOTED. PATIENT STABLE ON ROOM AIR, NO S/S OF DISTRESS OR SHORTNESS OF BREATH NOTED, BREATHING EVEN AND UNLABORED. SAFETY MEASURES IN PLACE, CALL LIGHT AND TABLE WITHIN REACH, BED LOCKED IN LOWEST POSITION, SIDE RAILS UP X 2. WILL CONTINUE PLAN OF CARE, WILL CONTINUE TO MONITOR
[2020-12-07] MEDS: ZOLPIDEM TARTRATE 10 MG TABLET PO PRN (21:35)
--- NOTE | 2020-12-08 07:40 | NUR ---
MS RN OPENING NOTES RECEIVED PATIENT IN ROOM, AWAKE. ALERT AND ORIENTED X4. TOLERATING WELL ON ROOM AIR. NO SIGNS OR SYMPTOMS OF DISTRESS NOTED. PT IS SELF AMBULATORY WITH BATHROOM PRIVILEGES. ABLE TO MAKE NEEDS KNOWN. SAFETY MEASURES IN PLACE. SIDE RAILS X 2 RAISED. BED LOWERED. CALL LIGHT WITHIN REACH. WILL CONTINUE TO MONITOR THROUGHOUT SHIFT.
[2020-12-08 08:00] VITALS: BP 106/67
[2020-12-08] MEDS: BENAZEPRIL 20 MG PO SCH (08:47)
[2020-12-08] MEDS: METFORMIN 500 MG PO SCH ×2 (08:47→17:07)
[2020-12-08] MEDS: HCTZ 25 MG PO SCH (08:47)
[2020-12-08] MEDS: INVEST MED Kar XT OR PLACEBO 50/20 MG PO SCH ×2 (10:02→22:01)
[2020-12-08 16:00] VITALS: BP 103/51
[2020-12-08] MEDS ORDERED: DIPHENOXYLATE HCL/ATROP SULF 1 UDTAB TABLET PO PRN (18:30)
--- NOTE | 2020-12-08 19:46 | NUR ---
MS RN OPENING NOTES PATIENT AWAKE IN ROOM WATCHING TV. PT ALERT/ORIENTED X 4, ABLE TO MAKE NEEDS KNOWN. NO REPORTS OF PAIN OR DISCOMFORT AT THIS TIME, NO REPORTS OF DIARRHEA. NO IV ACCESS NOTED. PATIENT STABLE ON ROOM AIR, NO S/S OF DISTRESS OR SHORTNESS OF BREATH NOTED, BREATHING EVEN AND UNLABORED. SAFETY MEASURES IN PLACE, CALL LIGHT AND TABLE WITHIN REACH, BED LOCKED IN LOWEST POSITION, SIDE RAILS UP X 2. WILL CONTINUE PLAN OF CARE, WILL CONTINUE TO MONITOR
[2020-12-08 20:00] VITALS: BP 101/64
--- NOTE | 2020-12-08 21:30 | NUR ---
MS RN NOTES PATIENT EXPERIENCING DIARRHEA, REQUESTED LOMITIL, MEDICATION GIVEN ORDERED. WILL CONTINUE TO MONITOR
[2020-12-08] MEDS: ZOLPIDEM TARTRATE 10 MG TABLET PO PRN (21:49)
--- NOTE | 2020-12-08 21:51 | NUR ---
MS RN NOTES PATIENT REQUESTED AMBIEN FOR SLEEP. MEDICATION GIVEN ORDERED. WILL CONTINUE TO MONITOR
[2020-12-08] MEDS: MAG HYDROX/AL HYDROX/SIMETH 30 ML UDC PO PRN (23:30)
--- NOTE | 2020-12-08 23:34 | NUR ---
MS RN NOTES PATIENT EXPERIENCING NAUSEA, REQUESTED MEDICATION. MAALOX GIVEN ORDERED. WILL CONTINUE TO MONITOR
--- NOTE | 2020-12-09 06:58 | NUR ---
MS RN CLOSING NOTES PATIENT AWAKE IN ROOM, PATIENT ABLE TO MAKE NEEDS KNOWN, NO COMPLAINTS OF PAIN AT THIS TIME, NO REPORTS OF TREMORS, AKATHISIA, OR EPS. PATIENT NO LONGER HAVING DIARRHEA BUT STILL SOME MILD NAUSEA. PATIENT STABLE ON ROOM AIR, NO S/S OF DISTRESS OR SHORTNESS OF BREATH NOTED. MEDICATIONS GIVEN ORDERED AND PATIENT NEEDS MET THROUGHOUT SHIFT. SAFETY MEASURES IN PLACE, CALL LIGHT WITHIN REACH AND BED LOCKED IN LOWEST POSITION. WILL ENDORSE TO DAY SHIFT NURSE FOR CONTINUITY OF CARE
[2020-12-09] MEDS: BENAZEPRIL 20 MG PO SCH (08:33)
[2020-12-09] MEDS: METFORMIN 500 MG PO SCH (08:33)
[2020-12-09] MEDS: HCTZ 25 MG PO SCH (08:33)
--- NOTE | 2020-12-09 11:49 | NUR ---
RN NOTES RECEIVED CALL FROM DR. CHURCHILL W/ ORDER FOR DISCHARGE TO HOME TODAY. HOME MEDS OBTAINED FROM PHARMACY AND RETURNED TO PATIENT. DISCHARGE INSTRUCTIONS GIVEN TO PATIENT; DISCHARGE FORM AND BELONGINGS LIST FORM SIGNED BY PATIENT AND ALL BELONGINGS ACCOUNTED FOR. PATIENT PICKED UP BY STAFF FROM DR. CHURCHILL'S OFFICE.
== END 2020-12-09 10:15 | disposition home or self-care (01) | DRG 951 ==
LOC: MED 13:28
PROVIDERS: ADMIT Psychiatry & Neurology Psychiatry; ATTEND Psychiatry & Neurology Psychiatry
DX: Z00.6 Encounter for examination for normal comparison and control in clinical research program (principal); F20.0 Paranoid schizophrenia; F41.9 Anxiety disorder, unspecified; Z88.8 Allergy status to other drugs, medicaments and biological substances; Z91.011 Allergy to milk products; Z91.013 Allergy to seafood; E11.9 Type 2 diabetes mellitus without complications; Z79.899 Other long term (current) drug therapy
CPT/HCPCS: 87081-TC; G0378; Q0163

== ENCOUNTER 2022-01-20 13:34 | Inpatient (IN) | payer OTHER ==
[~2022-01-20] VITALS: Ht 167.6 cm; Wt 102.5 kg
[~2022-01-20 13:34] MED LIST changes: +ACET-2605 PO; -BLOO-668 IN; +CALC355O18 PO; +IBUP-1953 PO; +LORA-259 PO; +MAGN400O6 PO; +ZOLP5TAB8 PO
[2022-01-20] MEDS ORDERED: MAGNESIUM HYDROXIDE 30 ML UDC PO PRN (14:30)
[2022-01-20] MEDS ORDERED: ZOLPIDEM TARTRATE 10 MG TABLET PO PRN (14:30)
[2022-01-20] MEDS ORDERED: IBUPROFEN 200 MG TABLET PO PRN (14:30)
[2022-01-20] MEDS ORDERED: LORAZEPAM 1 MG TABLET FOR AGITATION PO PRN (14:30)
[2022-01-20] MEDS ORDERED: MAG HYDROX/AL HYDROX/SIMETH 30 ML UDC PO PRN (14:30)
[2022-01-20] MEDS ORDERED: ACETAMINOPHEN ES 500 MG TABLET PO PRN (14:30)
--- NOTE | 2022-01-20 15:20 | NUR ---
RN ADMITTING NOTE PATIENT ARRIVED ON UNIT @1500, AMBULATING WITH HER BELONGINGS. A/Ox4 WAS ORIENTED TO FLOOR AND STAFF. PATIENT BEGAN TO UNPACK BELONGINGS. BELONGINGS LIST COMPLETED. PATIENT HAS SPONTANEOUS EYE MOVEMENT, ABLE TO VERBALIZE NEEDS AND ANSWER QUESTIONS. NO IV ACCESS PATIENT IS A CLINICAL TRIAL. FULL BODY ASSESSMENT COMPLETED: CARDIAC SOUNDS WNL, RESPIRATORY WNL, GI/ WNL. PATIENT IS AMBULATORY AND HAS BATHROOM PRIVILEGE. SAFETY MEASURES IN PLACE: BED LOCKED AND IN LOWEST POSITION, SIDE RAILS UP x2, CALL LIGHT WITHIN REACH. WILL CONTINUE TO MONITOR.
[2022-01-20 15:43] VITALS: BP 109/87
[2022-01-20 16:00] VITALS: BP 109/90
[2022-01-20] MEDS: METFORMIN 500 MG PO SCH (17:37)
--- NOTE | 2022-01-20 18:48 | NUR ---
MS RN CLOSING NOTES PATIENT WATCHING TV IN BED, STABLE ON ROOM AIR, NO S/S OF RESPIRATORY DISTRESS OR SOB. PATIENT IS VERBALLY RESPONSIVE A/Ox4. PATIENT HAS NO IV ACCESS. PATIENT USES BATHROOM. SKIN IS INTACT. ALL PRESCRIBED MEDICATION ADMINISTERED. SAFETY MEASURES MAINTAINED: BED LOCKED AND IN LOWEST POSITION, SIDE RAILS x2, BED ALARM ON, CALL LIGHT WITHIN REACH. WILL CONTINUE TO MONITOR.
--- NOTE | 2022-01-20 19:45 | NUR ---
MS/RN OPENING NOTE RECEIVED PATIENT UP IN ROOM. ALERT AND ORIENTED X 4. ABLE TO MAKE NEEDS KNOWN. DENIES PAIN AT THIS TIME. CONTINUES ON ROOM AIR WITH NO S/SX OF RESPIRATORY DISTRESS NOTED. NO IV ACCESS AT THIS TIME. CONTINUES ON CLINICAL TRIAL. CONTINUES ON HOME MEDICATIONS. PATIENT IS AMBULATORY WITH STEADY GAIT. CALL LIGHT WITHIN REACH. ASPIRATION, FALL AND SAFETY PRECAUTIONS MAINTAINED. ALL NEEDS ATTENDED TO AT THIS TIME.
[2022-01-20 20:00] VITALS: BP 99/51
[2022-01-20] MEDS ORDERED: [UNRECOGNIZED DRUG - OTHER] PO SCH (22:00)
[2022-01-20] MEDS ORDERED: QUETIAPINE PO SCH (22:00)
--- NOTE | 2022-01-21 07:45 | NUR ---
RN OPENING NOTE PATIENT AWAKE IN BED RESTING. A/O X 4. NO S/S OF PAIN NOTED AT THIS TIME. ON ROOM AIR, NO DISTRESS OR SHORTNESS OF BREATH NOTED. NO IV ACCESS, CLINICAL TRIAL PATIENT. FALL AND SAFETY MEASURES IN PLACE, BED IN LOW AND LOCK POSITION, CALL LIGHT AND TABLE WITHIN EASY REACH, SIDE RAILS UP X2. WILL CONTINUE TO MONITOR.
[2022-01-21 08:00] VITALS: BP 112/67
[2022-01-21] MEDS: METFORMIN 500 MG PO SCH ×2 (09:12→17:19)
[2022-01-21] MEDS: HYDROCHLOROTHIAZIDE 25 MG PO SCH (09:13)
[2022-01-21] MEDS: BENAZEPRIL HCL 20 MG PO SCH (09:13)
[2022-01-21 16:31] VITALS: BP 125/71
--- NOTE | 2022-01-21 19:59 | NUR ---
RN CLOSING NOTE PATIENT AWAKE IN BED RESTING. A/O X 4. NO S/S OF PAIN NOTED AT THIS TIME. ON ROOM AIR, NO DISTRESS OR SHORTNESS OF BREATH NOTED. NO IV ACCESS, CLINICAL TRIAL PATIENT. FALL AND SAFETY MEASURES IN PLACE, BED IN LOW AND LOCK POSITION, CALL LIGHT AND TABLE WITHIN EASY REACH, SIDE RAILS UP X2. WILL ENDORSE TO DIRECTOR OF RETAIL.
[2022-01-21 20:00] VITALS: BP 106/63
[2022-01-21] MEDS ORDERED: [UNRECOGNIZED DRUG - OTHER] PO SCH (22:00)
[2022-01-21] MEDS ORDERED: QUETIAPINE PO SCH (22:00)
--- NOTE | 2022-01-22 06:40 | NUR ---
MS/RN CLOSING NOTE PATIENT CURRENTLY RESTING IN ROOM. ALERT AND ORIENTED X 4. ABLE TO MAKE NEEDS KNOWN. DENIES PAIN AT THIS TIME. CONTINUES ON ROOM AIR WITH NO S/SX OF RESPIRATORY DISTRESS NOTED. NO IV ACCESS AT THIS TIME. CONTINUES ON CLINICAL TRIAL. CONTINUES ON HOME MEDICATIONS. PATIENT IS AMBULATORY WITH STEADY GAIT. CALL LIGHT WITHIN REACH. ASPIRATION, FALL AND SAFETY PRECAUTIONS MAINTAINED. WILL ENDORSE PLAN OF CARE TO ONCOMING SHIFT RN.
--- NOTE | 2022-01-22 07:35 | NUR ---
MS/RN OPENING NOTE RECEIVED[ PATIENT RESTING IN ROOM. ALERT AND ORIENTED X 4. ABLE TO MAKE NEEDS KNOWN. DENIES PAIN AT THIS TIME. ON ROOM AIR WITHOUT ANY S/SX OF RESPIRATORY DISTRESS NOTED. NO IV ACCESS AT THIS TIME. CONTINUES ON CLINICAL TRIAL. CONTINUES ON HOME MEDICATIONS. PATIENT IS AMBULATORY WITH STEADY GAIT. CALL LIGHT WITHIN REACH. ASPIRATION, FALL AND SAFETY PRECAUTIONS MAINTAINED. WILL CONTINUE TO MONITOR FOR SAFETY.
[2022-01-22 08:00] VITALS: BP 124/70
[2022-01-22] MEDS: BENAZEPRIL HCL 20 MG PO SCH (09:41)
[2022-01-22] MEDS: METFORMIN 500 MG PO SCH (09:41)
[2022-01-22 09:43] VITALS: BP 124/70
[2022-01-22] MEDS: HYDROCHLOROTHIAZIDE 25 MG PO SCH (09:43)
--- NOTE | 2022-01-22 14:30 | NUR ---
MS LOGISTICS CENTER MANAGER NOTES RECEIVED A CALL FROM DR CHURCHILL TO DC THE PT D/T CONFLICT WITH METFORMIN IN THE CT PROGRAM. PATIENT IS AWARE AND COOPERATIVE. PATIENT IS AAOX4, STABLE, WITHOUT ANY IV LINES, NOT IN ANY DISTRESS. PATIENT'S BELONGINGS ARE ALL ACCOUNTED FOR. NO NEW MEDICATIONS GIVEN BY MD. ADVISED PT TO FF UP WITH PCP. ID BAND REMOVED. HOME MEDS RETRIEVED FROM PHARMACY. ESCORTED THE PATIENT AT LOBBY AND PT LEFT AT 1415.
[2022-01-22] MEDS ORDERED: QUETIAPINE PO SCH (22:00)
[2022-01-22] MEDS ORDERED: [UNRECOGNIZED DRUG - OTHER] PO SCH (22:00)
[2022-01-30] MEDS ORDERED: LORAZEPAM 1 MG TABLET FOR AGITATION PO PRN (13:00)
[2022-01-30] MEDS ORDERED: ZOLPIDEM TARTRATE 10 MG TABLET PO PRN ×2 (13:00)
[2022-01-31] MEDS ORDERED: INVEST MED CVL-231-2002 PO SCH (10:00)
[2022-02-05] MEDS ORDERED: LORAZEPAM 1 MG TABLET FOR AGITATION PO PRN (13:00)
[2022-02-05] MEDS ORDERED: ZOLPIDEM TARTRATE 10 MG TABLET PO PRN (13:00)
[2022-02-12] MEDS ORDERED: ZOLPIDEM TARTRATE 10 MG TABLET PO PRN (13:00)
[2022-02-12] MEDS ORDERED: LORAZEPAM 1 MG TABLET FOR AGITATION PO PRN (13:00)
[2022-02-19] MEDS ORDERED: ZOLPIDEM TARTRATE 10 MG TABLET PO PRN (13:00)
[2022-02-19] MEDS ORDERED: LORAZEPAM 1 MG TABLET FOR AGITATION PO PRN (13:00)
[2022-02-26] MEDS ORDERED: LORAZEPAM 1 MG TABLET FOR AGITATION PO PRN (13:00)
[2022-02-26] MEDS ORDERED: ZOLPIDEM TARTRATE 10 MG TABLET PO PRN (21:00)
[2022-03-05] MEDS ORDERED: ZOLPIDEM TARTRATE 10 MG TABLET PO PRN (13:00)
[2022-03-05] MEDS ORDERED: LORAZEPAM 1 MG TABLET FOR AGITATION PO PRN (13:00)
[2022-03-12] MEDS ORDERED: ZOLPIDEM TARTRATE 10 MG TABLET PO PRN (13:00)
[2022-03-12] MEDS ORDERED: LORAZEPAM 1 MG TABLET FOR AGITATION PO PRN (13:00)
== END 2022-01-22 14:30 | disposition home or self-care (01) | DRG 951 ==
LOC: MED 13:34
PROVIDERS: ADMIT Psychiatry & Neurology Psychiatry; ATTEND Psychiatry & Neurology Psychiatry
DX: Z00.6 Encounter for examination for normal comparison and control in clinical research program (principal); F20.0 Paranoid schizophrenia; E11.9 Type 2 diabetes mellitus without complications; I10 Essential (primary) hypertension; K59.00 Constipation, unspecified; Z79.899 Other long term (current) drug therapy; G47.00 Insomnia, unspecified
CPT/HCPCS: 87081-TC; G0378

== ENCOUNTER 2022-07-21 09:19 | Inpatient (IN) | payer OTHER ==
[~2022-07-21] VITALS: Ht 167.6 cm; Wt 101.6 kg
--- NOTE | 2022-07-21 13:00 | NUR ---
RN-ADMISSION NOTES LURDES FROM [facility] OFFICE BROUGHT IN A 52 Y.O FEMALE CLINICAL TRIAL PATIENT. PATIENT A/O X4 ,STEADY GAIT.NO ACUTE DISTRESS NOTED. PATIENT DID SIGN ALL ADMISSION PAPERS. PATIENT WAS ORIENTED IN THE UNIT AND UNIT POLICIES. PATIENT CAN KEEP ALL PERSONAL BELONGINGS IN HER FROM AND CAN BE OFF UNIT FOR SMOKING. PATIENT DENIES SI/HI,DENIES VISUAL/AUDITORY HALLUCINATIONS AT THIS TIME. WILL CONTINUE MONITORING FOR SAFETY AND BEHAVIOR.
[2022-07-21] MEDS ORDERED: MAGNESIUM HYDROXIDE 30 ML UDC PO PRN (15:00)
[2022-07-21] MEDS ORDERED: ACETAMINOPHEN ES 500 MG TABLET PO PRN (15:00)
[2022-07-21] MEDS ORDERED: LORAZEPAM 1 MG TABLET FOR AGITATION PO PRN (15:00)
[2022-07-21] MEDS ORDERED: IBUPROFEN 200 MG TABLET PO PRN (15:00)
[2022-07-21] MEDS: LOSARTAN 25 MG PO SCH ×2 (15:00→15:50)
[2022-07-21] MEDS: HYDROCHLOROTHIAZIDE 25 MG PO SCH ×2 (15:00→15:50)
[2022-07-21] MEDS ORDERED: ZOLPIDEM TARTRATE 10 MG TABLET PO PRN (15:00)
[2022-07-21] MEDS ORDERED: MAG HYDROX/AL HYDROX/SIMETH 30 ML UDC PO PRN (15:00)
[2022-07-21 16:00] VITALS: BP 114/74
--- NOTE | 2022-07-21 16:12 | NUR ---
RN-NOTES HYDROCHLOROTHIAZIDE 25MG P.O AND LOSARTAN 25MG P.O NOT GIVEN DUE TO PER PATIENT SHE TOOK IN THE MORNING AND THAT SHE ONLY TAKE EVERY MORNING. BP 114/74,PULSE 94.
[2022-07-21] MEDS ORDERED: DEXTROSE 50%-WATER 50 ML DISP.SYRIN IV PRN (17:00)
[2022-07-21] MEDS: METFORMIN 500 MG PO SCH (17:01)
[2022-07-21] MEDS: BLOOD SUGAR DIAGNOSTIC 1 EACH STRIP IN SCH (17:04)
--- NOTE | 2022-07-21 18:32 | NUR ---
RN-NOTES DR. CHURCHILL SEEN THE PATIENT IN THE UNIT.
--- NOTE | 2022-07-21 18:48 | NUR ---
RN-NOTES PATIENT IS VISIBLE IN THE UNIT, AND OFF THE UNIT SEVERAL TIMES FOR SMOKING BREAK.
--- NOTE | 2022-07-21 19:00 | NUR ---
RN NOTE: PATIENT WAS NOT IN HER ROOM DURING CHANGE OF SHIFT REPORT. PATIENT WENT OUTSIDE TO SMOKE.
--- NOTE | 2022-07-21 19:18 | NUR ---
RN NOTE: PATIENT CAME BACK FROM SMOKING, ALERT AND ORIENTED X4. NO S/SX OF ACUTE DISTRESS NOTED. PATIENT IS IRRITABLE, BLUNTED AFFECT. PATIENT DENIES SI/HI, AUDITORY OR VISUAL HALLUCINATIONS AT THIS TIME. DENIES PAIN OR DISCOMFORT. SAFETY PRECAUTIONS MAINTAINED. WILL CONTINUE TO MONITOR Q15MIN ROUNDS FOR SAFETY AND BEHAVIOR.
[2022-07-21 21:34] VITALS: BP 123/71
[2022-07-21] MEDS ORDERED: SEROQUEL 50 MG PO SCH (22:00)
[2022-07-22 08:00] VITALS: BP 126/79
[2022-07-22] MEDS: BLOOD SUGAR DIAGNOSTIC 1 EACH STRIP IN SCH ×2 (08:56→17:26)
--- NOTE | 2022-07-22 09:52 | NUR ---
RN:FOLLOWED UP METFORMIN FROM PHARMACY.
[2022-07-22] MEDS ORDERED: INVEST MED CVL-231-2002 PO SCH (10:00)
--- NOTE | 2022-07-22 10:10 | NUR ---
RN-NOTES INVESTIGATIONAL MEDICATION NOT AVAILABLE. FOLLOWED UP WITH PHARMACY TO FILL MEDICATION MATTHEW.
--- NOTE | 2022-07-22 10:16 | NUR ---
RN-CO: METFORMIN , STILL NOT IN THE CASSETTE NOT IN OMNICELL AT THIS TIME.
[2022-07-22] MEDS: HYDROCHLOROTHIAZIDE 25 MG PO SCH (10:46)
[2022-07-22] MEDS: LOSARTAN 25 MG PO SCH (10:47)
[2022-07-22] MEDS: METFORMIN 500 MG PO SCH ×2 (12:16→17:22)
--- NOTE | 2022-07-22 12:17 | NUR ---
RN-NOTES METFORMIN ADMINISTERED NOW. PHARMACY DROPPED OFF MEDICATION AT 1215.
--- NOTE | 2022-07-22 14:11 | NUR ---
RN-CO: RECEIVED PATIENT AWAKE IN BED, ALERT AND ORIENTED X4. NO S/SX OF ACUTE DISTRESS NOTED. PATIENT IS IRRITABLE AND PREOCCUPIED TO HER OWN THOUGHTS. PATIENT DENIES SI/HI, NO AUDITORY OR VISUAL HALLUCINATIONS AT
--- NOTE | 2022-07-22 17:27 | NUR ---
RN- NOTES PATIENT BLOOD GLUCOSE NOTED AT 89. PATIENT ADAMANTLY WANTED TO TAKE HER METFORMIN EVEN WITH LOW BLOOD GLUCOSE LEVEL. EDUCATION REINFORCED.
--- NOTE | 2022-07-22 17:30 | NUR ---
RN- NOTES PATIENT TRANSFERRED TO ROOM 315A. PATIENT EXCITED AND HAPPY. REPORT GIVEN TO CHARGE NURSE AND RN.
--- NOTE | 2022-07-22 17:35 | NUR ---
CT GOVERNMENT GAUGER NOTES PT ADMITTED TO UNIT FROM GPS, AMBULATORY, CLINICAL TRIAL. ON RA, TOLERATED WELL. A/O X 4, ABLE TO MAKE NEEDS KNOWN. NO C/O PAIN AND DISCOMFORT AT THIS TIME. NO IV ACCESS. SAFETY MEASURES IN PLACE: BED LOCKED AND IN LOWEST POSITION, CALL LIGHT AND TRAY TABLE WITHIN EASY REACH, SIDE RAIL X 2. WILL CONTINUE TO MONITOR.
--- NOTE | 2022-07-22 18:45 | NUR ---
CT RN CLOSING NOTES PT RESTING IN BED. ON RA, TOLERATED WELL. A/O X 4, ABLE TO MAKE NEEDS KNOWN, COOPERATIVE. NO C/O PAIN AND DISCOMFORT. NO IV ACCESS. NEEDS ATTENDED. SAFETY MEASURES IN PLACE: BED LOCKED AND IN LOWEST POSITION, CALL LIGHT AND TRAY TABLE WITHIN EASY REACH, SIDE RAIL X 2. WILL ENDORSE PJ TO MEAT PRESS OPERATOR.
--- NOTE | 2022-07-22 19:30 | NUR ---
MS RN OPENING NOTE RECEIVED PATIENT FROM AM NURSE; PATIENT IS ALERT AND ORIENTED X 4, ABLE TO CONVERSE AND MAKE NEEDS KNOWN; ON CLINICAL TRIAL; STABLE ON ROOM AIR, TOLERATING WELL AND NO RESPIRATORY DISTRESS NOTED; DENIES ANY PAIN OR DISCOMFORT AT THIS TIME; ENCOURAGED VERBALIZATION OF NEEDS; SAFETY MEASURES IMPLEMENTED, BED IN LOW POSITION, LOCKED, SIDE RAILS UP X 2, CALL LIGHT WITHIN EASY REACH; WILL CONTINUE TO MONITOR THROUGHOUT SHIFT
[2022-07-22 20:00] VITALS: BP 130/72
[2022-07-22] MEDS ORDERED: SEROQUEL 50 MG PO SCH (22:00)
--- NOTE | 2022-07-23 06:53 | NUR ---
MS RN CLOSING NOTE PATIENT IS ALERT AND ORIENTED X 4, ABLE TO CONVERSE AND MAKE NEEDS KNOWN; ON CLINICAL TRIAL; STABLE ON ROOM AIR, TOLERATING WELL AND NO RESPIRATORY DISTRESS NOTED; DENIES ANY PAIN OR DISCOMFORT AT THIS TIME; ADMINISTERED MEDICATIONS PRESCRIBED; PATIENT'S NEEDS ATTENDED; MONITORED PATIENT ACCORDINGLY; SAFETY MEASURES IMPLEMENTED, BED IN LOW POSITION, LOCKED, SIDE RAILS UP X 2, CALL LIGHT WITHIN EASY REACH; WILL ENDORSE TO AM NURSE FOR PJ.
--- NOTE | 2022-07-23 07:20 | NUR ---
MS RN OPENING NOTES RECEIVED PATIENT IN BED AWAKE, A/O X4. ABLE TO MAKE NEEDS KNOWN, DENIES PAIN OR ANY DISCOMFORTS AT THIS TIME. ON ROOM AIR, TOLERATING WELL, BREATHING EVEN AND UNLABORED. SAFETY MEASURES IN PLACE: BED LOCKED AND IN LOWEST POSITION, SIDE RAILS UP X2 AND CALL LIGHT WITHIN REACH. WILL CONTINUE TO MONITOR PT ACCORDINGLY.
[2022-07-23 08:00] VITALS: BP 123/86
[2022-07-23] MEDS ORDERED: INVESTIGATIONAL MED RVP -30-001 PO SCH (08:00)
[2022-07-23] MEDS: HYDROCHLOROTHIAZIDE 25 MG PO SCH (08:46)
[2022-07-23] MEDS: LOSARTAN 25 MG PO SCH (08:46)
[2022-07-23] MEDS: METFORMIN 500 MG PO SCH ×2 (08:46→16:37)
[2022-07-23] MEDS: BLOOD SUGAR DIAGNOSTIC 1 EACH STRIP IN SCH (08:47)
--- NOTE | 2022-07-23 09:00 | NUR ---
RN NOTES PT REFUSED ACCU-CHECKED THIS MORNING STATED THAT IT'S UNCOMFORTABLE FOR HER TO BE PRICKED ALL THE TIME.
--- NOTE | 2022-07-23 12:10 | NUR ---
RN NOTES PATIENT VISITED BY DR CHURCHILL WITH ORDER TO D/C ACCU-CHECK BID.
[2022-07-23 16:00] VITALS: BP 120/90
--- NOTE | 2022-07-23 18:44 | NUR ---
MS RN CLOSING NOTES PATIENT RESTING IN BED AT THIS TIME. A/O X4. ABLE TO MAKE NEEDS KNOWN. AMBULATORY. NO INAPPROPRIATE BEHAVIOR EXHIBITED NOTED.ON ROOM AIR, TOLERATING WELL, BREATHING EVEN AND UNLABORED. ALL NEEDS ATTENDED WELL. SAFETY MEASURES KEPT IN PLACE: BED LOCKED AND IN LOWEST POSITION, SIDE RAILS UP X2 AND CALL LIGHT WITHIN REACH. WILL ENDORSE PJ TO GROOVER AND STRIPER OPERATOR NURSE.
--- NOTE | 2022-07-23 19:30 | NUR ---
MS RN OPENING NOTE RECEIVED PATIENT FROM AM NURSE; ON CLINICAL TRIAL; PATIENT IS ALERT AND ORIENTED X 4, ABLE TO CONVERSE AND MAKE NEEDS KNOWN; ; STABLE ON ROOM AIR, TOLERATING WELL AND NO RESPIRATORY DISTRESS NOTED; DENIES ANY PAIN OR DISCOMFORT AT THIS TIME; ENCOURAGED VERBALIZATION OF NEEDS; SAFETY MEASURES IMPLEMENTED, BED IN LOW POSITION, LOCKED, SIDE RAILS UP X 2, CALL LIGHT AND TABLE WITHIN EASY REACH; WILL CONTINUE TO MONITOR THROUGHOUT SHIFT
[2022-07-23 20:00] VITALS: BP 129/74
[2022-07-23] MEDS ORDERED: SEROQUEL 50 MG PO SCH (22:00)
--- NOTE | 2022-07-24 06:57 | NUR ---
MS RN CLOSING NOTE ON CLINICAL TRIAL; PATIENT IS ALERT AND ORIENTED X 4, ABLE TO CONVERSE AND MAKE NEEDS KNOWN; ; STABLE ON ROOM AIR, TOLERATING WELL AND NO RESPIRATORY DISTRESS NOTED; DENIES ANY PAIN OR DISCOMFORT AT THIS TIME; ADMINISTERED MEDICATIONS PRESCRIBED; PATIENT'S NEEDS ATTENDED; MONITORED PATIENT ACCORDINGLY; SAFETY MEASURES IMPLEMENTED, BED IN LOW POSITION, LOCKED, SIDE RAILS UP X 2, CALL LIGHT AND TABLE WITHIN EASY REACH; WILL ENDORSE TO AM NURSE FOR PJ.
[2022-07-24 07:00] VITALS: BP 116/76
--- NOTE | 2022-07-24 07:12 | NUR ---
MS RN OPENING NOTES PATIENT RECEIVED RESTING IN BED. A/O X4. ABLE TO MAKE NEEDS KNOWN, DENIES PAIN OR ANY DISCOMFORTS AT THIS TIME. ON ROOM AIR, TOLERATING WELL, BREATHING EVEN AND UNLABORED. NO IV ACCESS PER CT PROTOCOL. SAFETY MEASURES IN PLACE: BED LOCKED AND IN LOWEST POSITION, SIDE RAILS UP X2 AND CALL LIGHT WITHIN REACH. WILL CONTINUE TO MONITOR PT ACCORDINGLY.
[2022-07-24] MEDS: METFORMIN 500 MG PO SCH ×2 (08:48→16:08)
[2022-07-24] MEDS: HYDROCHLOROTHIAZIDE 25 MG PO SCH (08:48)
[2022-07-24] MEDS: LOSARTAN 25 MG PO SCH (08:48)
[2022-07-24 16:00] VITALS: BP 149/68
--- NOTE | 2022-07-24 18:32 | NUR ---
RN NOTES JUST CAME FROM OUTSIDE ANXIOUS AND REQUESTED FOR ATIVAN. PRN ATIVAN 1MG TAB PO GIVEN AT 1831. WILL CONTINUE TO MONITOR PT.
--- NOTE | 2022-07-24 18:48 | NUR ---
MS RN CLOSING NOTES PATIENT RESTING QUIETLY AND CALMLY IN BED AT THIS TIME. A/O X4. ABLE TO MAKE NEEDS KNOWN. AMBULATORY. ON ROOM AIR, TOLERATING WELL, BREATHING EVEN AND UNLABORED. NEEDS ATTENDED WELL. SAFETY MEASURES KEPT IN PLACE: BED LOCKED AND IN LOWEST POSITION, SIDE RAILS UP X2 AND CALL LIGHT WITHIN REACH. WILL ENDORSE PJ TO TURN SEWER NURSE.
--- NOTE | 2022-07-24 19:30 | NUR ---
MS RN OPENING NOTE RECEIVED PATIENT IN BED, AWAKE. PT ON CLINICAL TRIAL. PATIENT IS ALERT AND ORIENTED X 4, ABLE TO MAKE NEEDS KNOWN. STABLE ON ROOM AIR, TOLERATING RA WELL, AND NO RESPIRATORY DISTRESS NOTED. DENIES ANY PAIN OR DISCOMFORT AT THIS TIME. SAFETY MEASURES IMPLEMENTED, BED IN LOW POSITION, LOCKED, SIDE RAILS UP X 2, CALL LIGHT AND TABLE WITHIN EASY REACH. WILL CONTINUE TO MONITOR THROUGHOUT SHIFT.
[2022-07-24 20:00] VITALS: BP 121/80
--- NOTE | 2022-07-25 06:34 | NUR ---
MS RN CLOSING NOTE LEFT PATIENT IN ROOM, AWAKE. PT ON CLINICAL TRIAL. PATIENT IS ALERT AND ORIENTED X 4, ABLE TO MAKE NEEDS KNOWN. STABLE ON ROOM AIR, TOLERATING RA WELL, AND NO RESPIRATORY DISTRESS NOTED. DENIES ANY PAIN OR DISCOMFORT AT THIS TIME. SAFETY MEASURES IMPLEMENTED, BED IN LOW POSITION, LOCKED, SIDE RAILS UP X 2, CALL LIGHT AND TABLE WITHIN EASY REACH. WILL ENDORSE PT TO MORNING SHIFT NURSE FOR PJ.
--- NOTE | 2022-07-25 07:40 | NUR ---
MS RN OPENING NOTE RECEIVED PATIENT IN BED, AWAKE. PT ON CLINICAL TRIAL. PATIENT IS ALERT AND ORIENTED X 4, ABLE TO MAKE NEEDS KNOWN. NO BEHAVIOR NOTED AT THIS TIME , STABLE ON ROOM AIR WITH NO SOB OR DISTRESS NOTED . DENIES ANY PAIN OR DISCOMFORT AT THIS TIME. SAFETY MEASURES IMPLEMENTED, BED IN LOW POSITION, LOCKED, SIDE RAILS UP X 2, CALL LIGHT AND TABLE WITHIN EASY REACH. WILL CONTINUE TO MONITOR THROUGHOUT SHIFT.
[2022-07-25 08:00] VITALS: BP 114/95
[2022-07-25] MEDS: HYDROCHLOROTHIAZIDE 25 MG PO SCH (08:37)
[2022-07-25] MEDS: LOSARTAN 25 MG PO SCH (08:37)
[2022-07-25] MEDS: METFORMIN 500 MG PO SCH ×2 (08:37→16:40)
[2022-07-25 16:12] VITALS: BP 123/80
--- NOTE | 2022-07-25 18:34 | NUR ---
MS RN CLOSING NOTE PATIENT IN BED, AWAKE. PT ON CLINICAL TRIAL. PATIENT IS ALERT AND ORIENTED X 4, ABLE TO MAKE NEEDS KNOWN. NO BEHAVIOR NOTED AT THIS TIME , STABLE ON ROOM AIR WITH NO SOB OR DISTRESS NOTED . DENIES ANY PAIN OR DISCOMFORT AT THIS TIME. ALL DUE MEDS ORDERED GIVEN , ATIVAN AND AMBIEN TO HOLD FOR TONIGHT DOSE AND PATIENT AWARE , SAFETY MEASURES IMPLEMENTED, BED IN LOW POSITION, LOCKED, SIDE RAILS UP X 2, CALL LIGHT AND TABLE WITHIN EASY REACH. ENDORSED TO NEXT SHIFT .
--- NOTE | 2022-07-25 19:45 | NUR ---
MS RN OPENING NOTES PATIENT RECEIVED RESTING IN BED. A/O X4. NO S/S OF PAIN NOTED AT THIS TIME. ON ROOM AIR, BREATHING EVEN AND UNLABORED, NO DISTRESS OR SOB NOTED. SAFETY MEASURES IN PLACE WITH BED LOCKED AND IN LOWEST POSITION, SIDE RAILS UP X2 AND CALL LIGHT WITHIN REACH. WILL CONTINUE TO MONITOR.
[2022-07-25 19:54] VITALS: BP 104/62
[2022-07-25 22:47] VITALS: BP 104/62
--- NOTE | 2022-07-26 07:28 | NUR ---
MS RN CLOSING NOTES PATIENT RECEIVED RESTING IN BED. A/O X4. NO S/S OF PAIN NOTED AT THIS TIME. ON ROOM AIR, BREATHING EVEN AND UNLABORED, NO DISTRESS OR SOB NOTED. SAFETY MEASURES MAINTAINED WITH BED LOCKED AND IN LOWEST POSITION, SIDE RAILS UP X2 AND CALL LIGHT WITHIN REACH. WILL ENDORSE TO THE NEXT SHIFT.
--- NOTE | 2022-07-26 07:35 | NUR ---
RN OPENING NOTE PATIENT AWAKE IN BED RESTING, A/O X 4. NO S/S OF PAIN NOTED AT THIS TIME. ON ROOM AIR, BREATHING EVEN UNLABORED, NO DISTRESS OR SHORTNESS OF BREATH NOTED AT THIS TIME. NO IV ACCESS, CLINICAL TRIAL PATIENT. FALL AND SAFETY MEASURES IN PLACE, BED IN LOW AND LOCK POSITION, CALL LIGHT AND TABLE WITHIN EASY REACH, SIDE RAILS UP X2. WILL CONTINUE TO MONITOR.
[2022-07-26] MEDS: LOSARTAN 25 MG PO SCH (08:12)
[2022-07-26] MEDS: METFORMIN 500 MG PO SCH ×2 (08:12→16:28)
[2022-07-26] MEDS: HYDROCHLOROTHIAZIDE 25 MG PO SCH (08:12)
[2022-07-26 08:40] VITALS: BP 120/76
[2022-07-26] MEDS ORDERED: ZOLPIDEM TARTRATE 10 MG TABLET PO PRN (12:00)
[2022-07-26 16:54] VITALS: BP 110/87
--- NOTE | 2022-07-26 18:35 | NUR ---
RN CLOSING NOTE PATIENT AWAKE IN BED RESTING, A/O X 4. NO S/S OF PAIN NOTED AT THIS TIME. ON ROOM AIR, BREATHING EVEN UNLABORED, NO DISTRESS OR SHORTNESS OF BREATH NOTED AT THIS TIME. NO IV ACCESS, CLINICAL TRIAL PATIENT. SCHEDULED MEDICATIONS ADMINISTERED. FALL AND SAFETY MEASURES IN PLACE, BED IN LOW AND LOCK POSITION, CALL LIGHT AND TABLE WITHIN EASY REACH, SIDE RAILS UP X2. ALL NEEDS ATTENDED AND ANTICIPATED. WILL ENDORSE TO SERVER SECURITY ADMINISTRATOR.
--- NOTE | 2022-07-26 19:00 | NUR ---
CLINICAL TRIAL INITIAL NOTES Received pt in bed watching TV at this time, not in any distress noted. Pt request to have ativan . Patient pleasant, cooperative not in any agitation noted. kept him warm and comfortable at all times. place call light at reach. will continue monitoring.
[2022-07-26 20:00] VITALS: BP 121/71
[2022-07-26] MEDS: LORAZEPAM 1 MG TABLET FOR AGITATION PO PRN (20:47)
--- NOTE | 2022-07-26 20:50 | NUR ---
clinical trial WATER SOFTENER SERVICER Notes ativan given po as ordered and patient requested. educate pt safety . will continue monitoring.
[2022-07-26 21:01] VITALS: BP 121/72
--- NOTE | 2022-07-27 05:00 | NUR ---
CLINICAL TRIAL NOTES PT WOKE UP AND SEEN USING HER MOTOR SCOOTER GOING DOWN FOR HER SMOKING HABIT. DENIES ANY DISCOMFORT. WILL CONTINUE MONITORING.
--- NOTE | 2022-07-27 07:25 | NUR ---
MS RN OPENING NOTE - PT ON CLINICAL TRIAL RECEIVED PATIENT IN ROOM WATCHING TV, PT IS ALERT AND ORIENTED X 4, CALM. COOPERATIVE, ABLE TO MAKE NEEDS KNOWN. STABLE ON ROOM AIR, WITHOUT ANY RESPIRATORY DIFFICULTY, RESPIRATORY DISTRESS NOTED. DENIES ANY PAIN OR DISCOMFORT AT THIS TIME. SAFETY MEASURES IN PLACE: BED IN LOWEST AND LOCKED POSITION, SIDE RAILS UP X 2, CALL LIGHT AND TRAY TABLE WITHIN EASY REACH. WILL CONTINUE TO MONITOR THROUGHOUT THE SHIFT.
--- NOTE | 2022-07-27 07:39 | NUR ---
BREAD SUPERVISOR CLOSING NOTES PT BACK TO HER ROOM AFTER SHE WENT FOR FRESH AIR AND COFFEE. SLEPT WELL AND STABLE THROUGHOUT THE NIGHT. PLACE CALL LIGHT AT REACH. ENDORSE TO AM NURSE FOR CONTINUITY OF CARE.
[2022-07-27] MEDS: HYDROCHLOROTHIAZIDE 25 MG PO SCH (08:33)
[2022-07-27] MEDS: METFORMIN 500 MG PO SCH ×2 (08:33→16:45)
[2022-07-27] MEDS: LOSARTAN 25 MG PO SCH (08:34)
[2022-07-27] MEDS ORDERED: ZOLPIDEM TARTRATE 10 MG TABLET PO PRN (12:00)
[2022-07-27 16:08] VITALS: BP 117/64
--- NOTE | 2022-07-27 18:40 | NUR ---
MS RN CLOSING NOTE - PT ON CLINICAL TRIAL PATIENT IN ROOM WATCHING TV, PT IS ALERT AND ORIENTED X 4, CALM. COOPERATIVE, ABLE TO MAKE NEEDS KNOWN. STABLE ON ROOM AIR, WITHOUT ANY RESPIRATORY DIFFICULTY. DENIES ANY PAIN OR DISCOMFORT AT THIS TIME.ALL DUE MEDS GIVEN. ALL NEEDS MET. SAFETY MEASURES MAINTAINED: BED IN LOWEST AND LOCKED POSITION, SIDE RAILS UP X 2, CALL LIGHT AND TRAY TABLE WITHIN EASY REACH. WILL ENDORSE TO JUNIOR AUTOMATION ENGINEER NURSE.
--- NOTE | 2022-07-27 19:30 | NUR ---
MS RN OPENING NOTE RECEIVED PATIENT FROM AM NURSE; PATIENT IS A/D X 4, ABLE TO CONVERSE AND MAKE NEEDS KNOWN; ON CLINICAL TRIAL; STABLE ON ROOM AIR, TOLERATING WELL AND NO RESPIRATORY DISTRESS NOTED; DENIES ANY PAIN AND DISCOMFORT AT THIS TIME; ENCOURAGED VERBALIZATION OF NEEDS; SAFETY MEASURES IMPLEMENTED, BED IN LOW POSITION, LOCKED, SIDE RAILS UP X 2, CALL LIGHT WITHIN EASY REACH; WILL CONTINUE TO MONITOR THROUGHOUT SHIFT
[2022-07-27] MEDS: LORAZEPAM 1 MG TABLET FOR AGITATION PO PRN (19:48)
[2022-07-27 20:00] VITALS: BP 116/53
--- NOTE | 2022-07-27 20:00 | NUR ---
MS RN NOTE PATIENT INSISTED ON HAVING ATIVAN BEFORE GOING TO SLEEP, ADMINISTERED PRN ORDERED; PATIENT TOLERATED WELL
--- NOTE | 2022-07-28 06:52 | NUR ---
MS RN CLOSING NOTE PATIENT IS A/O X 4, ABLE TO CONVERSE AND MAKE NEEDS KNOWN; ON CLINICAL TRIAL; STABLE ON ROOM AIR, TOLERATING WELL AND NO RESPIRATORY DISTRESS NOTED; DENIES ANY PAIN AND DISCOMFORT AT THIS TIME; ADMINISTERED MEDICATIONS PRESCRIBED; PATIENT'S NEEDS ATTENDED; SAFETY MEASURES IMPLEMENTED, BED IN LOW POSITION, LOCKED, SIDE RAILS UP X 2, CALL LIGHT WITHIN EASY REACH; WILL ENDORSE TO AM NURSE FOR PJ.
[2022-07-28 07:00] VITALS: BP 126/73
--- NOTE | 2022-07-28 07:15 | NUR ---
MS RN OPENING NOTES PATIENT NOTED LEAVING UNIT, GOING OUT FOR COFFEE. A/Ox4, ABLE TO MAKE NEEDS KNOWN. ON ROOM AIR NO S/S OF RESPIRATORY DISTRESS. AMBULATORY, NO S/S OF PAIN OR DISCOMFORT. PATIENT CLINICAL TRIAL NO IV ACCESS. SAFETY MEASURES IN PLACE: BED LOCKED AND IN LOWEST POSITION, SIDE RAILS UPx2, CALL LIGHT ON BED WITHIN REACH. WILL CONTINUE TO MONITOR.
[2022-07-28] MEDS: METFORMIN 500 MG PO SCH ×2 (08:19→16:24)
[2022-07-28] MEDS: LOSARTAN 25 MG PO SCH (08:19)
[2022-07-28] MEDS: HYDROCHLOROTHIAZIDE 25 MG PO SCH (08:19)
[2022-07-28 16:00] VITALS: BP 110/70
[2022-07-28] MEDS: LORAZEPAM 1 MG TABLET FOR AGITATION PO PRN (18:30)
--- NOTE | 2022-07-28 18:34 | NUR ---
RN NOTES PATIENT REQUESTED ATIVAN BEFORE GOING TO BED, PRN ATIVAN ADMINISTERED. WILL CONTINUE TO MONITOR.
--- NOTE | 2022-07-28 18:43 | NUR ---
MS RN CLOSING NOTES PATIENT IN ROOM, RESTING IN BED. A/Ox4, ABLE TO MAKE NEEDS KNOWN. STABLE ON ROOM AIR NO S/S OF RESPIRATORY DISTRESS. AMBULATORY, NO S/S OF PAIN OR DISCOMFORT. PATIENT CLINICAL TRIAL NO IV ACCESS. SAFETY MEASURES MAINTAINED: BED LOCKED AND IN LOWEST POSITION, SIDE RAILS UPx2, CALL LIGHT ON BED WITHIN REACH. WILL ENDORSE TO NEXT SHIFT ANY PJ.
--- NOTE | 2022-07-28 19:02 | NUR ---
MS RN OPENING NOTE PATIENT IN ROOM, RESTING IN BED. A/Ox4, ABLE TO MAKE NEEDS KNOWN. STABLE ON ROOM AIR NO S/S OF RESPIRATORY DISTRESS. AMBULATORY, NO S/S OF PAIN OR DISCOMFORT. PATIENT CLINICAL TRIAL NO IV ACCESS. SAFETY MEASURES MAINTAINED: BED LOCKED AND IN LOWEST POSITION, SIDE RAILS UPx2, CALL LIGHT ON BED WITHIN REACH.
[2022-07-28 20:29] VITALS: BP 108/52
--- NOTE | 2022-07-29 06:30 | NUR ---
MS RN CLOSING NOTE PATIENT IN ROOM, RESTING IN BED. A/Ox4, ABLE TO MAKE NEEDS KNOWN. STABLE ON ROOM AIR NO S/S OF RESPIRATORY DISTRESS. AMBULATORY, NO S/S OF PAIN OR DISCOMFORT. PATIENT CLINICAL TRIAL NO IV ACCESS. SAFETY MEASURES MAINTAINED: BED LOCKED AND IN LOWEST POSITION, SIDE RAILS UPx2, CALL LIGHT ON BED WITHIN REACH. WILL ENDORSE CARE TO DAY SHIFT NURSE.
--- NOTE | 2022-07-29 07:25 | NUR ---
MS RN OPENING NOTE - PT ON CLINICAL TRIAL RECEIVED PATIENT IN BED, SITTING, PT IS ALERT AND ORIENTED X 4, CALM. COOPERATIVE, ABLE TO MAKE NEEDS KNOWN. STABLE ON ROOM AIR, WITHOUT ANY RESPIRATORY DIFFICULTY, RESPIRATORY DISTRESS NOTED. DENIES ANY PAIN OR DISCOMFORT AT THIS TIME. SAFETY MEASURES IN PLACE: BED IN LOWEST AND LOCKED POSITION, SIDE RAILS UP X 2, CALL LIGHT AND TRAY TABLE WITHIN EASY REACH. WILL CONTINUE TO MONITOR THROUGHOUT THE SHIFT.
[2022-07-29] MEDS: LOSARTAN 25 MG PO SCH (08:13)
[2022-07-29] MEDS: HYDROCHLOROTHIAZIDE 25 MG PO SCH (08:13)
[2022-07-29] MEDS: METFORMIN 500 MG PO SCH ×2 (08:14→17:08)
[2022-07-29] MEDS: INVESTIGATIONAL MED RVP -30-001 PO SCH (08:53)
[2022-07-29] MEDS ORDERED: INVEST MED CVL-231-2002 PO SCH (10:00)
--- NOTE | 2022-07-29 11:00 | NUR ---
RN NOTES - HAND OFF GIVEN TO SOFYA BENAVIDES.
--- NOTE | 2022-07-29 11:05 | NUR ---
RN NOTES RECEIVED PT ENDORSEMENT REPORT FROM SOFYA LEONARD.
[2022-07-29 16:00] VITALS: BP 105/64
--- NOTE | 2022-07-29 18:39 | NUR ---
RN MS NOTES PT AWAKE, ALERT AND ORIENTED, IN HER ROOM, TOOK HER PM MEDS ORDERED, ATE DINNER, WATCHING TV, NO BEHAVIOR PROBLEM NOTED AT THIS TIME, NEEDS ATTENDED.
[2022-07-29] MEDS: LORAZEPAM 1 MG TABLET FOR AGITATION PO PRN (18:54)
--- NOTE | 2022-07-29 19:30 | NUR ---
MS RN OPENING NOTES RECEIVED PATIENT IN BED AWAKE RESTING, WATCHING TELEVISION. ALTER AND ORIENTED. NO PROBLEMS OF BEHAVIOR AT THIS TIME.
[2022-07-29 20:00] VITALS: BP 114/63
[2022-07-30 07:00] VITALS: BP 111/85
--- NOTE | 2022-07-30 07:07 | NUR ---
MS RN CLOSING NOTES PATIENT IN BED SLEEPING, EASILY AWAKEN WHEN CALLED BY NAME. PATIENT IS COOPERATIVE NO CHANGES IN [place] THROUGH OUT THE NIGHT. WILL ENDORSE TO NEXT SHIFT FOR CONTINUITY OF CARE.
--- NOTE | 2022-07-30 07:30 | NUR ---
MS RN OPENING NOTES RECEIVED PATIENT IN AWAKE IN BED. A/O X 4, ABLE TO MAKE NEEDS KNOWN. NO C/O PAIN/DISCOMFORT AT THIS TIME. NO IV ACCESS. ON ROOM AIR, TOLERATING WELL. SAFETY MEASURES IN PLACE: BED IN LOCKED AND LOWEST POSITION, SIDE RAILS X 2, TRAY TABLE AND CALL LIGHT WITHIN EASY REACH. WILL CONTINUE TO MONITOR.
[2022-07-30] MEDS: INVESTIGATIONAL MED RVP -30-001 PO SCH (07:51)
[2022-07-30 08:00] VITALS: BP 111/85
[2022-07-30] MEDS: LOSARTAN 25 MG PO SCH (08:11)
[2022-07-30] MEDS: HYDROCHLOROTHIAZIDE 25 MG PO SCH (08:11)
[2022-07-30] MEDS: METFORMIN 500 MG PO SCH ×2 (08:11→16:47)
[2022-07-30 15:21] VITALS: BP 129/69
[2022-07-30 16:00] VITALS: BP 129/69
--- NOTE | 2022-07-30 18:36 | NUR ---
MS RN CLOSING NOTES PATIENT RESTING IN BED. A/O X 4, ABLE TO MAKE NEEDS KNOWN. NO C/O PAIN/DISCOMFORT WITHIN THE SHIFT. NO IV ACCESS. ON ROOM AIR, TOLERATED WELL. NEEDS ATTENDED. NO CHANGES IN BEHAVIOR NOTED. SAFETY MEASURES IN PLACE: BED IN LOCKED AND LOWEST POSITION, SIDE RAILS X 2, TRAY TABLE AND CALL LIGHT WITHIN EASY REACH. WILL ENDORSE PJ TO TUBE MAN.
[2022-07-30] MEDS: LORAZEPAM 1 MG TABLET FOR AGITATION PO PRN (19:29)
--- NOTE | 2022-07-30 19:30 | NUR ---
MS RN OPENING NOTE RECEIVED PATIENT IN ROOM, RESTING IN BED. A/Ox4, ABLE TO MAKE NEEDS KNOWN. STABLE ON ROOM AIR NO S/S OF RESPIRATORY DISTRESS. AMBULATORY, NO S/S OF PAIN OR DISCOMFORT. PATIENT CLINICAL TRIAL NO IV ACCESS. PATIENT REQUESTED ATIVAN. ATIVAN 1 MG PO GIVEN FOR ANXIETY AT 1929 PER PATIENT'S REQUEST. ALL SAFETY MEASURES MAINTAINED: BED LOCKED AND IN LOWEST POSITION, SIDE RAILS UPx2, CALL LIGHT ON BED WITHIN REACH. WILL CONTINUE TO MONITOR CLOSELY.
[2022-07-30 20:00] VITALS: BP 97/71
[2022-07-31 07:00] VITALS: BP 131/74
--- NOTE | 2022-07-31 07:05 | NUR ---
MS RN CLOSING NOTE PATIENT IN ROOM, RESTING IN BED. A/Ox4, ABLE TO MAKE NEEDS KNOWN. STABLE ON ROOM AIR NO S/S OF RESPIRATORY DISTRESS. AMBULATORY, NO S/S OF PAIN OR DISCOMFORT. PATIENT CLINICAL TRIAL NO IV ACCESS.ALL SAFETY MEASURES MAINTAINED: BED LOCKED AND IN LOWEST POSITION, SIDE RAILS UPx2, CALL LIGHT ON BED WITHIN REACH. WILL ENDORSE FOR PJ.
[2022-07-31] MEDS: INVESTIGATIONAL MED RVP -30-001 PO SCH (08:01)
[2022-07-31] MEDS: HYDROCHLOROTHIAZIDE 25 MG PO SCH (08:01)
[2022-07-31] MEDS: LOSARTAN 25 MG PO SCH (08:01)
[2022-07-31] MEDS: METFORMIN 500 MG PO SCH ×2 (08:01→17:59)
[2022-07-31 16:00] VITALS: BP 133/70
--- NOTE | 2022-07-31 18:48 | NUR ---
MS RN CLOSING NOTE PATIENT IN ROOM, RESTING IN BED. A/Ox4, ABLE TO MAKE NEEDS KNOWN. STABLE ON ROOM AIR NO S/S OF RESPIRATORY DISTRESS. AMBULATORY, NO S/S OF PAIN OR DISCOMFORT. ALL DUE MEDS GIVEN ORDERED , PATIENT CLINICAL TRIAL NO IV ACCESS.ALL SAFETY MEASURES MAINTAINED: BED LOCKED AND IN LOWEST POSITION, SIDE RAILS UPx2, CALL LIGHT ON BED WITHIN REACH. WILL ENDORSE FOR PJ.
--- NOTE | 2022-07-31 19:40 | NUR ---
noc rn opening Patient came back in unit at this time. no s/s of apparent distress on room air. introduced myself and encouraged patient to verbalized needs and concerns. asking for her Ativan at this time. will continue to monitor.
[2022-07-31] MEDS: LORAZEPAM 1 MG TABLET FOR AGITATION PO PRN (19:46)
--- NOTE | 2022-07-31 19:46 | NUR ---
noc rn opening Patient requested for her Ativan. given at this time as ordered PRN for anxiety.
[2022-07-31 20:00] VITALS: BP 120/76
[2022-08-01 07:00] VITALS: BP 146/77
--- NOTE | 2022-08-01 07:39 | NUR ---
noc rn note needs attended. report given to SOFYA Praada for continuity of patient care.
--- NOTE | 2022-08-01 08:05 | NUR ---
MS RN OPENING NOTE RECEIVED PATIENT IN AWAKE IN BED. A/O X 4, ABLE TO MAKE NEEDS KNOWN. NO C/O PAIN/DISCOMFORT AT THIS TIME. NO IV ACCESS. ON ROOM AIR, TOLERATING WELL. SAFETY MEASURES IN PLACE: BED IN LOCKED AND LOWEST POSITION, SIDE RAILS X 2, TRAY TABLE AND CALL LIGHT WITHIN EASY REACH. WILL CONTINUE TO MONITOR PER DANNIE'S POC.
[2022-08-01] MEDS: INVESTIGATIONAL MED RVP -30-001 PO SCH (08:09)
[2022-08-01] MEDS: METFORMIN 500 MG PO SCH ×2 (08:10→17:34)
[2022-08-01] MEDS: HYDROCHLOROTHIAZIDE 25 MG PO SCH (08:10)
[2022-08-01] MEDS: LOSARTAN 25 MG PO SCH (08:10)
[2022-08-01 10:52] VITALS: BP 146/77
[2022-08-01 16:00] VITALS: BP 116/69
--- NOTE | 2022-08-01 18:48 | NUR ---
MS RN CLOSING NOTE PATIENT IN ROOM, RESTING IN BED. A/O x 4, ABLE TO MAKE NEEDS KNOWN. STABLE ON ROOM AIR NO S/S OF RESPIRATORY DISTRESS. AMBULATORY, NO S/S OF PAIN OR DISCOMFORT. ALL DUE MEDS GIVEN ORDERED. PATIENT ON CLINICAL TRIAL. NO IV ACCESS. ALL SAFETY MEASURES MAINTAINED: BED LOCKED AND IN LOWEST POSITION, SIDE RAILS UP x 2, CALL LIGHT ON BED WITHIN REACH. WILL ENDORSE TO DIRECTOR OF SEARCH ENGINE MARKETING NURSE, ELIZA, FOR PJ.
--- NOTE | 2022-08-01 19:30 | NUR ---
noc rn opening Patient in her room, sleeping. no s/s of apparent distress on room air. introduced myself and encouraged patient to verbalized needs and concerns. no needs at this time. will continue to monitor.
[2022-08-01 20:00] VITALS: BP_SYST 115; BP_SYST 119; BP_DIAS 100; BP_DIAS 68
[2022-08-01] MEDS: LORAZEPAM 1 MG TABLET FOR AGITATION PO PRN (21:54)
--- NOTE | 2022-08-01 21:55 | NUR ---
noc rn note Patient request for Ativen at this time.Given Ativan as ordered PRN for anxiety.
--- NOTE | 2022-08-02 07:24 | NUR ---
MS RN OPENING NOTE RECEIVED PATIENT IN AWAKE IN BED AWAKE, PATIENT IS ALERT AND ORIENTED X 4, ABLE TO MAKE NEEDS KNOWN. ON ROOM AIR WITH EQUAL AND UNLABORED BREATHING. NO C/O PAIN/DISCOMFORT AT THIS TIME. NO IV ACCESS. SAFETY MEASURES IN PLACE WITH BED IN LOWEST LOCKED POSITION, SIDE RAILS UP, AND ALARM ON, CALL LIGHT WITHIN EASY REACH. WILL CONTINUE WITH PLAN OF CARE.
--- NOTE | 2022-08-02 07:28 | NUR ---
noc rn closing note needs attended. Report given to Chelsea, for continuity of patient care.
[2022-08-02] MEDS: INVESTIGATIONAL MED RVP -30-001 PO SCH (08:02)
[2022-08-02] MEDS: HYDROCHLOROTHIAZIDE 25 MG PO SCH (08:07)
[2022-08-02] MEDS: LOSARTAN 25 MG PO SCH (08:07)
[2022-08-02] MEDS: METFORMIN 500 MG PO SCH ×2 (08:07→16:47)
[2022-08-02 16:24] VITALS: BP 128/70
--- NOTE | 2022-08-02 19:00 | NUR ---
MS RN CLOSING NOTE PATIENT IS ALERT AND ORIENTED X 4, ABLE TO MAKE NEEDS KNOWN. ON ROOM AIR WITH EQUAL AND UNLABORED BREATHING. NO C/O PAIN/DISCOMFORT AT THIS TIME. NO IV ACCESS. SAFETY MEASURES IN PLACE WITH BED IN LOWEST LOCKED POSITION, SIDE RAILS UP, AND ALARM ON, CALL LIGHT WITHIN EASY REACH. WILL ENDORSE TO NEXT SHIFT FOR CONTINUITY OF CARE.
--- NOTE | 2022-08-02 19:30 | NUR ---
MS RN OPENING NOTE RECEIVED PATIENT FROM AM NURSE; PATIENT IS ALERT AND ORIENTED X 4, ABLE TO CONVERSE AND MAKE NEEDS KNOWN; ON CLINICAL TRIAL; STABLE ON ROOM AIR, TOLERATING WELL AND NO RESPIRATORY DISTRESS NOTED; NO COMPLAINTS OF PAIN OR DISCOMFORT AT THIS TIME; ENCOURAGED VERBALIZATION OF NEEDS; SAFETY MEASURES IMPLEMENTED, BED IN LOW POSITION, LOCKED, SIDE RAILS UP X 2, CALL LIGHT WITHIN EASY REACH; WILL CONTINUE TO MONITOR THROUGHOUT SHIFT
[2022-08-02] MEDS: LORAZEPAM 1 MG TABLET FOR AGITATION PO PRN (19:54)
[2022-08-02 20:00] VITALS: BP 119/65
--- NOTE | 2022-08-03 06:47 | NUR ---
MS RN CLOSING NOTE PATIENT IS ALERT AND ORIENTED X 4, ABLE TO CONVERSE AND MAKE NEEDS KNOWN; ON CLINICAL TRIAL; STABLE ON ROOM AIR, TOLERATING WELL AND NO RESPIRATORY DISTRESS NOTED; NO COMPLAINTS OF PAIN OR DISCOMFORT AT THIS TIME; ADMINISTERED MEDICATIONS PRESCRIBED; PATIENT'S NEEDS ATTENDED; SAFETY MEASURES IMPLEMENTED, BED IN LOW POSITION, LOCKED, SIDE RAILS UP X 2, CALL LIGHT WITHIN EASY REACH; WILL ENDORSE TO AM NURSE FOR PJ.
--- NOTE | 2022-08-03 07:20 | NUR ---
MS/CLINICAL TRIAL RN OPENING NOTES: RECEIVED PATIENT IN BED AWAKE, PREPARING TO GET OUT TO SMOKE. PT ALERT AND ORIENTED X 4 AND ABLE TO MAKE NEEDS KNOWN. NO SOB OR CARDIAC DISTRESS NOTED.NO IV ACCESS NOTED. SAFETY MEASURES MAINTAINED: BED LOCKED AND IN LOWEST POSITION, SIDE RAILS UP X 2, CALL LIGHT IN EASY REACH AND WILL MONITOR PT ACCORDINGLY. NO BEHAVIORAL CHANGES NOTED AND ENDORSED FROM BISQUE BRUSHER.
[2022-08-03 08:12] VITALS: BP 115/67
[2022-08-03] MEDS: INVESTIGATIONAL MED RVP -30-001 PO SCH (08:26)
[2022-08-03] MEDS: HYDROCHLOROTHIAZIDE 25 MG PO SCH (08:26)
[2022-08-03] MEDS: LOSARTAN 25 MG PO SCH (08:27)
[2022-08-03] MEDS: METFORMIN 500 MG PO SCH ×2 (08:27→16:58)
[2022-08-03] MEDS ORDERED: ZOLPIDEM TARTRATE 10 MG TABLET PO PRN (12:00)
[2022-08-03 16:24] VITALS: BP 150/72
--- NOTE | 2022-08-03 18:52 | NUR ---
CLINICAL TRIAL RN CLOSING NOTES: PATIENT IN BED AWAKE,ALERT AND ORIENTED X 4 AND ABLE TO MAKE NEEDS KNOWN.NO SOB OR CARDIAC DISTRESS NOTED. NO IV ACCESS NOTED. PATIENT AMBULATORY AND USING HER ELECTRONIC CHAIR WHENEVER GOING OUT.SAFETY MEASURES MAINTAINED: BED LOCKED AN IN LOWEST POSITION, SIDE RAILS UP X 2 CALL LIGHT IN EASY REACH FOR HELP.NO CHANGES IN BEHAVIOR NOTED ALL THROUGH OUT OUR SHIFT. VITAL SIGNS WITHIN NORMAL LIMITS.ENDORSED TO ENGRAVER [employer] RN FOR CONTINUITY OF CARE.
--- NOTE | 2022-08-03 19:35 | NUR ---
MS CLINICAL TRIAL RN NOTES RECEIVED LYING ON BED A/O X4,VERBALIZED NEEDS,AMBULATE WITH MOTORIZED CHAIR.WILL CONTINUE TO MONITOR BEHAVIOR,CALL LIGHT IN REACH,NEEDS ANTICIPATED.
[2022-08-03 20:00] VITALS: BP 110/62
--- NOTE | 2022-08-04 06:37 | NUR ---
MS CLINICAL TRIAL RN NOTES PATIENT WAS NPO ON 08/02 FOR BLOOD DRAW ON THE 08/03 BUT IT WASNT DONE.PER PATIENT,SHE DOESNT NEED TO BE NPO LAST NIGHT BUT HOLD AMBIEN AND LORAZEPAM.FOR BLOOD DRAW TODAY BY [facility].ACCORDING TO [facility],SPECIMEN BOTTLE IS DIFFERENT FROM LAB OUTSIDE BECAUSE THEY HAVE THEIR OWN CODE.WILL FOLLOW WITH THIS MORNING FOR FURTHER CLARIFICATION.WILL ENDORSE TO KENNED[facility] COWART FOR PJ.
--- NOTE | 2022-08-04 07:30 | NUR ---
RN MS NOTES PT IN HER ROOM, AWAKE, ALERT AND ORIENTED, NO COMPLAINT OF PAIN OR ANY DISCOMFORT, NO BEHAVIOR PROBLEM NOTED.
[2022-08-04 08:00] VITALS: BP 125/78
[2022-08-04] MEDS: HYDROCHLOROTHIAZIDE 25 MG PO SCH (08:19)
[2022-08-04] MEDS: METFORMIN 500 MG PO SCH ×2 (08:20→17:19)
[2022-08-04] MEDS: LOSARTAN 25 MG PO SCH (08:20)
[2022-08-04] MEDS: INVESTIGATIONAL MED RVP -30-001 PO SCH (08:20)
--- NOTE | 2022-08-04 18:10 | NUR ---
RN MS NOTES PT IN HER ROOM EATING DINNER, NO COMPLAINT AT THIS TIME, NO BEHAVIOR PROBLEM NOTED, COMPLIANT WITH MEDICATION REGIMEN.
[2022-08-04] MEDS: LORAZEPAM 1 MG TABLET FOR AGITATION PO PRN (18:37)
--- NOTE | 2022-08-04 19:45 | NUR ---
MS CLINICAL TRIAL RN NOTES IN ROOM THIS TIME,A/O X4,VERBALIZED NEEDS,NO BEHAVIORAL PROBLEMS NOTED.WILL CONTINUE TO MONITOR BEHAVIOR.
[2022-08-04 20:00] VITALS: BP 105/59
--- NOTE | 2022-08-05 06:22 | NUR ---
MS CLINICAL TRIAL RN NOTES SLEPT WELL AT NIGHT.NO BEHAVIORAL PROBLEM NOTED.ENDORSED
--- NOTE | 2022-08-05 07:03 | NUR ---
MS RN OPENING NOTES RECEIVED PATIENT AWAKE IN BED, A/Ox4. ON ROOM AIR NO S/S OF RESPIRATORY DISTRESS. PATIENT CLINICAL TRIAL NO IV ACCESS. AMBULATORY, HAS BATHROOM PRIVILEGE. SKIN INTACT. SAFETY MEASURES IN PLACE: BED LOCKED AND IN LOWEST POSITION, HOB ELEVATED, CALL LIGHT WITHIN REACH, SIDE RAILS UPx2. WILL CONTINUE TO MONITOR.
[2022-08-05 08:00] VITALS: BP 117/70
[2022-08-05] MEDS: LOSARTAN 25 MG PO SCH (08:21)
[2022-08-05] MEDS: METFORMIN 500 MG PO SCH ×2 (08:21→17:55)
[2022-08-05] MEDS: INVESTIGATIONAL MED RVP -30-001 PO SCH (08:21)
[2022-08-05] MEDS: HYDROCHLOROTHIAZIDE 25 MG PO SCH (08:21)
--- NOTE | 2022-08-05 18:45 | NUR ---
MS RN CLOSING NOTES PATIENT AWAKE IN BED, A/Ox4. STABLE ON ROOM AIR NO S/S OF RESPIRATORY DISTRESS. PATIENT CLINICAL TRIAL NO IV ACCESS. AMBULATORY, HAS BATHROOM PRIVILEGE. SKIN INTACT. ALL DUE MEDICATION ADMINISTERED. SAFETY MEASURES MAINTAINED: BED LOCKED AND IN LOWEST POSITION, HOB ELEVATED, CALL LIGHT WITHIN REACH, SIDE RAILS UPx2. WILL ENDORSE TO NEXT SHIFT ANY PJ.
--- NOTE | 2022-08-05 19:12 | NUR ---
RN MS OPENING NOTES RECEIVED PATIENT ON BED, AWAKE AND COHERENT. A/O X 4. ON CLINICAL TRIAL NO CONTRAPTIONS NOTED. WITH STABLE VITAL SIGNS. ON MODERATE HIGH BACK REST POSITION. NO PAIN OR ANY DISCOMFORT NOTED AT THIS TIME. KEPT BED ON LOWER LOCKED POSITION, KEPT SIDE RAILS UP X 2 ALL THE TIME. KEPT CALL LIGHT WITHIN AT REACH. WILL CONTINUE TO MONITOR.
[2022-08-05] MEDS: LORAZEPAM 1 MG TABLET FOR AGITATION PO PRN (19:16)
[2022-08-05 20:31] VITALS: BP 112/66
--- NOTE | 2022-08-06 06:32 | NUR ---
RN MS CLOSING NOTES PATIENT IS IN BED AWAKE, ON MODERATE HIGH BACK REST POSITION. ON CLINICAL TRIAL. NO CONTRAPTIONS NOTED. AMBULATORY WITH ELECTRIC WHEELCHAIR. NO BEHAVIORAL CHANGES NOTED. NO PAIN OR ANY DISCOMFORT AT THIS TIME. ALL DUE MEDICATIONS GIVEN AND ALL NEEDS ATTENDED, KEPT BED ON LOWER LOCKED POSITION. KEPT SIDE RAILS UP X 2 ALL THE TIME. KEPT CALL LIGHT WITHIN AT REACH. WILL ENDORSED TO AM SHIFT FOR PJ
--- NOTE | 2022-08-06 07:30 | NUR ---
RN OPENING NOTE- PATIENT ON BED, AWAKE AND ORIENTED. A/O X 4. ON CLINICAL TRIAL . WITH STABLE VITAL SIGNS. NO PAIN OR ANY DISCOMFORT NOTED AT THIS TIME. KEPT BED ON LOWER LOCKED POSITION, KEPT SIDE RAILS UP X 2 ALL THE TIME. KEPT CALL LIGHT WITHIN AT REACH. WILL CONTINUE TO MONITOR.
[2022-08-06] MEDS: INVESTIGATIONAL MED RVP -30-001 PO SCH (07:53)
[2022-08-06 08:00] VITALS: BP 124/73
[2022-08-06] MEDS: METFORMIN 500 MG PO SCH ×2 (08:00→16:29)
[2022-08-06] MEDS: LOSARTAN 25 MG PO SCH (08:00)
[2022-08-06] MEDS: HYDROCHLOROTHIAZIDE 25 MG PO SCH (08:00)
--- NOTE | 2022-08-06 18:36 | NUR ---
RN CLOSING NOTE- PATIENT IN KONG IN WCR, , AWAKE AND ORIENTED. A/O X 4. ON CLINICAL TRIAL . WITH STABLE VITAL SIGNS. NO EPS, NO ANXIETY, DENIES SI HI AH VH, NO PAIN OR ANY DISCOMFORT NOTED AT THIS TIME. KEPT BED ON LOWER LOCKED POSITION, KEPT SIDE RAILS UP X 2 ALL THE TIME. KEPT CALL LIGHT WITHIN AT REACH. WILL CONTINUE TO MONITOR.
--- NOTE | 2022-08-06 19:30 | NUR ---
RN OPENING NOTE RECEIVED PATIENT IN BED; AWAKE, A/O x 4. ON ROOM AIR; TOLERATING WELL WITH NO S/S OF RESPIRATORY OR CARDIAC DISTRESS. ON CLINICAL TRIAL. NO IV ACCESS. DENIES ANY PAIN OR DISCOMFORT AT THIS TIME. ABLE TO MAKE NEEDS KNOWN. SAFETY PRECAUTIONS IMPLEMENTED: CALL LIGHT AND TABLE WITHIN REACH, SIDE RAILS UP X 2, BED IN LOWEST LOCKED POSITION. WILL CONTINUE PLAN OF CARE.
[2022-08-06] MEDS: LORAZEPAM 1 MG TABLET FOR AGITATION PO PRN (19:53)
[2022-08-06 20:00] VITALS: BP 118/73
[2022-08-06 20:49] VITALS: BP 118/73
--- NOTE | 2022-08-07 06:35 | NUR ---
RN CLOSING NOTE PATIENT IN BED; AWAKE, A/O x 4. STABLE ON ROOM AIR. IN NO ACUTE DISTRESS. ON CLINICAL TRIAL. NO IV ACCESS. DENIES ANY PAIN OR DISCOMFORT. ALL DUE MED GIVEN ORDERED. SAFETY MEASURES MAINTAINED : CALL LIGHT AND TABLE WITHIN REACH, SIDE RAILS UP X 2, BED IN LOWEST LOCKED POSITION. ENDORSED TO MORNING SHIFT FOR PJ.
[2022-08-07 07:00] VITALS: BP 108/72
--- NOTE | 2022-08-07 07:40 | NUR ---
MS (CT) RN OPENING NOTE PATIENT IN BED, AWAKE AND ORIENTED. A/O X 4. ON CLINICAL TRIAL . WITH STABLE VITAL SIGNS. NO PAIN OR ANY DISCOMFORT NOTED AT THIS TIME. KEPT BED ON LOWER LOCKED POSITION, SIDE RAILS UP X 2. CALL LIGHT WITHIN PATIENT'S REACH. WILL CONTINUE TO MONITOR AND CARE FOR PATIENT PER MD POC.
[2022-08-07] MEDS: INVESTIGATIONAL MED RVP -30-001 PO SCH (08:08)
[2022-08-07] MEDS: LOSARTAN 25 MG PO SCH (08:08)
[2022-08-07] MEDS: METFORMIN 500 MG PO SCH ×2 (08:08→17:00)
[2022-08-07] MEDS: HYDROCHLOROTHIAZIDE 25 MG PO SCH (08:08)
--- NOTE | 2022-08-07 19:30 | NUR ---
MS RN CLOSING NOTE (DAYSHIFT) PATIENT IN ROOM AND KONG, AWAKE AND ORIENTED X 4. ON CLINICAL TRIAL . WITH STABLE VITAL SIGNS. NO EPS, NO ANXIETY, DENIES SI, HI, AH, VH. PT HAS NO PAIN NOR ANY DISCOMFORT NOTED AT THIS TIME. KEPT BED ON LOWER LOCKED POSITION, KEPT SIDE RAILS UP X 2 ALL THE TIME. KEPT CALL LIGHT WITHIN PT'S REACH. ENDORSED TO NIGHT RNRITESH, FOR PJ.
[2022-08-07 20:00] VITALS: BP 110/75
[2022-08-07] MEDS: LORAZEPAM 1 MG TABLET FOR AGITATION PO PRN (20:23)
--- NOTE | 2022-08-08 04:58 | NUR ---
CLOSING NOTES: ALERT AND ORIENTATED X4 LAUGHING AND JOKING LAST NIGHT IN [employer] TAB 1 GIVEN ORDERED PRN SLEPT 8 HOURS
[2022-08-08 07:00] VITALS: BP 121/83
--- NOTE | 2022-08-08 07:30 | NUR ---
RN MS NOTES PT IN BED, AWAKE, ALERT AND ORIENTED, NO COMPLAINT OF PAIN, RESPIRATIONS NORMAL, CALL LIGHT WITHIN REACH, COMPLIANT WITH MEDS.
[2022-08-08] MEDS: HYDROCHLOROTHIAZIDE 25 MG PO SCH (08:12)
[2022-08-08] MEDS: INVESTIGATIONAL MED RVP -30-001 PO SCH (08:12)
[2022-08-08] MEDS: METFORMIN 500 MG PO SCH ×2 (08:13→16:23)
[2022-08-08] MEDS: LOSARTAN 25 MG PO SCH (08:13)
--- NOTE | 2022-08-08 18:07 | NUR ---
RN MS NOTES PT IN HER ROOM, AWAKE, ALERT AND ORIENTED, NO COMPLAINT AT THIS TIME, COMPLIANT WITH MEDICATION, NO BEHAVIOR PROBLEM NOTED.
--- NOTE | 2022-08-08 19:28 | NUR ---
RN OPENING NOTES RECEIVED PATIENT IN BED, AWAKE AND COHERENT. A/O X 4. ABLE TO VERBALIZED CONCERNS. NO CONTRAPTIONS ATTACHED. PATIENT USES ELECTRIC WHEELCHAIR WHEN AMBULATING. PATIENT IS UNDER CLINICAL TRIAL. NO S/S OF PAIN OR DISCOMFORT AT THIS TIME. NO BEHAVIORAL CHANGES NOTED AT THIS MOMENT. KEPT PATIENT WARM AND COMFORTABLE. KEPT BED ON LOWER LOCKED POSITION. KEPT SIDE RAILS UP X 2 ALL THE TIME.WILL CONTINUE TO MONITOR FOR ANY BEHAVIORAL CHANGES
[2022-08-08 20:00] VITALS: BP 106/64
[2022-08-08] MEDS: LORAZEPAM 1 MG TABLET FOR AGITATION PO PRN (20:53)
--- NOTE | 2022-08-09 06:23 | NUR ---
RN CR CLOSING NOTES PATIENT IS IN BED AWAKE AND COHERENT. ON CLINICAL TRIAL. NO CONTRAPTIONS NOTED, USES ELECTRIC WILL CHAIR. NO SIGNS OF PAIN OR DISCOMFORT AT THIS TIME. NO BEHAVIORAL CHANGES NOTED. ALL DUE MEDICATIONS GIVEN AND ALL NEEDS ATTENDED. SAFETY MEASURES IN PLACED. KEPT BED ON LOWER LOCKED POSITION KEPT SIDE RAILS UP X 2 ALL THE TIME. KEPT PATIENT WARM AND COMFORTABLE. WILL ENDORSED TO AM SHIFT FOR PJ.
[2022-08-09 07:00] VITALS: BP 128/72
--- NOTE | 2022-08-09 07:50 | NUR ---
RN OPENING NOTE RECEIVED PATIENT IN BED AO x 4, ABLE TO RESPONDS PHYSICAL STIMULI. RESPIRATORY EVEN AND UNLABORED IN ROOM AIR. IN NO ACUTE RESPIRATORY DISTRESS OBSERVED, NO SI/HI OBSERVED ALSO. SKIN IS WARM TO TOUCH, KEEP CLEAN/DRY. CALL LIGHT WITHIN REACH, WILL CONTINUE TO MONITOR.
[2022-08-09] MEDS: INVESTIGATIONAL MED RVP -30-001 PO SCH (07:58)
[2022-08-09] MEDS: METFORMIN 500 MG PO SCH ×2 (07:59→19:23)
[2022-08-09] MEDS: LOSARTAN 25 MG PO SCH (07:59)
[2022-08-09] MEDS: HYDROCHLOROTHIAZIDE 25 MG PO SCH (07:59)
--- NOTE | 2022-08-09 18:49 | NUR ---
RN CLOSING NOTE PATIENT REMAINS AO X 4. IN NO ACUTE DISTRESS OBSERVED. RESPIRATORY EVEN AND UNLABORED IN ROOM AIR, NO SOB OR DESATURATION NOTED. SKIN IS WARM TO TOUCH KEEP CLEAN/DRY. NO SI/HI OBSERVED DURING DAY SHIFT. KEPT ELEVATED HOB FOR ENSURE AIRWAY/ASPIRATION PRECAUTION, AND LOWEST BED POSITION. BED ALARM IS ON AT ALL THE TIME FOR SAFETY. CALL LIGHT WITHIN REACH, WILL ENDORSE BORING MILL SET UP OPERATOR VERTICAL.
--- NOTE | 2022-08-09 19:06 | NUR ---
THE PATIENT SUPPOSED TO TAKE METFORMIN AT 1700, HOWEVER, UNABLE TO GIVE DUE TO PATIENT DID NOT COME BACK FROM OUTSIDE. REPORTED INCOMING NURSE WHO WILL ADMINISTER METFORMIN.
--- NOTE | 2022-08-09 19:15 | NUR ---
MS RN OPENING NOTE PATIENT IS ALERT AND ORIENTED X 4, ABLE TO CONVERSE AND MAKE NEEDS KNOWN; ON CLINICAL TRIAL; STABLE ON ROOM AIR, TOLERATING WELL AND NO RESPIRATORY DISTRESS NOTED; NO COMPLAINTS OF PAIN OR DISCOMFORT AT THIS TIME; ENCOURAGED VERBALIZATION OF NEEDS; SAFETY MEASURES IN PLACE, BED IN LOW POSITION, LOCKED, SIDE RAILS UP X 2, CALL LIGHT WITHIN EASY REACH; WILL CONTINUE TO MONITOR THROUGHOUT SHIFT
--- NOTE | 2022-08-09 19:31 | NUR ---
MS RN NOTE PER AM NURSE, PATIENT WAS OUT OF THE HOSPITAL FOR QUITE SOME TIME. PATIENT CAME BACK AT 1915H. ADMINISTERED METFORMIN AT 1923H.
[2022-08-09 20:00] VITALS: BP 127/67
--- NOTE | 2022-08-10 06:39 | NUR ---
MS RN CLOSING NOTE PATIENT IS ALERT AND ORIENTED X 4, ABLE TO CONVERSE AND MAKE NEEDS KNOWN; ON CLINICAL TRIAL; STABLE ON ROOM AIR, TOLERATING WELL AND NO RESPIRATORY DISTRESS NOTED; NO COMPLAINTS OF PAIN OR DISCOMFORT AT THIS TIME; ADMINISTERED MEDICATIONS PRESCRIBED; PATIENT'S NEEDS ATTENDED; SAFETY MEASURES IN PLACE, BED IN LOW POSITION, LOCKED, SIDE RAILS UP X 2, CALL LIGHT WITHIN REACH; WILL ENDORSE TO AM NURSE FOR PJ.
--- NOTE | 2022-08-10 07:26 | NUR ---
MS RN OPENING NOTES RECEIVED PATIENT AWAKE AND RESTING IN BED. A/O X4. ABLE TO MAKE NEEDS KNOWN. ON ROOM AIR, TOLERATING WELL, NO S/S OF RESPIRATORY DISTRESS NOTED. PATIENT ON CLINICAL TRIAL. NO IV ACCESS PER CT POLICY. SKIN INTACT. SAFETY MEASURES IN PLACE: BED LOCKED AND IN LOWEST POSITION, CALL LIGHT WITHIN REACH OF PT, SIDE RAILS UPx2. WILL CONTINUE TO MONITOR PT ACCORDINGLY.
[2022-08-10] MEDS: INVESTIGATIONAL MED RVP -30-001 PO SCH (07:58)
[2022-08-10] MEDS: METFORMIN 500 MG PO SCH ×2 (10:53→16:13)
[2022-08-10] MEDS: HYDROCHLOROTHIAZIDE 25 MG PO SCH (10:54)
[2022-08-10] MEDS: LOSARTAN 25 MG PO SCH (10:54)
[2022-08-10] MEDS ORDERED: ZOLPIDEM TARTRATE 10 MG TABLET PO PRN (12:00)
[2022-08-10 16:00] VITALS: BP 127/100
--- NOTE | 2022-08-10 18:36 | NUR ---
MS RN CLOSING NOTES PATIENT AWAKE IN BED AT THIS TIME. A/O X4. STABLE ON ROOM AIR, NO S/S OF ACUTE RESPIRATORY DISTRESS NOTED. PATIENT ON CLINICAL TRIAL, NO INAPPROPRIATE BEHAVIOR EXHIBITED OBSERVED DURING SHIFT. NO IV ACCESS PER CT PROTOCOL. AMBULATORY WITH BATHROOM PRIVILEGE. USES HER MOTORIZED WHEELCHAIR TO GO OUT. SKIN INTACT. ALL DUE MEDICATIONS ADMINISTERED ORDERED AND TOLERATED WELL. SAFETY MEASURES MAINTAINED: BED LOCKED AND IN LOWEST POSITION, CALL LIGHT WITHIN REACH AND SIDE RAILS UP X2. WILL ENDORSE POC TO NEXT SHIFT NURSE.
--- NOTE | 2022-08-10 19:35 | NUR ---
TELERN NOT IN HER ROOM. AT THIS TIME
[2022-08-10 20:00] VITALS: BP 107/55
--- NOTE | 2022-08-10 20:10 | NUR ---
TELERN BACK TO ROOM, DENIES ANY DISCOMFORTS. ALL NEEDS ATTENDED.
[2022-08-10] MEDS: LORAZEPAM 1 MG TABLET FOR AGITATION PO PRN (20:11)
--- NOTE | 2022-08-11 06:35 | NUR ---
TELERN REMAINS UNCHANGED, CLOSELY WATCHED
--- NOTE | 2022-08-11 07:18 | NUR ---
MS RN OPENING NOTE RECEIVED PATIENT A/O X4. ABLE TO MAKE NEEDS KNOWN. ON ROOM AIR, TOLERATING WELL, NO S/S OF RESPIRATORY DISTRESS NOTED. PATIENT ON CLINICAL TRIAL. NO IV ACCESS PER CT POLICY. SKIN INTACT. SAFETY MEASURES IN PLACE: BED LOCKED AND IN LOWEST POSITION, CALL LIGHT WITHIN REACH OF PT, SIDE RAILS UPx2. WILL CONTINUE WITH PLAN OF CARE.
[2022-08-11] MEDS: INVESTIGATIONAL MED RVP -30-001 PO SCH (07:59)
[2022-08-11 08:00] VITALS: BP 136/70
[2022-08-11] MEDS: METFORMIN 500 MG PO SCH ×2 (08:00→17:39)
[2022-08-11] MEDS: HYDROCHLOROTHIAZIDE 25 MG PO SCH (08:00)
[2022-08-11] MEDS: LOSARTAN 25 MG PO SCH (08:00)
--- NOTE | 2022-08-11 19:10 | NUR ---
MS RN CLOSING NOTE PATIENT A/O X4. ABLE TO MAKE NEEDS KNOWN. ON ROOM AIR, TOLERATING WELL, NO S/S OF RESPIRATORY DISTRESS NOTED. PATIENT ON CLINICAL TRIAL. NO IV ACCESS PER CT POLICY. SKIN INTACT. SAFETY MEASURES IN PLACE: BED LOCKED AND IN LOWEST POSITION, CALL LIGHT WITHIN REACH OF PT, SIDE RAILS UPx2. NO APPARENT UNTOWARD BEHAVIOR NOTED. WILL ENDORSE TO NEXT SHIFT FOR CONTINUITY OF CARE.
[2022-08-11 19:49] VITALS: BP 108/63
[2022-08-11] MEDS: LORAZEPAM 1 MG TABLET FOR AGITATION PO PRN (19:59)
--- NOTE | 2022-08-11 20:01 | NUR ---
RN NOTE PRN ATIVAN GIVEN AT PTS REQUESTED TOLERATED WELL.
--- NOTE | 2022-08-12 07:30 | NUR ---
RN OPENING NOTE RECEIVED PATIENT OUT OF BED, AWAKE, A/O X4, VERBALLY RESPONSIVE AND ABLE TO MAKE NEEDS KNOWN. NO SIGNS OF ACUTE DISTRESS NOTED. STABLE ON ROOM AIR, BREATHING EVEN AND UNLABORED. DENIES ANY PAIN AT THIS TIME. ON CLINICAL TRIAL. NO IV ACCESS. SAFETY MEASURE IN PLACE. BED IN LOW AND LOCKED POSITION, SIDE RAILS UP X2, CALL LIGHT PLACED WITHIN EASY REACH. WILL CONTINUE TO MONITOR PATIENT.
[2022-08-12 08:00] VITALS: BP_SYST 150
[2022-08-12] MEDS: INVESTIGATIONAL MED RVP -30-001 PO SCH (08:02)
[2022-08-12] MEDS: HYDROCHLOROTHIAZIDE 25 MG PO SCH (08:02)
[2022-08-12] MEDS: LOSARTAN 25 MG PO SCH (08:02)
[2022-08-12] MEDS: METFORMIN 500 MG PO SCH ×2 (08:03→16:19)
[2022-08-12 16:00] VITALS: BP 108/83
--- NOTE | 2022-08-12 18:43 | NUR ---
RN CLOSING NOTE PATIENT IN ROOM AWAKE, ON HER PHONE TALKING TO SOMEBODY. A/O X4, VERBALLY RESPONSIVE AND ABLE TO MAKE NEEDS KNOWN. AMBULATORY AND ABLE TO GO OUT ON PASS FOR SMOKE. REMAINS ON CLINICAL TRIAL. ALL DUE MEDS GIVEN, NO A/R NOTED. NO UNTOWARD BEHAVIO NOTED THIS SHIFT. SAFETY MEASURE MAINTAINED. WILL ENDORSE TO NEXT SHIFT FOR CONTINUITY OF CARE.
--- NOTE | 2022-08-12 19:15 | NUR ---
MS RN OPENING NOTE RECEIVED PATIENT FROM AM NURSE; ON CLINICAL TRIAL; PATIENT IS CURRENTLY NOT AT HER ROOM, LOGGED OUT AT 6:44PM TO SMOKE; WILL MONITOR PATIENT
[2022-08-12 20:00] VITALS: BP 97/58
--- NOTE | 2022-08-12 20:00 | NUR ---
MS RN NOTE PATIENT CAME BACK AT 1950H, ALERT AND ORIENTED X 4, ABLE TO MAKE NEEDS KNOWN; STABLE ON ROOM AIR, BREATHING EVENLY AND NO DISTRESS NOTED; NO UNTOWARD CHANGES IN BEHAVIOR; ENCOURAGED VERBALIZATION OF NEEDS; SAFETY MEASURES IMPLEMENTED, BED IN LOW AND LOCKED POSITION, SIDE RAILS UP X 2, CALL LIGHT WITHIN REACH; WILL CONTINUE TO MONITOR
[2022-08-12] MEDS: LORAZEPAM 1 MG TABLET FOR AGITATION PO PRN (20:03)
--- NOTE | 2022-08-13 07:01 | NUR ---
MS RN CLOSING NOTE PATIENT WENT OUT OF HER ROOM, ALERT AND ORIENTED X 4, ABLE TO MAKE NEEDS KNOWN; STABLE ON ROOM AIR, BREATHING EVENLY AND NO DISTRESS NOTED; NO UNTOWARD CHANGES IN BEHAVIOR NOTED; ADMINISTERED MEDICATIONS PRESCRIBED; PATIENT'S NEEDS ATTENDED; SAFETY MEASURES IMPLEMENTED, BED IN LOW AND LOCKED POSITION, SIDE RAILS UP X 2, CALL LIGHT WITHIN REACH; WILL ENDORSE TO AM NURSE FOR PJ.
--- NOTE | 2022-08-13 07:59 | NUR ---
MS RN NOTE FOLLOW UP MADE ON MEDICATION. AWAITING DELIVERY
[2022-08-13 08:00] VITALS: BP 139/94
[2022-08-13] MEDS: LOSARTAN 25 MG PO SCH (08:02)
[2022-08-13] MEDS: HYDROCHLOROTHIAZIDE 25 MG PO SCH (08:02)
[2022-08-13] MEDS: METFORMIN 500 MG PO SCH ×2 (08:02→16:22)
--- NOTE | 2022-08-13 08:10 | NUR ---
MS RN NOTE BP 139/95, HR 90
[2022-08-13] MEDS: INVESTIGATIONAL MED RVP -30-001 PO SCH (08:37)
--- NOTE | 2022-08-13 18:48 | NUR ---
MS RN CLOSING NOTE PATIENT A/O X4. ABLE TO MAKE NEEDS KNOWN. ON ROOM AIR, TOLERATING WELL, NO S/S OF RESPIRATORY DISTRESS NOTED. PATIENT ON CLINICAL TRIAL. NO IV ACCESS PER CT POLICY. SKIN INTACT. SAFETY MEASURES IN PLACE: BED LOCKED AND IN LOWEST POSITION, CALL LIGHT WITHIN REACH OF PT, SIDE RAILS UPx2. WITH GOOD DISPOSITION. NO UNTOWARD BEHAVIORAL CHANGES NOTED. WILL ENDORSE TO NEXT SHIFT FOR CONTINUITY OF CARE.
[2022-08-13] MEDS: LORAZEPAM 1 MG TABLET FOR AGITATION PO PRN (19:36)
[2022-08-13 20:00] VITALS: BP 116/67
--- NOTE | 2022-08-13 21:08 | NUR ---
RN CT OPENING NOTES RECEIVED PATIENT IN BED AWAKE AND COHERENT, ON MODERATE HIGH BACK REST POSITION. AMBULATORY USES ELECTRONIC WHEELCHAIR. NO S/S OF PAIN OR DISCOMFORT AT THIS TIME. NO BEHAVIORAL CHANGES NOTED. SAFETY PRECAUTIONS MAINTAINED. KEPT CALL LIGHT WITHIN AT REACH. KEPT BED ON LOWER LOCKED POSITION. KEPT SIDE RAILS UP X 2 ALL THE TIME. WILL CONTINUE TO MONITOR.
--- NOTE | 2022-08-14 07:01 | NUR ---
RN CLOSING NOTES PATIENT IS IN BED AWAKE AND COHERENT, ON MODERATE HIGH BACK REST POSITION. AMBULATORY USES ELECTRONIC WHEELCHAIR. NO S/S OF PAIN OR DISCOMFORT AT THIS TIME. NO BEHAVIORAL CHANGES NOTED. ALL DUE MEDICATIONS GIVEN ALL NEEDS ATTENDED. SAFETY PRECAUTIONS MAINTAINED. KEPT CALL LIGHT WITHIN AT REACH. KEPT BED ON LOWER LOCKED POSITION. KEPT SIDE RAILS UP X 2 ALL THE TIME. WILL ENDORSED TO AM SHIFT FOR PJ.
--- NOTE | 2022-08-14 07:35 | NUR ---
RN OPENING NOTES PATIENT AWAKE IN BED, A/OX4. AMBULATORY USES ELECTRONIC WHEELCHAIR. NO S/S OF PAIN OR DISCOMFORT AT THIS TIME. SAFETY PRECAUTIONS MAINTAINED. KEPT CALL LIGHT WITHIN AT REACH. KEPT BED ON LOWER LOCKED POSITION. KEPT SIDE RAILS UP X 2 ALL THE TIME. WILL MONITOR
[2022-08-14 08:00] VITALS: BP 115/68
[2022-08-14] MEDS: INVESTIGATIONAL MED RVP -30-001 PO SCH (08:08)
[2022-08-14] MEDS: LOSARTAN 25 MG PO SCH (08:09)
[2022-08-14] MEDS: HYDROCHLOROTHIAZIDE 25 MG PO SCH (08:09)
[2022-08-14] MEDS: METFORMIN 500 MG PO SCH ×2 (08:09→17:51)
[2022-08-14 16:00] VITALS: BP 110/59
--- NOTE | 2022-08-14 18:00 | NUR ---
RN CLOSING NOTES PATIENT AWAKE IN BED, A/OX4. AMBULATORY USES ELECTRONIC WHEELCHAIR. NO S/S OF PAIN OR DISCOMFORT AT THIS TIME. NO BEHAVIORAL CHANGES NOTED. ALL DUE MEDICATIONS GIVEN ALL NEEDS ATTENDED. SAFETY PRECAUTIONS MAINTAINED. KEPT CALL LIGHT WITHIN AT REACH. KEPT BED ON LOWER LOCKED POSITION. KEPT SIDE RAILS UP X 2 ALL THE TIME. WILL ENDORSED TO TWINE WINDER FOR PJ.
--- NOTE | 2022-08-14 19:35 | NUR ---
CT RN OPENING NOTES PT NOT CURRENTLY IN UNIT. WENT OUTSIDE @ [id number]. RECEIVED REPORT FROM AM NURSE. WILL MONITOR AND ASSIST.
[2022-08-14 20:00] VITALS: BP 131/61
--- NOTE | 2022-08-14 20:13 | NUR ---
RN NOTE PT ARRIVED BACK TO UNIT AT 2012. NO C/O PAIN OR DISTRESS NOTED. REQUESTING ATIVAN. WILL CONTINUE TO MONITOR AND ASSIST.
[2022-08-14] MEDS: LORAZEPAM 1 MG TABLET FOR AGITATION PO PRN (20:19)
--- NOTE | 2022-08-15 06:28 | NUR ---
CT RN CLOSING NOTES PT SLEEPING IN BED AT THIS TIME, A/OX4. AMBULATORY, USES ELECTRONIC WHEELCHAIR. NO S/S OF PAIN OR DISCOMFORT AT THIS TIME. NO BEHAVIORAL CHANGES NOTED. ALL DUE MEDICATIONS GIVEN ALL NEEDS ATTENDED. SAFETY PRECAUTIONS MAINTAINED. KEPT CALL LIGHT WITHIN AT REACH. KEPT BED ON LOWER LOCKED POSITION. KEPT SIDE RAILS UP X 2 ALL THE TIME. WILL ENDORSE PJ TO DAY SHIFT NURSE.
--- NOTE | 2022-08-15 07:30 | NUR ---
RN NOTES PATIENT NOT IN BED AT THIS TIME, WILL CHECK AGAIN.
--- NOTE | 2022-08-15 07:50 | NUR ---
CT RN OPENING NOTES PT AWAKE IN BED, A/OX4. AMBULATORY, USES ELECTRONIC WHEELCHAIR. NO S/S OF PAIN OR DISCOMFORT AT THIS TIME.SAFETY PRECAUTIONS MAINTAINED. KEPT CALL LIGHT WITHIN AT REACH. KEPT BED ON LOWER LOCKED POSITION. KEPT SIDE RAILS UP X 2 ALL THE TIME. WILL CONTINUE TO MONITOR.
[2022-08-15 08:00] VITALS: BP 123/82
[2022-08-15] MEDS: LOSARTAN 25 MG PO SCH ×2 (08:00→08:10)
[2022-08-15] MEDS: HYDROCHLOROTHIAZIDE 25 MG PO SCH (08:10)
[2022-08-15] MEDS: METFORMIN 500 MG PO SCH ×2 (08:10→16:56)
[2022-08-15] MEDS: INVESTIGATIONAL MED RVP -30-001 PO SCH (08:11)
[2022-08-15 16:00] VITALS: BP 119/71
[2022-08-15] MEDS: LORAZEPAM 1 MG TABLET FOR AGITATION PO PRN (16:56)
--- NOTE | 2022-08-15 17:30 | NUR ---
RN NOTES PATIENT REQUESTED FOR ATIVAN. PATIENT STATED " I AM HAVING ANXIETY RIGHT NOW, USUALLY I TAKE IT AT NIGHT BUT RIGHT NOW I NEEDED IT. PRN ATIVAN GIVEN. WILL MONITOR.
--- NOTE | 2022-08-15 18:40 | NUR ---
RN CLOSING NOTES PATIENT IS RESTING IN BED AWAKE, A/O X4. AMBULATORY USES ELECTRONIC WHEELCHAIR. NO S/S OF PAIN OR DISCOMFORT AT THIS TIME. NO BEHAVIORAL CHANGES NOTED. ALL DUE MEDICATIONS GIVEN. ALL NEEDS ATTENDED. SAFETY PRECAUTIONS MAINTAINED. KEPT CALL LIGHT WITHIN AT REACH. KEPT BED ON LOWER LOCKED POSITION. KEPT SIDE RAILS UP X 2 ALL THE TIME. WILL ENDORSED TO [employer] FOR PJ.
[2022-08-15 20:00] VITALS: BP 99/53
--- NOTE | 2022-08-16 04:43 | NUR ---
CLOSING NOTES: ALERT AND ORIENTATED Naveen WENT TO BED AT 22:OO SLEPT THRU TE NIGHT COOPERATIVE AND POLITE QUICK TO SMILE CLINICAL TRIAL PATENT Addendum: 08/16/22 at 0535 by RITESH NOEL RN ADDITION TO THE ABOVE CLOSING NOTES: STATED SHE TOOK HER CLINICAL TRIAL WATCH OFF LAST NIGHT AND WENT TO BED FORGETTING TO PUT IT BACK ON ABOUT 6 HOURS WHEN SHE WOKE UP THERE IT WAS ON THE TABLE.
[2022-08-16 08:00] VITALS: BP 135/86
--- NOTE | 2022-08-16 08:00 | NUR ---
RN OPENING NOTES PATIENT AWAKE IN BED AWAKE, A/O X4. AMBULATORY USES ELECTRONIC WHEELCHAIR. NO S/S OF PAIN OR DISCOMFORT AT THIS TIME. PATIENT STATED SHE TOOK OFF HER WATCH LAST NIGHT AND FELL ASLEEP, DR. CHURCHILL MADE AWARE. SAFETY PRECAUTIONS MAINTAINED. KEPT CALL LIGHT WITHIN AT REACH. KEPT BED ON LOWER LOCKED POSITION. KEPT SIDE RAILS UP X 2 ALL THE TIME. WILL CONTINUE TO MONITOR.
[2022-08-16] MEDS: INVESTIGATIONAL MED RVP -30-001 PO SCH (08:01)
[2022-08-16] MEDS: HYDROCHLOROTHIAZIDE 25 MG PO SCH (08:08)
[2022-08-16] MEDS: METFORMIN 500 MG PO SCH ×2 (08:09→16:31)
[2022-08-16] MEDS: LOSARTAN 25 MG PO SCH (08:09)
[2022-08-16] MEDS: LORAZEPAM 1 MG TABLET FOR AGITATION PO PRN (18:00)
--- NOTE | 2022-08-16 18:04 | NUR ---
RN NOTES MADE A CLARIFICATION TO DR. CHURCHILL IF PATIENT IS GOING TO BE ON NPO TONIGHT PATIENT WAS SAYING SHE'S NOT ON NPO. PER DR. CHURCHILL PT. IS SCHEDULED FOR NPO. EXPLAINED TO PATIENT 'S ORDER, PATIENT WAS A LIITLE UPSET BUT AGREED TO BE ON NPO. PATIENT REQUESTED LORAZEPAM FOR ANXIETY. WILL MONITOR.
--- NOTE | 2022-08-16 18:46 | NUR ---
RN CLOSING NOTES PATIENT AWAKE IN BED, A/O X4. AMBULATORY USES ELECTRONIC WHEELCHAIR. NO S/S OF PAIN OR DISCOMFORT AT THIS TIME. . ALL DUE MEDICATIONS GIVEN. ALL NEEDS ATTENDED. WILL BE ON NPO AFTER 2100H, PATIENT MADE AWARE. SAFETY PRECAUTIONS MAINTAINED. KEPT CALL LIGHT WITHIN AT REACH. KEPT BED ON LOWER LOCKED POSITION. KEPT SIDE RAILS UP X 2 ALL THE TIME. WILL ENDORSE TO NEXT NURSE. Addendum: 08/16/22 at 1928 by DO LANDIS RN PATIENT WILL NOT BE ON NPO TONIGHT, MADE A WRONG READING ON PATIENT'S SCHEDULE. NOTIFIED PATIENT TO RESUME DIET, VERBALIZED UNDERSTAND AND WAS VERY PLEASANT. ENDORSED TO NEXT NOD.
--- NOTE | 2022-08-17 06:12 | NUR ---
END OF SHIFT REPORT Patient in bed, Alert Oriented x4. Hours of sleep 7, denies pain. Patient moves around with her motor chair, ambulatory. Clyde and [place] held at 2100 as per Protocol, patient on Study medication. Cooperative with treatment, No agitated behavior during the night. Plan for continue Clinical Trial on a new antipsychotic medication. Will endorse to oncoming RN.
[2022-08-17] MEDS: LOSARTAN 25 MG PO SCH (08:16)
[2022-08-17] MEDS: METFORMIN 500 MG PO SCH ×2 (08:16→16:00)
[2022-08-17] MEDS: HYDROCHLOROTHIAZIDE 25 MG PO SCH (08:16)
[2022-08-17] MEDS: INVESTIGATIONAL MED RVP -30-001 PO SCH (08:24)
[2022-08-17 08:35] VITALS: BP 114/67
[2022-08-17] MEDS ORDERED: ZOLPIDEM TARTRATE 10 MG TABLET PO PRN (12:00)
[2022-08-17 16:12] VITALS: BP 126/84
--- NOTE | 2022-08-17 16:58 | NUR ---
RN CLOSING NOTES PATIENT AWAKE IN BED, A/O X4. AMBULATORY USES ELECTRONIC WHEELCHAIR. NO S/S OF PAIN OR DISCOMFORT AT THIS TIME. . ALL DUE MEDICATIONS GIVEN. ALL NEEDS ATTENDED. SAFETY PRECAUTIONS MAINTAINED. KEPT CALL LIGHT WITHIN AT REACH. KEPT BED ON LOWER LOCKED POSITION. KEPT SIDE RAILS UP X 2 ALL THE TIME. WILL BE ENDORSED TO [employer] WORK[employer] NURSE FOR PJ.
--- NOTE | 2022-08-17 19:35 | NUR ---
TELERN SEEN AMBULATING AROUND, GOING OUT FOR FRESH AIR PER PATIENT. WANTED ATIVAN TONIGHT VERBALIZED. TO CONTINUE.
[2022-08-17 20:00] VITALS: BP 133/75
[2022-08-17] MEDS: LORAZEPAM 1 MG TABLET FOR AGITATION PO PRN (20:07)
--- NOTE | 2022-08-17 20:10 | NUR ---
TELERN ATIVAN 1 MG PO ADMINISTERED, SAFETY PRECAUTIONS EMPHASIZED REMINDED TO CALL STAFF FOR ANY ASSISTANCE OR FURTHER DISCOMFORTS.
--- NOTE | 2022-08-18 06:00 | NUR ---
TELERN REMAINS UNCHANGED. SLEPT GOOD FROM ATIVAN
--- NOTE | 2022-08-18 07:21 | NUR ---
MS RN OPENING NOTES RECEIVED PATIENT AWAKE AND SITING ON HER BED. A/O X4. ABLE TO MAKE NEEDS KNOWN, NO C/O PAIN OR ANY DISCOMFORTS VOICED AT THIS TIME. ON ROOM AIR, TOLERATING WELL, NO S/S OF ACUTE RESPIRATORY DISTRESS NOTED. PATIENT ON CLINICAL TRIAL. NO IV ACCESS PER CT POLICY. SKIN INTACT. SAFETY MEASURES IN PLACE: BED LOCKED AND IN LOWEST POSITION, CALL LIGHT WITHIN REACH OF PT. WILL CONTINUE TO MONITOR PT ACCORDINGLY.
[2022-08-18 07:30] VITALS: BP 136/65
[2022-08-18] MEDS: INVESTIGATIONAL MED RVP -30-001 PO SCH (08:21)
[2022-08-18] MEDS: METFORMIN 500 MG PO SCH ×2 (08:23→16:44)
[2022-08-18] MEDS: HYDROCHLOROTHIAZIDE 25 MG PO SCH (08:23)
[2022-08-18] MEDS: LOSARTAN 25 MG PO SCH (08:24)
[2022-08-18] MEDS: LORAZEPAM 1 MG TABLET FOR AGITATION PO PRN (18:35)
--- NOTE | 2022-08-18 18:51 | NUR ---
RN CLOSING NOTES PATIENT IN BED, A/O X4, AMBULATORY, ABLE TO MAKE NEEDS KNOWN, ON ROOM AIR, TOLERATING WELL. PATIENT MOVES AROUND WITH HER MOTOR CHAIR, COOPERATIVE WITH TREATMENT, PATIENT VERBALIZED THAT SHE'S ANXIOUS, PRN ATIVAN 1MG TAB GIVEN AT 1835, WILL ENDORSED TO LUBRICATION TECHNICIAN NURSE FOR PJ.
--- NOTE | 2022-08-18 19:30 | NUR ---
MS RN OPENING NOTE RECEIVED PATIENT IN BED, AWAKE, ALERT AND ORIENTED X 4. ABLE TO COMMUNICATE NEEDS WITH THE STAFFS. AFEBRILE AND NOT IN ANY FORM OF ACUTE DISTRESS. BREATHING EVEN AND NON LABORED. NO C/O PAIN OR DISCOMFORT AT THIS TIME. ON CLINICAL TRIAL, MONITORED FOR ANY BEHAVIORAL CHANGES. SAFETY MEASURES IN PLACE. KEPT BED IN LOCKED AND IN LOW POSITION. SIDE RAILS UP X2. ADVISED TO USE THE CALL LIGHT WHEN IN NEED OF ASSISTANCE.
[2022-08-18 20:31] VITALS: BP 123/81
--- NOTE | 2022-08-19 06:24 | NUR ---
MS RN CLOSING NOTE PATIENT IN BED, ASLEEP BUT EASY TO AROUSE AND RESPONSIVE. ABLE TO COMMUNICATE NEEDS WITH THE STAFFS. AFEBRILE AND NOT IN ANY FORM OF ACUTE DISTRESS. BREATHING EVEN AND NON LABORED. NO C/O PAIN OR DISCOMFORT THROUGHOUT THE SHIFT. ON CLINICAL TRIAL, MONITORED FOR ANY BEHAVIORAL CHANGES. SAFETY MEASURES IN PLACE. KEPT BED IN LOCKED AND IN LOW POSITION. SIDE RAILS UP X2. ADVISED TO USE THE CALL LIGHT WHEN IN NEED OF ASSISTANCE. ALL NURSING NEEDS ATTENDED. ENDORSED TO INCOMING SHIFT FOR CONTINUITY OF CARE.
--- NOTE | 2022-08-19 07:11 | NUR ---
MS RN OPENING NOTES PATIENT RECEIVED IN HER ROOM SITTING IN A CHAIR USING HER LAPTOP. A/O X4. ABLE TO MAKE NEEDS KNOWN, NO C/O PAIN OR ANY DISCOMFORTS VOICED AT THIS TIME. ON ROOM AIR, TOLERATING WELL, NO ACUTE DISTRESS NOTED. PATIENT ON CLINICAL TRIAL. NO IV ACCESS PER CT POLICY. CALL LIGHT WITHIN REACH OF PT. WILL CONTINUE TO MONITOR PT ACCORDINGLY.
[2022-08-19] MEDS: INVESTIGATIONAL MED RVP -30-001 PO SCH (07:53)
[2022-08-19 08:00] VITALS: BP 103/66
[2022-08-19] MEDS: METFORMIN 500 MG PO SCH ×2 (08:03→16:44)
[2022-08-19] MEDS: HYDROCHLOROTHIAZIDE 25 MG PO SCH (08:04)
[2022-08-19] MEDS: LOSARTAN 25 MG PO SCH (08:04)
[2022-08-19] MEDS: LORAZEPAM 1 MG TABLET FOR AGITATION PO PRN (18:29)
--- NOTE | 2022-08-19 18:37 | NUR ---
RN CLOSING NOTES PATIENT IN BED, A/O X4, AMBULATORY, ABLE TO MAKE NEEDS KNOWN, ON ROOM AIR, TOLERATING WELL. PATIENT MOVES AROUND WITH HER MOTOR CHAIR, COOPERATIVE WITH TREATMENT, PATIENT VERBALIZED THAT SHE'S ANXIOUS, PRN ATIVAN 1MG TAB GIVEN AT 1829, WILL ENDORSED TO MANUFACTURER REPRESENTATIVE NURSE FOR PJ.
[2022-08-19 20:00] VITALS: BP 93/60
--- NOTE | 2022-08-19 20:03 | NUR ---
MS RN OPENING NOTE PATIENT JUST CAME BACK TO THE UNIT AT AROUND 2001 USING HER ELECTRIC WHEELCHAIR, IN STABLE CONDITION. ALERT AND ORIENTED X4. ABLE TO MAKE NEEDS KNOWN. AFEBRILE AND NOT IN ANY FORM OF ACUTE DISTRESS. BREATHING EVEN AND NON LABORED. NO C/O PAIN OR DISCOMFORT. ON CLINICAL TRIAL, MONITORED FOR ANY BEHAVIORAL CHANGES. SAFETY MEASURES IN PLACE. KEPT BED IN LOCKED AND IN LOW POSITION. SIDE RAILS UP X2. ADVISED TO USE THE CALL LIGHT WHEN IN NEED OF ASSISTANCE.
--- NOTE | 2022-08-20 06:28 | NUR ---
MS RN CLOSING NOTE PATIENT IN BED, ASLEEP BUT EASY TO AROUSE AND RESPONSIVE. ALERT AND ORIENTED X4. ABLE TO MAKE NEEDS KNOWN. AFEBRILE AND NOT IN ANY FORM OF ACUTE DISTRESS. BREATHING EVEN AND NON LABORED. NO C/O PAIN OR DISCOMFORT THROUGHOUT THE SHIFT. ON CLINICAL TRIAL, MONITORED FOR ANY BEHAVIORAL CHANGES. SAFETY MEASURES IN PLACE. KEPT BED IN LOCKED AND IN LOW POSITION. SIDE RAILS UP X2. ADVISED TO USE THE CALL LIGHT WHEN IN NEED OF ASSISTANCE. ALL NURSING NEEDS ATTENDED. ENDORSED TO INCOMING SHIFT FOR CONTINUITY OF CARE.
--- NOTE | 2022-08-20 07:35 | NUR ---
MS SOFYA RECEIVED PATIENT AOX4 CLINICAL TRIAL PATIENT DR. CHURCHILL ON ROOM AIR, AMBULATORY. WILL CONTINUE TO MONITOR PATIENT.
[2022-08-20 08:00] VITALS: BP 116/69
[2022-08-20] MEDS: INVESTIGATIONAL MED RVP -30-001 PO SCH (08:02)
[2022-08-20] MEDS: METFORMIN 500 MG PO SCH ×2 (08:04→17:08)
[2022-08-20] MEDS: HYDROCHLOROTHIAZIDE 25 MG PO SCH (08:04)
[2022-08-20] MEDS: LOSARTAN 25 MG PO SCH (08:04)
--- NOTE | 2022-08-20 08:30 | NUR ---
MS COWART BREAKFAST SERVED, DUE MEDS GIVEN, TOLERATED WELL
--- NOTE | 2022-08-20 09:00 | NUR ---
MS RN PATIENT WENT DOWN.
[2022-08-20] MEDS: LORAZEPAM 1 MG TABLET FOR AGITATION PO PRN (18:25)
--- NOTE | 2022-08-20 18:48 | NUR ---
ms rn patient on bed, awake, denies pain at this time, all needs attended,no distress noted, call light within reach.
--- NOTE | 2022-08-20 19:40 | NUR ---
MS RN OPENING NOTE RECEIVED PATIENT IN BED; AWAKE, A/O x 4. ON ROOM AIR; TOLERATING WELL WITH NO S/S OF RESPIRATORY OR CARDIAC DISTRESS NOTED AT THIS TIME. ON CLINICAL TRIAL. NO IV ACCESS. DENIES ANY PAIN OR DISCOMFORT. ABLE TO MAKE NEEDS KNOWN. SAFETY PRECAUTIONS IMPLEMENTED: CALL LIGHT AND TABLE WITHIN REACH, SIDE RAILS UP X 2, BED IN LOWEST LOCKED POSITION. WILL CONTINUE PLAN OF CARE.
[2022-08-20 20:00] VITALS: BP 114/60
--- NOTE | 2022-08-21 06:40 | NUR ---
MS RN CLOSING NOTE PATIENT IN BED; AWAKE, A/O x 4. STABLE ON ROOM AIR. IN NO ACUTE DISTRESS. ON CLINICAL TRIAL. NO IV ACCESS. DENIES ANY PAIN OR DISCOMFORT. ALL DUE MED GIVEN ORDERED. SAFETY MEASURES MAINTAINED: CALL LIGHT AND TABLE WITHIN REACH, SIDE RAILS UP X 2, BED IN LOWEST LOCKED POSITION. ENDORSED TO MORNING SHIFT FOR PJ.
[2022-08-21 07:00] VITALS: BP 112/76
--- NOTE | 2022-08-21 07:25 | NUR ---
MS RN RECEIVED ON BED, AWAKE,ORIENTED X4,CLINICAL TRIAL PATIENT OF DR. CHURCHILL, NO DISTRESS NOTED. ALL NEEDS ATTENDED.
[2022-08-21] MEDS: INVESTIGATIONAL MED RVP -30-001 PO SCH (08:36)
[2022-08-21] MEDS: HYDROCHLOROTHIAZIDE 25 MG PO SCH (08:36)
[2022-08-21] MEDS: METFORMIN 500 MG PO SCH ×2 (08:36→17:38)
[2022-08-21] MEDS: LOSARTAN 25 MG PO SCH (08:36)
--- NOTE | 2022-08-21 09:00 | NUR ---
MS RN BREAKFAST SERVED, DUE MEDS GIVEN, TOLERATED WELL. PATIENT WENT DOWN TO LAUNDRY,ALL NEEDS ATTENDED.
[2022-08-21] MEDS: LORAZEPAM 1 MG TABLET FOR AGITATION PO PRN (17:38)
--- NOTE | 2022-08-21 18:52 | NUR ---
ms rn on bed, no distress noted, all needs attended.
--- NOTE | 2022-08-21 19:35 | NUR ---
MS RN OPENING NOTE RECEIVED PATIENT IN BED; AWAKE, A/O x 4. ON ROOM AIR; TOLERATING WELL. AFEBRILE. BREATHING EVEN AND NONLABORED. ON CLINICAL TRIAL. NO IV ACCESS. DENIES ANY PAIN OR DISCOMFORT. ABLE TO VERBALIZE NEEDS. SAFETY MEASURES IMPLEMENTED: CALL LIGHT AND TABLE WITHIN REACH, SIDE RAILS UP X 2, BED IN LOWEST LOCKED POSITION. WILL CONTINUE PLAN OF CARE.
[2022-08-21 20:00] VITALS: BP 100/67
--- NOTE | 2022-08-22 07:50 | NUR ---
MS RN OPENING NOTE Patient in bed, awake. A/O x 4, able to make needs known. On room air, breathing evenly and unlabored. No SOB or s/s of distress noted. No IV access due to clinical trial status. Denies any pain or discomfort at this time. Safety precautions in place: bed in low, locked position; siderails up x 2; call light within reach. Will continue to monitor.
[2022-08-22 08:00] VITALS: BP 132/76
[2022-08-22] MEDS: LOSARTAN 25 MG PO SCH (08:11)
[2022-08-22] MEDS: METFORMIN 500 MG PO SCH ×2 (08:12→19:17)
[2022-08-22] MEDS: HYDROCHLOROTHIAZIDE 25 MG PO SCH (08:12)
[2022-08-22] MEDS: INVESTIGATIONAL MED RVP -30-001 PO SCH (08:13)
--- NOTE | 2022-08-22 18:13 | NUR ---
RN NOTE Patient called to notify that she will be back by 1910. Will give home med scheduled for 0 when patient gets back.
--- NOTE | 2022-08-22 19:21 | NUR ---
MS RN CLOSING NOTE Patient back in her room. A/O x 4, able to make needs known. Stable on room air, breathing evenly and unlabored. No SOB or s/s of distress noted. No IV access due to clinical trial status. Denies any pain or discomfort at this time. Due meds given. Safety precautions in place: bed in low, locked position; siderails up x 2; call light within reach. Will endorse to restaurant shift supervisor nurse for PJ.
--- NOTE | 2022-08-22 19:42 | NUR ---
MS RN CLINICAL TRIAL NOTES PATIENT NOT IN THE ROOM
[2022-08-22 20:00] VITALS: BP 106/75
--- NOTE | 2022-08-22 20:28 | NUR ---
MS CLINICAL TRIA NOTES BACK IN THE ROOM,A/O X4,AMBULATE WITH STEADY GAIT,BEHAVIOR ACCEPTABLE TO HER AGE.WILL CONTINUE TO MONITOR
[2022-08-22 21:00] VITALS: BP 106/75
[2022-08-22] MEDS: LORAZEPAM 1 MG TABLET FOR AGITATION PO PRN (21:21)
--- NOTE | 2022-08-22 21:21 | NUR ---
MS CLINICAL TRIAL NOTES FEELING ANXIOUS,ATIVAN 1MG PO GIVEN ORDERED AND PER PATIENT REQUEST.
--- NOTE | 2022-08-23 06:44 | NUR ---
MS CLINICAL TRIAL NOTES FAIRLY RESTED AT NIGHT. NO UNTOWARD BEHAVIOR NOTED THRU OUT SHIFT.CALL LIGHT IN REACH,NEEDS ATTENDED.
[2022-08-23 08:00] VITALS: BP 117/73
[2022-08-23] MEDS: LOSARTAN 25 MG PO SCH (08:19)
[2022-08-23] MEDS: INVESTIGATIONAL MED RVP -30-001 PO SCH (08:19)
[2022-08-23] MEDS: METFORMIN 500 MG PO SCH ×2 (08:19→17:02)
[2022-08-23] MEDS: HYDROCHLOROTHIAZIDE 25 MG PO SCH (08:20)
[2022-08-23 16:00] VITALS: BP 94/61
[2022-08-23] MEDS: LORAZEPAM 1 MG TABLET FOR AGITATION PO PRN (17:02)
--- NOTE | 2022-08-23 18:55 | NUR ---
MS RN CLOSING NOTE Patient in bed, resting. A/O x 4, able to make needs known. On room air, breathing evenly and unlabored. No SOB or s/s of distress noted. No IV access due to clinical trial status. Denies any pain or discomfort at this time. No adverse reactions noted from medication. Safety precautions in place: bed in low, locked position; siderails up x 2; call light within reach. Will endorse to manager night nurse for PJ.
--- NOTE | 2022-08-23 19:50 | NUR ---
RN OPENING NOTE PATIENT AWAKE IN BED WATCHING TV, PATIENT ALERT/ORIENTED X 4, PT ABLE TO MAKE NEEDS KNOWN. PATIENT STABLE ON RA, NO S/S OF DISTRESS OR SOB NOTED, BREATHING EVEN AND UNLABORED. NO IV ACCESS D/T CLINICAL TRIAL STATUS. PATIENT TO HAVE NO FOOD AFTER 2200, NO AMBIEN OR ATIVAN AFTER 2100, PATIENT AWARE AND VERBALIZED UNDERSTANDING. SAFETY MEASURES IN PLACE: CALL LIGHT WITHIN REACH, SIDE RAILS UP X 2, BED LOCKED IN LOWEST POSITION. WILL CONTINUE TO MONITOR PATIENT
--- NOTE | 2022-08-24 06:55 | NUR ---
RN CLOSING NOTE PATIENT AWAKE IN BED WATCHING TV, PATIENT ALERT/ORIENTED X 4, PT ABLE TO MAKE NEEDS KNOWN. PATIENT STABLE ON RA, NO S/S OF DISTRESS OR SOB NOTED, BREATHING EVEN AND UNLABORED. NO IV ACCESS D/T CLINICAL TRIAL STATUS. PATIENT KEPT NPO AFTER 2200, NO FOOD, WATER AND STUDY MED OKAY. NO BEHAVIORAL ISSUES THIS SHIFT, PATIENT GOING FOR LAB DRAW TODAY. SAFETY MEASURES IN PLACE: CALL LIGHT WITHIN REACH, SIDE RAILS UP X 2, BED LOCKED IN LOWEST POSITION. WILL ENDORSE TO DAYSHIFT RN FOR CONTINUITY OF CARE
--- NOTE | 2022-08-24 07:25 | NUR ---
MS RN OPENING NOTE Patient in bed, awake. A/O x 4, able to make needs known. On room air, breathing evenly and unlabored. No SOB or s/s of distress noted. No IV access due to clinical trial status. Denies any pain or discomfort at this time. Kept NPO for labs today. Safety precautions in place: bed in low, locked position; siderails up x 2; call light within reach. Will continue to monitor.
[2022-08-24 08:00] VITALS: BP 112/66
[2022-08-24] MEDS: INVESTIGATIONAL MED RVP -30-001 PO SCH (08:02)
[2022-08-24] MEDS: LOSARTAN 25 MG PO SCH (08:02)
[2022-08-24] MEDS: HYDROCHLOROTHIAZIDE 25 MG PO SCH (08:02)
[2022-08-24] MEDS: METFORMIN 500 MG PO SCH (08:02)
--- NOTE | 2022-08-24 08:45 | NUR ---
DISCHARGE NOTE Received call from Dr. Aguilar, patient is for discharge. Patient is A/O x 4, able to make needs known. Stable on room air, no SOB or s/s of distress noted. Discharge instructions given verbally and in written form, verbalized understanding. Denies any pain or discomfort at this time. Patient left unit in stable condition.
[2022-08-24] MEDS ORDERED: LORAZEPAM 1 MG TABLET FOR AGITATION PO PRN (12:00)
== END 2022-08-24 09:00 | disposition home or self-care (01) | DRG 951 ==
LOC: GPS 12:45 → MED 07-22 17:35
PROVIDERS: ADMIT Psychiatry & Neurology Psychiatry; ATTEND Psychiatry & Neurology Psychiatry
DX: Z00.6 Encounter for examination for normal comparison and control in clinical research program (principal); F20.0 Paranoid schizophrenia; E11.9 Type 2 diabetes mellitus without complications
CPT/HCPCS: 82962-TC; G0378

== ENCOUNTER 2022-12-17 14:47 | Inpatient (IN) | payer OTHER ==
[~2022-12-17] VITALS: Ht 167.6 cm; Wt 106.1 kg
[2022-12-17] MEDS ORDERED: ZOLPIDEM TARTRATE 10 MG TABLET PO PRN (16:00)
[2022-12-17] MEDS ORDERED: ACETAMINOPHEN ES 500 MG TABLET PO PRN (16:00)
[2022-12-17] MEDS ORDERED: MAG HYDROX/AL HYDROX/SIMETH 30 ML UDC PO PRN (16:00)
[2022-12-17] MEDS ORDERED: MAGNESIUM HYDROXIDE 30 ML UDC PO PRN (16:00)
[2022-12-17] MEDS ORDERED: BLOOD SUGAR DIAGNOSTIC 1 EACH STRIP IN ONE (16:00)
[2022-12-17] MEDS ORDERED: IBUPROFEN 200 MG TABLET PO PRN (16:00)
[2022-12-17 16:06] VITALS: BP 134/77; TEMP 98; O2SAT 94
[2022-12-17] MEDS: LOSARTAN 25 MG PO SCH ×2 (16:30→17:34)
[2022-12-17] MEDS: HCTZ 25 MG PO SCH ×2 (16:30→17:33)
[2022-12-17] MEDS: METFORMIN 500 MG PO SCH (17:33)
[2022-12-17 20:00] VITALS: BP 134/59; TEMP 98; O2SAT 96
[2022-12-17] MEDS: SEROQUEL 300 MG PO SCH (21:17)
[2022-12-18 08:00] VITALS: BP 111/75; TEMP 97.8; O2SAT 95
[2022-12-18] MEDS: BLOOD SUGAR DIAGNOSTIC 1 EACH STRIP IN SCH (08:43)
[2022-12-18] MEDS: HCTZ 25 MG PO SCH (11:33)
[2022-12-18] MEDS: LOSARTAN 25 MG PO SCH (11:33)
[2022-12-18] MEDS: METFORMIN 500 MG PO SCH ×2 (12:08→17:59)
[2022-12-18 20:00] VITALS: BP 130/78; TEMP 97.9; O2SAT 98
[2022-12-19] MEDS: SEROQUEL 300 MG PO SCH (00:18)
[2022-12-19 07:00] VITALS: BP 130/85; TEMP 98.1; O2SAT 98
[2022-12-19] MEDS: METFORMIN 500 MG PO SCH ×2 (08:26→16:17)
[2022-12-19] MEDS: BLOOD SUGAR DIAGNOSTIC 1 EACH STRIP IN SCH (08:39)
[2022-12-19] MEDS: HCTZ 25 MG PO SCH (15:48)
[2022-12-19] MEDS: LOSARTAN 25 MG PO SCH (15:48)
[2022-12-19 20:00] VITALS: BP 125/69; TEMP 98.2; O2SAT 96
[2022-12-20 08:00] VITALS: BP 117/80; TEMP 98.2; O2SAT 100
[2022-12-20 08:48] VITALS: BP 117/80; TEMP 98.2; O2SAT 100
[2022-12-20] MEDS: METFORMIN 500 MG PO SCH ×2 (08:53→16:38)
[2022-12-20] MEDS: BLOOD SUGAR DIAGNOSTIC 1 EACH STRIP IN SCH (08:53)
[2022-12-20] MEDS: LOSARTAN 25 MG PO SCH (15:43)
[2022-12-20] MEDS: HCTZ 25 MG PO SCH (15:43)
[2022-12-20 20:00] VITALS: BP 129/80; TEMP 97.3; O2SAT 100
[2022-12-20] MEDS: LORAZEPAM 1 MG TABLET FOR AGITATION PO PRN (21:07)
[2022-12-21 07:30] VITALS: BP 128/79; TEMP 97.7; O2SAT 96
[2022-12-21] MEDS: BLOOD SUGAR DIAGNOSTIC 1 EACH STRIP IN SCH (08:01)
[2022-12-21] MEDS: METFORMIN 500 MG PO SCH ×3 (08:01→17:20)
[2022-12-21 16:00] VITALS: BP 115/69; TEMP 97.9; O2SAT 96
[2022-12-21] MEDS: LOSARTAN 25 MG PO SCH ×2 (16:11→16:54)
[2022-12-21] MEDS: HCTZ 25 MG PO SCH ×3 (16:12→16:54)
[2022-12-21] MEDS: LORAZEPAM 1 MG TABLET FOR AGITATION PO PRN (20:44)
[2022-12-21 20:50] VITALS: BP 119/74; TEMP 98.1; O2SAT 93
[2022-12-22 08:00] VITALS: BP 133/85; TEMP 97.6; O2SAT 96
[2022-12-22] MEDS: METFORMIN 500 MG PO SCH ×2 (08:41→17:11)
[2022-12-22] MEDS: HOME MED MISCELLANEOUS PO SCH ×2 (08:45→08:50)
[2022-12-22] MEDS: BLOOD SUGAR DIAGNOSTIC 1 EACH STRIP IN SCH (08:51)
[2022-12-22 16:00] VITALS: BP 100/56; TEMP 97.9; O2SAT 96
[2022-12-22 19:00] VITALS: BP 122/90; TEMP 97.8
[2022-12-22] MEDS: LORAZEPAM 1 MG TABLET FOR AGITATION PO PRN (20:45)
[2022-12-23 08:00] VITALS: BP 129/79; TEMP 97.7; O2SAT 95
[2022-12-23] MEDS: METFORMIN 500 MG PO SCH ×2 (08:16→16:40)
[2022-12-23] MEDS: BLOOD SUGAR DIAGNOSTIC 1 EACH STRIP IN SCH (08:16)
[2022-12-23] MEDS: HOME MED MISCELLANEOUS PO SCH ×2 (08:16)
[2022-12-23 16:00] VITALS: BP 138/79; TEMP 98.8; O2SAT 94
[2022-12-23 20:00] VITALS: BP 105/61; TEMP 98; O2SAT 100
[2022-12-23] MEDS: LORAZEPAM 1 MG TABLET FOR AGITATION PO PRN (21:30)
[2022-12-24] MEDS ORDERED: LOSA25TA27 PO (08:28)
[2022-12-24] MEDS ORDERED: QUET50TA PO (08:28)
[2022-12-24] MEDS: METFORMIN 500 MG PO SCH ×2 (08:31→17:04)
[2022-12-24] MEDS: BLOOD SUGAR DIAGNOSTIC 1 EACH STRIP IN SCH (08:31)
[2022-12-24] MEDS: HOME MED MISCELLANEOUS PO SCH ×2 (08:31)
[2022-12-24 08:57] VITALS: BP 106/59; TEMP 98.1; O2SAT 100
[2022-12-24] MEDS ORDERED: ZOLPIDEM TARTRATE 10 MG TABLET PO PRN (13:00)
[2022-12-24 16:12] VITALS: BP 106/65; TEMP 98.7; O2SAT 98
[2022-12-24 20:00] VITALS: BP 133/78; TEMP 98.1; O2SAT 97
[2022-12-24] MEDS: LORAZEPAM 1 MG TABLET FOR AGITATION PO PRN (20:00)
[2022-12-25 07:00] VITALS: BP 113/68; TEMP 98.8; O2SAT 96
[2022-12-25] MEDS: BLOOD SUGAR DIAGNOSTIC 1 EACH STRIP IN SCH (08:01)
[2022-12-25] MEDS: METFORMIN 500 MG PO SCH ×2 (08:01→16:51)
[2022-12-25] MEDS: HOME MED MISCELLANEOUS PO SCH ×2 (08:01→08:02)
[2022-12-25 20:00] VITALS: BP 115/54; TEMP 98.1; O2SAT 95
[2022-12-25] MEDS: LORAZEPAM 1 MG TABLET FOR AGITATION PO PRN (20:46)
[2022-12-26 08:00] VITALS: BP 127/79; TEMP 98.7; O2SAT 97
[2022-12-26] MEDS: BLOOD SUGAR DIAGNOSTIC 1 EACH STRIP IN SCH (08:26)
[2022-12-26] MEDS: HOME MED MISCELLANEOUS PO SCH ×2 (08:27)
[2022-12-26] MEDS: METFORMIN 500 MG PO SCH ×2 (08:27→16:21)
[2022-12-26 20:00] VITALS: BP 126/74; TEMP 98.6; O2SAT 99
[2022-12-26] MEDS: LORAZEPAM 1 MG TABLET FOR AGITATION PO PRN (20:15)
[2022-12-27] MEDS: HOME MED MISCELLANEOUS PO SCH ×2 (09:05)
[2022-12-27] MEDS: METFORMIN 500 MG PO SCH ×2 (09:05→17:21)
[2022-12-27] MEDS: BLOOD SUGAR DIAGNOSTIC 1 EACH STRIP IN SCH (09:29)
[2022-12-27 16:29] VITALS: BP 129/78; TEMP 98.2; O2SAT 100
[2022-12-28 08:00] VITALS: BP 126/81; TEMP 98.9; O2SAT 96
[2022-12-28] MEDS: METFORMIN 500 MG PO SCH ×2 (09:00→17:21)
[2022-12-28] MEDS: BLOOD SUGAR DIAGNOSTIC 1 EACH STRIP IN SCH (09:00)
[2022-12-28] MEDS: HOME MED MISCELLANEOUS PO SCH ×2 (09:00)
[2022-12-28 20:00] VITALS: BP 125/64; TEMP 98.9; O2SAT 100
[2022-12-28] MEDS: LORAZEPAM 1 MG TABLET FOR AGITATION PO PRN (20:38)
[2022-12-29 07:46] VITALS: BP 130/67; TEMP 98.6
[2022-12-29] MEDS: METFORMIN 500 MG PO SCH ×2 (08:21→16:22)
[2022-12-29] MEDS: HOME MED MISCELLANEOUS PO SCH ×2 (08:21)
[2022-12-29] MEDS: BLOOD SUGAR DIAGNOSTIC 1 EACH STRIP IN SCH (08:24)
[2022-12-29] MEDS: LORAZEPAM 1 MG TABLET FOR AGITATION PO PRN (20:02)
[2022-12-29 20:09] VITALS: BP 130/76; TEMP 98.5; O2SAT 98
[2022-12-30 08:00] VITALS: BP 90/56; TEMP 98.2; O2SAT 93
[2022-12-30] MEDS: METFORMIN 500 MG PO SCH ×2 (08:15→17:24)
[2022-12-30] MEDS: HOME MED MISCELLANEOUS PO SCH ×2 (08:15)
[2022-12-30] MEDS: cetrizine 10 MG TABLET PO PRN ×2 (09:07→17:24)
[2022-12-30] MEDS: BLOOD SUGAR DIAGNOSTIC 1 EACH STRIP IN SCH (09:07)
[2022-12-30 10:22] VITALS: BP 90/56; TEMP 98.2; O2SAT 93
[2022-12-30 20:00] VITALS: BP 108/59; TEMP 98.4; O2SAT 96
[2022-12-30] MEDS: LORAZEPAM 1 MG TABLET FOR AGITATION PO PRN (21:02)
[2022-12-31] MEDS: BLOOD SUGAR DIAGNOSTIC 1 EACH STRIP IN SCH (08:30)
[2022-12-31] MEDS: METFORMIN 500 MG PO SCH ×2 (08:30→17:43)
[2022-12-31] MEDS: HOME MED MISCELLANEOUS PO SCH ×2 (08:30)
[2022-12-31] MEDS: cetrizine 10 MG TABLET PO PRN ×2 (11:18→20:24)
[2022-12-31] MEDS ORDERED: ZOLPIDEM TARTRATE 10 MG TABLET PO PRN (13:00)
[2022-12-31 20:00] VITALS: BP 118/69; TEMP 98.1; O2SAT 96
[2022-12-31] MEDS: LORAZEPAM 1 MG TABLET FOR AGITATION PO PRN (20:25)
[2022-12-31 22:37] VITALS: BP 118/69; TEMP 98.1; O2SAT 96
[2023-01-01] MEDS: HOME MED MISCELLANEOUS PO SCH ×2 (08:28→08:29)
[2023-01-01] MEDS: METFORMIN 500 MG PO SCH ×2 (08:28→17:00)
[2023-01-01] MEDS: BLOOD SUGAR DIAGNOSTIC 1 EACH STRIP IN SCH (08:29)
[2023-01-01 08:35] VITALS: BP 118/74; TEMP 98.3; O2SAT 9
[2023-01-01] MEDS: cetrizine 10 MG TABLET PO PRN ×2 (12:59→21:05)
[2023-01-01 22:00] VITALS: BP 121/67; TEMP 98; O2SAT 99
[2023-01-01] MEDS: LORAZEPAM 1 MG TABLET FOR AGITATION PO PRN (22:16)
[2023-01-02 08:00] VITALS: BP 123/71; TEMP 98.4; O2SAT 94
[2023-01-02] MEDS: HOME MED MISCELLANEOUS PO SCH ×2 (09:16)
[2023-01-02] MEDS: cetrizine 10 MG TABLET PO PRN ×2 (09:16→17:49)
[2023-01-02] MEDS: BLOOD SUGAR DIAGNOSTIC 1 EACH STRIP IN SCH (09:16)
[2023-01-02] MEDS: METFORMIN 500 MG PO SCH ×2 (09:16→17:49)
[2023-01-02 16:00] VITALS: BP 113/68; TEMP 98.5; O2SAT 98
[2023-01-02] MEDS: LORAZEPAM 1 MG TABLET FOR AGITATION PO PRN (19:45)
[2023-01-02 20:00] VITALS: BP 136/63; TEMP 97.9; O2SAT 100
[2023-01-03 08:00] VITALS: BP 130/76; TEMP 97.2; O2SAT 98
[2023-01-03] MEDS: HOME MED MISCELLANEOUS PO SCH ×2 (08:45)
[2023-01-03] MEDS: METFORMIN 500 MG PO SCH ×2 (08:45→16:02)
[2023-01-03] MEDS: BLOOD SUGAR DIAGNOSTIC 1 EACH STRIP IN SCH (09:00)
[2023-01-03] MEDS: cetrizine 10 MG TABLET PO PRN (09:52)
[2023-01-03 21:00] VITALS: BP 116/70; TEMP 97.9; O2SAT 94
[2023-01-03] MEDS: LORAZEPAM 1 MG TABLET FOR AGITATION PO PRN (21:45)
[2023-01-04] MEDS: METFORMIN 500 MG PO SCH ×2 (09:16→17:01)
[2023-01-04] MEDS: HOME MED MISCELLANEOUS PO SCH ×2 (09:16)
[2023-01-04] MEDS: BLOOD SUGAR DIAGNOSTIC 1 EACH STRIP IN SCH (09:21)
[2023-01-04 16:00] VITALS: BP 113/69; TEMP 98.9; O2SAT 99
[2023-01-04] MEDS: LORAZEPAM 1 MG TABLET FOR AGITATION PO PRN (22:33)
[2023-01-05 08:00] VITALS: BP 128/81; TEMP 97; O2SAT 100
[2023-01-05] MEDS: METFORMIN 500 MG PO SCH ×2 (08:51→16:54)
[2023-01-05] MEDS: HOME MED MISCELLANEOUS PO SCH ×2 (08:51)
[2023-01-05] MEDS: BLOOD SUGAR DIAGNOSTIC 1 EACH STRIP IN SCH (08:51)
[2023-01-05] MEDS: cetrizine 10 MG TABLET PO PRN (08:58)
[2023-01-05 16:00] VITALS: BP 111/65; TEMP 98.9; O2SAT 95
[2023-01-05] MEDS: LORAZEPAM 1 MG TABLET FOR AGITATION PO PRN (20:14)
[2023-01-06 07:00] VITALS: BP 133/81; TEMP 98.2; O2SAT 92
[2023-01-06] MEDS: BLOOD SUGAR DIAGNOSTIC 1 EACH STRIP IN SCH (08:21)
[2023-01-06] MEDS: METFORMIN 500 MG PO SCH ×2 (08:21→16:55)
[2023-01-06] MEDS: HOME MED MISCELLANEOUS PO SCH ×2 (08:21)
[2023-01-06 16:00] VITALS: BP 105/65; TEMP 98.9; O2SAT 96
[2023-01-06] MEDS: LORAZEPAM 1 MG TABLET FOR AGITATION PO PRN (19:50)
[2023-01-06 20:00] VITALS: BP 105/77; TEMP 98.5; O2SAT 99
[2023-01-07] MEDS: METFORMIN 500 MG PO SCH ×2 (08:07→17:29)
[2023-01-07] MEDS: HOME MED MISCELLANEOUS PO SCH ×2 (08:07)
[2023-01-07] MEDS: BLOOD SUGAR DIAGNOSTIC 1 EACH STRIP IN SCH (08:48)
[2023-01-07] MEDS ORDERED: ZOLPIDEM TARTRATE 10 MG TABLET PO PRN (13:00)
[2023-01-08 07:30] VITALS: BP 128/74; TEMP 98; O2SAT 93
[2023-01-08] MEDS: METFORMIN 500 MG PO SCH ×2 (08:10→16:15)
[2023-01-08] MEDS: HOME MED MISCELLANEOUS PO SCH ×2 (08:11)
[2023-01-08] MEDS: BLOOD SUGAR DIAGNOSTIC 1 EACH STRIP IN SCH (08:51)
[2023-01-08 16:00] VITALS: BP 114/48; TEMP 98; O2SAT 96
[2023-01-08 19:00] VITALS: BP 124/77; O2SAT 93
[2023-01-08] MEDS: LORAZEPAM 1 MG TABLET FOR AGITATION PO PRN (19:54)
[2023-01-09 04:00] VITALS: BP 102/59; TEMP 98.6
[2023-01-09 08:00] VITALS: BP 120/75; TEMP 98; O2SAT 98
[2023-01-09] MEDS: METFORMIN 500 MG PO SCH ×2 (08:40→16:05)
[2023-01-09] MEDS: HOME MED MISCELLANEOUS PO SCH ×2 (08:40)
[2023-01-09] MEDS: BLOOD SUGAR DIAGNOSTIC 1 EACH STRIP IN SCH (08:48)
[2023-01-09] MEDS: LORAZEPAM 1 MG TABLET FOR AGITATION PO PRN (19:58)
[2023-01-09 20:00] VITALS: BP 110/65; TEMP 97.9; O2SAT 97
[2023-01-10 04:00] VITALS: BP 128/63; TEMP 98.6; O2SAT 96
[2023-01-10 07:00] VITALS: BP 110/71; TEMP 98.9; O2SAT 97
[2023-01-10] MEDS: BLOOD SUGAR DIAGNOSTIC 1 EACH STRIP IN SCH (08:11)
[2023-01-10] MEDS: HOME MED MISCELLANEOUS PO SCH ×2 (08:12→08:13)
[2023-01-10] MEDS: METFORMIN 500 MG PO SCH ×2 (08:13→16:19)
[2023-01-10 12:09] VITALS: BP 110/71; TEMP 98.9; O2SAT 97
[2023-01-10 20:37] VITALS: BP 115/65; TEMP 98; O2SAT 96
[2023-01-10] MEDS: LORAZEPAM 1 MG TABLET FOR AGITATION PO PRN (21:20)
[2023-01-11 07:00] VITALS: BP_SYST 121; BP_SYST 128; BP_DIAS 83; BP_DIAS 85; TEMP 98.2; TEMP 98.5; O2SAT 97; O2SAT 98
[2023-01-11] MEDS: METFORMIN 500 MG PO SCH ×2 (08:24→17:27)
[2023-01-11] MEDS: HOME MED MISCELLANEOUS PO SCH ×2 (08:24)
[2023-01-11] MEDS: BLOOD SUGAR DIAGNOSTIC 1 EACH STRIP IN SCH (09:19)
[2023-01-11 16:00] VITALS: BP 110/64; TEMP 98.8; O2SAT 91
[2023-01-11 19:00] VITALS: BP 113/67; TEMP 98.5; O2SAT 99
[2023-01-11 20:00] VITALS: BP 113/67; TEMP 98.5; O2SAT 99
[2023-01-11] MEDS: LORAZEPAM 1 MG TABLET FOR AGITATION PO PRN (20:52)
[2023-01-12 08:00] VITALS: BP 117/77; TEMP 98.9; O2SAT 96
[2023-01-12] MEDS: HOME MED MISCELLANEOUS PO SCH ×2 (09:07)
[2023-01-12] MEDS: METFORMIN 500 MG PO SCH ×2 (09:07→17:47)
[2023-01-12] MEDS: NEOMY SULF/BACITRAC ZN/POLY 15 GM TUBE TP SCH ×2 (09:08→20:21)
[2023-01-12] MEDS: BLOOD SUGAR DIAGNOSTIC 1 EACH STRIP IN SCH (09:09)
[2023-01-12] MEDS ORDERED: LIDOCAINE 2%-EPI 1:100,000 30 ML VIAL TP STA (12:40)
[2023-01-12] MEDS: DOXYCYCLINE HYCLATE (100 MG) 100 MG TABLET PO SCH (17:47)
[2023-01-12 20:00] VITALS: BP 122/71; TEMP 98.4; O2SAT 96
[2023-01-12] MEDS: LORAZEPAM 1 MG TABLET FOR AGITATION PO PRN (20:10)
[2023-01-12 20:58] VITALS: BP 122/71; TEMP 98.4; O2SAT 96
[2023-01-12] MEDS ORDERED: DOXYCYCLINE HYCLATE (100 MG) 100 MG TABLET PO SCH (21:00)
[2023-01-13] MEDS: DOXYCYCLINE HYCLATE (100 MG) 100 MG TABLET PO SCH ×2 (05:03→17:25)
[2023-01-13 07:00] VITALS: BP 118/72; TEMP 97.7; O2SAT 97
[2023-01-13] MEDS: HOME MED MISCELLANEOUS PO SCH ×2 (08:22)
[2023-01-13] MEDS: METFORMIN 500 MG PO SCH ×2 (08:22→17:25)
[2023-01-13] MEDS: NEOMY SULF/BACITRAC ZN/POLY 15 GM TUBE TP SCH (08:23)
[2023-01-13] MEDS: BLOOD SUGAR DIAGNOSTIC 1 EACH STRIP IN SCH (08:25)
[2023-01-13 16:00] VITALS: BP 129/78; TEMP 98.1; O2SAT 98
[2023-01-13 20:00] VITALS: BP 113/52; TEMP 97.7; O2SAT 99
[2023-01-13] MEDS: LORAZEPAM 1 MG TABLET FOR AGITATION PO PRN (20:29)
[2023-01-14] MEDS: DOXYCYCLINE HYCLATE (100 MG) 100 MG TABLET PO SCH ×2 (05:57→17:14)
[2023-01-14 08:00] VITALS: BP 132/82; TEMP 97.6; O2SAT 97
[2023-01-14] MEDS: BLOOD SUGAR DIAGNOSTIC 1 EACH STRIP IN SCH (08:08)
[2023-01-14] MEDS: METFORMIN 500 MG PO SCH ×2 (08:08→17:14)
[2023-01-14] MEDS: HOME MED MISCELLANEOUS PO SCH ×2 (08:08)
[2023-01-14] MEDS ORDERED: ZOLPIDEM TARTRATE 10 MG TABLET PO PRN (13:00)
[2023-01-14 20:00] VITALS: BP 100/51; TEMP 98.4; O2SAT 97
[2023-01-14 21:22] VITALS: BP 100/51; TEMP 98.4; O2SAT 97
[2023-01-15] MEDS: DOXYCYCLINE HYCLATE (100 MG) 100 MG TABLET PO SCH ×2 (05:54→17:00)
[2023-01-15 08:00] VITALS: BP 114/79; TEMP 98.4; O2SAT 96
[2023-01-15] MEDS: BLOOD SUGAR DIAGNOSTIC 1 EACH STRIP IN SCH (08:43)
[2023-01-15] MEDS: METFORMIN 500 MG PO SCH ×2 (08:43→16:59)
[2023-01-15] MEDS: HOME MED MISCELLANEOUS PO SCH ×2 (08:43)
[2023-01-15 16:00] VITALS: BP 101/57; TEMP 98.6; O2SAT 96
[2023-01-15] MEDS: LORAZEPAM 1 MG TABLET FOR AGITATION PO PRN (19:47)
[2023-01-15 20:54] VITALS: BP 120/74; TEMP 98.1; O2SAT 99
[2023-01-16] MEDS: DOXYCYCLINE HYCLATE (100 MG) 100 MG TABLET PO SCH ×2 (06:02→17:26)
[2023-01-16 08:00] VITALS: BP 101/62; TEMP 98.4
[2023-01-16] MEDS: METFORMIN 500 MG PO SCH ×2 (08:47→17:04)
[2023-01-16] MEDS: HOME MED MISCELLANEOUS PO SCH ×2 (08:47)
[2023-01-16] MEDS: BLOOD SUGAR DIAGNOSTIC 1 EACH STRIP IN SCH (09:06)
[2023-01-16 20:00] VITALS: BP 139/87; TEMP 97.4; O2SAT 100
[2023-01-16] MEDS: LORAZEPAM 1 MG TABLET FOR AGITATION PO PRN (21:28)
[2023-01-17] MEDS: DOXYCYCLINE HYCLATE (100 MG) 100 MG TABLET PO SCH ×2 (05:52→17:10)
[2023-01-17 08:00] VITALS: BP 127/67; TEMP 98.4; O2SAT 98
[2023-01-17] MEDS: HOME MED MISCELLANEOUS PO SCH ×2 (08:51)
[2023-01-17] MEDS: METFORMIN 500 MG PO SCH ×2 (08:51→17:10)
[2023-01-17] MEDS: BLOOD SUGAR DIAGNOSTIC 1 EACH STRIP IN SCH (09:11)
[2023-01-17 16:00] VITALS: BP 134/102; TEMP 97.4; O2SAT 98
[2023-01-17] MEDS: LORAZEPAM 1 MG TABLET FOR AGITATION PO PRN (20:09)
[2023-01-17 22:13] VITALS: BP 94/57; TEMP 98.1; O2SAT 98
[2023-01-18] MEDS: DOXYCYCLINE HYCLATE (100 MG) 100 MG TABLET PO SCH ×2 (05:22→17:23)
[2023-01-18] MEDS: BLOOD SUGAR DIAGNOSTIC 1 EACH STRIP IN SCH (08:54)
[2023-01-18] MEDS: HOME MED MISCELLANEOUS PO SCH ×2 (08:54→09:20)
[2023-01-18] MEDS: METFORMIN 500 MG PO SCH ×2 (08:54→17:24)
[2023-01-18 20:00] VITALS: BP 107/50; TEMP 97.7; O2SAT 97
[2023-01-18] MEDS: LORAZEPAM 1 MG TABLET FOR AGITATION PO PRN (21:41)
[2023-01-19] MEDS: DOXYCYCLINE HYCLATE (100 MG) 100 MG TABLET PO SCH ×2 (06:12→17:18)
[2023-01-19 08:00] VITALS: BP 115/68; TEMP 98.2; O2SAT 99
[2023-01-19] MEDS: METFORMIN 500 MG PO SCH ×2 (08:51→17:19)
[2023-01-19] MEDS: HOME MED MISCELLANEOUS PO SCH ×2 (08:51→08:52)
[2023-01-19] MEDS: BLOOD SUGAR DIAGNOSTIC 1 EACH STRIP IN SCH (08:52)
[2023-01-19 16:00] VITALS: BP 101/51; TEMP 98.1; O2SAT 99
[2023-01-19 20:00] VITALS: BP 102/57; TEMP 98; O2SAT 98
[2023-01-19] MEDS: LORAZEPAM 1 MG TABLET FOR AGITATION PO PRN (20:05)
[2023-01-20] MEDS: DOXYCYCLINE HYCLATE (100 MG) 100 MG TABLET PO SCH ×2 (05:08→18:07)
[2023-01-20] MEDS: METFORMIN 500 MG PO SCH ×2 (08:30→17:02)
[2023-01-20] MEDS: HOME MED MISCELLANEOUS PO SCH ×2 (08:31)
[2023-01-20] MEDS: BLOOD SUGAR DIAGNOSTIC 1 EACH STRIP IN SCH (08:51)
[2023-01-20] MEDS: diphenhydrAMINE HCL 25 MG CAPSULE PO PRN (14:50)
[2023-01-20 16:00] VITALS: BP 96/58; TEMP 98.6; O2SAT 99
[2023-01-20 20:00] VITALS: BP_SYST 122; BP_SYST 149; BP_DIAS 55; BP_DIAS 67; TEMP 97.6; TEMP 98.2; O2SAT 95; O2SAT 97
[2023-01-20] MEDS: LORAZEPAM 1 MG TABLET FOR AGITATION PO PRN (21:14)
[2023-01-21] MEDS: DOXYCYCLINE HYCLATE (100 MG) 100 MG TABLET PO SCH ×2 (05:38→17:02)
[2023-01-21 07:00] VITALS: BP 118/77; TEMP 98.3; O2SAT 97
[2023-01-21] MEDS: HOME MED MISCELLANEOUS PO SCH ×2 (08:02)
[2023-01-21] MEDS: METFORMIN 500 MG PO SCH ×2 (08:03→17:02)
[2023-01-21] MEDS: BLOOD SUGAR DIAGNOSTIC 1 EACH STRIP IN SCH (08:19)
[2023-01-21] MEDS ORDERED: ZOLPIDEM TARTRATE 10 MG TABLET PO PRN (13:00)
[2023-01-21] MEDS ORDERED: LIDOCAINE 1%-EPI 1:100,000 20 ML VIAL TP ONE (14:00)
[2023-01-21] MEDS ORDERED: SILVER NITRATE APPLICATOR 1 EA BOX TP PRN (14:00)
[2023-01-21 16:00] VITALS: BP 97/50; TEMP 98.5; O2SAT 98
[2023-01-21 20:00] VITALS: BP 107/56; TEMP 98; O2SAT 97
[2023-01-21] MEDS: LORAZEPAM 1 MG TABLET FOR AGITATION PO PRN (20:39)
[2023-01-22] MEDS: DOXYCYCLINE HYCLATE (100 MG) 100 MG TABLET PO SCH ×2 (05:57→17:40)
[2023-01-22] MEDS: HOME MED MISCELLANEOUS PO SCH ×2 (05:57)
[2023-01-22] MEDS: METFORMIN 500 MG PO SCH ×2 (05:57→17:38)
[2023-01-22] MEDS: BLOOD SUGAR DIAGNOSTIC 1 EACH STRIP IN SCH (09:00)
[2023-01-22 19:00] VITALS: BP 122/75; TEMP 98; O2SAT 97
[2023-01-22] MEDS: LORAZEPAM 1 MG TABLET FOR AGITATION PO PRN (21:08)
[2023-01-23] MEDS: DOXYCYCLINE HYCLATE (100 MG) 100 MG TABLET PO SCH ×2 (06:21→17:11)
[2023-01-23 08:00] VITALS: BP 118/65; TEMP 98.6; O2SAT 98
[2023-01-23] MEDS: HOME MED MISCELLANEOUS PO SCH ×2 (09:13)
[2023-01-23] MEDS: METFORMIN 500 MG PO SCH ×2 (09:14→17:11)
[2023-01-23] MEDS: BLOOD SUGAR DIAGNOSTIC 1 EACH STRIP IN SCH (09:23)
[2023-01-23] MEDS: diphenhydrAMINE HCL/ZINC ACET CREAM 28.3 GM TUBE TP PRN (18:54)
[2023-01-23] MEDS: diphenhydrAMINE HCL 25 MG CAPSULE PO PRN (18:54)
[2023-01-23 19:00] VITALS: BP 107/69; TEMP 98.2; O2SAT 98
[2023-01-23] MEDS: LORAZEPAM 1 MG TABLET FOR AGITATION PO PRN (20:24)
[2023-01-24 04:00] VITALS: BP 139/90; TEMP 98.4; O2SAT 98
[2023-01-24] MEDS: DOXYCYCLINE HYCLATE (100 MG) 100 MG TABLET PO SCH ×2 (05:22→17:15)
[2023-01-24] MEDS: diphenhydrAMINE HCL/ZINC ACET CREAM 28.3 GM TUBE TP PRN (05:47)
[2023-01-24 08:00] VITALS: BP 110/71; TEMP 98.2; O2SAT 99
[2023-01-24] MEDS: BLOOD SUGAR DIAGNOSTIC 1 EACH STRIP IN SCH (08:49)
[2023-01-24] MEDS: METFORMIN 500 MG PO SCH ×2 (08:50→17:15)
[2023-01-24] MEDS: HOME MED MISCELLANEOUS PO SCH ×2 (08:50)
[2023-01-24 20:00] VITALS: BP 122/71; TEMP 98; O2SAT 99
[2023-01-24] MEDS: LORAZEPAM 1 MG TABLET FOR AGITATION PO PRN (21:13)
[2023-01-25] MEDS: DOXYCYCLINE HYCLATE (100 MG) 100 MG TABLET PO SCH ×2 (05:20→17:13)
[2023-01-25] MEDS: BLOOD SUGAR DIAGNOSTIC 1 EACH STRIP IN SCH (09:04)
[2023-01-25] MEDS: METFORMIN 500 MG PO SCH ×2 (09:04→17:13)
[2023-01-25] MEDS: HOME MED MISCELLANEOUS PO SCH ×2 (09:04→09:05)
[2023-01-25 09:26] VITALS: BP 115/70; TEMP 98; O2SAT 98
[2023-01-25] MEDS: diphenhydrAMINE HCL 25 MG CAPSULE PO PRN (11:49)
[2023-01-25] MEDS: LORAZEPAM 1 MG TABLET FOR AGITATION PO PRN (20:52)
[2023-01-25 22:00] VITALS: BP 125/82; TEMP 98.1; O2SAT 96
[2023-01-26] MEDS: DOXYCYCLINE HYCLATE (100 MG) 100 MG TABLET PO SCH ×2 (05:44→17:16)
[2023-01-26 08:00] VITALS: BP 100/68; TEMP 98.1; O2SAT 98
[2023-01-26] MEDS: BLOOD SUGAR DIAGNOSTIC 1 EACH STRIP IN SCH (08:43)
[2023-01-26] MEDS: HOME MED MISCELLANEOUS PO SCH ×2 (08:43→08:44)
[2023-01-26] MEDS: METFORMIN 500 MG PO SCH ×2 (08:43→17:14)
[2023-01-26 20:00] VITALS: BP 110/64; TEMP 97.9; O2SAT 100
[2023-01-26] MEDS: LORAZEPAM 1 MG TABLET FOR AGITATION PO PRN (20:36)
[2023-01-27] MEDS: DOXYCYCLINE HYCLATE (100 MG) 100 MG TABLET PO SCH ×2 (05:51→17:13)
[2023-01-27] MEDS: METFORMIN 500 MG PO SCH ×2 (08:27→17:13)
[2023-01-27] MEDS: HOME MED MISCELLANEOUS PO SCH ×2 (08:28)
[2023-01-27] MEDS: BLOOD SUGAR DIAGNOSTIC 1 EACH STRIP IN SCH (08:28)
[2023-01-27] MEDS: diphenhydrAMINE HCL/ZINC ACET CREAM 28.3 GM TUBE TP PRN (12:55)
[2023-01-27] MEDS: diphenhydrAMINE HCL 25 MG CAPSULE PO PRN (13:00)
[2023-01-27 20:00] VITALS: BP_SYST 110; BP_SYST 112; BP_DIAS 66; BP_DIAS 72; TEMP 100; TEMP 97.9; O2SAT 93; O2SAT 95
[2023-01-27] MEDS: LORAZEPAM 1 MG TABLET FOR AGITATION PO PRN (21:06)
[2023-01-28] MEDS: DOXYCYCLINE HYCLATE (100 MG) 100 MG TABLET PO SCH ×2 (06:27→17:33)
[2023-01-28 07:30] VITALS: BP 113/68; TEMP 98.6; O2SAT 97
[2023-01-28] MEDS: HOME MED MISCELLANEOUS PO SCH ×2 (08:38)
[2023-01-28] MEDS: METFORMIN 500 MG PO SCH ×2 (08:38→17:33)
[2023-01-28] MEDS: BLOOD SUGAR DIAGNOSTIC 1 EACH STRIP IN SCH (09:37)
[2023-01-28] MEDS ORDERED: ZOLPIDEM TARTRATE 10 MG TABLET PO PRN (13:00)
[2023-01-28 20:00] VITALS: BP_SYST 106; BP_SYST 126; BP_DIAS 57; TEMP 98.3; O2SAT 97
[2023-01-28] MEDS: LORAZEPAM 1 MG TABLET FOR AGITATION PO PRN (20:04)
[2023-01-29] MEDS: DOXYCYCLINE HYCLATE (100 MG) 100 MG TABLET PO SCH ×2 (06:20→17:03)
[2023-01-29] MEDS: METFORMIN 500 MG PO SCH ×2 (09:11→16:29)
[2023-01-29] MEDS: HOME MED MISCELLANEOUS PO SCH ×2 (09:12)
[2023-01-29] MEDS: BLOOD SUGAR DIAGNOSTIC 1 EACH STRIP IN SCH (09:28)
[2023-01-29 20:00] VITALS: BP 113/67; TEMP 98; O2SAT 98
[2023-01-29] MEDS: LORAZEPAM 1 MG TABLET FOR AGITATION PO PRN (21:05)
[2023-01-30] MEDS: DOXYCYCLINE HYCLATE (100 MG) 100 MG TABLET PO SCH ×2 (05:52→17:19)
[2023-01-30 08:00] VITALS: BP 114/65; TEMP 97.7; O2SAT 99
[2023-01-30] MEDS: METFORMIN 500 MG PO SCH ×2 (08:40→17:19)
[2023-01-30] MEDS: HOME MED MISCELLANEOUS PO SCH ×2 (08:40)
[2023-01-30] MEDS: BLOOD SUGAR DIAGNOSTIC 1 EACH STRIP IN SCH (08:56)
[2023-01-30] MEDS: LORAZEPAM 1 MG TABLET FOR AGITATION PO PRN (19:40)
[2023-01-30 20:00] VITALS: BP 111/77; TEMP 98.6; O2SAT 97
[2023-01-31] MEDS: DOXYCYCLINE HYCLATE (100 MG) 100 MG TABLET PO SCH ×2 (06:06→17:01)
[2023-01-31 08:00] VITALS: BP 116/79; TEMP 98.6; O2SAT 100
[2023-01-31] MEDS: HOME MED MISCELLANEOUS PO SCH ×2 (08:55→08:56)
[2023-01-31] MEDS: METFORMIN 500 MG PO SCH ×2 (08:55→17:01)
[2023-01-31] MEDS: BLOOD SUGAR DIAGNOSTIC 1 EACH STRIP IN SCH (09:10)
[2023-01-31 16:00] VITALS: BP 103/74; TEMP 98.6; O2SAT 98
[2023-01-31] MEDS: LORAZEPAM 1 MG TABLET FOR AGITATION PO PRN (19:47)
[2023-01-31 20:00] VITALS: BP 114/66; TEMP 98.4; O2SAT 97
[2023-02-01] MEDS: DOXYCYCLINE HYCLATE (100 MG) 100 MG TABLET PO SCH (06:04)
[2023-02-01 08:00] VITALS: BP 112/75; TEMP 97.8; O2SAT 99
[2023-02-01] MEDS: HOME MED MISCELLANEOUS PO SCH ×2 (08:25)
[2023-02-01] MEDS: METFORMIN 500 MG PO SCH ×2 (08:25→17:16)
[2023-02-01] MEDS: BLOOD SUGAR DIAGNOSTIC 1 EACH STRIP IN SCH (08:37)
[2023-02-01] MEDS: LORAZEPAM 1 MG TABLET FOR AGITATION PO PRN (19:46)
[2023-02-01 20:00] VITALS: BP 115/69; TEMP 97.7; TEMP 97.9; O2SAT 97
[2023-02-02 08:00] VITALS: BP 122/71; TEMP 98.4; O2SAT 97
[2023-02-02] MEDS: BLOOD SUGAR DIAGNOSTIC 1 EACH STRIP IN SCH (09:18)
[2023-02-02] MEDS: HOME MED MISCELLANEOUS PO SCH ×2 (09:18)
[2023-02-02] MEDS: METFORMIN 500 MG PO SCH ×2 (09:19→17:00)
[2023-02-02] MEDS: LORAZEPAM 1 MG TABLET FOR AGITATION PO PRN (22:15)
[2023-02-02 22:32] VITALS: BP_SYST 124; BP_SYST 149; BP_DIAS 62; BP_DIAS 77; TEMP 93.9; TEMP 97.9; O2SAT 93; O2SAT 98
[2023-02-03 08:00] VITALS: BP 118/69; TEMP 98.6; O2SAT 94
[2023-02-03] MEDS: HOME MED MISCELLANEOUS PO SCH ×2 (09:33)
[2023-02-03] MEDS: METFORMIN 500 MG PO SCH ×2 (09:33→18:02)
[2023-02-03] MEDS: BLOOD SUGAR DIAGNOSTIC 1 EACH STRIP IN SCH (10:05)
[2023-02-03 12:00] VITALS: BP 118/69; TEMP 98.6; O2SAT 94
[2023-02-03] MEDS: LORAZEPAM 1 MG TABLET FOR AGITATION PO PRN (19:57)
[2023-02-03 20:00] VITALS: BP 108/72; TEMP 97.8; O2SAT 97
[2023-02-04] MEDS: METFORMIN 500 MG PO SCH ×2 (08:37→16:17)
[2023-02-04] MEDS: HOME MED MISCELLANEOUS PO SCH ×2 (08:37)
[2023-02-04] MEDS: BLOOD SUGAR DIAGNOSTIC 1 EACH STRIP IN SCH (08:37)
[2023-02-04] MEDS ORDERED: ZOLPIDEM TARTRATE 10 MG TABLET PO PRN (13:00)
[2023-02-04 20:00] VITALS: BP 126/76; TEMP 97.7; O2SAT 100
[2023-02-05] MEDS: LORAZEPAM 1 MG TABLET FOR AGITATION PO PRN ×2 (00:24→21:32)
[2023-02-05 08:00] VITALS: BP 113/83; TEMP 98.4; O2SAT 98
[2023-02-05] MEDS: METFORMIN 500 MG PO SCH ×2 (09:10→17:03)
[2023-02-05] MEDS: HOME MED MISCELLANEOUS PO SCH ×2 (09:10)
[2023-02-05] MEDS: BLOOD SUGAR DIAGNOSTIC 1 EACH STRIP IN SCH (09:10)
[2023-02-05 16:00] VITALS: BP 101/63; TEMP 98.1; O2SAT 98
[2023-02-05 20:00] VITALS: BP 109/66; TEMP 98.4; O2SAT 97
[2023-02-06] MEDS: METFORMIN 500 MG PO SCH ×2 (09:57→16:31)
[2023-02-06] MEDS: HOME MED MISCELLANEOUS PO SCH ×2 (09:57)
[2023-02-06] MEDS: BLOOD SUGAR DIAGNOSTIC 1 EACH STRIP IN SCH (10:04)
[2023-02-06 16:00] VITALS: BP 112/67; TEMP 98.2; O2SAT 100
[2023-02-06] MEDS: LORAZEPAM 1 MG TABLET FOR AGITATION PO PRN (19:17)
[2023-02-06 20:00] VITALS: BP 111/73; TEMP 98.6; O2SAT 99
[2023-02-07 08:00] VITALS: BP 103/68; TEMP 99; O2SAT 97
[2023-02-07] MEDS: HOME MED MISCELLANEOUS PO SCH ×2 (08:15)
[2023-02-07] MEDS: METFORMIN 500 MG PO SCH ×2 (08:15→16:20)
[2023-02-07] MEDS: BLOOD SUGAR DIAGNOSTIC 1 EACH STRIP IN SCH (09:03)
[2023-02-07 16:00] VITALS: BP 112/60; TEMP 97.5; O2SAT 98
[2023-02-07] MEDS: LORAZEPAM 1 MG TABLET FOR AGITATION PO PRN (19:50)
[2023-02-07 20:00] VITALS: BP 106/67; TEMP 98.8; O2SAT 97
[2023-02-08] MEDS: HOME MED MISCELLANEOUS PO SCH ×2 (08:47)
[2023-02-08] MEDS: METFORMIN 500 MG PO SCH ×2 (08:47→16:05)
[2023-02-08] MEDS: BLOOD SUGAR DIAGNOSTIC 1 EACH STRIP IN SCH (08:55)
[2023-02-08 08:56] VITALS: BP 106/61; TEMP 98; O2SAT 99
[2023-02-08] MEDS: LORAZEPAM 1 MG TABLET FOR AGITATION PO PRN (20:44)
[2023-02-09 08:00] VITALS: BP 116/69; TEMP 98.2; O2SAT 96
[2023-02-09] MEDS: HOME MED MISCELLANEOUS PO SCH ×2 (08:47)
[2023-02-09] MEDS: METFORMIN 500 MG PO SCH ×2 (08:47→17:25)
[2023-02-09] MEDS: BLOOD SUGAR DIAGNOSTIC 1 EACH STRIP IN SCH (08:47)
[2023-02-09 16:00] VITALS: BP 113/62; TEMP 96.5; O2SAT 99
[2023-02-09 20:00] VITALS: BP 129/80; TEMP 92.5; O2SAT 97
[2023-02-09] MEDS: LORAZEPAM 1 MG TABLET FOR AGITATION PO PRN (20:34)
[2023-02-10 07:00] VITALS: BP 109/81; TEMP 97.9; O2SAT 98
[2023-02-10] MEDS: BLOOD SUGAR DIAGNOSTIC 1 EACH STRIP IN SCH (08:45)
[2023-02-10] MEDS: METFORMIN 500 MG PO SCH ×2 (08:46→17:16)
[2023-02-10] MEDS: HOME MED MISCELLANEOUS PO SCH ×2 (08:46→08:47)
[2023-02-10 16:00] VITALS: BP 114/70; TEMP 98; O2SAT 99
[2023-02-10] MEDS: LORAZEPAM 1 MG TABLET FOR AGITATION PO PRN (17:22)
[2023-02-10 20:00] VITALS: BP 114/78; TEMP 97.7; O2SAT 97
[2023-02-11 08:00] VITALS: BP 128/81; TEMP 98.8; O2SAT 97
[2023-02-11] MEDS: METFORMIN 500 MG PO SCH (08:55)
[2023-02-11] MEDS: HOME MED MISCELLANEOUS PO SCH ×2 (08:55)
[2023-02-11] MEDS: BLOOD SUGAR DIAGNOSTIC 1 EACH STRIP IN SCH (08:56)
[2023-02-11] MEDS ORDERED: LORAZEPAM 1 MG TABLET FOR AGITATION PO PRN (13:00)
[2023-02-11] MEDS ORDERED: ZOLPIDEM TARTRATE 10 MG TABLET PO PRN (13:00)
== END 2023-02-11 11:50 | disposition home or self-care (01) | DRG 940 ==
LOC: GPS 14:47 → MEDOV2 12-18 11:39 → MED 12-18 19:20
PROVIDERS: ADMIT Psychiatry & Neurology Psychiatry; ATTEND Psychiatry & Neurology Psychiatry
PROC: 0H97XZZ Drainage of Abdomen Skin, External Approach (ICD-10-PCS; principal; 2023-01-12)
PROC: 0JB80ZZ Excision of Abdomen Subcutaneous Tissue and Fascia, Open Approach (ICD-10-PCS; 2023-01-24)
DX: Z00.6 Encounter for examination for normal comparison and control in clinical research program (principal); F20.0 Paranoid schizophrenia; L02.211 Cutaneous abscess of abdominal wall; I10 Essential (primary) hypertension; E11.9 Type 2 diabetes mellitus without complications; E66.9 Obesity, unspecified; Z68.37 Body mass index [BMI] 37.0-37.9, adult; F17.200 Nicotine dependence, unspecified, uncomplicated; Z79.899 Other long term (current) drug therapy; Z91.013 Allergy to seafood; Z91.51 Personal history of suicidal behavior; Z88.8 Allergy status to other drugs, medicaments and biological substances; K59.00 Constipation, unspecified; G47.00 Insomnia, unspecified; Z78.0 Asymptomatic menopausal state; Z79.84 Long term (current) use of oral hypoglycemic drugs
CPT/HCPCS: 82962-TC; A6253; A6403; A6407; G0378; J3490; Q0163

== ENCOUNTER 2024-12-25 13:00 | Inpatient (IN) | payer OTHER ==
[~2024-12-25] VITALS: Ht 167.6 cm; Wt 106.1 kg
[~2024-12-25 13:00] MED LIST changes: -BENA20TA9 PO; +LOSA25TA27 PO; -QUET300T2 PO; +QUET50TA PO
[2024-12-25 15:00] VITALS: BP 114/80; TEMP 97.3; O2SAT 100
[2024-12-25] MEDS ORDERED: MAGNESIUM HYDROXIDE 30 ML UDC PO PRN (16:00)
[2024-12-25] MEDS ORDERED: ACETAMINOPHEN ES 500 MG TABLET PO PRN (16:00)
[2024-12-25 16:12] VITALS: BP 114/80; TEMP 97.3; O2SAT 100
[2024-12-25] MEDS ORDERED: GLUCOPHAGE PO SCH (17:00)
[2024-12-25] MEDS ORDERED: METFORMIN 500 MG PO SCH (17:00)
[2024-12-25] MEDS: GLUCOPHAGE PO SCH (17:36)
[2024-12-25 20:00] VITALS: BP 133/78; TEMP 98.1; O2SAT 96
[2024-12-25] MEDS: SEROQUEL PO SCH (21:41)
[2024-12-25] MEDS ORDERED: ZOLPIDEM TARTRATE 10 MG TABLET PO PRN (22:00)
[2024-12-26 08:00] VITALS: BP 130/80; TEMP 97.7; O2SAT 98
[2024-12-26] MEDS: GLIMEPRIDE PO SCH (09:07)
[2024-12-26] MEDS: HYDROCHLOROTHIAZIDE PO SCH (09:07)
[2024-12-26] MEDS: LOSARTAN POTASSIUM PO SCH (09:08)
[2024-12-26] MEDS ORDERED: [UNRECOGNIZED DRUG - OTHER] PO SCH (10:00)
[2024-12-26] MEDS: LORAZEPAM 1 MG TABLET FOR AGITATION PO PRN (18:34)
[2024-12-26 20:00] VITALS: BP 116/60; TEMP 97.6; O2SAT 99
[2024-12-27 08:00] VITALS: BP 128/79; TEMP 98.2; O2SAT 98
[2024-12-27] MEDS: BLOOD SUGAR DIAGNOSTIC 1 EACH STRIP IN SCH (08:57)
[2024-12-27 16:00] VITALS: BP 103/63; TEMP 97.9; O2SAT 100
[2024-12-27 20:00] VITALS: BP 134/71; TEMP 97.5; O2SAT 97
[2024-12-28 07:30] VITALS: BP 115/80; TEMP 98.1; O2SAT 97
[2024-12-28 20:00] VITALS: BP 118/66; TEMP 97.2; O2SAT 99
[2024-12-28 22:38] VITALS: BP 120/72; TEMP 97.8; O2SAT 99
[2024-12-29 07:30] VITALS: BP 143/92; TEMP 98.4; O2SAT 98
[2024-12-29 16:02] VITALS: BP 124/91; TEMP 97.9; O2SAT 96
[2024-12-29 20:00] VITALS: BP 115/69; TEMP 97.9; O2SAT 99
[2024-12-30 08:00] VITALS: BP 110/68; TEMP 98.1; O2SAT 99
[2024-12-30 16:00] VITALS: BP 118/82; TEMP 97.3; O2SAT 97
[2024-12-31 08:00] VITALS: BP 109/70; TEMP 98.2; O2SAT 98
[2025-01-01 08:00] VITALS: BP 114/69; TEMP 98.4; O2SAT 96; O2SAT 99
[2025-01-01 16:00] VITALS: BP 118/100; TEMP 98.4; O2SAT 98
[2025-01-02 08:00] VITALS: BP 113/69; TEMP 98.2; O2SAT 97
[2025-01-02 16:00] VITALS: BP 112/79; TEMP 98.2; O2SAT 97
[2025-01-02 20:00] VITALS: BP 100/64; TEMP 98; O2SAT 96
[2025-01-03 08:00] VITALS: BP 123/86; TEMP 98.2; O2SAT 99
[2025-01-03] MEDS ORDERED: ZOLPIDEM TARTRATE 10 MG TABLET PO PRN ×2 (13:00)
[2025-01-03 16:00] VITALS: BP 112/54; TEMP 98.4; O2SAT 95
[2025-01-03 20:00] VITALS: BP 106/64; TEMP 98.1; O2SAT 99
[2025-01-04 07:30] VITALS: BP 135/76; TEMP 98.1; O2SAT 98
[2025-01-04] MEDS: [UNRECOGNIZED DRUG - OTHER] PO SCH (10:00)
[2025-01-04 16:00] VITALS: BP 103/47; TEMP 98.4; O2SAT 98
[2025-01-04] MEDS: LORAZEPAM 1 MG TABLET FOR AGITATION PO PRN (18:40)
[2025-01-04 20:00] VITALS: BP 104/60; TEMP 97.9; O2SAT 97
[2025-01-05 07:30] VITALS: BP 129/88; TEMP 98.4; O2SAT 99
[2025-01-05] MEDS ORDERED: ZOLPIDEM TARTRATE 10 MG TABLET PO PRN (13:00)
[2025-01-05 16:00] VITALS: BP 117/76; TEMP 98.4; O2SAT 98
[2025-01-05] MEDS: LORAZEPAM 1 MG TABLET FOR AGITATION PO PRN (17:12)
[2025-01-05 20:00] VITALS: BP 113/68; TEMP 98.1; O2SAT 97; O2SAT 98
[2025-01-06 08:00] VITALS: BP 122/82; TEMP 98.4; O2SAT 97
[2025-01-06] MEDS: [UNRECOGNIZED DRUG - OTHER] PO SCH (09:27)
[2025-01-06] MEDS: IBUPROFEN 200 MG TABLET PO PRN (09:52)
[2025-01-06] MEDS ORDERED: CALAMINE 118 ML BOTTLE TP PRN (11:00)
[2025-01-06 16:00] VITALS: BP 112/68; TEMP 97.9; O2SAT 97
[2025-01-06 20:00] VITALS: BP 96/47; TEMP 98.2; O2SAT 99
[2025-01-07 08:00] VITALS: BP 119/91; TEMP 98.1; O2SAT 97
[2025-01-07 16:00] VITALS: BP 128/72; TEMP 98.4; O2SAT 96
[2025-01-07 16:03] VITALS: BP 128/72; TEMP 98.4; O2SAT 96
[2025-01-08 08:00] VITALS: BP 120/82; TEMP 98.2; O2SAT 97
[2025-01-08 16:00] VITALS: BP 100/68; TEMP 98.6; O2SAT 96
[2025-01-08 20:00] VITALS: BP 112/68; TEMP 98.2; O2SAT 96
[2025-01-09 08:00] VITALS: BP 107/63; TEMP 98.4; O2SAT 98
[2025-01-10 07:30] VITALS: BP 114/77; TEMP 98.4; O2SAT 100
[2025-01-10 20:00] VITALS: BP 119/74; TEMP 97.9; O2SAT 99
[2025-01-11 07:30] VITALS: BP 108/80; TEMP 97.3; O2SAT 98
[2025-01-11 16:00] VITALS: BP 114/74; TEMP 98.4; O2SAT 99
[2025-01-11 20:00] VITALS: BP 117/66; TEMP 99; O2SAT 97
[2025-01-11 22:02] VITALS: BP 117/66; TEMP 97; O2SAT 99
[2025-01-12 07:30] VITALS: BP 125/77; TEMP 99; O2SAT 97
[2025-01-12] MEDS ORDERED: ZOLPIDEM TARTRATE 10 MG TABLET PO PRN (13:00)
[2025-01-12 16:00] VITALS: BP 115/71; TEMP 97.9; O2SAT 100
[2025-01-12] MEDS: LORAZEPAM 1 MG TABLET FOR AGITATION PO PRN (16:47)
[2025-01-13 08:00] VITALS: BP 112/73; TEMP 97.7; O2SAT 99
[2025-01-13 20:00] VITALS: BP 118/69; TEMP 98.2; O2SAT 98
[2025-01-14 07:30] VITALS: BP 107/71; TEMP 98.1; O2SAT 99
[2025-01-14 20:00] VITALS: BP_SYST 111; BP_DIAS 71; BP_DIAS 72; TEMP 98.4; O2SAT 98
[2025-01-15 08:43] VITALS: BP 139/86; TEMP 98.6; O2SAT 96
[2025-01-16 16:00] VITALS: BP 112/80; TEMP 98.4; O2SAT 98
[2025-01-16 20:27] VITALS: BP 99/65; TEMP 97.2; O2SAT 96
[2025-01-17 08:00] VITALS: BP 122/84; TEMP 98.1; O2SAT 97
[2025-01-17 20:00] VITALS: BP 113/76; TEMP 98.1; O2SAT 98
[2025-01-18 07:00] VITALS: BP 128/86; TEMP 98.4; O2SAT 96
[2025-01-18 09:00] VITALS: BP 128/86; TEMP 98.4; O2SAT 96
[2025-01-18] MEDS ORDERED: LORAZEPAM 1 MG TABLET FOR AGITATION PO PRN (13:00)
[2025-01-18 16:00] VITALS: BP 128/86; TEMP 98.4; O2SAT 96
[2025-01-18 20:24] VITALS: BP 107/59; TEMP 97.9; O2SAT 97
[2025-01-19 08:54] VITALS: BP 126/82; TEMP 98.2; O2SAT 94
[2025-01-19] MEDS ORDERED: ZOLPIDEM TARTRATE 10 MG TABLET PO PRN (13:00)
[2025-01-19] MEDS: LORAZEPAM 1 MG TABLET FOR AGITATION PO PRN (17:49)
[2025-01-20 08:00] VITALS: BP 115/77; TEMP 97.7; O2SAT 97
[2025-01-20 20:00] VITALS: BP 111/66; TEMP 97.9; O2SAT 96
[2025-01-21 08:00] VITALS: BP 121/82; TEMP 98.2; O2SAT 100
[2025-01-21 10:00] VITALS: BP 121/82; TEMP 98.2; O2SAT 100
[2025-01-21 20:00] VITALS: BP 118/79; TEMP 98.6; O2SAT 99
[2025-01-22 08:00] VITALS: BP 127/85; TEMP 98.4; O2SAT 98
[2025-01-22 16:01] VITALS: BP 118/61; TEMP 98.8; O2SAT 98
[2025-01-22 20:00] VITALS: BP 97/65; TEMP 98.2; O2SAT 100
[2025-01-23 16:00] VITALS: BP 111/67; TEMP 98.6; O2SAT 96
[2025-01-23 20:00] VITALS: BP 114/97; TEMP 98.1; O2SAT 99
[2025-01-24 08:00] VITALS: BP 124/84; TEMP 98.1; O2SAT 99
[2025-01-24 20:39] VITALS: BP 134/74; TEMP 98.6; O2SAT 98
[2025-01-25 08:00] VITALS: BP 107/65; TEMP 97.9; O2SAT 96
[2025-01-25 16:12] VITALS: BP 131/103; TEMP 98.4; O2SAT 96
[2025-01-25 20:00] VITALS: BP 123/82; TEMP 98.8; O2SAT 95
[2025-01-26] MEDS ORDERED: LORAZEPAM 1 MG TABLET FOR AGITATION PO PRN (13:00)
[2025-01-26] MEDS ORDERED: ZOLPIDEM TARTRATE 10 MG TABLET PO PRN (13:00)
[2025-01-26 16:19] VITALS: BP 141/87; TEMP 97.9; O2SAT 98
[2025-01-26] MEDS: LORAZEPAM 1 MG TABLET FOR AGITATION PO PRN (18:19)
[2025-01-27 08:00] VITALS: BP 125/62; TEMP 98.1; O2SAT 96
[2025-01-27 16:00] VITALS: BP 126/66; TEMP 98.4; O2SAT 99
[2025-01-27 20:00] VITALS: BP 128/100; TEMP 98.2; O2SAT 99
[2025-01-28 08:00] VITALS: BP 99/78; TEMP 98.1; O2SAT 97
[2025-01-28 16:00] VITALS: BP 133/83; TEMP 97.7; O2SAT 99
[2025-01-28 20:37] VITALS: BP 118/95; TEMP 97.7; O2SAT 98
[2025-01-29 08:00] VITALS: BP 104/68; TEMP 98.2; O2SAT 94
[2025-01-29 16:00] VITALS: BP 104/74; TEMP 97.7; O2SAT 99
[2025-01-30 08:00] VITALS: BP 121/71; TEMP 98.8; O2SAT 98
[2025-01-30 16:00] VITALS: BP 104/72; TEMP 98.8; O2SAT 96
[2025-01-30 20:00] VITALS: BP 97/51; TEMP 98.1; O2SAT 97
[2025-01-31 08:00] VITALS: BP 123/77; TEMP 98.1; O2SAT 97
[2025-01-31 15:53] VITALS: BP 110/67; TEMP 97.8; O2SAT 97
[2025-01-31 20:00] VITALS: BP 128/107; TEMP 98.2; O2SAT 97
[2025-02-01 10:58] VITALS: BP 104/91; TEMP 98.8; O2SAT 100
[2025-02-01] MEDS: IMODIUM 2 MG PO PRN (16:38)
[2025-02-01 18:33] VITALS: BP 122/84; TEMP 97.9; O2SAT 99
[2025-02-01 20:00] VITALS: BP 104/60; TEMP 98.4; O2SAT 95
[2025-02-01] MEDS: MAG HYDROX/AL HYDROX/SIMETH 30 ML UDC PO PRN (21:13)
[2025-02-02 08:00] VITALS: BP 104/69; TEMP 97.7; O2SAT 97
[2025-02-02] MEDS ORDERED: ZOLPIDEM TARTRATE 10 MG TABLET PO PRN (13:00)
[2025-02-02] MEDS: LORAZEPAM 1 MG TABLET FOR AGITATION PO PRN (19:59)
[2025-02-02 20:00] VITALS: BP 98/61; TEMP 98.1; O2SAT 98
[2025-02-03 08:00] VITALS: BP 124/77; TEMP 98.4; O2SAT 96
[2025-02-04 07:00] VITALS: BP 123/82; TEMP 97.3; O2SAT 96
[2025-02-04 16:00] VITALS: BP 99/67; TEMP 97.9; O2SAT 99
[2025-02-04 20:00] VITALS: BP 104/57; TEMP 97.7; O2SAT 100
[2025-02-04 21:40] VITALS: BP 104/57; TEMP 97.7; O2SAT 100
[2025-02-06 08:00] VITALS: BP 103/67; TEMP 98.4; O2SAT 100
[2025-02-06 16:00] VITALS: BP_SYST 107; BP_DIAS 69; BP_DIAS 75; TEMP 98.2; TEMP 98.5; O2SAT 100
[2025-02-07 07:30] VITALS: BP 106/88; TEMP 97.9; O2SAT 97
[2025-02-07 20:00] VITALS: BP 114/72; TEMP 98.1; O2SAT 94
[2025-02-08 07:30] VITALS: BP 134/91; TEMP 97.9; O2SAT 98
== END 2025-02-08 12:00 | disposition home or self-care (01) | DRG 951 ==
LOC: MED 15:05
PROVIDERS: ADMIT Psychiatry & Neurology Psychiatry; ATTEND Psychiatry & Neurology Psychiatry
DX: Z00.6 Encounter for examination for normal comparison and control in clinical research program (principal); F20.0 Paranoid schizophrenia; Z79.899 Other long term (current) drug therapy; Z91.013 Allergy to seafood; Z88.8 Allergy status to other drugs, medicaments and biological substances; Z91.011 Allergy to milk products; E11.9 Type 2 diabetes mellitus without complications; Z87.891 Personal history of nicotine dependence; Z79.84 Long term (current) use of oral hypoglycemic drugs
CPT/HCPCS: 82962-TC; G0378